=== PATIENT | male | born 1960 | race African-American/Black ===

== ENCOUNTER 2016-12-01 19:00 | Emergency (ER) | payer OTHER ==
[2016-12-01] MEDS ORDERED: IPRATROPIUM-ALBUTEROL 3 ML NEB INHALATION STA (19:48)
[2016-12-01] MEDS ORDERED: predniSONE 20 MG TAB PO STA (19:48)
[2016-12-01] MEDS ORDERED: ALBUTEROL NEBULIZED 2.5 MG/3 ML INHALATION STA (19:48)
[2016-12-01] MEDS ORDERED: LIDOCAINE VISCOUS 2% 15 ML CUP MUCOUS MEM ONE (19:49)
[2016-12-01 20:03] LABS: Basophils # (A) 0.2 k/uL (0-0.2); Basophils % (A) 1 %; CH 29.6; CHCM 32.7; Eosinophils # (A) 0.2 k/uL (0-0.7); Eosinophils % (A) 1 %; HCT 45.4 % (39.0-53.0); HDW 2.19; HGB 15.1 gm/dL (13.0-17.5); Luc # (Auto) 0.46; Luc % (Auto) 4; Lymphocytes # (A) 2.5 k/uL (1.0-4.8); Lymphocytes % (A) 21 %; MCH 30.1 pg (25.0-35.0); MCHC 33.2 g/dL (31.0-37.0); MCV 90.9 fL (80.0-100.0); Mean Platelet Volume 6.8; Monocytes # (A) 0.9 k/uL (0-1.0); Monocytes % (A) 8 %; Neutrophils % (A) 65 %; RDW 13.1 % (11.5-15.5); WBC 12.2 k/uL (3.8-10.6); WBC (Perox) 12.11
[2016-12-01 20:09] LABS: ALT 55 U/L (21-72); AST 54 U/L (17-59); Alkaline Phosphatase 85 U/L (38-126); Anion Gap 14 mmol/L; Blood Urea Nitrogen 8 mg/dL (9-20); Calcium 10.2 mg/dL (8.4-10.2); Carbon Dioxide 25 mmol/L (22-30); Chloride 103 mmol/L (98-107); Glucose 117 mg/dL (74-99); Non-African American GFR(MDRD) >60 (>60 ml/min/1.73 sqM); Potassium 3.7 mmol/L (3.5-5.1); Sodium 142 mmol/L (137-145); Total Bilirubin 0.6 mg/dL (0.2-1.3); Total Protein 8.1 g/dL (6.3-8.2)
[2016-12-01 20:14] LABS: Alcohol 104 mg/dL
[2016-12-01] MEDS ORDERED: RX INFO: IV CONTRAST WAS GIVEN 1 EACH MISC MISCELLANE PRN (21:45)
--- NOTE | 2016-12-01 21:59 | XR ---
EXAMINATION TYPE: XR chest 2V DATE OF EXAM: 12/01/2016 8:36 PM COMPARISON: 09/23/2015 INDICATION: Difficulty breathing, short of breath TECHNIQUE: Frontal and lateral views the chest are obtained FINDINGS: The heart size is normal. The pulmonary vasculature is normal. There is increased lung markings at the right posterior lung base. Correlate for right lower lobe pne umonia. IMPRESSION: 1. Clinical correlation recommended for right lower lobe pneumonia. Follow-up is recommended.
[2016-12-01] MEDS ORDERED: AZITHROMYCIN 500 MG TAB PO STA (22:10)
--- NOTE | 2016-12-01 22:30 | ED ---
SOB HPI - General Chief Complaint: Shortness of Breath Stated Complaint: BRITTNEY Time Seen by Provider: 12/01/16 19:19 Source: patient Mode of arrival: ambulatory Limitations: no limitations - History of Present Illness Initial Comments: Please see the scanned paper chart - Related Data Home Medications Medication Instructions Recorded Confirmed Albuterol Sulfate [Proventil Hfa] 2 puff INHALATION RT-QID PRN 12/01/16 12/01/16 Budesonide-Formot 160-4.5 Mcg 2 puff INHALATION RT-BID 12/01/16 12/01/16 [Symbicort 160-4.5 Mcg Inhaler] Ergocalciferol [Vitamin D2] 50,000 unit PO QMONTH 12/01/16 12/01/16 Fluticasone Nasal [place] [Flonase 2 spr EA NOSTRIL DAILY PRN 12/01/16 12/01/16 Nasal [place]] HYDROcodone/APAP 7.5-325MG [[place] 1 tab PO BID PRN 12/01/16 12/01/16 7.5] Hydrochlorothiazide [Hydrodiuril] 12.5 mg PO DAILY 12/01/16 12/01/16 Metoprolol Tartrate [Lopressor] 12.5 mg PO BID 12/01/16 12/01/16 Omeprazole [PriLOSEC] 20 mg PO BID 12/01/16 12/01/16 amLODIPine [Norvasc] 10 mg PO DAILY 12/01/16 12/01/16 Previous Rx's Medication Instructions Recorded Albuterol Inhaler [Ventolin Hfa 1 - 2 puff INHALATION Q6HR PRN #1 12/01/16 Inhaler] inhaler Azithromycin [Zithromax Z-pack] 250 mg PO DIRECTED #6 tab 12/01/16 predniSONE 60 mg PO DAILY #30 tab 12/01/16 Allergies Allergy/AdvReac Type Severity Reaction Status Date / Time No Known Allergies Allergy Verified 12/01/16 19:27 Review of Systems ROS Statement: Those systems with pertinent positive or pertinent negative responses have been documented in the HPI. ROS Other: All systems not noted in ROS Statement are negative. 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 History of Any Multi-Drug Resistant Organisms: None Reported Past Surgical History: Orthopedic Surgery Additional Past Surgical History / Comment(s): ORIF LT HIP Past Anesthesia/Blood Transfusion Reactions: No Reported Reaction Past Psychological History: No Psychological Hx Reported Smoking Status: Current every day smoker Past Alcohol Use History: Daily Past Drug Use History: None Reported - Past Family History Mother Family Medical History: Cancer General Exam Limitations: no limitations Course Vital Signs 12/01/16 12/01/16 12/01/16 19:14 20:13 20:21 Temperature 98.9 F Pulse Rate 109 H 102 H 102 H Respiratory 18 Rate Blood Pressure 116/90 O2 Sat by Pulse 93 L Oximetry 12/01/16 12/01/16 12/01/16 20:25 21:06 22:44 Temperature Pulse Rate 102 H 101 H 99 Respiratory 20 20 Rate Blood Pressure 156/88 161/101 O2 Sat by Pulse 96 94 L Oximetry 12/02/16 00:09 Temperature 98.1 F Pulse Rate 98 Respiratory 18 Rate Blood Pressure 153/99 O2 Sat by Pulse 92 L Oximetry Medical Decision Making - Lab Data Result diagrams: 12/01/16 19:30 12/01/16 19:30 Lab Results 12/01/16 12/01/16 12/01/16 Range/Units 19:30 19:30 19:30 WBC 12.2 H (3.8-10.6) k/uL RBC 5.00 (4.30-5.90) m/uL Hgb 15.1 (13.0-17.5) gm/dL Hct 45.4 (39.0-53.0) % MCV 90.9 (80.0-100.0) fL MCH 30.1 (25.0-35.0) pg MCHC 33.2 (31.0-37.0) g/dL RDW 13.1 (11.5-15.5) % Plt Count 349 (150-450) k/uL Neutrophils % 65 % Lymphocytes % 21 % Monocytes % 8 % Eosinophils % 1 % Basophils % 1 % Neutrophils # 8.0 H (1.3-7.7) k/uL Lymphocytes # 2.5 (1.0-4.8) k/uL Monocytes # 0.9 (0-1.0) k/uL Eosinophils # 0.2 (0-0.7) k/uL Basophils # 0.2 (0-0.2) k/uL D-Dimer 0.71 H (<0.60) mg/L FEU Sodium 142 (137-145) mmol/L Potassium 3.7 (3.5-5.1) mmol/L Chloride 103 (98-107) mmol/L Carbon Dioxide 25 (22-30) mmol/L Anion Gap 14 mmol/L BUN 8 L (9-20) mg/dL Creatinine 0.90 (0.66-1.25) mg/dL Est GFR (MDRD) Af Amer >60 (>60 ml/min/1.73 sqM) Est GFR (MDRD) Non-Af >60 (>60 ml/min/1.73 sqM) Glucose 117 H (74-99) mg/dL Calcium 10.2 (8.4-10.2) mg/dL Total Bilirubin 0.6 (0.2-1.3) mg/dL AST 54 (17-59) U/L ALT 55 (21-72) U/L Alkaline Phosphatase 85 (38-126) U/L Troponin I (0.000-0.034) ng/mL NT-Pro-B Natriuret Pep pg/mL Total Protein 8.1 (6.3-8.2) g/dL Albumin 4.3 (3.5-5.0) g/dL Serum Alcohol 104 mg/dL Group A Strep Rapid (Negative) 12/01/16 12/01/16 12/01/16 Range/Units 19:30 19:30 19:55 WBC (3.8-10.6) k/uL RBC (4.30-5.90) m/uL Hgb (13.0-17.5) gm/dL Hct (39.0-53.0) % MCV (80.0-100.0) fL MCH (25.0-35.0) pg MCHC (31.0-37.0) g/dL RDW (11.5-15.5) % Plt Count (150-450) k/uL Neutrophils % % Lymphocytes % % Monocytes % % Eosinophils % % Basophils % % Neutrophils # (1.3-7.7) k/uL Lymphocytes # (1.0-4.8) k/uL Monocytes # (0-1.0) k/uL Eosinophils # (0-0.7) k/uL Basophils # (0-0.2) k/uL D-Dimer (<0.60) mg/L FEU Sodium (137-145) mmol/L Potassium (3.5-5.1) mmol/L Chloride (98-107) mmol/L Carbon Dioxide (22-30) mmol/L Anion Gap mmol/L BUN (9-20) mg/dL Creatinine (0.66-1.25) mg/dL Est GFR (MDRD) Af Amer (>60 ml/min/1.73 sqM) Est GFR (MDRD) Non-Af (>60 ml/min/1.73 sqM) Glucose (74-99) mg/dL Calcium (8.4-10.2) mg/dL Total Bilirubin (0.2-1.3) mg/dL AST (17-59) U/L ALT (21-72) U/L Alkaline Phosphatase (38-126) U/L Troponin I <0.012 (0.000-0.034) ng/mL NT-Pro-B Natriuret Pep 35 pg/mL Total Protein (6.3-8.2) g/dL Albumin (3.5-5.0) g/dL Serum Alcohol mg/dL Group A Strep Rapid Negative (Negative) Disposition Clinical Impression: Pneumonia Disposition: HOME SELF-CARE Condition: Fair Instructions: Pneumonia (ED) Prescriptions: Albuterol Inhaler [Ventolin Hfa Inhaler] 1 - 2 puff INHALATION Q6HR PRN #1 inhaler PRN Reason: Wheezing Azithromycin [Zithromax Z-pack] 250 mg PO DIRECTED #6 tab predniSONE 60 mg PO DAILY #30 tab Referrals: None,Stated [Primary Care Provider] - 1-2 days Mary Grace Mckay MD [REFERRING] - 1-2 days
--- NOTE | 2016-12-01 23:25 | CT ---
EXAM: CT Angiography Chest With Intravenous Contrast. CLINICAL HISTORY: Reason: Pain TECHNIQUE: Axial computed tomographic angiography images of the chest with intravenous contrast using pulmonary embolism protocol. CTDI is 8.3 mGy and DLP is 1046 mGy-cm This CT exam was performed using one or more of the following dose reduction techniques: automated exposure control, adjustment of the mA and/or kV according to patient size, and/or use of iterative reconstruction technique. MIP reconstructed images were created and reviewed. COMPARISON: No relevant prior studies available. FINDINGS: Examination is limited due to bolus timing/suboptimal ulnar arterial opacification. No clear PE, though subsegmental and even subsegmental emboli could be missed. Dilation of the main pulmonary artery suggesting hypertension. No dissection or other acute aortic syndrome. Extensive reticulonodular pulmonary infiltrates, most pronounced in the right middle lobe suggesting atypical infection/bronchiolitis. Minimal apical emphysema. Mild mediastinal adenopathy. Largest pretracheal node measures 1.1 cm in short axis. This is likely postinflammatory given other findings. Hepatic steatosis. No acute fracture. IMPRESSION: Extensive bronchiolitis, most pronounced in the RML. No clear PE on limited exam. Dilated pulmonary artery suggesting hypertension.
[2016-12-02 00:10] VITALS: BP 153/99; PULSE 98; RESP 18; TEMP 98.1
== END 2016-12-02 00:10 | disposition home or self-care (01) ==
LOC: EC 19:00
DX: J18.9 Pneumonia, unspecified organism (principal); J44.9 Chronic obstructive pulmonary disease, unspecified; K21.9 Gastro-esophageal reflux disease without esophagitis; I10 Essential (primary) hypertension; F17.200 Nicotine dependence, unspecified, uncomplicated; Z79.51 Long term (current) use of inhaled steroids; Z79.899 Other long term (current) drug therapy
CPT/HCPCS: 36415; 94640 ×2; 93005; 85379; 83880; 80053; 84484; 85025; 80320; 87081; 87430; 71020; 71275; 99285; 96365; Q9967; J0696; J7512

== ENCOUNTER → 2017-02-06 | Outpatient (CLI) | payer OTHER ==
--- NOTE | 2017-02-07 07:49 | US ---
EXAMINATION TYPE: US venous doppler duplex LE LT DATE OF EXAM: 02/06/2017 12:54 PM COMPARISON: NONE CLINICAL HISTORY: M79.605 PAIN IN LT LEG,R25.5 LEG CRAMPING. SIDE PERFORMED: Left TECHNIQUE: The lower extremity deep venous system is examined utilizing real time linear array sonog christian with graded compression, doppler sonography and color-flow sonography. VESSELS IMAGED: External Iliac Vein (EIV) Common Femoral Vein Deep Femoral Vein Greater Saphenous Vein * Femoral Vein Popliteal Vein Small Saphenous Vein * Proximal Calf Veins (* superficial vessels) Left Leg: Negative for DVT IMPRESSION: Negative exam. No evidence of deep venous thrombosis in the left leg.
== END | disposition home or self-care (01) ==
LOC: RADUSWWP 12:12
PROVIDERS: ATTEND Family Medicine
DX: M79.605 Pain in left leg (principal); R25.2 Cramp and spasm

== ENCOUNTER 2017-06-26 13:45 | Emergency (ER) | payer OTHER ==
[2017-06-26 13:55] VITALS: BP 127/99; PULSE 103; RESP 20; TEMP 98.1
--- NOTE | 2017-06-26 14:13 | ED ---
General Adult HPI - General Chief complaint: Extremity Problem,Nontraumatic Stated complaint: neck/arm/shoulder tightness Time Seen by Provider: 06/26/17 13:56 Source: patient, RN notes reviewed Mode of arrival: ambulatory Limitations: no limitations - History of Present Illness Initial comments: 57-year-old male presents emergency Department with chief complaint of left shoulder neck pain. Patient states this started 5-6 days ago. He states he felt that he slept wrong. He did wake up with the pain. Patient denies any weakness of his upper extremities. He states he does have some discomfort in his left trapezius region. Patient currently takes [place] states that helping. He has not tried any other medications or topical applicants at this time. Patient states that he has not seen his primary care physician for this. Patient denies any paresthesias denies chest pain or shortness breath denies headache or dizziness. - Related Data Home Medications Medication Instructions Recorded Confirmed Albuterol Sulfate [Proventil Hfa] 2 puff INHALATION RT-QID PRN 12/01/16 12/01/16 Budesonide-Formot 160-4.5 Mcg 2 puff INHALATION RT-BID 12/01/16 12/01/16 [Symbicort 160-4.5 Mcg Inhaler] Ergocalciferol [Vitamin D2] 50,000 unit PO QMONTH 12/01/16 12/01/16 Fluticasone Nasal [place] [Flonase 2 spr EA NOSTRIL DAILY PRN 12/01/16 12/01/16 Nasal [place]] HYDROcodone/APAP 7.5-325MG [[place] 1 tab PO BID PRN 12/01/16 12/01/16 7.5] Hydrochlorothiazide [Hydrodiuril] 12.5 mg PO DAILY 12/01/16 12/01/16 Metoprolol Tartrate [Lopressor] 12.5 mg PO BID 12/01/16 12/01/16 Omeprazole [PriLOSEC] 20 mg PO BID 12/01/16 12/01/16 amLODIPine [Norvasc] 10 mg PO DAILY 12/01/16 12/01/16 Previous Rx's Medication Instructions Recorded Albuterol Inhaler [Ventolin Hfa 1 - 2 puff INHALATION Q6HR PRN #1 12/01/16 Inhaler] inhaler Azithromycin [Zithromax Z-pack] 250 mg PO DIRECTED #6 tab 12/01/16 predniSONE 60 mg PO DAILY #30 tab 12/01/16 Cyclobenzaprine [Flexeril] 10 mg PO TID PRN #15 tab 06/26/17 methylPREDNISolone [Medrol Dose 4 mg PO DIRECTED #1 pack 06/26/17 Pack] Allergies Allergy/AdvReac Type Severity Reaction Status Date / Time No Known Allergies Allergy Verified 06/26/17 13:55 Review of Systems ROS Statement: Those systems with pertinent positive or pertinent negative responses have been documented in the HPI. ROS Other: All systems not noted in ROS Statement are negative. 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 History of Any Multi-Drug Resistant Organisms: None Reported Past Surgical History: Orthopedic Surgery Additional Past Surgical History / Comment(s): ORIF LT HIP Past Anesthesia/Blood Transfusion Reactions: No Reported Reaction Past Psychological History: No Psychological Hx Reported Smoking Status: Current every day smoker Past Alcohol Use History: Occasional Past Drug Use History: None Reported - Past Family History Mother Family Medical History: Cancer General Exam Limitations: no limitations General appearance: alert, in no apparent distress Head exam: Present: atraumatic, normocephalic, normal inspection ENT exam: Present: normal exam, normal oropharynx, mucous membranes moist, TM's normal bilaterally Neck exam: Present: normal inspection, tenderness (Mild tenderness over left trapezius), full ROM. Absent: meningismus, lymphadenopathy Respiratory exam: Present: normal lung sounds bilaterally. Absent: respiratory distress, wheezes, rales, rhonchi, stridor Cardiovascular Exam: Present: regular rate, normal rhythm, normal heart sounds. Absent: systolic murmur, diastolic murmur, rubs, gallop, clicks Extremities exam: Present: other (Patient's full range of motion of bilateral upper extremities neurovascularly intact strength 5/5 equal bilaterally) Skin exam: Present: warm, dry, intact, normal color. Absent: rash Course Vital Signs 06/26/17 13:53 Temperature 98.1 F Pulse Rate 103 H Respiratory 20 Rate Blood Pressure 127/99 O2 Sat by Pulse 98 Oximetry Medical Decision Making - Medical Decision Making This a 57-year-old male presents emergency department for left trapezius left shoulder pain. Patient has some cervical radiculopathy pain. Patient currently takes [place] will be advised to continue this medication will be given steroids in Flexeril. Patient will follow-up with primary care physician pain management. Return parameters discussed. Disposition Clinical Impression: Cervical radiculopathy Disposition: HOME SELF-CARE Condition: Stable Instructions: Cervical Radiculopathy (ED) Additional Instructions: Please return to the Emergency Department if symptoms worsen or any other concerns. Prescriptions: Cyclobenzaprine [Flexeril] 10 mg PO TID PRN #15 tab PRN Reason: Muscle Spasm methylPREDNISolone [Medrol Dose Pack] 4 mg PO DIRECTED #1 pack Referrals: Lori Ugalde MD [Primary Care Provider] - 1-2 days Time of Disposition: 14:27
--- NOTE | 2017-06-26 14:35 | XR ---
EXAMINATION TYPE: XR cervical spine comp DATE OF EXAM: 06/26/2017 CLINICAL HISTORY: pain COMPARISON: March 2009 TECHNIQUE: Frontal, lateral, oblique, swimmers, and open mouth view of the cervical spine are obtaine d. FINDINGS: The cervical spine is visualized in its entirety from C1 thru the top of T1 level. It is s atisfactory in alignment without evidence of acute fracture or dislocation. The pre-vertebral soft t issue appears within normal limits. Moderate degenerative narrowing at C5-6 and C6-7 with ventral spo ndylosis. Chronic loss of height involving C6 unchanged. The C1-C2 articulation is unremarkable on th e open mouth view. The oblique images are within normal limits. IMPRESSION: No acute fracture or dislocation is seen in the cervical spine.ICD 10 NO FRACTURE, INITI AL EVALUATION
== END 2017-06-26 14:38 | disposition home or self-care (01) ==
LOC: EC 13:45
DX: M54.12 Radiculopathy, cervical region (principal); I10 Essential (primary) hypertension; K21.9 Gastro-esophageal reflux disease without esophagitis; J44.9 Chronic obstructive pulmonary disease, unspecified; F17.200 Nicotine dependence, unspecified, uncomplicated; Z79.51 Long term (current) use of inhaled steroids; Z79.899 Other long term (current) drug therapy; Z86.79 Personal history of other diseases of the circulatory system
CPT/HCPCS: 72050; 99283

== ENCOUNTER 2017-07-07 04:59 | Emergency (ER) | payer OTHER ==
[2017-07-07 05:05] VITALS: BP 145/86; PULSE 103; RESP 20; TEMP 96.9
[2017-07-07] MEDS ORDERED: KETOROLAC 60 MG/2 ML VIAL IM STA (05:21)
[2017-07-07] MEDS ORDERED: MORPHINE SULFATE 2 MG/ML SYRINGE IM STA (05:22)
--- NOTE | 2017-07-07 05:28 | ED ---
General Adult HPI - General Chief complaint: Back Pain/Injury Stated complaint: Neck Pain, Left Arm Pain Time Seen by Provider: 07/07/17 05:10 Source: patient, family, RN notes reviewed, old records reviewed Mode of arrival: ambulatory Limitations: no limitations - History of Present Illness Initial comments: Patient is a pleasant 57-year-old male presenting to the emergency Department with neck pain. Patient states discomfort does start in the back of the neck and does radiate down the left arm. Onset of symptoms was a few weeks ago. Patient questions if he had neck problems in the distant past. Patient states discomfort starts in the neck and radiates to the left arm. Patient states he has not been able to sleep well. Patient denies any weakness. No loss of sensation. No chest or back pain. No fevers. Patient was in the emergency department a week ago and did have x-rays done. - Related Data Home Medications Medication Instructions Recorded Confirmed Albuterol Sulfate [Proventil Hfa] 2 puff INHALATION RT-QID PRN 12/01/16 12/01/16 Budesonide-Formot 160-4.5 Mcg 2 puff INHALATION RT-BID 12/01/16 12/01/16 [Symbicort 160-4.5 Mcg Inhaler] Ergocalciferol [Vitamin D2] 50,000 unit PO QMONTH 12/01/16 12/01/16 Fluticasone Nasal [place] [Flonase 2 spr EA NOSTRIL DAILY PRN 12/01/16 12/01/16 Nasal [place]] HYDROcodone/APAP 7.5-325MG [[place] 1 tab PO BID PRN 12/01/16 12/01/16 7.5] Hydrochlorothiazide [Hydrodiuril] 12.5 mg PO DAILY 12/01/16 12/01/16 Metoprolol Tartrate [Lopressor] 12.5 mg PO BID 12/01/16 12/01/16 Omeprazole [PriLOSEC] 20 mg PO BID 12/01/16 12/01/16 amLODIPine [Norvasc] 10 mg PO DAILY 12/01/16 12/01/16 Previous Rx's Medication Instructions Recorded Albuterol Inhaler [Ventolin Hfa 1 - 2 puff INHALATION Q6HR PRN #1 12/01/16 Inhaler] inhaler Azithromycin [Zithromax Z-pack] 250 mg PO DIRECTED #6 tab 12/01/16 predniSONE 60 mg PO DAILY #30 tab 12/01/16 Cyclobenzaprine [Flexeril] 10 mg PO TID PRN #15 tab 06/26/17 methylPREDNISolone [Medrol Dose 4 mg PO DIRECTED #1 pack 06/26/17 Pack] Allergies Allergy/AdvReac Type Severity Reaction Status Date / Time No Known Allergies Allergy Verified 07/07/17 05:05 Review of Systems ROS Statement: Those systems with pertinent positive or pertinent negative responses have been documented in the HPI. ROS Other: All systems not noted in ROS Statement are negative. 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 History of Any Multi-Drug Resistant Organisms: None Reported Past Surgical History: Orthopedic Surgery Additional Past Surgical History / Comment(s): ORIF LT HIP Past Anesthesia/Blood Transfusion Reactions: No Reported Reaction Past Psychological History: No Psychological Hx Reported Smoking Status: Current every day smoker Past Alcohol Use History: Occasional Past Drug Use History: None Reported - Past Family History Mother Family Medical History: Cancer General Exam Limitations: no limitations General appearance: alert, in no apparent distress Head exam: Present: atraumatic, normocephalic Eye exam: Present: normal appearance, PERRL ENT exam: Present: normal oropharynx Neck exam: Present: normal inspection. Absent: tenderness Respiratory exam: Present: normal lung sounds bilaterally Cardiovascular Exam: Present: regular rate, normal rhythm Expanded Peripheral pulses: 2+: Radial (L) GI/Abdominal exam: Present: soft. Absent: tenderness Extremities exam: Present: normal inspection, other (Contraction bilateral small fingers). Absent: tenderness Back exam: Present: normal inspection Neurological exam: Present: alert. Absent: motor sensory deficit Psychiatric exam: Present: normal affect, normal mood Skin exam: Present: normal color Course Vital Signs 07/07/17 05:02 Temperature 96.9 F L Pulse Rate 103 H Respiratory 20 Rate Blood Pressure 145/86 O2 Sat by Pulse 95 Oximetry Disposition Clinical Impression: Cervical radiculopathy Disposition: HOME SELF-CARE Condition: Stable Instructions: Cervical Radiculopathy (ED) Additional Instructions: Please follow-up with primary care physician and orthopedics in the next day or 2 for recheck. Return for weakness, loss of sensation, fevers, worsening or changing symptoms or other concerns. If symptoms continue may need MRI. Referrals: Lori Ugalde MD [Primary Care Provider] - 1-2 days Don Curry DO [Doctor of Osteopathic Medicine] - 1-2 days Time of Disposition: 05:28
== END 2017-07-07 05:42 | disposition home or self-care (01) ==
LOC: EC 04:59
DX: M54.12 Radiculopathy, cervical region (principal); J44.9 Chronic obstructive pulmonary disease, unspecified; K21.9 Gastro-esophageal reflux disease without esophagitis; I10 Essential (primary) hypertension; F17.200 Nicotine dependence, unspecified, uncomplicated; Z79.51 Long term (current) use of inhaled steroids; Z79.899 Other long term (current) drug therapy
CPT/HCPCS: 99283; 96372 ×2; J1885; J2270

== ENCOUNTER 2017-08-07 18:29 | Emergency (ER) | payer OTHER ==
[2017-08-07] MEDS ORDERED: DIAZEPAM 5 MG/ML 2 ML INJ IVP STA (19:38)
[2017-08-07] MEDS ORDERED: SODIUM CHLORIDE 0.9% 500 ML IV ONE (19:38)
[2017-08-07] MEDS ORDERED: KETOROLAC 30 MG/ML 1 ML VIAL IVP STA (19:38)
--- NOTE | 2017-08-07 19:50 | ED ---
Headache HPI - General Chief Complaint: Headache Stated Complaint: HEADACHE, NECK PAIN, LEFT ARM PAIN Time Seen by Provider: 08/07/17 18:54 Mode of arrival: ambulatory Limitations: no limitations - History of Present Illness Initial Comments: 57-year-old male patient presents to the emergency department today with complaints of headache and left neck and arm pain. Patient had a slip and fall accident 2 weeks ago and did sustain some facial trauma and hit his head. He denied any loss of consciousness with the injury. He states that he did care and had CT scans that were negative. Patient states that he has been having headaches every day all day long. He states the pain is mostly in the back of his head. States that he is taken [id number] ibuprofen and acetaminophen without relief of symptoms. She is also having left-sided neck pain that radiates down his arm. He states the pain makes it difficult for him to sleep at night. He reports tingling to the entire left arm. He denies any increased pain with movement of the arm. He denies any nausea, vomiting, vision, weakness , or dizziness. He states he does have some blurred vision however he is not wearing his appropriate prescription of eyeglasses. Patient denies any recent rash, fever, chills, shortness breath, chest pain, abdominal pain, diarrhea, constipation, back pain, hematuria, dysuria, urinary urgency, urinary frequency , or any other complaints. - Related Data Home Medications Medication Instructions Recorded Confirmed Albuterol Sulfate [Proventil Hfa] 2 puff INHALATION RT-Q4H PRN 12/01/16 08/07/17 Baclofen [Lioresal] 20 mg PO BID 07/21/17 08/07/17 Acetaminophen Tab [Tylenol Tab] 500 mg PO Q6HR PRN 08/07/17 08/07/17 busPIRone HCL 10 mg PO BID 08/07/17 08/07/17 Previous Rx's Medication Instructions Recorded Cyclobenzaprine [Flexeril] 10 mg PO TID #15 tab 08/07/17 Hydrocodone/Acetaminophen [Crandall 1 tab PO Q6HR PRN #12 tab 08/07/17 5-325] predniSONE 50 mg PO DAILY #5 tablet 08/07/17 Allergies Allergy/AdvReac Type Severity Reaction Status Date / Time No Known Allergies Allergy Verified 08/07/17 19:13 Review of Systems ROS Statement: Those systems with pertinent positive or pertinent negative responses have been documented in the HPI. ROS Other: All systems not noted in ROS Statement are negative. 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 History of Any Multi-Drug Resistant Organisms: None Reported Past Surgical History: Orthopedic Surgery Additional Past Surgical History / Comment(s): ORIF LT HIP Past Anesthesia/Blood Transfusion Reactions: No Reported Reaction Past Psychological History: No Psychological Hx Reported Smoking Status: Current every day smoker Past Alcohol Use History: Occasional Past Drug Use History: None Reported - Past Family History Mother Family Medical History: Cancer General Exam Limitations: no limitations General appearance: alert, in no apparent distress, other (Physical well- developed, well-nourished adult male patient in no acute distress. Vital signs upon presentation are temperature 97.7F, pulse 101, respirations 22, blood pressure 149/103, pulse ox 94% on room air.) Head exam: Present: atraumatic, normocephalic, normal inspection Eye exam: Present: normal appearance, PERRL, EOMI. Absent: scleral icterus, conjunctival injection, nystagmus, periorbital swelling ENT exam: Present: normal exam, normal oropharynx, mucous membranes moist, TM's normal bilaterally Neck exam: Present: normal inspection, full ROM. Absent: tenderness, meningismus, lymphadenopathy Respiratory exam: Present: wheezes (Monday expiratory wheezing throughout posterior lung fowler). Absent: normal lung sounds bilaterally, respiratory distress, rales, rhonchi, stridor Cardiovascular Exam: Present: normal rhythm, tachycardia, normal heart sounds. Absent: systolic murmur, diastolic murmur, rubs, gallop, clicks GI/Abdominal exam: Present: soft, normal bowel sounds. Absent: distended, tenderness, guarding, rebound, rigid Extremities exam: Present: full ROM, normal capillary refill, other (Strength in the upper extremities is 5/5.). Absent: normal inspection (There is evidence of a soft tissue mass at the proximal aspect of the left upper arm. Area is nontender to palpation, patient reports it has been there for years.), tenderness, pedal edema, joint swelling, calf tenderness Back exam: Present: normal inspection. Absent: vertebral tenderness Neurological exam: Present: alert, oriented X3, CN II-XII intact Psychiatric exam: Present: normal affect, agitated Skin exam: Present: warm, dry, intact, normal color. Absent: rash Course Vital Signs 08/07/17 08/07/17 08/07/17 18:38 20:40 22:05 Temperature 97.7 F 98.0 F Pulse Rate 101 H 88 Respiratory 22 18 20 Rate Blood Pressure 149/103 151/105 O2 Sat by Pulse 94 L 99 Oximetry Medical Decision Making - Medical Decision Making 57-year-old male patient presented to the emergency department today with complaints of neck pain, left arm pain, and headaches. Patient reported that he did have a slip and fall accident approximately 2 weeks ago and has been having headaches since then. Examination did reveal some mild left-sided neck tenderness. Patient is neurologically intact. Strength in the upper extremities was normal. We did obtain a computed tomography scan of the brain which showed no acute intracranial abnormalities. We attempted computed tomography scan of the cervical spine however patient was too uncomfortable to lie still so C1 through C4 was visualized and showed no changes. Patient does have a history of chronic neck pain with cervical radiculopathy. It is felt that symptoms today are related to this. We will discharge him home and start him on a course of steroids, pain medications, and muscle relaxers. Patient also did have low oxygen saturation and coarse breath sounds here in the department. I did want to obtain a chest x-ray however patient refused and wanted to be discharged home. Patient is instructed to follow-up with orthopedics for further evaluation. He is instructed to return here immediately for any new, worsening, or concerning symptoms. He verbalizes understanding and agrees with this plan. - EKG Data EKG Comments: EKG obtained at 1846 shows normal sinus rhythm with a ventricular rate of 96, NH interval 154, QRS duration of 72, QT 334, QTC 421. No evidence of ST elevation or depression. - Radiology Data Radiology results: report reviewed, image reviewed CT of the brain and cervical spine are performed without contrast. There is mild cerebral cortical atrophy. There is no mass effect or midline shift. There is no sign of intracranial hemorrhage. The calvarium is intact. There is limited visualization of the lower cervical spine per the upper cervical spine is seen from the skull base to C4. Vertebra abnormal minute. Exam is limited by motion. Posterior elements are intact. The skull base is intact. Impression by Dr. Jones shows negative computed tomography scan of the brain. No change. Limited computed tomography scan of the cervical spine. No fracture seen. No adverse change compared to old exam. Disposition Clinical Impression: Post concussive syndrome, Cervical radiculopathy Disposition: HOME SELF-CARE Condition: Good Instructions: Cervical Radiculopathy (ED), Post Concussion Syndrome (ED) Additional Instructions: Take medications as directed. Follow-up with her primary care physician for recheck in 1-2 days. Follow-up with occupational health specialist as soon as possible. Return here immediately for any new, worsening, or concerning symptoms. Prescriptions: Cyclobenzaprine [Flexeril] 10 mg PO TID #15 tab Hydrocodone/Acetaminophen [Crandall 5-325] 1 tab PO Q6HR PRN #12 tab PRN Reason: Pain predniSONE 50 mg PO DAILY #5 tablet Referrals: None,Stated [Primary Care Provider] - 1-2 days Don Curry, [Doctor of Osteopathic Medicine] - 1-2 days Time of Disposition: 21:51
[2017-08-07] MEDS ORDERED: HYDROmorphone 1 MG/ML 1 ML SYRINGE IVP STA (21:12)
--- NOTE | 2017-08-07 21:29 | CT ---
EXAMINATION TYPE: CT brain ajine wo con DATE OF EXAM: 08/07/2017 COMPARISON: 07/21/2017 HISTORY: Fall 2 weeks ago. Left sided arm pain CT DLP: 1236 mGycm Automated exposure control for dose reduction was used. TECHNIQUE: CT scan of the head and cervical spine are performed without contrast. FINDINGS: There is mild cerebral cortical atrophy. There is no mass effect nor midline shift. There is no sign of intracranial hemorrhage. The calvarium is intact. There is limited visualization of the lower cervical spine. The upper cervical spine is seen from the skull base to C4. Vertebra have normal alignment. Exam is limited by motion. Posterior elements are intact. The skull base is intact. IMPRESSION: Negative CT scan of the brain. No change. Limited CT scan of the cervical spine. No fracture seen. No adverse change compared to old exam.
[2017-08-07 22:15] VITALS: BP 151/105; PULSE 88; RESP 20; TEMP 98
== END 2017-08-07 22:05 | disposition home or self-care (01) ==
LOC: EC 18:29
DX: F07.81 Postconcussional syndrome (principal); M54.12 Radiculopathy, cervical region; G44.309 Post-traumatic headache, unspecified, not intractable; G47.30 Sleep apnea, unspecified; Z99.89 Dependence on other enabling machines and devices; F17.200 Nicotine dependence, unspecified, uncomplicated; Z53.20 Procedure and treatment not carried out because of patient's decision for unspecified reasons; W01.10XA Fall on same level from slipping, tripping and stumbling with subsequent striking against unspecified object, initial encounter
CPT/HCPCS: 72125; 70450; 99284; 96374; 96375 ×2; 96361; J3360; J1885; J1170; 93005

== ENCOUNTER 2018-02-19 11:14 | Emergency (ER) | payer OTHER ==
[2018-02-19 12:19] LABS: Basophils # (A) 0.1 k/uL (0-0.2); Basophils % (A) 1 %; Eosinophils # (A) 0.4 k/uL (0-0.7); Eosinophils % (A) 6 %; HCT 51.8 % (39.0-53.0); HGB 16.7 gm/dL (13.0-17.5); Lymphocytes # (A) 2.1 k/uL (1.0-4.8); Lymphocytes % (A) 27 %; MCH 28.6 pg (25.0-35.0); MCHC 32.2 g/dL (31.0-37.0); MCV 88.9 fL (80.0-100.0); Mean Platelet Volume 6.8; Monocytes # (A) 0.7 k/uL (0-1.0); Monocytes % (A) 9 %; Neutrophils # (A) 4.1 k/uL (1.3-7.7); Neutrophils % (A) 53 %; Platelet Count 313 k/uL (150-450); RBC 5.82 m/uL (4.30-5.90); RDW 13.6 % (11.5-15.5); WBC 7.7 k/uL (3.8-10.6)
--- NOTE | 2018-02-19 12:19 | ED ---
General Adult HPI - General Chief complaint: Chest Pain Stated complaint: chest pain Time Seen by Provider: 02/19/18 11:29 Source: patient, RN notes reviewed, old records reviewed Mode of arrival: wheelchair Limitations: no limitations - History of Present Illness Initial comments: This is a 49-year-old male the ER for evaluation. Patient comes in for complaints of nothing. Patient has no complaints. He states he went to his normal doctor for recheck. Patient the ER for evaluation, patient basis for abnormal EKG patient states he has no complaints no chest pain or shortness of breath no diaphoresis. He doesn't occasionally getting chest pain. Patient states he is upset that is in the ER and now, he would not give the ER in the first place. He does have multiple risk factors for heart disease including high blood pressure cholesterol diabetes and a smoker - Related Data Home Medications Medication Instructions Recorded Confirmed Albuterol Sulfate [Proventil Hfa] 2 puff INHALATION RT-Q4H PRN 12/01/16 02/19/18 Beclomethasone Dipropionate [Qvar 1 puff INHALATION RT-BID 02/19/18 02/19/18 Redihaler] Cholecalciferol (Vitamin D3) 2,000 unit PO DAILY 02/19/18 02/19/18 [Vitamin D3] Hydrochlorothiazide 25 mg PO DAILY 02/19/18 02/19/18 Ibuprofen 800 mg PO TID PRN 02/19/18 02/19/18 Loratadine [Claritin] 10 mg PO DAILY 02/19/18 02/19/18 Omeprazole [PriLOSEC] 20 mg PO AC-BRKFST 02/19/18 02/19/18 amLODIPine [Norvasc] 10 mg PO DAILY 02/19/18 02/19/18 Allergies Allergy/AdvReac Type Severity Reaction Status Date / Time No Known Allergies Allergy Verified 02/19/18 12:06 Review of Systems ROS Statement: Those systems with pertinent positive or pertinent negative responses have been documented in the HPI. ROS Other: All systems not noted in ROS Statement are negative. 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 History of Any Multi-Drug Resistant Organisms: None Reported Past Surgical History: Orthopedic Surgery Additional Past Surgical History / Comment(s): ORIF LT HIP Past Anesthesia/Blood Transfusion Reactions: No Reported Reaction Past Psychological History: Anxiety Smoking Status: Current every day smoker Past Alcohol Use History: Occasional Past Drug Use History: None Reported - Past Family History Mother Family Medical History: Cancer General Exam Limitations: no limitations General appearance: alert, in no apparent distress Head exam: Present: atraumatic, normocephalic, normal inspection Eye exam: Present: normal appearance, PERRL, EOMI. Absent: scleral icterus, conjunctival injection, periorbital swelling ENT exam: Present: normal exam, mucous membranes moist Neck exam: Present: normal inspection. Absent: tenderness, meningismus, lymphadenopathy Respiratory exam: Present: normal lung sounds bilaterally. Absent: respiratory distress, wheezes, rales, rhonchi, stridor Cardiovascular Exam: Present: regular rate, normal rhythm, normal heart sounds. Absent: systolic murmur, diastolic murmur, rubs, gallop, clicks GI/Abdominal exam: Present: soft, normal bowel sounds. Absent: distended, tenderness, guarding, rebound, rigid Extremities exam: Present: normal inspection, full ROM, normal capillary refill. Absent: tenderness, pedal edema, joint swelling, calf tenderness Back exam: Present: normal inspection Neurological exam: Present: alert, oriented X3, CN II-XII intact Psychiatric exam: Present: normal affect, normal mood Skin exam: Present: warm, dry, intact, normal color. Absent: rash Course Vital Signs 02/19/18 02/19/18 11:25 12:17 Temperature 98.2 F Pulse Rate 90 86 Respiratory 18 18 Rate Blood Pressure 145/97 153/96 O2 Sat by Pulse 95 97 Oximetry - Reevaluation(s) Reevaluation #1: 02/19/18 13:33 Patient refuses to stay in the ER EKG Findings - EKG Comments: EKG Findings:: EKG shows sinus rhythm rate of 87, NC 164, QRS 76, QTc 435 Medical Decision Making - Medical Decision Making 57 male the ER for evaluation. Patient has positive EKG changes, which she no acute ST elevation on EKG here, troponin is negative, patient despite being told that he has risk factors for heart disease is refusing to stay in the ER - Lab Data Result diagrams: 02/19/18 12:05 02/19/18 12:05 Lab Results 02/19/18 02/19/18 02/19/18 Range/Units 12:05 12:05 12:05 WBC 7.7 (3.8-10.6) k/uL RBC 5.82 (4.30-5.90) m/uL Hgb 16.7 (13.0-17.5) gm/dL Hct 51.8 (39.0-53.0) % MCV 88.9 (80.0-100.0) fL MCH 28.6 (25.0-35.0) pg MCHC 32.2 (31.0-37.0) g/dL RDW 13.6 (11.5-15.5) % Plt Count 313 (150-450) k/uL Neutrophils % 53 % Lymphocytes % 27 % Monocytes % 9 % Eosinophils % 6 % Basophils % 1 % Neutrophils # 4.1 (1.3-7.7) k/uL Lymphocytes # 2.1 (1.0-4.8) k/uL Monocytes # 0.7 (0-1.0) k/uL Eosinophils # 0.4 (0-0.7) k/uL Basophils # 0.1 (0-0.2) k/uL PT (9.0-12.0) sec INR (<1.2) APTT (22.0-30.0) sec Sodium 138 (137-145) mmol/L Potassium 4.4 (3.5-5.1) mmol/L Chloride 103 (98-107) mmol/L Carbon Dioxide 25 (22-30) mmol/L Anion Gap 10 mmol/L BUN 15 (9-20) mg/dL Creatinine 0.90 (0.66-1.25) mg/dL Est GFR (CKD-EPI)AfAm >90 (>60 ml/min/1.73 sqM) Est GFR (CKD-EPI)NonAf >90 (>60 ml/min/1.73 sqM) Glucose 103 H (74-99) mg/dL Calcium 10.7 H (8.4-10.2) mg/dL Magnesium 1.9 (1.6-2.3) mg/dL Total Bilirubin 1.0 (0.2-1.3) mg/dL AST 50 (17-59) U/L ALT 49 (21-72) U/L Alkaline Phosphatase 69 (38-126) U/L Total Creatine Kinase 347 H (55-170) U/L CK-MB (CK-2) 1.3 (0.0-2.4) ng/mL CK-MB (CK-2) Rel Index 0.4 Troponin I <0.012 (0.000-0.034) ng/mL Total Protein 7.8 (6.3-8.2) g/dL Albumin 4.6 (3.5-5.0) g/dL Lipase 22 L (23-300) U/L 02/19/18 Range/Units 12:05 WBC (3.8-10.6) k/uL RBC (4.30-5.90) m/uL Hgb (13.0-17.5) gm/dL Hct (39.0-53.0) % MCV (80.0-100.0) fL MCH (25.0-35.0) pg MCHC (31.0-37.0) g/dL RDW (11.5-15.5) % Plt Count (150-450) k/uL Neutrophils % % Lymphocytes % % Monocytes % % Eosinophils % % Basophils % % Neutrophils # (1.3-7.7) k/uL Lymphocytes # (1.0-4.8) k/uL Monocytes # (0-1.0) k/uL Eosinophils # (0-0.7) k/uL Basophils # (0-0.2) k/uL PT 10.2 (9.0-12.0) sec INR 1.0 (<1.2) APTT 24.1 (22.0-30.0) sec Sodium (137-145) mmol/L Potassium (3.5-5.1) mmol/L Chloride (98-107) mmol/L Carbon Dioxide (22-30) mmol/L Anion Gap mmol/L BUN (9-20) mg/dL Creatinine (0.66-1.25) mg/dL Est GFR (CKD-EPI)AfAm (>60 ml/min/1.73 sqM) Est GFR (CKD-EPI)NonAf (>60 ml/min/1.73 sqM) Glucose (74-99) mg/dL Calcium (8.4-10.2) mg/dL Magnesium (1.6-2.3) mg/dL Total Bilirubin (0.2-1.3) mg/dL AST (17-59) U/L ALT (21-72) U/L Alkaline Phosphatase (38-126) U/L Total Creatine Kinase (55-170) U/L CK-MB (CK-2) (0.0-2.4) ng/mL CK-MB (CK-2) Rel Index Troponin I (0.000-0.034) ng/mL Total Protein (6.3-8.2) g/dL Albumin (3.5-5.0) g/dL Lipase (23-300) U/L - Radiology Data Radiology results: report reviewed (Chest x-rays negative), image reviewed Disposition Clinical Impression: Chest pain Disposition: Left Against Medical Advice Condition: Good Instructions: Chest Pain (ED) Is patient prescribed a controlled substance at d/c from ED?: No Referrals: Lori Ugalde MD [Primary Care Provider] - 1-2 days
[2018-02-19 12:31] LABS: ALT 49 U/L (21-72); AST 50 U/L (17-59); Albumin 4.6 g/dL (3.5-5.0); Alkaline Phosphatase 69 U/L (38-126); Anion Gap 10 mmol/L; Blood Urea Nitrogen 15 mg/dL (9-20); Calcium 10.7 mg/dL (8.4-10.2); Carbon Dioxide 25 mmol/L (22-30); Chloride 103 mmol/L (98-107); Glucose 103 mg/dL (74-99); Lipase 22 U/L (23-300); Magnesium 1.9 mg/dL (1.6-2.3); Potassium 4.4 mmol/L (3.5-5.1); Sodium 138 mmol/L (137-145); Total Protein 7.8 g/dL (6.3-8.2)
[2018-02-19 12:36] LABS: Partial Thromboplastin Time 24.1 sec (22.0-30.0); Prothrombin Time 10.2 sec (9.0-12.0)
[2018-02-19 12:41] LABS: Creatine Kinase 347 U/L (55-170)
[2018-02-19 12:54] LABS: Creatine Kinase MB 1.3 ng/mL (0.0-2.4); Troponin I <0.012 ng/mL (0.000-0.034)
--- NOTE | 2018-02-19 13:01 | XR ---
EXAMINATION TYPE: XR chest 2V DATE OF EXAM: 02/19/2018 COMPARISON: NONE HISTORY: Abnormal EKG and chest pain for 3 days with shortness of breath TECHNIQUE: Frontal and lateral views of the chest are obtained. FINDINGS: Linear left midlung platelike atelectasis is seen. Ulnar hyperinflation and biapical lucen cy suggests underlying COPD although this could relate to degree of inspiration and could be correlat ed with pulmonary function tests. There is no focal air space opacity, pleural effusion, or pneumotho rax seen. The cardiac silhouette size is within normal limits. The osseous structures are intact. IMPRESSION: Linear left midlung subsegmental atelectasis. Otherwise no acute pulmonary process.
[2018-02-19 14:04] VITALS: PULSE 81; RESP 16
[2018-02-19 14:05] VITALS: BP 151/80; TEMP 98.3
== END 2018-02-19 14:04 | disposition left against medical advice (07) ==
LOC: EC 11:14
DX: R07.9 Chest pain, unspecified (principal); R94.31 Abnormal electrocardiogram [ECG] [EKG]; J44.9 Chronic obstructive pulmonary disease, unspecified; K21.9 Gastro-esophageal reflux disease without esophagitis; E78.5 Hyperlipidemia, unspecified; I10 Essential (primary) hypertension; F17.200 Nicotine dependence, unspecified, uncomplicated; Z53.29 Procedure and treatment not carried out because of patient's decision for other reasons; Z79.51 Long term (current) use of inhaled steroids; Z79.899 Other long term (current) drug therapy
CPT/HCPCS: 36415; 71046; 80053; 82550; 82553; 83690; 83735; 84484; 85025; 85610; 85730; 93005; 99285

== ENCOUNTER 2018-06-18 15:15 | Emergency (ER) | payer OTHER ==
[2018-06-18 16:21] LABS: Basophils # (A) 0.1 k/uL (0-0.2); Basophils % (A) 1 %; Eosinophils # (A) 0.5 k/uL (0-0.7); Eosinophils % (A) 6 %; Lymphocytes # (A) 2.5 k/uL (1.0-4.8); Lymphocytes % (A) 33 %; MCH 29.6 pg (25.0-35.0); MCHC 32.5 g/dL (31.0-37.0); MCV 90.8 fL (80.0-100.0); Mean Platelet Volume 7.4; Monocytes # (A) 0.6 k/uL (0-1.0); Monocytes % (A) 8 %; Neutrophils # (A) 3.8 k/uL (1.3-7.7); Neutrophils % (A) 49 %; Platelet Count 332 k/uL (150-450); RDW 13.5 % (11.5-15.5); WBC 7.6 k/uL (3.8-10.6)
[2018-06-18 16:29] LABS: ALT 39 U/L (21-72); AST 44 U/L (17-59); Albumin 4.7 g/dL (3.5-5.0); Alkaline Phosphatase 63 U/L (38-126); Anion Gap 9 mmol/L; Blood Urea Nitrogen 14 mg/dL (9-20); Calcium 11.3 mg/dL (8.4-10.2); Carbon Dioxide 26 mmol/L (22-30); Chloride 105 mmol/L (98-107); Glucose 90 mg/dL (74-99); Partial Thromboplastin Time 25.5 sec (22.0-30.0); Prothrombin Time 10.2 sec (9.0-12.0); Sodium 140 mmol/L (137-145); Total Bilirubin 0.7 mg/dL (0.2-1.3); Total Protein 8.3 g/dL (6.3-8.2)
[2018-06-18 16:31] LABS: Creatine Kinase 349 U/L (55-170)
--- NOTE | 2018-06-18 16:33 | XR ---
EXAMINATION TYPE: XR chest 2V DATE OF EXAM: 06/18/2018 COMPARISON: 02/19/2018 INDICATION: Difficulty in breathing TECHNIQUE: Frontal and lateral views of the chest are obtained. FINDINGS: The heart size is normal. The pulmonary vasculature is normal. The lungs are clear. IMPRESSION: 1. No acute pulmonary process.
[2018-06-18 16:45] LABS: Creatine Kinase MB 2.7 ng/mL (0.0-2.4); Troponin I <0.012 ng/mL (0.000-0.034)
[2018-06-18] MEDS ORDERED: DEXAMETHASONE 4 MG TAB PO STA (17:08)
[2018-06-18] MEDS ORDERED: IPRATROPIUM-ALBUTEROL 3 ML NEB INHALATION STA ×2 (17:08→17:45)
[2018-06-18] MEDS ORDERED: AZITHROMYCIN 500 MG TAB PO STA (17:08)
--- NOTE | 2018-06-18 17:10 | ED ---
SOB HPI - General Chief Complaint: Shortness of Breath Stated Complaint: SOB Time Seen by Provider: 06/18/18 16:38 Source: patient, RN notes reviewed, old records reviewed Mode of arrival: ambulatory Limitations: no limitations - History of Present Illness Initial Comments: This is a 58-year-old male to the ER for evaluation of shortness of breath, patient shortness with cough and congestion with history of COPD as history of smoking. No fevers no chest pain no recent travel history or sick contacts. Patient states upon arrival to emergency room he does feel improved as far as his breathing goes with no significant intervention. MD Complaint: shortness of breath, cough -: days(s) (3) Radiation: other (No pain) Consistency: constant Improves With: bronchodilators Worsens With: exertion Known History Of: COPD Context: recent URI Associated Symptoms: denies other symptoms - Related Data Home Medications Medication Instructions Recorded Confirmed Albuterol Sulfate [Proventil Hfa] 2 puff INHALATION RT-Q4H PRN 12/01/16 02/19/18 Beclomethasone Dipropionate [Qvar 1 puff INHALATION RT-BID 02/19/18 02/19/18 Redihaler] Cholecalciferol (Vitamin D3) 2,000 unit PO DAILY 02/19/18 02/19/18 [Vitamin D3] Hydrochlorothiazide 25 mg PO DAILY 02/19/18 02/19/18 Ibuprofen 800 mg PO TID PRN 02/19/18 02/19/18 Loratadine [Claritin] 10 mg PO DAILY 02/19/18 02/19/18 Omeprazole [PriLOSEC] 20 mg PO AC-BRKFST 02/19/18 02/19/18 amLODIPine [Norvasc] 10 mg PO DAILY 02/19/18 02/19/18 Previous Rx's Medication Instructions Recorded Albuterol Nebulized [Ventolin 2.5 mg INHALATION Q4H PRN #25 nebu 06/18/18 Nebulized] Albuterol Sulfate [Proair Hfa] 1 - 2 puff INHALATION Q4H PRN #1 06/18/18 inhaler Azithromycin [Zithromax Z-pack] 0 mg PO DIRECTED #1 pack 06/18/18 predniSONE 50 mg PO DAILY #5 tab 06/18/18 Allergies Allergy/AdvReac Type Severity Reaction Status Date / Time No Known Allergies Allergy Verified 06/18/18 15:24 Review of Systems ROS Statement: Those systems with pertinent positive or pertinent negative responses have been documented in the HPI. ROS Other: All systems not noted in ROS Statement are negative. 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 History of Any Multi-Drug Resistant Organisms: None Reported Past Surgical History: Orthopedic Surgery Additional Past Surgical History / Comment(s): ORIF LT HIP Past Anesthesia/Blood Transfusion Reactions: No Reported Reaction Past Psychological History: Anxiety Smoking Status: Current every day smoker Past Alcohol Use History: Occasional Past Drug Use History: None Reported - Past Family History Mother Family Medical History: Cancer General Exam Limitations: no limitations General appearance: alert, in no apparent distress Head exam: Present: atraumatic, normocephalic, normal inspection Eye exam: Present: normal appearance, PERRL, EOMI. Absent: scleral icterus, conjunctival injection, periorbital swelling ENT exam: Present: normal exam, mucous membranes moist Neck exam: Present: normal inspection. Absent: tenderness, meningismus, lymphadenopathy Respiratory exam: Present: wheezes. Absent: respiratory distress, rales, rhonchi, stridor Cardiovascular Exam: Present: regular rate, normal rhythm, normal heart sounds. Absent: systolic murmur, diastolic murmur, rubs, gallop, clicks GI/Abdominal exam: Present: soft, normal bowel sounds. Absent: distended, tenderness, guarding, rebound, rigid Extremities exam: Present: normal inspection, full ROM, normal capillary refill. Absent: tenderness, pedal edema, joint swelling, calf tenderness Back exam: Present: normal inspection Neurological exam: Present: alert, oriented X3, CN II-XII intact Psychiatric exam: Present: normal affect, normal mood Skin exam: Present: warm, dry, intact, normal color. Absent: rash Course Vital Signs 06/18/18 06/18/18 06/18/18 15:23 17:47 18:06 Temperature 97.5 F L Pulse Rate 73 76 76 Respiratory 18 Rate Blood Pressure 141/85 O2 Sat by Pulse 94 L Oximetry 06/18/18 18:10 Temperature 97.2 F L Pulse Rate 76 Respiratory 20 Rate Blood Pressure 138/75 O2 Sat by Pulse 96 Oximetry - Reevaluation(s) Reevaluation #1: Medical record is reviewed Patient asking to be discharged home, given breathing treatment, no shortness of breath currently Medical Decision Making - Medical Decision Making 54 male the ER for evaluation shortness breath and COPD. Patient feeling much improved, to be discharged home. No significant fever x-rays negative - Lab Data Result diagrams: 06/18/18 15:57 06/18/18 15:57 Lab Results 06/18/18 06/18/18 06/18/18 Range/Units 15:57 15:57 15:57 WBC 7.6 (3.8-10.6) k/uL RBC 5.40 (4.30-5.90) m/uL Hgb 16.0 (13.0-17.5) gm/dL Hct 49.0 (39.0-53.0) % MCV 90.8 (80.0-100.0) fL MCH 29.6 (25.0-35.0) pg MCHC 32.5 (31.0-37.0) g/dL RDW 13.5 (11.5-15.5) % Plt Count 332 (150-450) k/uL Neutrophils % 49 % Lymphocytes % 33 % Monocytes % 8 % Eosinophils % 6 % Basophils % 1 % Neutrophils # 3.8 (1.3-7.7) k/uL Lymphocytes # 2.5 (1.0-4.8) k/uL Monocytes # 0.6 (0-1.0) k/uL Eosinophils # 0.5 (0-0.7) k/uL Basophils # 0.1 (0-0.2) k/uL PT (9.0-12.0) sec INR (<1.2) APTT (22.0-30.0) sec Sodium 140 (137-145) mmol/L Potassium 5.0 (3.5-5.1) mmol/L Chloride 105 (98-107) mmol/L Carbon Dioxide 26 (22-30) mmol/L Anion Gap 9 mmol/L BUN 14 (9-20) mg/dL Creatinine 1.04 (0.66-1.25) mg/dL Est GFR (CKD-EPI)AfAm >90 (>60 ml/min/1.73 sqM) Est GFR (CKD-EPI)NonAf 79 (>60 ml/min/1.73 sqM) Glucose 90 (74-99) mg/dL Calcium 11.3 H (8.4-10.2) mg/dL Total Bilirubin 0.7 (0.2-1.3) mg/dL AST 44 (17-59) U/L ALT 39 (21-72) U/L Alkaline Phosphatase 63 (38-126) U/L Total Creatine Kinase 349 H (55-170) U/L CK-MB (CK-2) 2.7 H (0.0-2.4) ng/mL CK-MB (CK-2) Rel Index 0.8 Troponin I <0.012 (0.000-0.034) ng/mL Total Protein 8.3 H (6.3-8.2) g/dL Albumin 4.7 (3.5-5.0) g/dL 06/18/18 Range/Units 15:57 WBC (3.8-10.6) k/uL RBC (4.30-5.90) m/uL Hgb (13.0-17.5) gm/dL Hct (39.0-53.0) % MCV (80.0-100.0) fL MCH (25.0-35.0) pg MCHC (31.0-37.0) g/dL RDW (11.5-15.5) % Plt Count (150-450) k/uL Neutrophils % % Lymphocytes % % Monocytes % % Eosinophils % % Basophils % % Neutrophils # (1.3-7.7) k/uL Lymphocytes # (1.0-4.8) k/uL Monocytes # (0-1.0) k/uL Eosinophils # (0-0.7) k/uL Basophils # (0-0.2) k/uL PT 10.2 (9.0-12.0) sec INR 1.0 (<1.2) APTT 25.5 (22.0-30.0) sec Sodium (137-145) mmol/L Potassium (3.5-5.1) mmol/L Chloride (98-107) mmol/L Carbon Dioxide (22-30) mmol/L Anion Gap mmol/L BUN (9-20) mg/dL Creatinine (0.66-1.25) mg/dL Est GFR (CKD-EPI)AfAm (>60 ml/min/1.73 sqM) Est GFR (CKD-EPI)NonAf (>60 ml/min/1.73 sqM) Glucose (74-99) mg/dL Calcium (8.4-10.2) mg/dL Total Bilirubin (0.2-1.3) mg/dL AST (17-59) U/L ALT (21-72) U/L Alkaline Phosphatase (38-126) U/L Total Creatine Kinase (55-170) U/L CK-MB (CK-2) (0.0-2.4) ng/mL CK-MB (CK-2) Rel Index Troponin I (0.000-0.034) ng/mL Total Protein (6.3-8.2) g/dL Albumin (3.5-5.0) g/dL - EKG Data -: EKG Interpreted by Me (EKG shows sinus rhythm rate of 72, IA 170, QRS 80, QTC 40 to) - Radiology Data Radiology results: report reviewed (Chest x-rays negative for acute disease), image reviewed Disposition Clinical Impression: Acute exacerbation of chronic obstructive airways disease Disposition: HOME SELF-CARE Condition: Good Instructions: Acute Bronchitis (ED), Chronic Bronchitis (ED) Prescriptions: Albuterol Nebulized [Ventolin Nebulized] 2.5 mg INHALATION Q4H PRN #25 nebu PRN Reason: Shortness Of Breath Albuterol Sulfate [Proair Hfa] 1 - 2 puff INHALATION Q4H PRN #1 inhaler PRN Reason: Shortness Of Breath Azithromycin [Zithromax Z-pack] 0 mg PO DIRECTED #1 pack predniSONE 50 mg PO DAILY #5 tab Is patient prescribed a controlled substance at d/c from ED?: No Referrals: Lori Ugalde MD [Primary Care Provider] - 1-2 days
[2018-06-18 17:51] VITALS: PULSE 76
[2018-06-18 18:14] VITALS: BP 138/75; RESP 20; TEMP 97.2
== END 2018-06-18 18:10 | disposition home or self-care (01) ==
LOC: EC 15:15
DX: J44.1 Chronic obstructive pulmonary disease with (acute) exacerbation (principal); I10 Essential (primary) hypertension; G47.33 Obstructive sleep apnea (adult) (pediatric); K21.9 Gastro-esophageal reflux disease without esophagitis; F17.200 Nicotine dependence, unspecified, uncomplicated; Z79.899 Other long term (current) drug therapy
CPT/HCPCS: 36415; 94640; 93005; 80053; 82550; 82553; 84484; 85025; 85610; 85730; 71046; 99285; J8540

== ENCOUNTER 2018-08-31 19:46 | Emergency (ER) | payer OTHER ==
[2018-08-31] MEDS ORDERED: IPRATROPIUM-ALBUTEROL 3 ML NEB INHALATION STA (20:38)
[2018-08-31] MEDS ORDERED: DEXAMETHASONE SOD PHOSPHATE 10 MG/ML 1 ML VIAL IV STA (20:38)
[2018-08-31] MEDS ORDERED: ALBUTEROL NEBULIZED 2.5 MG/3 ML INHALATION STA (20:38)
[2018-08-31] MEDS ORDERED: SODIUM CHLORIDE 0.9% 500 ML 500 ML IV ONE (20:38)
--- NOTE | 2018-08-31 20:42 | ED ---
General Adult HPI - General Source: patient, RN notes reviewed, old records reviewed Mode of arrival: ambulatory Limitations: no limitations <Rivera Cardenas - Last Filed: 08/31/18 20:39> <Ruben Mccauley - Last Filed: 08/31/18 22:19> - General Chief complaint: Shortness of Breath Stated complaint: BRITTNEY Time Seen by Provider: 08/31/18 19:55 - History of Present Illness Initial comments: 58-year-old male presents with cough and dyspnea. Patient's symptoms have progressed over the past one week. He reports subjective fever and chills. He has history of COPD and is currently smoking. He does report some anterior chest pain which is worse with cough. No radiating chest pain. Patient states he's had difficulty sleeping secondary to his dyspnea and cough. Denies lower extremity pain or swelling. Denies abdominal pain. Denies nausea or vomiting. (Rivera Cardenas) - Related Data Home Medications Medication Instructions Recorded Confirmed Albuterol Sulfate [Proventil Hfa] 2 puff INHALATION RT-Q4H PRN 12/01/16 08/31/18 Beclomethasone Dipropionate [Qvar 1 puff INHALATION RT-BID 02/19/18 08/31/18 Redihaler] Cholecalciferol (Vitamin D3) 2,000 unit PO DAILY 02/19/18 08/31/18 [Vitamin D3] Ibuprofen 800 mg PO TID PRN 02/19/18 08/31/18 Loratadine [Claritin] 10 mg PO DAILY 02/19/18 08/31/18 Omeprazole [PriLOSEC] 20 mg PO AC-BRKFST 02/19/18 08/31/18 amLODIPine [Norvasc] 10 mg PO DAILY 02/19/18 08/31/18 Baclofen [Lioresal] 20 mg PO BID 08/31/18 08/31/18 busPIRone HCL [Buspar] 30 mg PO BID 08/31/18 08/31/18 Previous Rx's Medication Instructions Recorded Albuterol Nebulized [Ventolin 2.5 mg INHALATION Q4H PRN #25 nebu 06/18/18 Nebulized] Albuterol Inhaler [Ventolin Hfa 1 - 2 puff INHALATION Q6HR PRN #1 01/25/19 Inhaler] inhaler predniSONE 60 mg PO DAILY #30 tab 08/31/18 Allergies Allergy/AdvReac Type Severity Reaction Status Date / Time No Known Allergies Allergy Verified 08/31/18 20:26 Review of Systems ROS Other: All systems not noted in ROS Statement are negative. <Rivera Cardenas - Last Filed: 08/31/18 20:39> ROS Other: All systems not noted in ROS Statement are negative. <Ruben Mccauley - Last Filed: 08/31/18 22:19> ROS Statement: Those systems with pertinent positive or pertinent negative responses have been documented in the HPI. 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 History of Any Multi-Drug Resistant Organisms: None Reported Past Surgical History: Orthopedic Surgery Additional Past Surgical History / Comment(s): ORIF LT HIP Past Anesthesia/Blood Transfusion Reactions: No Reported Reaction Past Psychological History: Anxiety Smoking Status: Current every day smoker Past Alcohol Use History: Occasional Past Drug Use History: None Reported - Past Family History Mother Family Medical History: Cancer <Rivera Cardenas - Last Filed: 08/31/18 20:39> General Exam Limitations: no limitations General appearance: alert, in no apparent distress Head exam: Present: atraumatic, normocephalic Eye exam: Present: normal appearance, PERRL ENT exam: Present: normal exam Neck exam: Present: normal inspection. Absent: tenderness, meningismus Respiratory exam: Present: wheezes, rhonchi, decreased breath sounds, prolonged expiratory. Absent: respiratory distress Cardiovascular Exam: Present: regular rate, normal rhythm GI/Abdominal exam: Present: soft. Absent: distended, tenderness Extremities exam: Present: normal inspection, normal capillary refill. Absent: pedal edema, calf tenderness Neurological exam: Present: alert, oriented X3 Psychiatric exam: Present: normal affect, normal mood Skin exam: Present: warm, dry, intact. Absent: cyanosis, diaphoretic <Rivera Cardenas - Last Filed: 08/31/18 20:39> Course <Rivera Cardenas - Last Filed: 08/31/18 20:39> <Ruben Mccauley - Last Filed: 08/31/18 22:19> Vital Signs 08/31/18 08/31/18 08/31/18 19:48 20:07 21:00 Temperature 97.9 F Pulse Rate 110 H 94 Respiratory 24 22 Rate Blood Pressure 103/59 O2 Sat by Pulse 97 Oximetry 08/31/18 21:19 Temperature Pulse Rate 90 Respiratory Rate Blood Pressure O2 Sat by Pulse Oximetry - Reevaluation(s) Reevaluation #1: 08/31/18 2100 Patient's care is signed out at shift change awaiting chest x-ray, laboratory studies, and reevaluation. (Rivera Cardenas) EKG Findings - EKG Comments: EKG Findings:: EKG: Normal sinus rhythm, rate of 98, NM interval 154, QRS duration 78, QTC 423, no ST segment elevation, no definitive signs of acute ischemia <Rivera Cardenas - Last Filed: 08/31/18 20:39> Medical Decision Making <Rivera Cardenas - Last Filed: 08/31/18 20:39> - Lab Data Result diagrams: 08/31/18 20:14 08/31/18 20:14 <Ruben Mccauley - Last Filed: 08/31/18 22:19> - Medical Decision Making I received this patient as sign out to reevaluate once his studies have been completed. I reviewed these with the patient. On reevaluation, patient states that he is feeling better and he like to go home. He states "get me out of here so I can eat something." Patient states his breathing feels better. (Ruben Mccauley) - Lab Data Lab Results 08/31/18 08/31/18 08/31/18 Range/Units 19:36 20:14 20:14 WBC 7.8 (3.8-10.6) k/uL RBC 5.06 (4.30-5.90) m/uL Hgb 14.5 (13.0-17.5) gm/dL Hct 45.9 (39.0-53.0) % MCV 90.7 (80.0-100.0) fL MCH 28.7 (25.0-35.0) pg MCHC 31.6 (31.0-37.0) g/dL RDW 13.1 (11.5-15.5) % Plt Count 313 (150-450) k/uL Neutrophils % 59 % Lymphocytes % 22 % Monocytes % 10 % Eosinophils % 4 % Basophils % 2 % Neutrophils # 4.6 (1.3-7.7) k/uL Lymphocytes # 1.7 (1.0-4.8) k/uL Monocytes # 0.8 (0-1.0) k/uL Eosinophils # 0.3 (0-0.7) k/uL Basophils # 0.1 (0-0.2) k/uL PT (9.0-12.0) sec INR (<1.2) APTT (22.0-30.0) sec Sodium (137-145) mmol/L Potassium (3.5-5.1) mmol/L Chloride (98-107) mmol/L Carbon Dioxide (22-30) mmol/L Anion Gap mmol/L BUN (9-20) mg/dL Creatinine (0.66-1.25) mg/dL Est GFR (CKD-EPI)AfAm (>60 ml/min/1.73 sqM) Est GFR (CKD-EPI)NonAf (>60 ml/min/1.73 sqM) Glucose (74-99) mg/dL Plasma Lactic Acid Alexandro (0.7-2.0) mmol/L Calcium (8.4-10.2) mg/dL Magnesium (1.6-2.3) mg/dL Total Bilirubin (0.2-1.3) mg/dL AST (17-59) U/L ALT (21-72) U/L Alkaline Phosphatase (38-126) U/L Total Creatine Kinase 308 H (55-170) U/L CK-MB (CK-2) 1.5 (0.0-2.4) ng/mL CK-MB (CK-2) Rel Index 0.5 Troponin I <0.012 (0.000-0.034) ng/mL NT-Pro-B Natriuret Pep pg/mL Total Protein (6.3-8.2) g/dL Albumin (3.5-5.0) g/dL Influenza Type A RNA Not Detected (Not Detectd) Influenza Type B (PCR) Not Detected (Not Detectd) 08/31/18 08/31/18 08/31/18 Range/Units 20:14 20:14 20:14 WBC (3.8-10.6) k/uL RBC (4.30-5.90) m/uL Hgb (13.0-17.5) gm/dL Hct (39.0-53.0) % MCV (80.0-100.0) fL MCH (25.0-35.0) pg MCHC (31.0-37.0) g/dL RDW (11.5-15.5) % Plt Count (150-450) k/uL Neutrophils % % Lymphocytes % % Monocytes % % Eosinophils % % Basophils % % Neutrophils # (1.3-7.7) k/uL Lymphocytes # (1.0-4.8) k/uL Monocytes # (0-1.0) k/uL Eosinophils # (0-0.7) k/uL Basophils # (0-0.2) k/uL PT 10.0 (9.0-12.0) sec INR 0.9 (<1.2) APTT 26.0 (22.0-30.0) sec Sodium 138 (137-145) mmol/L Potassium 4.2 (3.5-5.1) mmol/L Chloride 103 (98-107) mmol/L Carbon Dioxide 25 (22-30) mmol/L Anion Gap 10 mmol/L BUN 12 (9-20) mg/dL Creatinine 0.93 (0.66-1.25) mg/dL Est GFR (CKD-EPI)AfAm >90 (>60 ml/min/1.73 sqM) Est GFR (CKD-EPI)NonAf 90 (>60 ml/min/1.73 sqM) Glucose 94 (74-99) mg/dL Plasma Lactic Acid Alexandro (0.7-2.0) mmol/L Calcium 10.1 (8.4-10.2) mg/dL Magnesium 2.0 (1.6-2.3) mg/dL Total Bilirubin 0.6 (0.2-1.3) mg/dL AST 47 (17-59) U/L ALT 52 (21-72) U/L Alkaline Phosphatase 70 (38-126) U/L Total Creatine Kinase (55-170) U/L CK-MB (CK-2) (0.0-2.4) ng/mL CK-MB (CK-2) Rel Index Troponin I (0.000-0.034) ng/mL NT-Pro-B Natriuret Pep 25 pg/mL Total Protein 7.4 (6.3-8.2) g/dL Albumin 4.3 (3.5-5.0) g/dL Influenza Type A RNA (Not Detectd) Influenza Type B (PCR) (Not Detectd) 08/31/18 Range/Units 20:14 WBC (3.8-10.6) k/uL RBC (4.30-5.90) m/uL Hgb (13.0-17.5) gm/dL Hct (39.0-53.0) % MCV (80.0-100.0) fL MCH (25.0-35.0) pg MCHC (31.0-37.0) g/dL RDW (11.5-15.5) % Plt Count (150-450) k/uL Neutrophils % % Lymphocytes % % Monocytes % % Eosinophils % % Basophils % % Neutrophils # (1.3-7.7) k/uL Lymphocytes # (1.0-4.8) k/uL Monocytes # (0-1.0) k/uL Eosinophils # (0-0.7) k/uL Basophils # (0-0.2) k/uL PT (9.0-12.0) sec INR (<1.2) APTT (22.0-30.0) sec Sodium (137-145) mmol/L Potassium (3.5-5.1) mmol/L Chloride (98-107) mmol/L Carbon Dioxide (22-30) mmol/L Anion Gap mmol/L BUN (9-20) mg/dL Creatinine (0.66-1.25) mg/dL Est GFR (CKD-EPI)AfAm (>60 ml/min/1.73 sqM) Est GFR (CKD-EPI)NonAf (>60 ml/min/1.73 sqM) Glucose (74-99) mg/dL Plasma Lactic Acid Alexandro 1.5 (0.7-2.0) mmol/L Calcium (8.4-10.2) mg/dL Magnesium (1.6-2.3) mg/dL Total Bilirubin (0.2-1.3) mg/dL AST (17-59) U/L ALT (21-72) U/L Alkaline Phosphatase (38-126) U/L Total Creatine Kinase (55-170) U/L CK-MB (CK-2) (0.0-2.4) ng/mL CK-MB (CK-2) Rel Index Troponin I (0.000-0.034) ng/mL NT-Pro-B Natriuret Pep pg/mL Total Protein (6.3-8.2) g/dL Albumin (3.5-5.0) g/dL Influenza Type A RNA (Not Detectd) Influenza Type B (PCR) (Not Detectd) Disposition <Rivera Cardenas - Last Filed: 08/31/18 20:39> Is patient prescribed a controlled substance at d/c from ED?: No <Ruben Mccauley - Last Filed: 08/31/18 22:19> Clinical Impression: Acute exacerbation of chronic obstructive airways disease Disposition: HOME SELF-CARE Condition: Fair Instructions (If sedation given, give patient instructions): Chronic Bronchitis (ED) Additional Instructions: As discussed, follow with the field examiner to arrange a sleep study exam. Prescriptions: Albuterol Inhaler [Ventolin Hfa Inhaler] 1 - 2 puff INHALATION Q6HR PRN #1 inhaler PRN Reason: Wheezing predniSONE 60 mg PO DAILY #30 tab Referrals: None,Stated [Primary Care Provider] - 1-2 days Melquiades Mendez MD [STAFF PHYSICIAN] - 1-2 days
[2018-08-31 20:46] LABS: INR 0.9 (<1.2)
[2018-08-31 20:50] LABS: Basophils # (A) 0.1 k/uL (0-0.2); Basophils % (A) 2 %; Eosinophils # (A) 0.3 k/uL (0-0.7); Eosinophils % (A) 4 %; HCT 45.9 % (39.0-53.0); HGB 14.5 gm/dL (13.0-17.5); Lymphocytes # (A) 1.7 k/uL (1.0-4.8); Lymphocytes % (A) 22 %; MCH 28.7 pg (25.0-35.0); MCHC 31.6 g/dL (31.0-37.0); MCV 90.7 fL (80.0-100.0); Mean Platelet Volume 6.5; Monocytes # (A) 0.8 k/uL (0-1.0); Monocytes % (A) 10 %; Neutrophils # (A) 4.6 k/uL (1.3-7.7); Neutrophils % (A) 59 %; Platelet Count 313 k/uL (150-450); RBC 5.06 m/uL (4.30-5.90); RDW 13.1 % (11.5-15.5); WBC 7.8 k/uL (3.8-10.6)
[2018-08-31 20:53] LABS: Creatine Kinase 308 U/L (55-170)
[2018-08-31 20:57] LABS: ALT 52 U/L (21-72); AST 47 U/L (17-59); Albumin 4.3 g/dL (3.5-5.0); Alkaline Phosphatase 70 U/L (38-126); Anion Gap 10 mmol/L; Blood Urea Nitrogen 12 mg/dL (9-20); Calcium 10.1 mg/dL (8.4-10.2); Carbon Dioxide 25 mmol/L (22-30); Chloride 103 mmol/L (98-107); Glucose 94 mg/dL (74-99); Potassium 4.2 mmol/L (3.5-5.1); Sodium 138 mmol/L (137-145); Total Bilirubin 0.6 mg/dL (0.2-1.3); Total Protein 7.4 g/dL (6.3-8.2)
[2018-08-31 21:06] LABS: Creatine Kinase MB 1.5 ng/mL (0.0-2.4); Troponin I <0.012 ng/mL (0.000-0.034)
--- NOTE | 2018-08-31 21:17 | XR ---
EXAMINATION TYPE: XR chest 2V DATE OF EXAM: 08/31/2018 COMPARISON: 06/18/2018 HISTORY: Difficulty breathing TECHNIQUE: Frontal and lateral views of the chest are obtained. FINDINGS: There is no heart failure nor confluent pneumonic infiltrate. Costophrenic angles are jonny r. Heart size is normal. There are chest leads. IMPRESSION: No active cardiopulmonary disease. Normal heart. No change.
[2018-08-31 23:15] VITALS: BP 137/90; PULSE 87; RESP 21; TEMP 98.8
== END 2018-08-31 23:15 | disposition home or self-care (01) ==
LOC: EC 19:46
DX: J44.1 Chronic obstructive pulmonary disease with (acute) exacerbation (principal); K21.9 Gastro-esophageal reflux disease without esophagitis; I10 Essential (primary) hypertension; F41.9 Anxiety disorder, unspecified; F17.200 Nicotine dependence, unspecified, uncomplicated; G47.30 Sleep apnea, unspecified; Z99.89 Dependence on other enabling machines and devices; Z79.51 Long term (current) use of inhaled steroids; Z79.899 Other long term (current) drug therapy
CPT/HCPCS: 36415; 94640; 93005; 83880; 80053; 82550; 82553; 83605; 83735; 84484; 85025; 85610; 85730; 87040; 87502; 71046; 99285; 96374; J1100

== ENCOUNTER → 2018-11-16 | Outpatient (CLI) | payer OTHER ==
--- NOTE | 2018-11-16 11:51 | US ---
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 No pain. Patient states having a ML bul ge superior to umbilicus. EXAM MEASUREMENTS: Liver Length: 16.7 cm Gallbladder Wall: 0.2 cm CBD: 0.5 cm CHD: 0.6 cm Right Kidney: 11.2 x 5.6 x 6.0 cm Left Kidney: 10.9 x 5.1 x 6.1 cm Pancreas: Tail obscured by overlying bowel gas, appears echogenic in appearance. Liver: Heterogenous and echogenic. Appears coarse. No prominent focal masses or lesions visualized . Gallbladder: wnl Evidence for sonographic Tsang's sign: neg CBD: wnl CHD: wnl Spleen: Obscured by overlying bowel gas Right Kidney: wnl Left Kidney: wnl Upper IVC: wnl Abd Aorta: Portions obscured by overlying bowel gas Area of bulge scanned. Unable to determine presence of hernia. No prominent masses or lesions se en. The liver is heterogenous The intrahepatic portion of the IVC and proximal abdominal aorta are within normal limits. There is no evidence of cholelithiasis. Common bile duct is unremarkable. The visu alized portions of the pancreas are homogenous. The spleen is unremarkable. Kidneys are symmetric a nd free of hydronephrosis. No renal lesions are seen. IMPRESSION: 1. Fatty liver versus diffuse hepatocellular disease.
== END | disposition home or self-care (01) ==
LOC: RADUSWWP 10:06
PROVIDERS: ATTEND Family Medicine
DX: K42.9 Umbilical hernia without obstruction or gangrene (principal); M62.08 Separation of muscle (nontraumatic), other site
CPT/HCPCS: 76700

== ENCOUNTER 2018-12-23 10:24 | Emergency (ER) | payer OTHER ==
[2018-12-23 10:29] VITALS: BP 156/101; RESP 24; TEMP 98.4
[2018-12-23] MEDS ORDERED: IPRATROPIUM-ALBUTEROL 3 ML NEB INHALATION STA (10:48)
[2018-12-23] MEDS ORDERED: methylPREDNISolone SOD SUCCI 125 MG/2 ML VIAL IV STA (10:48)
[2018-12-23 11:20] LABS: Basophils # (A) 0.1 k/uL (0-0.2); Basophils % (A) 1 %; Eosinophils # (A) 0.5 k/uL (0-0.7); Eosinophils % (A) 3 %; HCT 45.7 % (39.0-53.0); HGB 14.7 gm/dL (13.0-17.5); Lymphocytes # (A) 2.4 k/uL (1.0-4.8); Lymphocytes % (A) 18 %; MCH 28.4 pg (25.0-35.0); MCV 88.7 fL (80.0-100.0); Mean Platelet Volume 7.3; Monocytes # (A) 1.1 k/uL (0-1.0); Monocytes % (A) 8 %; Neutrophils # (A) 9.3 k/uL (1.3-7.7); Neutrophils % (A) 68 %; Platelet Count 336 k/uL (150-450); RBC 5.16 m/uL (4.30-5.90); RDW 14.3 % (11.5-15.5); WBC 13.7 k/uL (3.8-10.6)
[2018-12-23 11:22] VITALS: PULSE 105
--- NOTE | 2018-12-23 11:25 | ED ---
SOB HPI - General Chief Complaint: Shortness of Breath Stated Complaint: SOB Time Seen by Provider: 12/23/18 10:44 Source: patient, RN notes reviewed Mode of arrival: ambulatory Limitations: no limitations - History of Present Illness Initial Comments: This is a 58-year-old male history of COPD who states he's been having shortness breath or past couple days cough with some yellow phlegm no overt fevers chills or sweats. No chest pain or palpitations. He states it feels like his usual lung issues. He has not gotten any relief his home medication. He denies any peripheral edema no other modifying factors at this time MD Complaint: shortness of breath - Related Data Home Medications Medication Instructions Recorded Confirmed Cholecalciferol (Vitamin D3) 2,000 unit PO DAILY 02/19/18 12/23/18 [Vitamin D3] Omeprazole [PriLOSEC] 20 mg PO AC-BRKFST 02/19/18 12/23/18 Acetaminophen Tab [Tylenol Tab] 500 mg PO Q6HR PRN 12/23/18 12/23/18 Albuterol Inhaler [Ventolin Hfa 1 - 2 puff INHALATION RT-Q6H PRN 12/23/18 12/23/18 Inhaler] Beclomethasone Dipropionate [Qvar 1 puff INHALATION RT-BID 12/23/18 12/23/18 40 mcg Redihaler] Cyanocobalamin (Vitamin B-12) 1,000 mcg PO DAILY 12/23/18 12/23/18 [Vitamin B-12] Docusate [Colace] 100 mg PO DAILY 12/23/18 12/23/18 Thiamine [Vitamin B-1] 50 mg PO DAILY 12/23/18 12/23/18 Previous Rx's Medication Instructions Recorded Amoxicillin/Potassium Clav 1 tab PO Q12HR #20 tab 12/23/18 [Augmentin 875-125 Tablet] Magnesium Oxide [Mag-Ox] 250 mg PO BID #14 tablet 12/23/18 predniSONE 20 mg PO BID #10 tab 12/23/18 Allergies Allergy/AdvReac Type Severity Reaction Status Date / Time No Known Allergies Allergy Verified 12/23/18 11:05 Review of Systems ROS Statement: Those systems with pertinent positive or pertinent negative responses have been documented in the HPI. ROS Other: All systems not noted in ROS Statement are negative. 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 History of Any Multi-Drug Resistant Organisms: None Reported Past Surgical History: Orthopedic Surgery Additional Past Surgical History / Comment(s): ORIF LT HIP Past Anesthesia/Blood Transfusion Reactions: No Reported Reaction Past Psychological History: Anxiety Smoking Status: Current every day smoker Past Alcohol Use History: Occasional Past Drug Use History: None Reported - Past Family History Mother Family Medical History: Cancer General Exam - General Exam Comments Initial Comments: This a well-developed well-nourished awake alert oriented times 3 male Limitations: no limitations General appearance: alert, anxious, in distress Head exam: Present: atraumatic, normocephalic, normal inspection Eye exam: Present: normal appearance, PERRL, EOMI. Absent: scleral icterus, conjunctival injection, periorbital swelling ENT exam: Present: normal exam, mucous membranes moist Neck exam: Present: normal inspection, full ROM, other (No stridor JVD or bruits). Absent: tenderness, meningismus, lymphadenopathy Respiratory exam: Present: wheezes, decreased breath sounds. Absent: respiratory distress, rales, rhonchi, stridor Cardiovascular Exam: Present: normal rhythm, tachycardia, normal heart sounds. Absent: systolic murmur, diastolic murmur, rubs, gallop, clicks GI/Abdominal exam: Present: soft, normal bowel sounds. Absent: distended, tenderness, guarding, rebound, rigid Extremities exam: Present: normal inspection, full ROM, normal capillary refill. Absent: tenderness, pedal edema, joint swelling, calf tenderness Back exam: Present: normal inspection Neurological exam: Present: alert, oriented X3, CN II-XII intact Psychiatric exam: Present: normal affect, normal mood Skin exam: Present: warm, dry, intact, normal color. Absent: rash Course Vital Signs 12/23/18 12/23/18 12/23/18 10:26 10:28 11:19 Temperature 98.4 F Pulse Rate 112 H 105 H Respiratory 24 24 Rate Blood Pressure 156/101 O2 Sat by Pulse 99 Oximetry 12/23/18 11:28 Temperature Pulse Rate 105 H Respiratory Rate Blood Pressure O2 Sat by Pulse Oximetry Medical Decision Making - Medical Decision Making Reevaluation patient reveals that he is got marked increase in his aeration he feels much better while at home. He does have magnesium level of the low end of normal placed on appropriate medication including his a short course of magnesium supplementation he is follow-up with his doctor return when necessary - Lab Data Result diagrams: 12/23/18 11:05 12/23/18 11:05 Lab Results 12/23/18 12/23/18 12/23/18 Range/Units 11:05 11:05 11:05 WBC 13.7 H (3.8-10.6) k/uL RBC 5.16 (4.30-5.90) m/uL Hgb 14.7 (13.0-17.5) gm/dL Hct 45.7 (39.0-53.0) % MCV 88.7 (80.0-100.0) fL MCH 28.4 (25.0-35.0) pg MCHC 32.0 (31.0-37.0) g/dL RDW 14.3 (11.5-15.5) % Plt Count 336 (150-450) k/uL Neutrophils % 68 % Lymphocytes % 18 % Monocytes % 8 % Eosinophils % 3 % Basophils % 1 % Neutrophils # 9.3 H (1.3-7.7) k/uL Lymphocytes # 2.4 (1.0-4.8) k/uL Monocytes # 1.1 H (0-1.0) k/uL Eosinophils # 0.5 (0-0.7) k/uL Basophils # 0.1 (0-0.2) k/uL PT (9.0-12.0) sec INR (<1.2) APTT (22.0-30.0) sec Sodium 136 L (137-145) mmol/L Potassium 4.3 (3.5-5.1) mmol/L Chloride 100 (98-107) mmol/L Carbon Dioxide 26 (22-30) mmol/L Anion Gap 10 mmol/L BUN 9 (9-20) mg/dL Creatinine 0.79 (0.66-1.25) mg/dL Est GFR (CKD-EPI)AfAm >90 (>60 ml/min/1.73 sqM) Est GFR (CKD-EPI)NonAf >90 (>60 ml/min/1.73 sqM) Glucose 102 H (74-99) mg/dL Calcium 10.3 H (8.4-10.2) mg/dL Magnesium 1.7 (1.6-2.3) mg/dL Total Bilirubin 1.2 (0.2-1.3) mg/dL AST 28 (17-59) U/L ALT 28 (21-72) U/L Alkaline Phosphatase 84 (38-126) U/L Creatine Kinase 387 H (55-170) U/L Troponin I (0.000-0.034) ng/mL NT-Pro-B Natriuret Pep 18 pg/mL Total Protein 7.6 (6.3-8.2) g/dL Albumin 4.5 (3.5-5.0) g/dL 12/23/18 12/23/18 Range/Units 11:05 11:05 WBC (3.8-10.6) k/uL RBC (4.30-5.90) m/uL Hgb (13.0-17.5) gm/dL Hct (39.0-53.0) % MCV (80.0-100.0) fL MCH (25.0-35.0) pg MCHC (31.0-37.0) g/dL RDW (11.5-15.5) % Plt Count (150-450) k/uL Neutrophils % % Lymphocytes % % Monocytes % % Eosinophils % % Basophils % % Neutrophils # (1.3-7.7) k/uL Lymphocytes # (1.0-4.8) k/uL Monocytes # (0-1.0) k/uL Eosinophils # (0-0.7) k/uL Basophils # (0-0.2) k/uL PT 9.9 (9.0-12.0) sec INR 0.9 (<1.2) APTT 26.4 (22.0-30.0) sec Sodium (137-145) mmol/L Potassium (3.5-5.1) mmol/L Chloride (98-107) mmol/L Carbon Dioxide (22-30) mmol/L Anion Gap mmol/L BUN (9-20) mg/dL Creatinine (0.66-1.25) mg/dL Est GFR (CKD-EPI)AfAm (>60 ml/min/1.73 sqM) Est GFR (CKD-EPI)NonAf (>60 ml/min/1.73 sqM) Glucose (74-99) mg/dL Calcium (8.4-10.2) mg/dL Magnesium (1.6-2.3) mg/dL Total Bilirubin (0.2-1.3) mg/dL AST (17-59) U/L ALT (21-72) U/L Alkaline Phosphatase (38-126) U/L Creatine Kinase (55-170) U/L Troponin I <0.012 (0.000-0.034) ng/mL NT-Pro-B Natriuret Pep pg/mL Total Protein (6.3-8.2) g/dL Albumin (3.5-5.0) g/dL - EKG Data -: EKG Interpreted by Me EKG shows normal: sinus rhythm (Sinus tachycardia rate of 179395 QRS duration 76 she says QTC 332/[address]-T wave changes) - Radiology Data Radiology results: report reviewed (I did review the imaging and reports no acute findings evidence of COPD), image reviewed Disposition Clinical Impression: Acute exacerbation of chronic obstructive airways disease, Bronchitis Disposition: HOME SELF-CARE Condition: Good Instructions (If sedation given, give patient instructions): Acute Bronchitis (ED), COPD (Chronic Obstructive Pulmonary Disease) (ED) Prescriptions: Amoxicillin/Potassium Clav [Augmentin 875-125 Tablet] 1 tab PO Q12HR #20 tab Magnesium Oxide [Mag-Ox] 250 mg PO BID #14 tablet predniSONE 20 mg PO BID #10 tab Is patient prescribed a controlled substance at d/c from ED?: No Referrals: Lori Ugalde MD [Primary Care Provider] - 1-2 days
[2018-12-23 11:30] LABS: INR 0.9 (<1.2); Partial Thromboplastin Time 26.4 sec (22.0-30.0); Prothrombin Time 9.9 sec (9.0-12.0)
[2018-12-23 11:31] LABS: ALT 28 U/L (21-72); AST 28 U/L (17-59); Albumin 4.5 g/dL (3.5-5.0); Alkaline Phosphatase 84 U/L (38-126); Anion Gap 10 mmol/L; Blood Urea Nitrogen 9 mg/dL (9-20); Calcium 10.3 mg/dL (8.4-10.2); Carbon Dioxide 26 mmol/L (22-30); Chloride 100 mmol/L (98-107); Creatine Kinase 387 U/L (55-170); Glucose 102 mg/dL (74-99); Magnesium 1.7 mg/dL (1.6-2.3); Potassium 4.3 mmol/L (3.5-5.1); Sodium 136 mmol/L (137-145); Total Bilirubin 1.2 mg/dL (0.2-1.3); Total Protein 7.6 g/dL (6.3-8.2)
[2018-12-23] MEDS ORDERED: cefTRIAXone IN SWFI 1,000 MG/10 ML SYRINGE IVP STA (11:47)
--- NOTE | 2018-12-23 11:49 | XR ---
EXAMINATION TYPE: XR chest 2V DATE OF EXAM: 12/23/2018 HISTORY: difficulty breathing. REFERENCE: Previous study dated 08/31/2018. FINDINGS: Lung volumes are prominent. The lungs are clear. Pleural space are clear. The heart is not enlarged. IMPRESSION: COPD.
== END 2018-12-23 12:37 | disposition home or self-care (01) ==
LOC: EC 10:24
DX: J44.1 Chronic obstructive pulmonary disease with (acute) exacerbation (principal); R00.0 Tachycardia, unspecified; K21.9 Gastro-esophageal reflux disease without esophagitis; G47.30 Sleep apnea, unspecified; F17.200 Nicotine dependence, unspecified, uncomplicated; Z79.51 Long term (current) use of inhaled steroids; Z79.899 Other long term (current) drug therapy; Z99.89 Dependence on other enabling machines and devices
CPT/HCPCS: 36415; 94640; 93005; 83880; 80053; 82550; 83735; 84484; 85025; 85610; 85730; 71046; 99285; 96374; 96375; J2930; J0696

== ENCOUNTER 2019-08-24 13:12 | Emergency (ER) | payer OTHER ==
[2019-08-24 13:21] VITALS: RESP 18
[2019-08-24] MEDS ORDERED: LIDOCAINE 1% INJ 10MG/ML (20 ML MDV) SQ ONE (13:26)
[2019-08-24] MEDS ORDERED: LIDOCAINE 1%-EPI 1:100,000 20 ML VIAL SQ STA (13:30)
[2019-08-24] MEDS ORDERED: KETOROLAC 30 MG/ML 1 ML VIAL IM STA (13:30)
--- NOTE | 2019-08-24 13:58 | ED ---
General Adult HPI - General Chief complaint: Skin/Abscess/Foreign Body Stated complaint: abscess on back Time Seen by Provider: 08/24/19 13:23 Source: patient Mode of arrival: ambulatory Limitations: no limitations - History of Present Illness Initial comments: Patient is 59-year-old male presenting to emergency Department with a chief complaint of an abscess. Patient states this started 3 days ago on his back and is gradually getting bigger. Patient reports the pain is also increasing severity. He does report some discharge earlier today after he got out of the shower but nothing right now. Patient denies any night sweats fevers or chills. Patient has no history of abscesses. She denies taking medications alleviate the symptoms. - Related Data Home Medications Medication Instructions Recorded Confirmed Cholecalciferol (Vitamin D3) 2,000 unit PO DAILY 02/19/18 12/23/18 [Vitamin D3] Omeprazole [PriLOSEC] 20 mg PO AC-BRKFST 02/19/18 12/23/18 Acetaminophen Tab [Tylenol Tab] 500 mg PO Q6HR PRN 12/23/18 12/23/18 Albuterol Inhaler [Ventolin Hfa 1 - 2 puff INHALATION RT-Q6H PRN 12/23/18 Inhaler] Beclomethasone Dipropionate [Qvar 1 puff INHALATION RT-BID 12/23/18 12/23/18 40 mcg Redihaler] Cyanocobalamin (Vitamin B-12) 1,000 mcg PO DAILY 12/23/18 12/23/18 [Vitamin B-12] Docusate [Colace] 100 mg PO DAILY 12/23/18 12/23/18 Thiamine [Vitamin B-1] 50 mg PO DAILY 12/23/18 12/23/18 Previous Rx's Medication Instructions Recorded Amoxicillin/Potassium Clav 1 tab PO Q12HR #20 tab 12/23/18 [Augmentin 875-125 Tablet] Magnesium Oxide [Mag-Ox] 250 mg PO BID #14 tablet 12/23/18 predniSONE 20 mg PO BID #10 tab 12/23/18 Sulfamethox-Tmp 800-160Mg [Bactrim 1 each PO Q12HR #20 tab 08/24/19 Ds] Allergies Allergy/AdvReac Type Severity Reaction Status Date / Time No Known Allergies Allergy Verified 08/24/19 13:17 Review of Systems ROS Statement: Those systems with pertinent positive or pertinent negative responses have been documented in the HPI. ROS Other: All systems not noted in ROS Statement are negative. 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 History of Any Multi-Drug Resistant Organisms: None Reported Past Surgical History: Orthopedic Surgery Additional Past Surgical History / Comment(s): ORIF LT HIP Past Anesthesia/Blood Transfusion Reactions: No Reported Reaction Past Psychological History: Anxiety Smoking Status: Current every day smoker Past Alcohol Use History: Occasional Past Drug Use History: None Reported - Past Family History Mother Family Medical History: Cancer General Exam Limitations: no limitations General appearance: alert, in no apparent distress Head exam: Present: atraumatic, normocephalic, normal inspection Eye exam: Present: normal appearance, PERRL, EOMI Pupils: Present: normal accommodation ENT exam: Present: normal exam, mucous membranes moist Neck exam: Present: normal inspection, full ROM Respiratory exam: Present: normal lung sounds bilaterally Cardiovascular Exam: Present: regular rate, normal rhythm Extremities exam: Present: normal inspection, full ROM Back exam: Present: full ROM, tenderness (Tenderness at the abscess site). Absent: normal inspection (4 cm diameter abscess in the right thoracic region. Not draining at this time but it is erythematous. Region of Fluctuance present.) Neurological exam: Present: alert, oriented X3 Psychiatric exam: Present: normal affect, normal mood Skin exam: Present: warm, dry, intact, normal color Course Vital Signs 08/24/19 08/24/19 13:17 14:50 Temperature 97.5 F L 98.0 F Pulse Rate 105 H 96 Respiratory 18 18 Rate Blood Pressure 121/98 O2 Sat by Pulse 95 98 Oximetry Procedures - Incision & Drainage Consent Obtained: verbal consent Indication: Skin abscess Site: back Size (cm): 4 Anesthetic Used: lidocaine 1%, with epi Amount (mLs): 5 I&D Cleaning Method: Iodine Sterile Field Used?: No Scalpel Used: #11 Needle Aspiration Performed?: No Irrigation Performed?: Yes I&D Drainage Obtained: Pus, Blood Culture Obtained?: Yes Complications: pain, bleeding Patient Tolerated Procedure: well, no complications Medical Decision Making - Medical Decision Making Patient is 59-year-old male presenting to emergency Department with chief complaint of an access. On exam patient does have a 4 cm abscess in diameter on his back. I was able to drain the abscess. Wound culture was obtained. Patient was given Toradol. Patient will be discharged with Tylenol 3 starter pack. Patient also be started on Bactrim for 10 days. Patient given wound care structures. Strict return parameters were thoroughly discussed the patient is under standing agreeable. Case discussed with physician. Disposition Clinical Impression: Skin abscess Disposition: HOME SELF-CARE Condition: Stable Instructions (If sedation given, give patient instructions): Abscess (ED) Additional Instructions: Change gauze daily. Take prescribed medication as directed. Follow-up with primary care. Position to emergency department is symptoms worsen. Prescriptions: Sulfamethox-Tmp 800-160Mg [Bactrim Ds] 1 each PO Q12HR #20 tab Is patient prescribed a controlled substance at d/c from ED?: No Referrals: Lori Ugalde MD [Primary Care Provider] - 1-2 days Time of Disposition: 14:39
[2019-08-24 14:53] VITALS: BP 121/98; PULSE 96; TEMP 98
== END 2019-08-24 14:53 | disposition home or self-care (01) ==
LOC: EC 13:12
DX: L02.212 Cutaneous abscess of back [any part, except buttock and flank] (principal); K21.9 Gastro-esophageal reflux disease without esophagitis; I10 Essential (primary) hypertension; G47.30 Sleep apnea, unspecified; F17.200 Nicotine dependence, unspecified, uncomplicated; Z79.899 Other long term (current) drug therapy; Z99.89 Dependence on other enabling machines and devices
CPT/HCPCS: 87070; 87205; 99283; 10060; 96372; J1885

== ENCOUNTER 2020-06-04 17:28 | Emergency (ER) | payer OTHER ==
[2020-06-04 17:53] VITALS: BP 127/88; PULSE 108; RESP 16; TEMP 99.1
[2020-06-04] MEDS ORDERED: LIDOCAINE 1% INJ 10MG/ML (20 ML MDV) SQ ONE (18:03)
[2020-06-04] MEDS ORDERED: ACET/COD 300 MG/30 MG STARTER PACK 6 TAB BTL PO STA (18:24)
--- NOTE | 2020-06-04 18:24 | ED ---
Skin/Abscess/FB HPI - General Chief complaint: Skin/Abscess/Foreign Body Stated complaint: spider bite Time Seen by Provider: 06/04/20 17:53 Source: patient, RN notes reviewed Mode of arrival: ambulatory Limitations: no limitations - History of Present Illness Initial comments: 60-year-old male presents emergency Department chief complaint of abscess to his left posterior thigh region. Patient states started last 48 hours increased pain he does have a history of this. Patient states is no drainage at this point no fevers or chills. Denies being diabetic - Related Data Home Medications Medication Instructions Recorded Confirmed Cholecalciferol (Vitamin D3) 2,000 unit PO DAILY 02/19/18 12/23/18 [Vitamin D3] Omeprazole [PriLOSEC] 20 mg PO AC-BRKFST 02/19/18 12/23/18 Acetaminophen Tab [Tylenol Tab] 500 mg PO Q6HR PRN 12/23/18 12/23/18 Albuterol Inhaler (Mhu) [Ventolin 1 - 2 puff INHALATION RT-Q6H PRN 12/23/18 12/23/18 Hfa Inhaler (Mhu)] Beclomethasone Dipropionate [Qvar 1 puff INHALATION RT-BID 12/23/18 12/23/18 40 mcg Redihaler] Cyanocobalamin (Vitamin B-12) 1,000 mcg PO DAILY 12/23/18 12/23/18 [Vitamin B-12] Docusate [Colace] 100 mg PO DAILY 12/23/18 12/23/18 Thiamine [Vitamin B-1] 50 mg PO DAILY 12/23/18 12/23/18 Previous Rx's Medication Instructions Recorded Amoxicillin/Potassium Clav 1 tab PO Q12HR #20 tab 12/23/18 [Augmentin 875-125 Tablet] Magnesium Oxide [Mag-Ox] 250 mg PO BID #14 tablet 12/23/18 predniSONE [Deltasone] 20 mg PO BID #10 tab 12/23/18 Sulfamethox-Tmp 800-160Mg [Bactrim 1 each PO Q12HR #20 tab 08/24/19 Ds] Cephalexin [Keflex] 500 mg PO Q6HR #40 cap 06/04/20 Sulfamethox-Tmp 800-160Mg [Bactrim 1 each PO Q12HR #20 tab 06/04/20 Ds] Allergies Allergy/AdvReac Type Severity Reaction Status Date / Time No Known Allergies Allergy Verified 06/04/20 17:53 Review of Systems ROS Statement: Those systems with pertinent positive or pertinent negative responses have been documented in the HPI. ROS Other: All systems not noted in ROS Statement are negative. 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 History of Any Multi-Drug Resistant Organisms: None Reported Past Surgical History: Orthopedic Surgery Additional Past Surgical History / Comment(s): ORIF LT HIP Past Anesthesia/Blood Transfusion Reactions: No Reported Reaction Past Psychological History: Anxiety Smoking Status: Current every day smoker Past Alcohol Use History: Occasional Past Drug Use History: None Reported - Past Family History Mother Family Medical History: Cancer General Exam Limitations: no limitations General appearance: alert, in no apparent distress Head exam: Present: atraumatic, normocephalic, normal inspection Respiratory exam: Present: normal lung sounds bilaterally. Absent: respiratory distress, wheezes, rales, rhonchi, stridor Cardiovascular Exam: Present: regular rate, normal rhythm, normal heart sounds. Absent: systolic murmur, diastolic murmur, rubs, gallop, clicks Extremities exam: Present: other (Right posterior thigh there is a 1 cm fluctuant abscess mild induration) Course Vital Signs 06/04/20 17:49 Temperature 99.1 F Pulse Rate 108 H Respiratory 16 Rate Blood Pressure 127/88 O2 Sat by Pulse 98 Oximetry Procedures - Incision & Drainage Consent Obtained: verbal consent, written consent Site: lower extremity (Right posterior thigh) Size (cm): 1 Anesthetic Used: lidocaine 1%, without epi I&D Cleaning Method: Alcohol Wipe Sterile Field Used?: No Scalpel Used: #11 I&D Drainage Obtained: Pus, Blood Culture Obtained?: Yes Patient Tolerated Procedure: well, no complications Medical Decision Making - Medical Decision Making 60-year-old male presented for abscesses was I&D. Patient was started on antibiotics and discharged with pain medication. Disposition Clinical Impression: Abscess of right thigh Disposition: HOME SELF-CARE Condition: Stable Instructions (If sedation given, give patient instructions): Abscess Incision and Drainage (ED), Abscess (ED) Additional Instructions: Please return to the Emergency Department if symptoms worsen or any other concerns. Prescriptions: Sulfamethox-Tmp 800-160Mg [Bactrim Ds] 1 each PO Q12HR #20 tab Cephalexin [Keflex] 500 mg PO Q6HR #40 cap Is patient prescribed a controlled substance at d/c from ED?: No Referrals: Lori Ugalde MD [Primary Care Provider] - 1-2 days Time of Disposition: 18:23
== END 2020-06-04 18:30 | disposition home or self-care (01) ==
LOC: EC 17:28
DX: L02.415 Cutaneous abscess of right lower limb (principal); F41.9 Anxiety disorder, unspecified; J44.9 Chronic obstructive pulmonary disease, unspecified; K21.9 Gastro-esophageal reflux disease without esophagitis; E78.5 Hyperlipidemia, unspecified; I10 Essential (primary) hypertension; G47.33 Obstructive sleep apnea (adult) (pediatric); F17.200 Nicotine dependence, unspecified, uncomplicated; Z99.89 Dependence on other enabling machines and devices; Z79.52 Long term (current) use of systemic steroids; Z79.899 Other long term (current) drug therapy
CPT/HCPCS: 87070; 87205; 99283; 10060; J2001

== ENCOUNTER 2021-01-28 16:22 | Emergency (ER) | payer OTHER ==
[2021-01-28] MEDS ORDERED: SODIUM CHLORIDE 0.9% 1,000 ML IV STA (18:01)
[2021-01-28] MEDS ORDERED: methylPREDNISolone SOD SUCCI 125 MG/2 ML VIAL IV STA (18:01)
[2021-01-28] MEDS ORDERED: LEVOFLOXACIN 750MG-D5W PMX 750 MG in DEXTROSE/WATER 1 150ML.BAG IVPB STA (18:01)
[2021-01-28 18:37] LABS: Basophils # (A) 0.2 k/uL (0-0.2); Basophils % (A) 2 %; Eosinophils # (A) 0.6 k/uL (0-0.7); Eosinophils % (A) 5 %; HGB 15.7 gm/dL (13.0-17.5); Lymphocytes # (A) 1.6 k/uL (1.0-4.8); Lymphocytes % (A) 12 %; MCH 29.1 pg (25.0-35.0); MCHC 33.4 g/dL (31.0-37.0); MCV 87.4 fL (80.0-100.0); Mean Platelet Volume 6.9; Monocytes # (A) 1.1 k/uL (0-1.0); Monocytes % (A) 8 %; Neutrophils # (A) 9.1 k/uL (1.3-7.7); Neutrophils % (A) 71 %; Platelet Count 407 k/uL (150-450); RBC 5.38 m/uL (4.30-5.90); RDW 13.1 % (11.5-15.5); WBC 12.7 k/uL (3.8-10.6)
[2021-01-28 18:46] LABS: ALT 25 U/L (4-49); AST 33 U/L (17-59); African American GFR (CKD) >90 (>60 ml/min/1.73 sqM); Albumin 4.4 g/dL (3.5-5.0); Alkaline Phosphatase 80 U/L (38-126); Anion Gap 9 mmol/L; Blood Urea Nitrogen 11 mg/dL (9-20); Calcium 10.8 mg/dL (8.4-10.2); Carbon Dioxide 30 mmol/L (22-30); Chloride 99 mmol/L (98-107); Glucose 72 mg/dL (74-99); Non-African American GFR(CKD) >90 (>60 ml/min/1.73 sqM); Potassium 4.1 mmol/L (3.5-5.1); Sodium 138 mmol/L (137-145); Total Bilirubin 0.4 mg/dL (0.2-1.3); Total Protein 7.6 g/dL (6.3-8.2)
[2021-01-28 18:55] LABS: Partial Thromboplastin Time 25.5 sec (22.0-30.0); Prothrombin Time 10.7 sec (9.0-12.0)
--- NOTE | 2021-01-28 19:11 | XR ---
EXAMINATION: XR chest 2V DATE AND TIME: 01/28/2021 6:42 PM CLINICAL INDICATION: difficulty breathing TECHNIQUE: Departmental protocol COMPARISON: 12/23/2018 FINDINGS: Lungs: The lungs demonstrate multifocal ill-defined bilateral added opacities, particularly prominent in the right mid and lower lung zones laterally, with radiographic appearance suggesting the possibi lity of atypical pneumonia. Asymmetric pulmonary edema seems much less likely but remains in the radi ographic differential diagnosis. Pleural spaces: Mild blunting of the right costophrenic sulcus consistent with minimal right pleural effusion. Left pleural spaces negative. Mediastinal/hilar: The cardiac silhouette is not enlarged. The remainder of the mediastinal silhouett e is unremarkable. Other: The skeletal structures and soft tissues are negative for acute findings. IMPRESSION: Radiographic pattern can correlate with a clinical diagnosis of atypical pneumonia, as discussed.
--- NOTE | 2021-01-28 19:50 | ED ---
SOB HPI - General Chief Complaint: Shortness of Breath Stated Complaint: BRITTNEY, COPD Time Seen by Provider: 01/28/21 17:53 Source: patient Mode of arrival: wheelchair Limitations: no limitations - History of Present Illness Initial Comments: This 60-year-old male presents with a complaint of shortness of breath. He states that he has this chronically and for years and has COPD. It is been worse over the last 2 weeks. He does complain of a cough with clear, yellow, green, and grayish-type production. He denies any actual known fever. He takes albuterol breathing treatments at home as well as inhalers. He denies any actual chest pain. There is no leg pain or swelling. He states that he knows that he needs antibiotics. He does not want any more albuterol. He relates that he has a bad tooth and it cut his tongue on the right side and the a lbuterol seems to make that worse. He does take albuterol usually 2-3 times per day at home. He has not been on any antibiotics recently. He denies any other complaints or modifying factors. The patient has received his 2 Covid Shots previously. - Related Data Home Medications Medication Instructions Recorded Confirmed Cholecalciferol (Vitamin D3) 2,000 unit PO DAILY 02/19/18 01/28/21 [Vitamin D3] Omeprazole [PriLOSEC] 20 mg PO DAILY 02/19/18 01/28/21 Cyanocobalamin (Vitamin B-12) 2,000 mcg PO DAILY 12/23/18 01/28/21 [Vitamin B-12] Albuterol Inhaler [Ventolin Hfa 2 puff INHALATION RT-QID PRN 01/28/21 01/28/21 Inhaler] Albuterol Nebulized [Ventolin 2.5 mg INHALATION RT-TID PRN 01/28/21 01/28/21 Nebulized] Aspirin EC [Ecotrin Low Dose] 81 mg PO DAILY 01/28/21 01/28/21 Atorvastatin Calcium [Lipitor] 40 mg PO HS 01/28/21 01/28/21 Fluticasone Nasal [place] [Flonase 2 spr EA NOSTRIL DAILY PRN 01/28/21 01/28/21 Nasal [place]] Fluticasone Propionate [Flovent 1 puff INHALATION RT-BID 01/28/21 01/28/21 Hfa 110 mcg] HYDROcodone/APAP 7.5-325MG [[place] 1 tab PO BID PRN 01/28/21 01/28/21 7.5-325] Ibuprofen [Motrin] 800 mg PO Q8H PRN 01/28/21 01/28/21 Loratadine 10 mg PO DAILY 01/28/21 01/28/21 Sildenafil Citrate [Viagra] 100 mg PO DAILY PRN 01/28/21 01/28/21 amLODIPine [Norvasc] 10 mg PO DAILY 01/28/21 01/28/21 busPIRone HCL [Buspar] 30 mg PO BID PRN 01/28/21 01/28/21 glipiZIDE [Glucotrol] 5 mg PO DAILY 01/28/21 01/28/21 metFORMIN HCL [Glucophage] 500 mg PO DAILY 01/28/21 01/28/21 Previous Rx's Medication Instructions Recorded Ipratropium-Albuterol Nebulize 3 ml INHALATION Q4H #2 box 01/28/21 [Duoneb 0.5 mg-3 mg/3 ml Soln] Levofloxacin [Levaquin] 750 mg PO DAILY 7 Days #7 tab 01/28/21 predniSONE [Deltasone] 20 mg PO BID #14 tab 01/28/21 Allergies Allergy/AdvReac Type Severity Reaction Status Date / Time No Known Allergies Allergy Verified 01/28/21 19:13 Review of Systems ROS Statement: Those systems with pertinent positive or pertinent negative responses have been documented in the HPI. ROS Other: All systems not noted in ROS Statement are negative. 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 VITAL SIGNS: Heart rate, blood pressure, respiratory rate reviewed as recorded in nurse's notes. EYES: Pupils are round and reactive. Extraocular movements are intact. No conjunctival / lid redness or swelling. ENT: No external evidence of injury, swelling, or ecchymosis. Airway is patent. Throat is clear. There is mild irritation along the lateral aspect of the right mid tongue. There are multiple dental caries throughout the mouth. NECK: Nontender. No swelling or evidence of injury. No subcutaneous emphysema. Trachea is midline. No thyroid mass. HEART: Regular rate and rhythm. Good peripheral pulses. LUNGS/CHEST: Wheezing noted bilaterally. No ecchymosis, subcutaneous emphysema, or tenderness. ABDOMEN: Abdomen soft without tenderness. No palpable masses or organomegaly. No peritoneal signs. No abdominal wall swelling or ecchymosis. EXTREMITIES: No extremity tenderness. Normal muscle tone and function. No thoracolumbar tenderness. NEUROLOGIC: Sensation is grossly intact. Cranial nerve exam reveals face is symmetrical, tongue is midline, speech is clear. SKIN: No abrasions or ecchymosis is noted. No induration or masses noted. PSYCHIATRIC: Alert and oriented. Appropriate behavior and judgment. Limitations: no limitations Course Vital Signs 01/28/21 01/28/21 01/28/21 16:45 19:26 19:50 Temperature 97.7 F 98.7 F Pulse Rate 96 102 H Respiratory 24 18 24 Rate Blood Pressure 142/85 145/99 O2 Sat by Pulse 95 93 L Oximetry Medical Decision Making - Medical Decision Making The patient was seen and examined. All diagnostics were reviewed. The EKG shows a normal sinus rhythm at a rate of 97. There is no acute ST-T wave changes identified. The SC intervals 160, QRS duration is 80, and the QTC intervals 426. The blood sugar was at the low end of normal of 72. The white blood cell count is minimally elevated. The chest x-ray does show bilateral pneumonia potentially consistent with atypical pneumonia. An IV is established and he receives Solu-Medrol intravenously as well as Levaquin intravenously. No breathing treatments were given as the patient refuses these. The chest x-ray does show evidence of bilateral pneumonia. The radiologist classifies this as atypical in nature. Therefore, a coma test is ordered. Due to his bilateral pneumonia and COPD and current symptomatology. It was recommended that he be admitted to the hospital but he adamantly refuses. Risks and benefits are discussed. He states that he only lives a couple blocks away from the hospital and will return if he worsens. He is instructed to increase the frequency of his breathing treatments to every 4 hours and will be prescribed DuoNeb instead of albuterol. It is also felt as though he benefit from continued antibiotic treatment and will be prescribed Levaquin as well as steroids and will be prescribed prednisone. He understands and agrees with this plan and leaves in no distress. Return parameters are discussed. Close follow-up recommended. - Lab Data Result diagrams: 01/28/21 18:01 01/28/21 18:01 Lab Results 01/28/21 01/28/21 01/28/21 Range/Units 18:01 18:01 18:01 WBC 12.7 H (3.8-10.6) k/uL RBC 5.38 (4.30-5.90) m/uL Hgb 15.7 (13.0-17.5) gm/dL Hct 47.0 (39.0-53.0) % MCV 87.4 (80.0-100.0) fL MCH 29.1 (25.0-35.0) pg MCHC 33.4 (31.0-37.0) g/dL RDW 13.1 (11.5-15.5) % Plt Count 407 (150-450) k/uL MPV 6.9 Neutrophils % 71 % Lymphocytes % 12 % Monocytes % 8 % Eosinophils % 5 % Basophils % 2 % Neutrophils # 9.1 H (1.3-7.7) k/uL Lymphocytes # 1.6 (1.0-4.8) k/uL Monocytes # 1.1 H (0-1.0) k/uL Eosinophils # 0.6 (0-0.7) k/uL Basophils # 0.2 (0-0.2) k/uL PT 10.7 (9.0-12.0) sec INR 1.0 (<1.2) APTT 25.5 (22.0-30.0) sec Sodium 138 (137-145) mmol/L Potassium 4.1 (3.5-5.1) mmol/L Chloride 99 (98-107) mmol/L Carbon Dioxide 30 (22-30) mmol/L Anion Gap 9 mmol/L BUN 11 (9-20) mg/dL Creatinine 0.74 (0.66-1.25) mg/dL Est GFR (CKD-EPI)AfAm >90 (>60 ml/min/1.73 sqM) Est GFR (CKD-EPI)NonAf >90 (>60 ml/min/1.73 sqM) Glucose 72 L (74-99) mg/dL Calcium 10.8 H (8.4-10.2) mg/dL Total Bilirubin 0.4 (0.2-1.3) mg/dL AST 33 (17-59) U/L ALT 25 (4-49) U/L Alkaline Phosphatase 80 (38-126) U/L Troponin I (0.000-0.034) ng/mL NT-Pro-B Natriuret Pep pg/mL Total Protein 7.6 (6.3-8.2) g/dL Albumin 4.4 (3.5-5.0) g/dL 01/28/21 01/28/21 Range/Units 18:01 18:02 WBC (3.8-10.6) k/uL RBC (4.30-5.90) m/uL Hgb (13.0-17.5) gm/dL Hct (39.0-53.0) % MCV (80.0-100.0) fL MCH (25.0-35.0) pg MCHC (31.0-37.0) g/dL RDW (11.5-15.5) % Plt Count (150-450) k/uL MPV Neutrophils % % Lymphocytes % % Monocytes % % Eosinophils % % Basophils % % Neutrophils # (1.3-7.7) k/uL Lymphocytes # (1.0-4.8) k/uL Monocytes # (0-1.0) k/uL Eosinophils # (0-0.7) k/uL Basophils # (0-0.2) k/uL PT (9.0-12.0) sec INR (<1.2) APTT (22.0-30.0) sec Sodium (137-145) mmol/L Potassium (3.5-5.1) mmol/L Chloride (98-107) mmol/L Carbon Dioxide (22-30) mmol/L Anion Gap mmol/L BUN (9-20) mg/dL Creatinine (0.66-1.25) mg/dL Est GFR (CKD-EPI)AfAm (>60 ml/min/1.73 sqM) Est GFR (CKD-EPI)NonAf (>60 ml/min/1.73 sqM) Glucose (74-99) mg/dL Calcium (8.4-10.2) mg/dL Total Bilirubin (0.2-1.3) mg/dL AST (17-59) U/L ALT (4-49) U/L Alkaline Phosphatase (38-126) U/L Troponin I <0.012 (0.000-0.034) ng/mL NT-Pro-B Natriuret Pep 47 pg/mL Total Protein (6.3-8.2) g/dL Albumin (3.5-5.0) g/dL Disposition Clinical Impression: Pneumonia, COPD exacerbation, Leukocytosis Disposition: HOME SELF-CARE Condition: Fair Prescriptions: predniSONE [Deltasone] 20 mg PO BID #14 tab Ipratropium-Albuterol Nebulize [Duoneb 0.5 mg-3 mg/3 ml Soln] 3 ml INHALATION Q4H #2 box Levofloxacin [Levaquin] 750 mg PO DAILY 7 Days #7 tab Is patient prescribed a controlled substance at d/c from ED?: No Referrals: Lori Ugalde MD [Primary Care Provider] - 1-2 days Time of Disposition: 20:59
[2021-01-28 20:07] VITALS: TEMP 98.7
--- NOTE | 2021-01-28 21:08 | ED ---
Medical Decision Making - Lab Data Result diagrams: 01/28/21 18:01 01/28/21 18:01 Lab Results 01/28/21 01/28/21 01/28/21 Range/Units 18:01 18:01 18:01 WBC 12.7 H (3.8-10.6) k/uL RBC 5.38 (4.30-5.90) m/uL Hgb 15.7 (13.0-17.5) gm/dL Hct 47.0 (39.0-53.0) % MCV 87.4 (80.0-100.0) fL MCH 29.1 (25.0-35.0) pg MCHC 33.4 (31.0-37.0) g/dL RDW 13.1 (11.5-15.5) % Plt Count 407 (150-450) k/uL MPV 6.9 Neutrophils % 71 % Lymphocytes % 12 % Monocytes % 8 % Eosinophils % 5 % Basophils % 2 % Neutrophils # 9.1 H (1.3-7.7) k/uL Lymphocytes # 1.6 (1.0-4.8) k/uL Monocytes # 1.1 H (0-1.0) k/uL Eosinophils # 0.6 (0-0.7) k/uL Basophils # 0.2 (0-0.2) k/uL PT 10.7 (9.0-12.0) sec INR 1.0 (<1.2) APTT 25.5 (22.0-30.0) sec Sodium 138 (137-145) mmol/L Potassium 4.1 (3.5-5.1) mmol/L Chloride 99 (98-107) mmol/L Carbon Dioxide 30 (22-30) mmol/L Anion Gap 9 mmol/L BUN 11 (9-20) mg/dL Creatinine 0.74 (0.66-1.25) mg/dL Est GFR (CKD-EPI)AfAm >90 (>60 ml/min/1.73 sqM) Est GFR (CKD-EPI)NonAf >90 (>60 ml/min/1.73 sqM) Glucose 72 L (74-99) mg/dL Calcium 10.8 H (8.4-10.2) mg/dL Total Bilirubin 0.4 (0.2-1.3) mg/dL AST 33 (17-59) U/L ALT 25 (4-49) U/L Alkaline Phosphatase 80 (38-126) U/L Troponin I (0.000-0.034) ng/mL NT-Pro-B Natriuret Pep pg/mL Total Protein 7.6 (6.3-8.2) g/dL Albumin 4.4 (3.5-5.0) g/dL Coronavirus (PCR) (Not Detectd) 01/28/21 01/28/21 01/28/21 Range/Units 18:01 18:02 20:10 WBC (3.8-10.6) k/uL RBC (4.30-5.90) m/uL Hgb (13.0-17.5) gm/dL Hct (39.0-53.0) % MCV (80.0-100.0) fL MCH (25.0-35.0) pg MCHC (31.0-37.0) g/dL RDW (11.5-15.5) % Plt Count (150-450) k/uL MPV Neutrophils % % Lymphocytes % % Monocytes % % Eosinophils % % Basophils % % Neutrophils # (1.3-7.7) k/uL Lymphocytes # (1.0-4.8) k/uL Monocytes # (0-1.0) k/uL Eosinophils # (0-0.7) k/uL Basophils # (0-0.2) k/uL PT (9.0-12.0) sec INR (<1.2) APTT (22.0-30.0) sec Sodium (137-145) mmol/L Potassium (3.5-5.1) mmol/L Chloride (98-107) mmol/L Carbon Dioxide (22-30) mmol/L Anion Gap mmol/L BUN (9-20) mg/dL Creatinine (0.66-1.25) mg/dL Est GFR (CKD-EPI)AfAm (>60 ml/min/1.73 sqM) Est GFR (CKD-EPI)NonAf (>60 ml/min/1.73 sqM) Glucose (74-99) mg/dL Calcium (8.4-10.2) mg/dL Total Bilirubin (0.2-1.3) mg/dL AST (17-59) U/L ALT (4-49) U/L Alkaline Phosphatase (38-126) U/L Troponin I <0.012 (0.000-0.034) ng/mL NT-Pro-B Natriuret Pep 47 pg/mL Total Protein (6.3-8.2) g/dL Albumin (3.5-5.0) g/dL Coronavirus (PCR) Not Detected (Not Detectd) Disposition Clinical Impression: Pneumonia, COPD exacerbation, Leukocytosis Disposition: HOME SELF-CARE Condition: Fair Instructions (If sedation given, give patient instructions): Pneumonia (ED), COPD (Chronic Obstructive Pulmonary Disease) (ED) Prescriptions: predniSONE [Deltasone] 20 mg PO BID #14 tab Ipratropium-Albuterol Nebulize [Duoneb 0.5 mg-3 mg/3 ml Soln] 3 ml INHALATION Q4H #2 box Levofloxacin [Levaquin] 750 mg PO DAILY 7 Days #7 tab Is patient prescribed a controlled substance at d/c from ED?: No Referrals: Lori Ugalde MD [Primary Care Provider] - 1-2 days
[2021-01-28 21:20] VITALS: BP 143/95; PULSE 108; RESP 20
== END 2021-01-28 21:27 | disposition home or self-care (01) ==
LOC: EC 16:22
DX: J18.9 Pneumonia, unspecified organism (principal); J44.1 Chronic obstructive pulmonary disease with (acute) exacerbation; D72.829 Elevated white blood cell count, unspecified; I10 Essential (primary) hypertension; E78.5 Hyperlipidemia, unspecified; K21.9 Gastro-esophageal reflux disease without esophagitis; G47.30 Sleep apnea, unspecified; F41.9 Anxiety disorder, unspecified; Z20.822 Contact with and (suspected) exposure to COVID-19; F17.200 Nicotine dependence, unspecified, uncomplicated; Z79.1 Long term (current) use of non-steroidal anti-inflammatories (NSAID); Z79.51 Long term (current) use of inhaled steroids; Z79.52 Long term (current) use of systemic steroids; Z79.82 Long term (current) use of aspirin; Z79.84 Long term (current) use of oral hypoglycemic drugs; Z79.899 Other long term (current) drug therapy
CPT/HCPCS: 36415; 93005; 83880; 80053; 84484; 85025; 85610; 85730; 87040; 87635; 71046; 99285; 96365; 96366 ×2; 96375; J2930; J1956

== ENCOUNTER 2021-06-30 02:29 | Emergency (ER) | payer OTHER ==
[2021-06-30 02:38] VITALS: BP 164/87; PULSE 96; RESP 18; TEMP 98.9
[2021-06-30] MEDS ORDERED: MORPHINE SULFATE 4 MG/ML SYRINGE IM STA (03:11)
[2021-06-30] MEDS ORDERED: ORPHENADRINE 30 MG/ML 2 ML VIAL IM STA (03:11)
[2021-06-30] MEDS ORDERED: ACET/COD 300 MG/30 MG STARTER PACK 6 TAB BTL PO STA (03:12)
--- NOTE | 2021-06-30 03:44 | ED ---
General Adult HPI - General Chief complaint: Back Pain/Injury Stated complaint: Back pain Time Seen by Provider: 06/30/21 02:49 Source: patient Mode of arrival: wheelchair Limitations: no limitations - History of Present Illness Initial comments: Jerry is a 61-year-old male with a history of chronic back pain who presents the ER today for treatment of chronic back pain. Patient reports that he has known herniated disks in his back he has pain that radiates down the left leg. He has been persistent for about 3 weeks. He was seen at an outside hospital 3 weeks ago he had x-rays are no acute findings he scheduled to follow-up with a specialist in July. Currently only takes ibuprofen at home. He's been using a wheelchair due to the pain in his leg but he doesn't have any weakness. No bowel or bladder incontinence or retention. - Related Data Home Medications Medication Instructions Recorded Confirmed Cholecalciferol (Vitamin D3) 2,000 unit PO DAILY 02/19/18 01/28/21 [Vitamin D3] Omeprazole [PriLOSEC] 20 mg PO DAILY 02/19/18 01/28/21 Cyanocobalamin (Vitamin B-12) 2,000 mcg PO DAILY 12/23/18 01/28/21 [Vitamin B-12] Albuterol Inhaler [Ventolin Hfa 2 puff INHALATION RT-QID PRN 01/28/21 01/28/21 Inhaler] Albuterol Nebulized [Ventolin 2.5 mg INHALATION RT-TID PRN 01/28/21 01/28/21 Nebulized] Aspirin EC [Ecotrin Low Dose] 81 mg PO DAILY 01/28/21 01/28/21 Atorvastatin Calcium [Lipitor] 40 mg PO HS 01/28/21 01/28/21 Fluticasone Nasal [place] [Flonase 2 spr EA NOSTRIL DAILY PRN 01/28/21 01/28/21 Nasal [place]] Fluticasone Propionate [Flovent 1 puff INHALATION RT-BID 01/28/21 01/28/21 Hfa 110 mcg] HYDROcodone/APAP 7.5-325MG [[place] 1 tab PO BID PRN 01/28/21 01/28/21 7.5-325] Ibuprofen [Motrin] 800 mg PO Q8H PRN 01/28/21 01/28/21 Loratadine 10 mg PO DAILY 01/28/21 01/28/21 Sildenafil Citrate [Viagra] 100 mg PO DAILY PRN 01/28/21 01/28/21 amLODIPine [Norvasc] 10 mg PO DAILY 01/28/21 01/28/21 busPIRone HCL [Buspar] 30 mg PO BID PRN 01/28/21 01/28/21 glipiZIDE [Glucotrol] 5 mg PO DAILY 01/28/21 01/28/21 metFORMIN HCL [Glucophage] 500 mg PO DAILY 01/28/21 01/28/21 Previous Rx's Medication Instructions Recorded Ipratropium-Albuterol Nebulize 3 ml INHALATION Q4H #2 box 01/28/21 [Duoneb 0.5 mg-3 mg/3 ml Soln] Levofloxacin [Levaquin] 750 mg PO DAILY 7 Days #7 tab 01/28/21 predniSONE [Deltasone] 20 mg PO BID #14 tab 01/28/21 Allergies Allergy/AdvReac Type Severity Reaction Status Date / Time No Known Allergies Allergy Verified 06/30/21 02:38 Review of Systems ROS Statement: Those systems with pertinent positive or pertinent negative responses have been documented in the HPI. ROS Other: All systems not noted in ROS Statement are negative. 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 History of Any Multi-Drug Resistant Organisms: None Reported Past Surgical History: Orthopedic Surgery Additional Past Surgical History / Comment(s): ORIF LT HIP Past Anesthesia/Blood Transfusion Reactions: No Reported Reaction Past Psychological History: Anxiety Smoking Status: Current every day smoker Past Alcohol Use History: Occasional Past Drug Use History: None Reported - Past Family History Mother Family Medical History: Cancer General Exam Limitations: no limitations Course Vital Signs 06/30/21 02:36 Temperature 98.9 F Pulse Rate 96 Respiratory 18 Rate Blood Pressure 164/87 O2 Sat by Pulse 96 Oximetry Medical Decision Making - Medical Decision Making The patient was seen and evaluated, history was obtained from the patient and at bedside. Patient with chronic back pain currently only has ibuprofen at home. Pain is been worsening for 3 weeks. Patient denies any trauma. Patient does report that the patient has had 2 falls using a walker over the past 2 weeks but patient states his back pain hasn't changed because of those falls he had x-rays 3 weeks ago does not want have any x-rays today. Patient states he's here for pain management. Patient was treated with pain medications and muscle relaxers will be discharged home with a starter pack for Tylenol 3 and advised to follow up outpatient. Disposition Clinical Impression: Chronic back pain Disposition: HOME SELF-CARE Condition: Stable Instructions (If sedation given, give patient instructions): Chronic Back Pain (DC) Is patient prescribed a controlled substance at d/c from ED?: No Referrals: Lori Ugalde MD [Primary Care Provider] - 1-2 days
== END 2021-06-30 03:57 | disposition home or self-care (01) ==
LOC: EC 02:29
DX: M54.9 Dorsalgia, unspecified (principal); G89.29 Other chronic pain; J44.9 Chronic obstructive pulmonary disease, unspecified; K21.9 Gastro-esophageal reflux disease without esophagitis; E78.5 Hyperlipidemia, unspecified; I10 Essential (primary) hypertension; F41.9 Anxiety disorder, unspecified; F17.200 Nicotine dependence, unspecified, uncomplicated; Z79.82 Long term (current) use of aspirin; Z79.84 Long term (current) use of oral hypoglycemic drugs
CPT/HCPCS: 99283; 96372 ×2; J2270; J2360

== ENCOUNTER 2021-10-09 16:17 | Emergency (ER) | payer OTHER ==
[2021-10-09 16:36] VITALS: BP 144/94; PULSE 94; RESP 24; TEMP 98
[2021-10-09] MEDS ORDERED: HYDROmorphone 1 MG/ML 1 ML SYRINGE IVP STA (16:53)
[2021-10-09] MEDS ORDERED: ONDANSETRON 4 MG/2 ML VIAL IVP STA (16:53)
--- NOTE | 2021-10-09 17:00 | ED ---
General Adult HPI - General Chief complaint: Back Pain/Injury Stated complaint: Back Pain Time Seen by Provider: 10/09/21 16:37 Source: patient, RN notes reviewed Mode of arrival: wheelchair Limitations: no limitations - History of Present Illness Initial comments: 61-year-old male presents to the emergency department for evaluation of low back pain. Patient states he was seen by Dr. Saez on Monday for this pain and is scheduled for surgery next week. States he might have cancer in his spine. Patient states the neurosurgeon offered to admit him to the hospital on Monday but he declined because he had stuffed to take care of at home. Reports taking hydrocodone prior to arrival with minimal improvement in pain. States pain does radiate down both legs and wraps around to his thighs. Denies loss of bowel or bladder control, saddle anesthesia, or foot drop. No new injury or trauma. - Related Data Home Medications Medication Instructions Recorded Confirmed Cholecalciferol (Vitamin D3) 2,000 unit PO DAILY 02/19/18 01/28/21 [Vitamin D3] Omeprazole [PriLOSEC] 20 mg PO DAILY 02/19/18 01/28/21 Cyanocobalamin (Vitamin B-12) 2,000 mcg PO DAILY 12/23/18 01/28/21 [Vitamin B-12] Albuterol Inhaler [Ventolin Hfa 2 puff INHALATION RT-QID PRN 01/28/21 01/28/21 Inhaler] Albuterol Nebulized [Ventolin 2.5 mg INHALATION RT-TID PRN 01/28/21 01/28/21 Nebulized] Aspirin EC [Ecotrin Low Dose] 81 mg PO DAILY 01/28/21 01/28/21 Atorvastatin Calcium [Lipitor] 40 mg PO HS 01/28/21 01/28/21 Fluticasone Nasal [place] [Flonase 2 spr EA NOSTRIL DAILY PRN 01/28/21 01/28/21 Nasal [place]] Fluticasone Propionate [Flovent 1 puff INHALATION RT-BID 01/28/21 01/28/21 Hfa 110 mcg] HYDROcodone/APAP 7.5-325MG [[place] 1 tab PO BID PRN 01/28/21 01/28/21 7.5-325] Ibuprofen [Motrin] 800 mg PO Q8H PRN 01/28/21 01/28/21 Loratadine 10 mg PO DAILY 01/28/21 01/28/21 Sildenafil Citrate [Viagra] 100 mg PO DAILY PRN 01/28/21 01/28/21 amLODIPine [Norvasc] 10 mg PO DAILY 01/28/21 01/28/21 busPIRone HCL [Buspar] 30 mg PO BID PRN 01/28/21 01/28/21 glipiZIDE [Glucotrol] 5 mg PO DAILY 01/28/21 01/28/21 metFORMIN HCL [Glucophage] 500 mg PO DAILY 01/28/21 01/28/21 Previous Rx's Medication Instructions Recorded Ipratropium-Albuterol Nebulize 3 ml INHALATION Q4H #2 box 01/28/21 [Duoneb 0.5 mg-3 mg/3 ml Soln] Levofloxacin [Levaquin] 750 mg PO DAILY 7 Days #7 tab 01/28/21 predniSONE [Deltasone] 20 mg PO BID #14 tab 01/28/21 Allergies Allergy/AdvReac Type Severity Reaction Status Date / Time No Known Allergies Allergy Verified 10/09/21 16:36 Review of Systems ROS Statement: Those systems with pertinent positive or pertinent negative responses have been documented in the HPI. ROS Other: All systems not noted in ROS Statement are negative. 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 Initial temperature 98.0, pulse 94, respirations 24, blood pressure 144/94, pulse ox 99% on room air.) ENT exam: Present: normal oropharynx Neck exam: Present: normal inspection, full ROM. Absent: tenderness, meningismus, lymphadenopathy Respiratory exam: Present: normal lung sounds bilaterally, other (Patient is m ildly tachypneic, but denies feeling short of breath or having difficulty breathing.). Absent: respiratory distress, wheezes, rales, rhonchi, stridor, chest wall tenderness Cardiovascular Exam: Present: regular rate, normal rhythm, normal heart sounds. Absent: systolic murmur, diastolic murmur, rubs, gallop, clicks GI/Abdominal exam: Present: soft, normal bowel sounds. Absent: distended, tenderness, guarding, rebound, rigid Back exam: Present: vertebral tenderness (lumbar vertebral tenderness upon palpation), other (arrives wears lumbar support brace) Expanded Back exam: Present: other (patient unable/unwilling to allow assessment via straight leg raise. Wearing a lumbar back support device.). Absent: saddle anesthesia Neurological exam: Present: alert, oriented X3, CN II-XII intact Psychiatric exam: Present: agitated Skin exam: Present: warm, dry, intact, normal color Course Vital Signs 10/09/21 16:32 Temperature 98.0 F Pulse Rate 94 Respiratory 24 Rate Blood Pressure 144/94 O2 Sat by Pulse 99 Oximetry - Reevaluation(s) Reevaluation #1: 10/09/21 18:20 Upon reevaluation, patient appears more comfortable but continues to rate his pain an 8 out of 10. Complains of worsening discomfort on the left side which he describes as a pinching sensation 10/09/21 18:50 Spoke with Earl regarding possible admission. He will speak to his attending and call back. 10/09/21 19:41 Patient is requesting to be discharged home despite an initial request for hospital admission. States he will keep his follow-up appointment on Monday at 11:30. Return parameters were discussed in detail. Patient verbalizes understanding. Updated Earl with patient's new plan of care. Medical Decision Making - Medical Decision Making This is a 61-year-old male with history of chronic low back pain, hypertension, COPD, and nicotine dependence who presents to the emergency department for evaluation of low back pain. Upon arrival, patient is irritable and aggravated due to his ongoing back pain. States he knows he was to be admitted to the hospital earlier in the week because of this pain but declined to do so at that time. Patient was given pain medication with minimal improvement. Repeat doses were not helpful. I did speak with orthopedics PAEarl, regarding physical exam findings and patient's desire to be admitted to the hospital. After speaki cha with his attending, it was decided that patient would be admitted to Dr. Saez with additional orders placed for imaging and blood work. Laboratory studies were reviewed. CRP and ESR are mildly elevated. The patient, however, decided to leave prior to admission due to irritability and perceived lack of effort to improve his situation. He is scheduled to see Dr. Saez on Monday. Encouraged to keep this appointment. Instructed to return to the emergency department with any new, worsening, or concerning symptoms. Patient verbalizes understanding. Attending: Dr. Cardenas. - Lab Data Result diagrams: 10/09/21 18:45 10/09/21 18:44 Lab Results 10/09/21 10/09/21 10/09/21 Range/Units 18:44 18:45 18:45 WBC 8.5 (3.8-10.6) k/uL RBC 5.07 (4.30-5.90) m/uL Hgb 14.7 (13.0-17.5) gm/dL Hct 46.2 (39.0-53.0) % MCV 91.1 (80.0-100.0) fL MCH 29.0 (25.0-35.0) pg MCHC 31.8 (31.0-37.0) g/dL RDW 14.2 (11.5-15.5) % Plt Count 468 H (150-450) k/uL MPV 7.3 Neutrophils % 48 % Lymphocytes % 37 % Monocytes % 7 % Eosinophils % 4 % Basophils % 2 % Neutrophils # 4.1 (1.3-7.7) k/uL Lymphocytes # 3.1 (1.0-4.8) k/uL Monocytes # 0.6 (0-1.0) k/uL Eosinophils # 0.3 (0-0.7) k/uL Basophils # 0.2 (0-0.2) k/uL ESR 23 H (0-15) mm/hr Sodium 136 L (137-145) mmol/L Potassium 4.1 (3.5-5.1) mmol/L Chloride 102 (98-107) mmol/L Carbon Dioxide 25 (22-30) mmol/L Anion Gap 9 mmol/L BUN 7 L (9-20) mg/dL Creatinine 0.77 (0.66-1.25) mg/dL Est GFR (CKD-EPI)AfAm >90 (>60 ml/min/1.73 sqM) Est GFR (CKD-EPI)NonAf >90 (>60 ml/min/1.73 sqM) Glucose 86 (74-99) mg/dL Calcium 10.5 H (8.4-10.2) mg/dL C-Reactive Protein (<1.0) mg/dL 10/09/21 Range/Units 18:45 WBC (3.8-10.6) k/uL RBC (4.30-5.90) m/uL Hgb (13.0-17.5) gm/dL Hct (39.0-53.0) % MCV (80.0-100.0) fL MCH (25.0-35.0) pg MCHC (31.0-37.0) g/dL RDW (11.5-15.5) % Plt Count (150-450) k/uL MPV Neutrophils % % Lymphocytes % % Monocytes % % Eosinophils % % Basophils % % Neutrophils # (1.3-7.7) k/uL Lymphocytes # (1.0-4.8) k/uL Monocytes # (0-1.0) k/uL Eosinophils # (0-0.7) k/uL Basophils # (0-0.2) k/uL ESR (0-15) mm/hr Sodium (137-145) mmol/L Potassium (3.5-5.1) mmol/L Chloride (98-107) mmol/L Carbon Dioxide (22-30) mmol/L Anion Gap mmol/L BUN (9-20) mg/dL Creatinine (0.66-1.25) mg/dL Est GFR (CKD-EPI)AfAm (>60 ml/min/1.73 sqM) Est GFR (CKD-EPI)NonAf (>60 ml/min/1.73 sqM) Glucose (74-99) mg/dL Calcium (8.4-10.2) mg/dL C-Reactive Protein 2.7 H (<1.0) mg/dL Disposition Clinical Impression: Chronic back pain Disposition: HOME SELF-CARE Condition: Stable Instructions (If sedation given, give patient instructions): Chronic Back Pain (DC) Additional Instructions: Please keep follow-up appointment with Dr. Saez scheduled for Monday. Continue taking your home medication regimen as prescribed. Return to the emergency department with any new, worsening, or concerning symptoms. Is patient prescribed a controlled substance at d/c from ED?: No Referrals: Lori Ugalde MD [Primary Care Provider] - 1-2 days
[2021-10-09] MEDS ORDERED: MORPHINE SULFATE 2 MG/ML SYRINGE IVP STA (18:26)
[2021-10-09 18:50] LABS: HGB 14.7 gm/dL (13.0-17.5); RBC 5.07 m/uL (4.30-5.90); WBC 8.5 k/uL (3.8-10.6)
[2021-10-09 18:51] LABS: Basophils # (A) 0.2 k/uL (0-0.2); Basophils % (A) 2 %; Eosinophils # (A) 0.3 k/uL (0-0.7); Eosinophils % (A) 4 %; HCT 46.2 % (39.0-53.0); Lymphocytes # (A) 3.1 k/uL (1.0-4.8); Lymphocytes % (A) 37 %; MCHC 31.8 g/dL (31.0-37.0); MCV 91.1 fL (80.0-100.0); Mean Platelet Volume 7.3; Monocytes # (A) 0.6 k/uL (0-1.0); Monocytes % (A) 7 %; Neutrophils # (A) 4.1 k/uL (1.3-7.7); Neutrophils % (A) 48 %; Platelet Count 468 k/uL (150-450); RDW 14.2 % (11.5-15.5)
[2021-10-09] MEDS ORDERED: ONDANSETRON 4 MG/2 ML VIAL IVP PRN (18:57)
[2021-10-09] MEDS ORDERED: NALOXONE 0.4 MG/ML 1 ML VIAL IV PRN (18:57)
[2021-10-09] MEDS ORDERED: HYDROmorphone 1 MG/ML 1 ML SYRINGE IVP PRN (18:57)
[2021-10-09] MEDS ORDERED: KETOROLAC 30 MG/ML 1 ML VIAL IVP PRN (18:57)
[2021-10-09 18:59] LABS: African American GFR (CKD) >90 (>60 ml/min/1.73 sqM); Anion Gap 9 mmol/L; Blood Urea Nitrogen 7 mg/dL (9-20); Calcium 10.5 mg/dL (8.4-10.2); Carbon Dioxide 25 mmol/L (22-30); Chloride 102 mmol/L (98-107); Glucose 86 mg/dL (74-99); Non-African American GFR(CKD) >90 (>60 ml/min/1.73 sqM); Potassium 4.1 mmol/L (3.5-5.1); Sodium 136 mmol/L (137-145)
[2021-10-09] MEDS ORDERED: ACET/COD 300 MG/30 MG STARTER PACK 6 TAB BTL PO STA (19:45)
[2021-10-09] MEDS ORDERED: FAMOTIDINE 20 MG TAB PO SCH (21:00)
== END 2021-10-09 20:06 | disposition home or self-care (01) ==
LOC: EC 16:17
DX: M54.59 Other low back pain (principal); G89.29 Other chronic pain; J44.9 Chronic obstructive pulmonary disease, unspecified; K21.9 Gastro-esophageal reflux disease without esophagitis; E78.5 Hyperlipidemia, unspecified; I10 Essential (primary) hypertension; F41.9 Anxiety disorder, unspecified; F17.200 Nicotine dependence, unspecified, uncomplicated; Z79.82 Long term (current) use of aspirin; Z79.84 Long term (current) use of oral hypoglycemic drugs
CPT/HCPCS: 99283; 96374; 96375 ×2; 96376; 80048; 85652; 85025; 86140; J2405; J2270; J1170; 36415

== ENCOUNTER 2021-10-11 12:08 | Inpatient (IN) | payer OTHER ==
[2021-10-11] MEDS ORDERED: HYDROcodone/APAP 10-325MG 1 EACH TAB PO PRN (13:05)
[2021-10-11] MEDS ORDERED: CYCLOBENZAPRINE 10 MG TAB PO PRN (13:05)
[2021-10-11] MEDS ORDERED: HYDROmorphone 1 MG/ML 1 ML SYRINGE IVP PRN ×3 (13:05→14:25)
[2021-10-11] MEDS ORDERED: HYDROcodone/APAP 5-325MG 1 EACH TAB PO PRN (13:05)
[2021-10-11] MEDS ORDERED: SENNOSIDES-DOCUSATE SODIUM 1 EACH TAB PO PRN (13:05)
[2021-10-11] MEDS ORDERED: ONDANSETRON 4 MG/2 ML VIAL IVP PRN (13:05)
--- NOTE | 2021-10-11 13:31 | P.HPOR ---
History of Present Illness H&P Date: 10/11/21 Chief Complaint: Low back pain, LE weakness Date of :[birth year] Age: 61 year Height: 6' Weight: 220 lbs BMI: 29.84 kg/m2 Occupation: Retired VAS: 10 CHIEF COMPLAINT: Lumbar pain HISTORY: Xrays New xrays taken in office Trauma or injury No Work-Related No Pain description sharp. Location diffuse Activity Modification yes , unable to stand or ambulate for extended periods of time. Hand Dominance right DOI: Chronic, but onset was 05/2021 DOS: None TREATMENTS COMPLETED: 6 weeks of PT completed? Yes Did it help? No, could not complete round of PT as it exacerbated his symptoms. Physician directed home exercise completed? yes , trialed but could not complete as it exacerbates his symptoms. Medications yes List: [place] with mild/temporary relief. Gabapentin, and Mobic without relief. Alternative interventions Chiropractic: No Massage therapy: No Brace: Yes Did it help? No Injections No RFA: No SUBJECTIVE: Today Mr. Rivera presents to the office for an evaluation of his lumbar spine. He reports pain ongoing since 05/2021 with no known injury or trauma. Since the onset he reports that his symptoms have progressively worsened to the point where he cannot complete most of his daily functions due to pain. regarding his symptoms, the patient reports acute, sharp posterior lumbar pain radiating into the bilateral hips and anterior portion of the thighs into the knees. He denies any numbness or tingling at this time and his primary concern is the sharp pain. Patient does report a significant loss in ROM about the lumbar spine as well as the hips which is restricting his significantly. Due to the severity of his pain the patient does report sandy he has fallen 4 times over the last couple weeks, denying any acute injury, trauma, or overt injury from these. But due to these falls he does report that he has had an increase in lumbar pain. As for treatments, the patient reports that he did attempt to do a round of PT but could not make it through the first visit as it severely exacerbated his symptoms. This is also true of the physician recommended HEP he had previously received. Regarding medications the patient has previously trialed Gabapentin, Mobic, and [place] with which he did not find significant relief. he reports that he is not currently taking any medications as he "dropped them in a bucket of water". Aside from medications, HEP, and PT he denies trialing any other modalities previously. Patient denies any bladder or bowel retention/incontinence, no perineal numbness/tingling, and ambulates independently. The patients' past social, medical, family, surgical history, as well as review of systems, have been reviewed. Please refer to the Neurosurgery History and Physical form that has been scanned in to our electronic medical record system. 14 points review of systems completed and as stated in HPI, all other systems reviewed are negative. Review of Systems 14 points review of systems completed and as stated in HPI, all other systems reviewed are negative. 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 History of Any Multi-Drug Resistant Organisms: None Reported Past Surgical History: Orthopedic Surgery Additional Past Surgical History / Comment(s): ORIF LT HIP Past Anesthesia/Blood Transfusion Reactions: No Reported Reaction Smoking Status: Current every day smoker - Past Family History Mother Family Medical History: Cancer Medications and Allergies Home Medications Medication Instructions Recorded Confirmed Type Cholecalciferol (Vitamin D3) 2,000 unit PO DAILY 02/19/18 01/28/21 History [Vitamin D3] Omeprazole [PriLOSEC] 20 mg PO DAILY 02/19/18 01/28/21 History Cyanocobalamin (Vitamin B-12) 2,000 mcg PO DAILY 12/23/18 01/28/21 History [Vitamin B-12] Albuterol Inhaler [Ventolin Hfa 2 puff INHALATION RT-QID PRN 01/28/21 01/28/21 History Inhaler] Albuterol Nebulized [Ventolin 2.5 mg INHALATION RT-TID PRN 01/28/21 01/28/21 History Nebulized] Aspirin EC [Ecotrin Low Dose] 81 mg PO DAILY 01/28/21 01/28/21 History Atorvastatin Calcium [Lipitor] 40 mg PO HS 01/28/21 01/28/21 History Fluticasone Nasal [place] [Flonase 2 spr EA NOSTRIL DAILY PRN 01/28/21 01/28/21 History Nasal [place]] Fluticasone Propionate [Flovent 1 puff INHALATION RT-BID 01/28/21 01/28/21 History Hfa 110 mcg] HYDROcodone/APAP 7.5-325MG [[place] 1 tab PO BID PRN 01/28/21 01/28/21 History 7.5-325] Ibuprofen [Motrin] 800 mg PO Q8H PRN 01/28/21 01/28/21 History Ipratropium-Albuterol Nebulize 3 ml INHALATION Q4H #2 box 01/28/21 Rx [Duoneb 0.5 mg-3 mg/3 ml Soln] Levofloxacin [Levaquin] 750 mg PO DAILY 7 Days #7 tab 01/28/21 Rx Loratadine 10 mg PO DAILY 01/28/21 01/28/21 History Sildenafil Citrate [Viagra] 100 mg PO DAILY PRN 01/28/21 01/28/21 History amLODIPine [Norvasc] 10 mg PO DAILY 01/28/21 01/28/21 History busPIRone HCL [Buspar] 30 mg PO BID PRN 01/28/21 01/28/21 History glipiZIDE [Glucotrol] 5 mg PO DAILY 01/28/21 01/28/21 History metFORMIN HCL [Glucophage] 500 mg PO DAILY 01/28/21 01/28/21 History predniSONE [Deltasone] 20 mg PO BID #14 tab 01/28/21 Rx Allergies Allergy/AdvReac Type Severity Reaction Status Date / Time No Known Allergies Allergy Verified 10/09/21 16:36 Physical Examination Osteopathic Statement: *. No significant issues noted on an osteopathic structural exam other than those noted in the History and Physical/Consult. PHYSICAL EXAMINATION: General: Awake, alert, appropriate for age, in no acute distress. HEENT: No unusual neck masses around region of lateral neck triangle, thyroid, supraclavicular groove Heart: Regular rate and rhythm, normal S1, S2 and no murmur/gallop. Lungs: Clear to auscultation bilaterally with no use of accessory muscles. Extremities: Skin warm and dry without acute lesions, coloration, temperature, skin intact, no tenderness or erythema Integument: Hairy patches: Absent Dorsal skin dimples: Absent Cafe au lait spots: Absent Surgical incisions: No Palpation: Please see Pain drawing on Intake sheet for further detail. Midline spinal tenderness: Yes E6 Paralumbar tenderness: Yes E6 Parathoracic tenderness: No E6 Buttocks tenderness: No E6 Special findings: yes Diffuse lumbar pain into the bilateral SI and buttocks POSTURAL and MUSCULO-SKELETAL EVALUATION: Coronal Balance: NEUTRAL Recumbent testing: Patient is able to lay flat on back Sagittal Balance: NEUTRAL Shoulder Profile: LEVEL Pelvic Girdle: LEVEL Neck ROM: UNRESTRICTED Lumbar ROM: RESTRICTED WITH PAIN Shoulder ROM: Symmetrical Hip ROM: Restricted with pain Knee ROM: Symmetrical Hands: Normal appearance, symmetrical Feet: Normal appearance, Symmetrical VASCULAR STATUS : LEFT RIGHT Wrist Pulses INTACT INTACT Pedal Pulses (Dors. pedis & post.tibialis) INTACT INTACT Color NORMAL NORMAL Edema Absent Absent NEUROLOGIC EXAMINATION: Mental Status:Awake and alert, fully oriented, with normal attention, concentration and memory, and fluent, appropriate speech. Cranial Nerves: I: Olfactory not tested. II: Visual acuity normal, no visual field deficit noted with confrontation. III,IV: Normal pupillary reflexes & intact extraocular movements without nystagmus. V,: Intact symmetrical facial sensation. VII: Intact symmetrical facial motor movement VIII: Hearing intact. IX,X: Intact gag, swallow, & normal voice. XI: Sternocleidomastoid, trapezius function intact. XII: Tongue midline with normal movements. L'hermitte's Sign: Negative / absent [place]ling'Sign: Absent bilaterally. Cubital percussion test: Absent bilaterally. Odonnell-Tinel sign - Carpal region: Absent bilaterally. Straight Leg Raising: Absent bilaterally. Crossed straight leg raise: negative O8 MOTOR EXAM (0-5/5, N/T) STRENGTH RIGHT LEFT Shoulder Abd (not part of the BUTCH score) 5 5 Elbow Flexors 5 5 Elbow Extensor 5 5 Wrist Dorsiflexors 5 5 Finger Abductor 5 5 Lead Warehouse Associate 5 5 Hip Flexor (Not part of BUTCH Motor score) 5 5 Knee Flexor 4 5 Knee Extensor 4 5 Ankle dorsiflexor 4 4 Ankle plantarflexion 4 4 Extensor hallucis 4 4 Major restrictions due to pain today. Pt barely able to stand at bedside. LSO brace in place which helps him REFLEXES(0-4/2, NT) RIGHT LEFT Upper Extremities 3 2 Lower Extremities 2 2 Pathological Reflexes RIGHT LEFT Odonnell's Present Absent Clonus Absent Absent Babinski Absent Absent # Indicates mechanical impairment Muscle appearance: Symmetrical, without signs of atrophy or dystrophy. Sensory system (0-4, N/T) Test type RU CRUZITO RL LL Joint-Position 2 2 2 2 Vibration 2 2 2 2 Pain & LT sense 2 2 2 2 Dermatomal Deficit: None None L4-5 L4-S1 Gait and Functional Evaluation: Ambulatory aids: Independent Romberg's test: Intact bilaterally Toe heel walk / heel-toe walk intact while maintaining satisfactory balance? No Squatting/straightening w/o assistance to a min of 60 degree knee flexion? No Single leg stance: not intact bilaterally Trendelenburg sign negative bilaterally Hand and finger dexterity intact bilaterally? yes Disdiadochokinesis examination negative bilaterally? yes Results RADIOGRAPHIC STUDIES: XRay taken on 10/06/21 of Lumbar, Pelvis Spine: These are reviewed in the office with The patient today and demonstrate severe spondylotic changes between L3 and L4 L4-L5 and L5-S1. L4 5 and L5-S1 shows severe degenerative changes as well as likely foraminal stenosis no instability noted no fractures or dislocations otherwise noted no lesion. AP pelvis demonstrates congruent level pelvis no fracture MRI scan from of Lumbar Spine: This is reviewed in the office with the patientthis demonstrates a L4-L5 severe disc collapse with T1 hypointense vertebral body signals T2 hyperintense cystic lesions within the vertebral bodies of L4 and L5 as well as hyperintense stir imaging of L4 and L5 which demonstrates high intensity signal within the com plete vertebral body. There is complete disc collapse at L4-L5 as well as L5-S1 there are Modic changes noted at L5-S1 as well there is retrolisthesis of L5 on S1 there is moderate to severe stenosis L4 5 and L5-S1 secondary to these changes. There is no acute fracture or dislocation noted. The differential for these changes is infection versus malignancy. Patient needs CT as well as MRI of the remainder of his neural axis on an urgent basis MRI of the neuralaxis as well as CT lumbar spine pending Assessment and Plan Assessment: It was my pleasure to have seen and examined Juan. I reviewed the patient's clinical syndrome, physical findings, and imaging studies during the appointment today. It is my impression that the patient has a diagnosis of. 1. L4-L5, L5-S1 possible osteomyelitis versus malignancy 2. bilateral lower extremity weakness 3. severe low back pain I outlined the natural course history without intervention and various interventional options. Plan: Based on my findings I suggest the following course of action: -MRI CTL spine w/wo contrast for complete neuraxis imaging -CT L spine for surgical planning -Pain control -Medicine consult for management and clearance for surgical intervention -CBC, CMP, SED, CRP -GI ppx -Mechanical DVT ppx -We will plan for OR on Mon10/13/21 for decompression, stabilization and biopsy of L4-S1. In our visit today Mr. Rivera and I have had a chance to go over my understanding of the patient's current condition, the natural course history without intervention and various interventional options. Questions were invited and answered, and the patient wishes to proceed as outlined above. I will be sure to keep you updated afterMr. Rivera returns here for further follow-up. Thank you again for your referral. Please do not hesitate to contact me if you have any further questions.
[2021-10-11] MEDS ORDERED: NALOXONE 0.4 MG/ML 1 ML VIAL IV PRN (14:22)
[2021-10-11] MEDS ORDERED: HYDROmorphone 1 MG/ML 1 ML SYRINGE IVP STA (14:24)
[2021-10-11] MEDS: 0.9% NACL WITH KCL 20 MEQ/L 1,000 ML IV SCH (14:38)
[2021-10-11 14:41] LABS: HCT 51.1 % (39.0-53.0); HGB 16.1 gm/dL (13.0-17.5); Hypochromasia Slight; MCH 29.3 pg (25.0-35.0); MCHC 31.6 g/dL (31.0-37.0); MCV 92.7 fL (80.0-100.0); Mean Platelet Volume 7.2; Platelet Count 468 k/uL (150-450); RDW 14.5 % (11.5-15.5); WBC 8.5 k/uL (3.8-10.6)
[2021-10-11] MEDS: LORazepam 2 MG/ML INJ IV PRN (14:47)
[2021-10-11] MEDS: HYDROmorphone PCA 10 MG/50 ML BAG IV PRN (14:51)
[2021-10-11 15:01] LABS: ALT 39 U/L (4-49); AST 40 U/L (17-59); African American GFR (CKD) >90 (>60 ml/min/1.73 sqM); Albumin 4.8 g/dL (3.5-5.0); Albumin/Globulin Ratio 1.1; Alkaline Phosphatase 95 U/L (38-126); Anion Gap 15 mmol/L; Blood Urea Nitrogen 12 mg/dL (9-20); C Reactive Protein 3.1 mg/dL (<1.0); Calcium 11.3 mg/dL (8.4-10.2); Carbon Dioxide 22 mmol/L (22-30); Chloride 99 mmol/L (98-107); Globulin 4.4 g/dL; Glucose 114 mg/dL (74-99); Non-African American GFR(CKD) >90 (>60 ml/min/1.73 sqM); Potassium 4.5 mmol/L (3.5-5.1); Sodium 136 mmol/L (137-145); Total Bilirubin 0.8 mg/dL (0.2-1.3); Total Protein 9.2 g/dL (6.3-8.2)
[2021-10-11 15:39] LABS: Erythrocyte Sedimentation Rate 20 mm/hr (0-15)
[2021-10-11] MEDS: GABAPENTIN 300 MG CAP PO SCH ×2 (16:06→20:45)
--- NOTE | 2021-10-11 16:12 | P.CONS ---
History of Present Illness - Reason for Consult Consult date: 10/11/21 - Chief Complaint Back pain, medical management - History of Present Illness 61-year-old man with medical history of diabetes, hypertension, COPD, hyperlipidemia presented for back pain. This was consulted by orthopedic surgery service for medical management. Patient is known to Dr. Saez in clinic, where he was getting a workup for his acute back pain for 5 months duration. Sharp in nature. His workup consisted of x-rays, MRI which demonstrated L4 to 5 severe disc collapse with T1 hypodense vertebral body signals T2 hyperintense cystic lesions within the vertebral bodies of L4 and L5 as well as hyperintense STIR imaging of L4 and L5. The differential for this includes osteomyelitis versus malignancy. Patient was admitted to the hospital under the orthopedic surgery team to ultimately obtain biopsy sampling to determine etiology of this lesion. Patient himself is a poor historian because he is in significant amounts of pain, not comfortable at this time. Therefore, review of systems could not be completed. Patient is afebrile, 152/107, heart rate 96, 98% on room air. CBC is markable. Chemistries are remarkable for hypercalcemia to 11.3. LFTs are remarkable for p araproteinemia with a total protein of 9.2. Coags are negative. ESR is elevated at 20. Gen: awake, alert, agitated HEENT: normocephalic, atraumatic, good hearing acuity, moist mucous membranes Resp: good air exchange, breathing comfortably with no accessory muscle use CVS: good distal perfusion x 4, GI: soft, NTTP, ND : no SPT, no CVAT, hirsch catheter not present MSK: no pitting edema, no clubbing Neuro: non-focal, moving all extremities Psych: Minimally cooperative, agitated mood Labs and imaging reviewed as above Assessment/plan: Intractable back pain L4/L5 lytic lesions -Pain control: NUTRITIONISTS pump, IV Dilaudid when necessary, Ativan when necessary -Tylenol around the clock -Flexeril when necessary -Stool softener -Pending biopsy -Free light chains, SPEP, pending -Blood cultures pending Hypertension Hyperlipidemia COPD without exacerbation Diabetes Type 2 -Home medications reviewed and reconciled Patient is a full code DVT prophylaxis per surgery 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 History of Any Multi-Drug Resistant Organisms: None Reported Past Surgical History: Orthopedic Surgery Additional Past Surgical History / Comment(s): ORIF LT HIP Past Anesthesia/Blood Transfusion Reactions: No Reported Reaction Smoking Status: Current every day smoker - Past Family History Mother Family Medical History: Cancer Medications and Allergies Home Medications Medication Instructions Recorded Confirmed Type Cholecalciferol (Vitamin D3) 2,000 unit PO DAILY 02/19/18 01/28/21 History [Vitamin D3] Omeprazole [PriLOSEC] 20 mg PO DAILY 02/19/18 01/28/21 History Cyanocobalamin (Vitamin B-12) 2,000 mcg PO DAILY 12/23/18 01/28/21 History [Vitamin B-12] Albuterol Inhaler [Ventolin Hfa 2 puff INHALATION RT-QID PRN 01/28/21 01/28/21 History Inhaler] Albuterol Nebulized [Ventolin 2.5 mg INHALATION RT-TID PRN 01/28/21 01/28/21 History Nebulized] Aspirin EC [Ecotrin Low Dose] 81 mg PO DAILY 01/28/21 01/28/21 History Atorvastatin Calcium [Lipitor] 40 mg PO HS 01/28/21 01/28/21 History Fluticasone Nasal [place] [Flonase 2 spr EA NOSTRIL DAILY PRN 01/28/21 01/28/21 History Nasal Velpen] Fluticasone Propionate [Flovent 1 puff INHALATION RT-BID 01/28/21 01/28/21 History Hfa 110 mcg] HYDROcodone/APAP 7.5-325MG [Hallam 1 tab PO BID PRN 01/28/21 01/28/21 History 7.5-325] Ibuprofen [Motrin] 800 mg PO Q8H PRN 01/28/21 01/28/21 History Ipratropium-Albuterol Nebulize 3 ml INHALATION Q4H #2 box 01/28/21 Rx [Duoneb 0.5 mg-3 mg/3 ml Soln] Levofloxacin [Levaquin] 750 mg PO DAILY 7 Days #7 tab 01/28/21 Rx RX: Loratadine 10 mg PO DAILY 01/28/21 01/28/21 History RX: predniSONE [Deltasone] 20 mg PO BID #14 tab 01/28/21 Rx Sildenafil Citrate [Viagra] 100 mg PO DAILY PRN 01/28/21 01/28/21 History amLODIPine [Norvasc] 10 mg PO DAILY 01/28/21 01/28/21 History busPIRone HCL [Buspar] 30 mg PO BID PRN 01/28/21 01/28/21 History glipiZIDE [Glucotrol] 5 mg PO DAILY 01/28/21 01/28/21 History metFORMIN HCL [Glucophage] 500 mg PO DAILY 01/28/21 01/28/21 History Allergies Allergy/AdvReac Type Severity Reaction Status Date / Time No Known Allergies Allergy Verified 10/11/21 14:03 Physical Exam Osteopathic Statement: *. No significant issues noted on an osteopathic structural exam other than those noted in the History and Physical/Consult. Vitals: Vital Signs Temp Pulse Resp BP Pulse Ox 10/11/21 12:49 97.6 F 96 18 152/107 98 Intake and Output 10/10/21 10/11/21 10/11/21 22:59 06:59 14:59 Intake Total 240 Balance 240 Intake: Oral 240 Other: Weight 99.79 kg Results CBC & Chem 7: 10/11/21 14:13 Labs: Abnormal Lab Results - Last 24 Hours (Table) 10/11/21 Range/Units 14:13 Plt Count 468 H (150-450) k/uL
[2021-10-11] MEDS: ACETAMINOPHEN TAB 325 MG TAB PO SCH ×2 (17:07→23:46)
--- NOTE | 2021-10-11 17:52 | CT ---
EXAMINATION TYPE: CT lumbar spine wo con DATE OF EXAM: 10/11/2021 3:56 PM COMPARISON: MRI dated 08/25/2021 HISTORY: Osteomyelitis. CT DLP: 1108.6 mGycm Automated exposure control for dose reduction was used. TECHNIQUE: Unenhanced CT of the lumbar spine was performed. Bone and soft tissue window settings are submitted as well as coronal and sagittal reconstructions. FINDINGS: Motion artifacts. Mild retrolisthesis of L5 over S1. Large lucencies are seen at the posterior aspect of L4-5 opposing endplates with severe degenerative changes at L4-5 level demonstrating opposing end plate osteophytosis, irregularity, subchondral cyst formation, sclerotic changes and markedly degener ated disc. Milder degenerative changes are seen at L5-S1 level. Paraspinal soft tissue thickening is also seen at L4-5 level. At L1-2 level: Small left focal foraminal disc protrusion, causing no significant central spinal felicia l stenosis or neuroforaminal stenosis. At L2-3 level: Mild diffuse posterior disc bulge slightly more inclined to the left side with slightl y prominent posterior epidural fat, causing mild central spinal canal stenosis without significant ne uroforaminal stenosis. At L3-4 level: Diffuse posterior disc bulge associated with prominent posterior epidural fat, causing moderate central spinal canal stenosis without significant neuroforaminal stenosis. At L4-5 level: The above-described degenerative changes with possible associated bone destruction/spo ndylodiscitis and markedly degenerated disc with suspected posterior disc bulge/soft tissue, causing moderate central spinal canal stenosis and suspected severe bilateral neuroforaminal stenosis ai sing the corresponding L4 nerve root, suboptimally assessed by this CT scan. At L5-S1 level: Degenerated disc with posterior disc osteophyte complex, causing no significant centr al spinal canal stenosis and severe bilateral neuroforaminal stenosis compressing the corresponding L 5 nerve root more on the left side. Scattered arterial atherosclerotic calcifications. Suspected hepatic steatosis. IMPRESSION: Suboptimal CT scan with artifactual images as described above. 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 Recommend further enhanced MRI assessment.
[2021-10-11 19:16] LABS: Protein, Total 8.8 g/dL (6.2-8.2)
[2021-10-11] MEDS: SENNOSIDES-DOCUSATE SODIUM 1 EACH TAB PO SCH (20:45)
[2021-10-11] MEDS: NICOTINE 14MG/24HR PATCH TRANSDERM SCH (21:06)
[2021-10-12] MEDS: ACETAMINOPHEN TAB 325 MG TAB PO SCH ×4 (06:18→23:29)
[2021-10-12] MEDS: HYDROmorphone PCA 10 MG/50 ML BAG IV PRN ×2 (07:21→16:50)
[2021-10-12] MEDS: SENNOSIDES-DOCUSATE SODIUM 1 EACH TAB PO SCH ×2 (09:23→20:25)
[2021-10-12] MEDS: NICOTINE 14MG/24HR PATCH TRANSDERM SCH (09:24)
[2021-10-12] MEDS: GABAPENTIN 300 MG CAP PO SCH ×3 (09:24→21:17)
[2021-10-12] MEDS: 0.9% NACL WITH KCL 20 MEQ/L 1,000 ML IV SCH (10:07)
[2021-10-12 10:40] LABS: Basophils # (A) 0.08 X 10*3/uL (0.00-0.10); Basophils % (A) 1.1 %; Eosinophils # (A) 0.19 X 10*3/uL (0.04-0.35); Eosinophils % (A) 2.5 %; HCT 41.7 % (39.6-50.0); HGB 12.8 g/dL (13.0-17.0); Immature Grans, Automated 0.3 %; Lymphocytes # (A) 2.03 X 10*3/uL (0.90-5.00); MCH 27.4 pg (27.0-32.0); MCHC 30.7 g/dL (32.0-37.0); MCV 89.1 fL (80.0-97.0); Mean Platelet Volume 9.7 fL (9.5-12.2); Monocytes # (A) 1.08 X 10*3/uL (0.20-1.00); Monocytes % (A) 14.4 %; NRBC Per 100 WBC 0 /100 WBCS (0.0-0.0); Neutrophils # (A) 4.11 X 10*3/uL (1.80-7.70); Neutrophils % (A) 54.7 %; Platelet Count 461 X 10*3/uL (140-440); RBC 4.68 X 10*6/uL (4.40-5.60); RDW 15.2 % (11.5-14.5); WBC 7.51 X 10*3/uL (4.50-10.00)
[2021-10-12 10:56] LABS: African American GFR (CKD) 118.5 (60.0-200.0); Anion Gap 12.3 mmol/L (10.00-18.00); BUN/Creat Ratio 14.24 Ratio (12.00-20.00); Blood Urea Nitrogen 9.7 mg/dL (9.0-27.0); Calcium 10.5 mg/dL (8.7-10.3); Carbon Dioxide 24.5 mmol/L (20.0-27.5); Magnesium 1.5 mg/dL (1.5-2.4); Non-African American GFR(CKD) 102.2 (60.0-200.0); Potassium 4.5 mmol/L (3.5-5.5)
[2021-10-12 13:29] LABS: Albumin 4.24 g/dL (3.80-4.90); Gamma Globulin 1.61 g/dL (0.70-1.50)
--- NOTE | 2021-10-12 15:00 | P.PN ---
Subjective Progress Note Date: 10/12/21 History of Present Illness 61-year-old man with medical history of diabetes, hypertension, COPD, hyperlipidemia presented for back pain. This was consulted by orthopedic surgery service for medical management. Patient is known to Dr. Saez in clinic, where he was getting a workup for his acute back pain for 5 months duration. Sharp in nature. His workup consisted of x-rays, MRI which demonstrated L4 to 5 severe disc collapse with T1 hypodense vertebral body signals T2 hyperintense cystic lesions within the vertebral bodies of L4 and L5 as well as hyperintense STIR imaging of L4 and L5. The differential for this includes osteomyelitis versus malignancy. Patient was admitted to the hospital under the orthopedic surgery team to ultimately obtain biopsy sampling to determine etiology of this lesion. Patient himself is a poor historian because he is in significant amounts of pain, not comfortable at this time. Therefore, review of systems could not be completed Interval history: Patient was examined at the bedside. He denies any chest pain or shortness of breath. Still complaining of significant lower back pain 9 out of 10. Ot herwise no acute changes reported overnight Objective - Vital Signs Vital signs: Vital Signs Temp 98.0 F 10/12/21 08:00 Pulse 85 10/12/21 08:00 Resp 16 10/12/21 08:00 BP 137/89 10/12/21 08:00 Pulse Ox 90 L 10/12/21 08:00 Intake & Output 10/11/21 10/12/21 10/12/21 18:59 06:59 18:59 Intake Total 240 Balance 240 Weight 99.79 kg Intake: Oral 240 Other: Voiding Method Urinal - Exam General: non toxic, no distress, appears at stated age Derm: warm, dry Head: atraumatic, normocephalic, symmetric Eyes: EOMI, no lid lag, anicteric sclera Mouth: no lip lesion, mucus membranes moist Cardiovascular: S1S2 reg, no murmur, positive posterior tibial pulse bilateral, Lungs: CTA bilateral, no rhonchi, no rales , no accessory muscle use Abdominal: soft, nontender to palpation, no guarding, no appreciable organomegaly Ext: no gross muscle atrophy, no edema, no contractures Neuro: CN II-XI grossly intact, no focal neuro deficits Psych: Alert, oriented, appropriate affect - Labs CBC & Chem 7: 10/12/21 06:32 10/12/21 06:32 Labs: Abnormal Lab Results - Last 24 Hours (Table) 10/11/21 10/11/21 10/11/21 Range/Units 14:13 14:13 14:13 Hgb (13.0-17.0) g/dL MCHC (32.0-37.0) g/dL RDW (11.5-14.5) % Plt Count (140-440) X 10*3/uL Monocytes # (0.20-1.00) X 10*3/uL ESR 20 H (0-15) mm/hr Sodium 136 L (137-145) mmol/L Glucose 114 H (74-99) mg/dL Calcium 11.3 H (8.4-10.2) mg/dL C-Reactive Protein 3.1 H (<1.0) mg/dL Total Protein 9.2 H (6.3-8.2) g/dL Total Protein (PEP) 8.8 H (6.2-8.2) g/dL Cgaud-8-Eoffpnref 0.48 H (0.10-0.40) g/dL Ppdbw-2-Kuvvscdcc 1.16 H (0.60-1.00) g/dL Beta Globulins 1.31 H (0.60-1.30) g/dL Gamma Globulins 1.61 H (0.70-1.50) g/dL 10/12/21 10/12/21 Range/Units 06:32 06:32 Hgb 12.8 L (13.0-17.0) g/dL MCHC 30.7 L (32.0-37.0) g/dL RDW 15.2 H (11.5-14.5) % Plt Count 461 H (140-440) X 10*3/uL Monocytes # 1.08 H (0.20-1.00) X 10*3/uL ESR (0-15) mm/hr Sodium (137-145) mmol/L Glucose (74-99) mg/dL Calcium 10.5 H (8.4-10.2) mg/dL C-Reactive Protein (<1.0) mg/dL Total Protein (6.3-8.2) g/dL Total Protein (PEP) (6.2-8.2) g/dL Zmimr-5-Asudmfkhq (0.10-0.40) g/dL Brqhu-8-Astkeezzj (0.60-1.00) g/dL Beta Globulins (0.60-1.30) g/dL Gamma Globulins (0.70-1.50) g/dL Assessment and Plan Assessment: Assessment and plan: Intractable back pain L4/L5 lytic lesions -Pain control: OPERATIONS SCHEDULER pump, IV Dilaudid when necessary, Ativan when necessary -Tylenol around the clock -Flexeril when necessary -Stool softener -Pending biopsy -Free light chains, SPEP, pending -Consult hematology oncology -Blood cultures pending Hypertension -Decrease Norvasc to 5 mg daily Hyperlipidemia -Resume Lipitor COPD without exacerbation -Resume inhaled steroid -Resume Singulair -As needed DuoNeb Diabetes Type 2 -We'll hold oral hypoglycemics -Sliding scale insulin with NovoLog -Check A1c Ongoing tobacco abuse -Patient was counseled regarding smoking cessation -Nicotine patch Patient is a full code DVT prophylaxis per surgery
--- NOTE | 2021-10-12 16:13 | P.PN ---
Subjective Progress Note Date: 10/12/21 patient seen and examined he is in the room with his . States that they try to do MRI today views into much pain. He is currently on a [employer] but this is not helping him. He denies any fevers or chills denies any perineal numbness or tingling. States she is independent carpal pain and can even get up. He denies any bowel or bladder issues denies any perineal numbness or tingling at this time. Objective - Vital Signs Vital signs: Vital Signs Temp 98.4 F 10/12/21 14:00 Pulse 74 10/12/21 14:00 Resp 17 10/12/21 14:00 BP 130/91 10/12/21 14:00 Pulse Ox 95 10/12/21 14:00 Intake & Output 10/11/21 10/12/21 10/12/21 18:59 06:59 18:59 Intake Total 240 Balance 240 Weight 99.79 kg Intake: Oral 240 Other: Voiding Method Urinal - Exam Patient is alert and oriented 3 appears well-nourished well-hydrated is in no acute distress. They do not appear septic. On exam the patient has Severe tenderness to palpation in the lumbar spine. There is no edema or ballottement sign. Lower extremities with [4+]/5 strength in all major muscle groups Upper extremities show [5]/5 strength in all major muscle groups. Pain with all testing in any motion of the low back is unable to ambulate secondary to pain. [2]/4DTR all UE and LE b/l Patient shows a negative Homans, Odonnell's, negative Babinski's negative clonus bilaterally. negative straight leg raise bilaterally. No tensioning signs. Cranial nerves II through XII are grossly intact. There is FROM that is painless of the b/l UE and LE in all major joints [w/o pain]. They are intact to light touch sensation in L2 to S1 nerve distribution. Patient has palpable dorsalis pedis was posterior tibial pulses. Compartments are soft and compressible. - Labs CBC & Chem 7: 10/12/21 06:32 10/12/21 06:32 Labs: Abnormal Lab Results - Last 24 Hours (Table) 10/11/21 10/12/21 10/12/21 Range/Units 14:13 06:32 06:32 Hgb 12.8 L (13.0-17.0) g/dL MCHC 30.7 L (32.0-37.0) g/dL RDW 15.2 H (11.5-14.5) % Plt Count 461 H (140-440) X 10*3/uL Monocytes # 1.08 H (0.20-1.00) X 10*3/uL Calcium 10.5 H (8.7-10.3) mg/dL Total Protein (PEP) 8.8 H (6.2-8.2) g/dL Okzun-8-Tadjksfau 0.48 H (0.10-0.40) g/dL Pwure-1-Pipmybqrb 1.16 H (0.60-1.00) g/dL Beta Globulins 1.31 H (0.60-1.30) g/dL Gamma Globulins 1.61 H (0.70-1.50) g/dL Assessment and Plan Assessment: It was my pleasure to have seen and examined Juan. I reviewed the patient's clinical syndrome, physical findings, and imaging studies during the appointment today. It is my impression that the patient has a diagnosis of. 1. L4-L5, L5-S1 possible osteomyelitis versus malignancy 2. bilateral lower extremity weakness 3. severe low back pain I outlined the natural course history without intervention and various interventional options. Plan: - Await MRI CTL spine w/wo contrast for complete neuraxis imaging. May need sedation for this. -CT L spine for surgical planning -Pain control -Medicine consult for management and clearance for surgical intervention -CBC, CMP, SED, CRP -GI ppx -Mechanical DVT ppx -We will plan for OR on Mon10/13/21 for decompression, stabilization and biopsy of L4-S1.
--- NOTE | 2021-10-12 18:16 | P.CONS ---
History of Present Illness - Reason for Consult Consult date: 10/12/21 vertebral lytic lesions Requesting physician: Concetta Rodriguez - Chief Complaint intractable back pain - History of Present Illness Mr. Rivera is a pleasant 61-year-old man who is experiencing severe back pain. He has been seen by Orthopedics with plans for surgical intervention. Patient had x-rays 10/06/21 of the lumbar spine. Reported spondylitic changes in the l umbar spine as well as S1, degenerative changes, possibly foraminal stenosis, no fractures, dislocations or lesions. MRI showed hypointense signal in T1, L4 and L5. CT of the lumbar spine without contrast 10/11/21 reads L4-L5 degenerative changes, possible associated bone destruction, markedly degenerated disc. Patient is admitted for decompression, stabilization and biopsy. Patient denies a personal history of cancer or blood problems. He is in a lot of pain and not really interested in sharing his medical history with me. 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 History of Any Multi-Drug Resistant Organisms: None Reported Past Surgical History: Orthopedic Surgery Additional Past Surgical History / Comment(s): ORIF LT HIP Past Anesthesia/Blood Transfusion Reactions: No Reported Reaction Past Psychological History: Unable to Obtain Smoking Status: Current every day smoker Past Alcohol Use History: Unable to Obtain Past Drug Use History: Unable to Obtain - Past Family History Mother Family Medical History: Cancer Medications and Allergies Home Medications Medication Instructions Recorded Confirmed Type Omeprazole [PriLOSEC] 20 mg PO DAILY 02/19/18 10/11/21 History Albuterol Inhaler [Ventolin Hfa 2 puff INHALATION RT-QID PRN 01/28/21 10/11/21 History Inhaler] Albuterol Nebulized [Ventolin 2.5 mg INHALATION RT-TID PRN 01/28/21 10/11/21 History Nebulized] Atorvastatin Calcium [Lipitor] 40 mg PO HS 01/28/21 10/11/21 History Fluticasone Nasal [place] [Flonase 1 spr EA NOSTRIL DAILY PRN 01/28/21 10/11/21 History Nasal [place]] Fluticasone Propionate [Flovent 1 puff INHALATION RT-BID 01/28/21 10/11/21 History Hfa 110 mcg] Ibuprofen [Motrin] 800 mg PO Q8H PRN 01/28/21 10/11/21 History Loratadine 10 mg PO DAILY 01/28/21 10/11/21 History amLODIPine [Norvasc] 10 mg PO DAILY 01/28/21 10/11/21 History busPIRone HCL [Buspar] 30 mg PO BID PRN 01/28/21 10/11/21 History glipiZIDE [Glucotrol] 5 mg PO DAILY 01/28/21 10/11/21 History metFORMIN HCL [Glucophage] 500 mg PO DAILY 01/28/21 10/11/21 History Cyclobenzaprine [Flexeril] 10 mg PO TID PRN 10/11/21 10/11/21 History Gabapentin [Neurontin] 100 mg PO TID PRN 10/11/21 10/11/21 History HYDROcodone/APAP 5-325MG [Sadler 1 tab PO Q6H PRN 10/11/21 10/11/21 History 5-325] Meloxicam 15 mg PO DAILY 10/11/21 10/11/21 History Montelukast Sodium [Singulair] 10 mg PO DAILY 10/11/21 10/11/21 History Orphenadrine [Norflex] 100 mg PO BID 10/11/21 10/11/21 History Prazosin [Minipress] 1 mg PO HS 10/11/21 10/11/21 History polyethylene glycoL 3350 [Miralax] 17 gm PO DAILY 10/11/21 10/11/21 History Allergies Allergy/AdvReac Type Severity Reaction Status Date / Time No Known Allergies Allergy Verified 10/11/21 15:26 Physical Exam Vitals: Vital Signs Temp Pulse Resp BP Pulse Ox 10/12/21 14:00 98.4 F 74 17 130/91 95 10/12/21 08:00 98.0 F 85 16 137/89 90 L 10/12/21 02:00 97.9 F 88 19 118/76 100 10/11/21 20:44 97.9 F 88 153/92 96 Intake and Output 10/12/21 10/12/21 10/12/21 06:59 14:59 22:59 Other: Voiding Method Urinal - Constitutional General appearance: average body habitus, severe distress - EENT Eyes: anicteric sclerae, EOMI ENT: hearing grossly normal - Respiratory Respiratory: bilateral: CTA (anterior) - Cardiovascular Rhythm: regular Heart sounds: normal: S1, S2 Abnormal Heart Sounds: no systolic murmur, no diastolic murmur, no rub, no S3 Gallop, no S4 Gallop, no click, no other - Gastrointestinal General gastrointestinal: distended, normal bowel sounds, soft - Neurologic Neurologic: CNII-XII intact - Psychiatric Psychiatric: A&O x's 3 Results CBC & Chem 7: 10/12/21 06:32 10/12/21 06:32 Labs: Abnormal Lab Results - Last 24 Hours (Table) 10/11/21 10/12/21 10/12/21 Range/Units 14:13 06:32 06:32 Hgb 12.8 L (13.0-17.0) g/dL MCHC 30.7 L (32.0-37.0) g/dL RDW 15.2 H (11.5-14.5) % Plt Count 461 H (140-440) X 10*3/uL Monocytes # 1.08 H (0.20-1.00) X 10*3/uL Calcium 10.5 H (8.7-10.3) mg/dL Total Protein (PEP) 8.8 H (6.2-8.2) g/dL Ggcve-4-Hkjxhplwg 0.48 H (0.10-0.40) g/dL Ibpzz-4-Zpsigemgn 1.16 H (0.60-1.00) g/dL Beta Globulins 1.31 H (0.60-1.30) g/dL Gamma Globulins 1.61 H (0.70-1.50) g/dL Comments: CT reports reviewed. Orthopedic reports reviewed Assessment and Plan Plan: 1) suspicious lesions in the L spine. Multiple myeloma workup has been ordered. PSA WNL. Plan for Orthopedic intervention for severe pain. hey will obtain biopsies at that time, pending results. 2) hypercalcemia-patient's calcium level near normal since admission and hydration. Recheck in a.m. Will follow up patient with any new information/results
[2021-10-12] MEDS: INSULIN ASPART (NovoLOG) 100 UNIT/ML VIAL SQ SCH ×2 (18:25→20:49)
[2021-10-12] MEDS: IPRATROPIUM-ALBUTEROL 3 ML NEB INHALATION PRN (19:59)
[2021-10-12] MEDS: diazePAM 5 MG TAB PO SCH (20:25)
[2021-10-12 20:35] LABS: Glucose,Whole Blood 106 mg/dL (75-99)
[2021-10-12] MEDS: CYCLOBENZAPRINE 10 MG TAB PO SCH (21:17)
[2021-10-12] MEDS ORDERED: diphenhydrAMINE 50 MG/ML 1 ML VIAL IVP PRN (23:30)
[2021-10-12] MEDS ORDERED: diphenhydrAMINE 25 MG CAP PO PRN (23:32)
[2021-10-13] MEDS: 0.9% NACL WITH KCL 20 MEQ/L 1,000 ML IV SCH (05:31)
[2021-10-13] MEDS: ACETAMINOPHEN TAB 325 MG TAB PO SCH ×4 (05:31→21:36)
[2021-10-13] MEDS ORDERED: busPIRone HCl 10 MG TAB PO PRN (06:55)
[2021-10-13] MEDS ORDERED: LIDOCAINE 1% (10MG/ML) FOR IV START INTRADERMA PRN (06:55)
[2021-10-13] MEDS ORDERED: DEXAMETHASONE SOD PHOSPHATE 4 MG/ML 1 ML VIAL IV ONE (06:55)
[2021-10-13] MEDS ORDERED: ALBUTEROL NEBULIZED 2.5 MG/3 ML INHALATION PRN (06:55)
[2021-10-13] MEDS ORDERED: MIDAZOLAM 2 MG/2 ML VIAL IV PRN (06:55)
[2021-10-13] MEDS ORDERED: ONDANSETRON 4 MG/2 ML VIAL IVP ONE (06:55)
[2021-10-13] MEDS ORDERED: FLUTICASONE 50MCG/SPRAY NASAL 16GM EA NOSTRIL PRN (06:55)
[2021-10-13] MEDS ORDERED: ALBUTEROL HFA INHALER INHALATION PRN (06:55)
[2021-10-13] MEDS ORDERED: HYDROmorphone 0.5 MG/0.5 ML SYRINGE IVP PRN (07:00)
[2021-10-13] MEDS: FLUTICASONE 110 MCG INHALER INHALATION SCH ×2 (07:56→21:18)
[2021-10-13] MEDS: IPRATROPIUM-ALBUTEROL 3 ML NEB INHALATION PRN (07:58)
[2021-10-13 08:20] LABS: Glucose,Whole Blood 101 mg/dL (75-99)
[2021-10-13] MEDS: PRAZOSIN 1 MG CAP PO SCH ×3 (08:24→21:38)
[2021-10-13] MEDS: INSULIN ASPART (NovoLOG) 100 UNIT/ML VIAL SQ SCH ×4 (08:24→21:38)
[2021-10-13] MEDS: ATORVASTATIN 40 MG TAB PO SCH ×2 (08:24→21:36)
[2021-10-13] MEDS: amLODIPine 5 MG TAB PO SCH (08:24)
[2021-10-13] MEDS: PANTOPRAZOLE 40 MG TABLET PO SCH (08:24)
[2021-10-13] MEDS: LORATADINE 10 MG TAB PO SCH (08:25)
[2021-10-13] MEDS: CYCLOBENZAPRINE 10 MG TAB PO SCH ×3 (08:25→21:37)
[2021-10-13] MEDS: MONTELUKAST 10 MG TAB PO SCH (08:25)
[2021-10-13] MEDS: diazePAM 5 MG TAB PO SCH ×3 (08:26→21:36)
[2021-10-13] MEDS: SENNOSIDES-DOCUSATE SODIUM 1 EACH TAB PO SCH ×2 (08:26→21:36)
[2021-10-13] MEDS: GABAPENTIN 300 MG CAP PO SCH ×3 (08:26→21:36)
[2021-10-13] MEDS: NICOTINE 14MG/24HR PATCH TRANSDERM SCH (08:30)
[2021-10-13] MEDS: HYDROmorphone PCA 10 MG/50 ML BAG IV PRN (08:39)
--- NOTE | 2021-10-13 08:40 | P.PN ---
Subjective Progress Note Date: 10/13/21 Patient seen and examined today as well as at bedside. The patient continues to complain of pain. He has refused MRIs previously we will attempt to get another MRI of the cervical thoracic spine today to complete neuraxial imaging due to the potential for malignancy or infection. The patient's in the room states that he has been up and walking in the room. She states that he is in pain however. He denies any bowel or bladder issues denies any perineal numbness or tingling at this time. He states that he is not getting the MRI unless he is completely knocked out however we do not have the facilities for this here. I discussed with him at length the necessity of this MRI due to the potential for infection or malignancy in his back. His understands I am unsure if the patient grasps the gravity of this nature. We discussed at length the different nonsurgical and surgical options. He continues to want to go ahead with surgery however in order for the state place we need the MRIs. We will attempt today to get the MRI Objective - Vital Signs Vital signs: Vital Signs Temp 97.8 F 10/13/21 02:00 Pulse 88 10/13/21 08:04 Resp 18 10/13/21 08:04 BP 115/69 10/13/21 02:00 Pulse Ox 92 L 10/13/21 02:00 Intake & Output 10/12/21 10/13/21 10/13/21 18:59 06:59 18:59 Output Total 700 2100 Balance -700 -2100 Output: Urine 700 2100 Other: Voiding Method Urinal Urinal # Voids 4 - Exam Exam was repeated changes noted below no significant changes from yesterday patient is lying comfortably in bed but somewhat uncooperative and belligerent. Him and his were having arguments as well. Patient is alert and oriented 3 appears well-nourished well-hydrated is in no acute distress. They do not appear septic. On exam the patient has Severe tenderness to palpation in the lumbar spine. There is no edema or ballottement sign. Lower extremities with [4+]/5 strength in all major muscle groups Upper extremities show [5]/5 strength in all major muscle groups. Pain with all testing in any motion of the low back is unable to ambulate secondary to pain. [2]/4DTR all UE and LE b/l Patient shows a negative Homans, Odonnell's, negative Babinski's negative clonus bilaterally. negative straight leg raise bilaterally. No tensioning signs. Cranial nerves II through XII are grossly intact. There is FROM that is painless of the b/l UE and LE in all major joints [w/o pain]. They are intact to light touch sensation in L2 to S1 nerve distribution. Patient has palpable dorsalis pedis was posterior tibial pulses. Compartments are soft and compressible. - Labs CBC & Chem 7: 10/12/21 06:32 10/12/21 06:32 Labs: Abnormal Lab Results - Last 24 Hours (Table) 10/11/21 10/12/21 10/12/21 Range/Units 14:13 06:32 06:32 Hgb 12.8 L (13.0-17.0) g/dL MCHC 30.7 L (32.0-37.0) g/dL RDW 15.2 H (11.5-14.5) % Plt Count 461 H (140-440) X 10*3/uL Monocytes # 1.08 H (0.20-1.00) X 10*3/uL POC Glucose (mg/dL) (75-99) mg/dL Calcium 10.5 H (8.7-10.3) mg/dL Hhdte-9-Znblubetp 0.48 H (0.10-0.40) g/dL Sbtdn-1-Yxvtbcqdv 1.16 H (0.60-1.00) g/dL Beta Globulins 1.31 H (0.60-1.30) g/dL Gamma Globulins 1.61 H (0.70-1.50) g/dL 10/12/21 10/13/21 Range/Units 20:34 08:19 Hgb (13.0-17.0) g/dL MCHC (32.0-37.0) g/dL RDW (11.5-14.5) % Plt Count (140-440) X 10*3/uL Monocytes # (0.20-1.00) X 10*3/uL POC Glucose (mg/dL) 106 H 101 H (75-99) mg/dL Calcium (8.7-10.3) mg/dL Lgjco-1-Yzgumsrda (0.10-0.40) g/dL Rlywl-7-Pujuivbni (0.60-1.00) g/dL Beta Globulins (0.60-1.30) g/dL Gamma Globulins (0.70-1.50) g/dL Microbiology - Last 24 Hours (Table) 10/11/21 14:13 Blood Culture - Preliminary Blood No Growth after 24 hours Assessment and Plan Assessment: 1. L4-L5, L5-S1 possible osteomyelitis versus malignancy 2. bilateral lower extremity weakness 3. severe low back pain I outlined the natural course history without intervention and various interventional options. Plan: - Attempted MRI of cervical thoracic spine today at least with and without contrast before any surgical considerations. -CT of the lumbar spine is reviewed this demonstrates lytic changes within the L4 and L5 vertebral body which appear more degenerative in nature however is difficult to ascertain. There are no large tumorous masses noted there are no other lytic lesions or fractures noted there is severe spondylitic and arthritic changes of the L4 through S1 region. -Pain control -Medicine consult for management and clearance for surgical intervention -Trend labs -GI ppx -Mechanical DVT ppx -We still plan for OR on Mon10/13/21 for decompression, stabilization and biopsy of L4-S1 however this is pending the MRI has been completed today. I discussed at length with the patient that we need these MRIs to make sure that there is no other issues with the remainder of his spine and that we are not dealing with some sort of malignancy potential. This would change our course of action. 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 I discussed with him that we cannot take away all of his pain we can attempt to make him comfortable however if we affect his breathing or depress his central nervous system too much with these medications he may not continue to breathe and still have pain and so while we understand that he is in pain we again reiterated we cannot take away all of his pain. I discussed with him that surgery is going to be more painful to begin with anyways and that may be this might not be the best course of action for him if we cannot get his pain under control right now however part of the reason for surgery is his pain and I do feel reasonably that surgery will help him given his condition however we need to cooperation with comes to the MRIs and testing in order to be safe for surgical intervention. We counseled him on this along with his . His is very reasonable as attempting to help us communicate with him. We will continue to attempt MRI today and if this is able to be completed move forward with surgery if it is not we may have to change our surgical date.
[2021-10-13 08:48] LABS: Basophils # (A) 0.09 X 10*3/uL (0.00-0.10); Basophils % (A) 1.2 %; Eosinophils # (A) 0.19 X 10*3/uL (0.04-0.35); Eosinophils % (A) 2.5 %; HCT 43.7 % (39.6-50.0); HGB 13.4 g/dL (13.0-17.0); Immature Grans, Automated 0.5 %; Lymphocytes # (A) 2.36 X 10*3/uL (0.90-5.00); Lymphocytes % (A) 31.1 %; MCH 27.6 pg (27.0-32.0); MCHC 30.7 g/dL (32.0-37.0); MCV 90.1 fL (80.0-97.0); Mean Platelet Volume 9.6 fL (9.5-12.2); Monocytes # (A) 0.97 X 10*3/uL (0.20-1.00); Monocytes % (A) 12.8 %; NRBC Per 100 WBC 0 /100 WBCS (0.0-0.0); Neutrophils # (A) 3.94 X 10*3/uL (1.80-7.70); Neutrophils % (A) 51.9 %; Platelet Count 458 X 10*3/uL (140-440); RBC 4.85 X 10*6/uL (4.40-5.60); RDW 15.1 % (11.5-14.5); WBC 7.59 X 10*3/uL (4.50-10.00)
[2021-10-13] MEDS: LACTATED RINGERS 1,000 ML IV SCH (09:08)
[2021-10-13 09:51] LABS: Anion Gap 10.1 mmol/L (10.00-18.00); BUN/Creat Ratio 7.38 Ratio (12.00-20.00); Blood Urea Nitrogen 5.9 mg/dL (9.0-27.0); Carbon Dioxide 24.9 mmol/L (20.0-27.5); Non-African American GFR(CKD) 95.7 (60.0-200.0); Potassium 5.2 mmol/L (3.5-5.5)
[2021-10-13 11:13] LABS: Glucose,Whole Blood 87 mg/dL (75-99)
[2021-10-13] MEDS: LORazepam 2 MG/ML INJ IV PRN (11:21)
[2021-10-13] MEDS ORDERED: LORazepam 2 MG/ML INJ IV STA (12:04)
[2021-10-13 12:21] LABS: Free Kappa Lt Chain Qnt, Serum 4.23 mg/dL (0.33-1.94); Free Lambda Lt Chain Qnt, Seru 3.6 mg/dL (0.57-2.63)
[2021-10-13] MEDS ORDERED: LACTATED RINGERS 1,000 ML IV ONE ×4 (13:36→18:03)
--- NOTE | 2021-10-13 13:43 | P.PN ---
Subjective Progress Note Date: 10/13/21 History of Present Illness 61-year-old man with medical history of diabetes, hypertension, COPD, hyperlipidemia presented for back pain. This was consulted by orthopedic surgery service for medical management. Patient is known to Dr. Saez in clinic, where he was getting a workup for his acute back pain for 5 months duration. Sharp in nature. His workup consisted of x-rays, MRI which demonstrated L4 to 5 severe disc collapse with T1 hypodense vertebral body signals T2 hyperintense cystic lesions within the vertebral bodies of L4 and L5 as well as hyperintense STIR imaging of L4 and L5. The differential for this includes osteomyelitis versus malignancy. Patient was admitted to the hospital under the orthopedic surgery team to ultimately obtain biopsy sampling to determine etiology of this lesion. Patient himself is a poor historian because he is in significant amounts of pain, not comfortable at this time. Therefore, review of systems could not be completed Interval history: Patient was examined at the bedside. He denies any chest pain or shortness of breath. Still complaining of significant lower back pain 9 out of 10. Ot herwise no acute changes reported overnight Objective - Vital Signs Vital signs: Vital Signs Temp 98.3 F 10/13/21 08:00 Pulse 78 10/13/21 13:15 Resp 12 10/13/21 13:15 BP 144/99 10/13/21 13:15 Pulse Ox 88 L 10/13/21 13:15 Intake & Output 10/12/21 10/13/21 10/13/21 18:59 06:59 18:59 Intake Total 300 Output Total 700 2100 Balance -700 -2100 300 Intake: IV 300 0.9% NaCl with KCl 20 Meq 300 /l 1,000 ml @ 50 mls/hr IV .Q20H [facility] Rx#: [id number] Output: Urine 700 2100 Other: Voiding Method Urinal Urinal Urinal # Voids 4 - Exam General: non toxic, no distress, appears at stated age Derm: warm, dry Head: atraumatic, normocephalic, symmetric Eyes: EOMI, no lid lag, anicteric sclera Mouth: no lip lesion, mucus membranes moist Cardiovascular: S1S2 reg, no murmur, positive posterior tibial pulse bilateral, Lungs: CTA bilateral, no rhonchi, no rales , no accessory muscle use Abdominal: soft, nontender to palpation, no guarding, no appreciable organomegaly Ext: no gross muscle atrophy, no edema, no contractures Neuro: CN II-XI grossly intact, no focal neuro deficits Psych: Alert, oriented, appropriate affect - Labs CBC & Chem 7: 10/13/21 05:14 10/13/21 05:14 Labs: Abnormal Lab Results - Last 24 Hours (Table) 10/11/21 10/12/21 10/13/21 Range/Units 14:13 20:34 05:14 MCHC 30.7 L (32.0-37.0) g/dL RDW 15.1 H (11.5-14.5) % Plt Count 458 H (140-440) X 10*3/uL BUN (9.0-27.0) mg/dL BUN/Creatinine Ratio (12.00-20.00) Ratio POC Glucose (mg/dL) 106 H (75-99) mg/dL Calcium (8.7-10.3) mg/dL Free [place] LC, Quant 4.23 H (0.33-1.94) mg/dL Free Lambda LC, Quant 3.60 H (0.57-2.63) mg/dL 10/13/21 10/13/21 Range/Units 05:14 08:19 MCHC (32.0-37.0) g/dL RDW (11.5-14.5) % Plt Count (140-440) X 10*3/uL BUN 5.9 L (9.0-27.0) mg/dL BUN/Creatinine Ratio 7.38 L (12.00-20.00) Ratio POC Glucose (mg/dL) 101 H (75-99) mg/dL Calcium 11.0 H (8.7-10.3) mg/dL Free [place] LC, Quant (0.33-1.94) mg/dL Free Lambda LC, Quant (0.57-2.63) mg/dL Microbiology - Last 24 Hours (Table) 10/11/21 14:13 Blood Culture - Preliminary Blood No Growth after 24 hours Assessment and Plan Assessment: Assessment and plan: Intractable back pain L4/L5 lytic lesions -Pain control: SUBSTATION OPERATOR CONVERSION pump, IV Dilaudid when necessary, Ativan when necessary -Tylenol around the clock -Flexeril when necessary -Stool softener -Pending biopsy -Multiple myeloma workup ordered -Consult hematology oncology -Blood cultures pending Hypertension -Decrease Norvasc to 5 mg daily Hyperlipidemia -Resume Lipitor COPD without exacerbation -Resume inhaled steroid -Resume Singulair -As needed DuoNeb Diabetes Type 2 -We'll hold oral hypoglycemics -Sliding scale insulin with NovoLog -Check A1c Ongoing tobacco abuse -Patient was counseled regarding smoking cessation -Nicotine patch Patient is a full code DVT prophylaxis per surgery
[2021-10-13] MEDS ORDERED: PROPOFOL 10 MG/ML 20 ML VIAL IV ONE (13:58)
[2021-10-13] MEDS ORDERED: ROCURONIUM 10 MG/ML (5 ML VIAL) IV ONE (13:58)
[2021-10-13] MEDS ORDERED: GLYCOPYRROLATE 0.2 MG/ML 2 ML VIAL ONE (13:58)
[2021-10-13] MEDS ORDERED: LABETALOL 5 MG/ML VIAL MDV ONE (13:58)
[2021-10-13] MEDS ORDERED: ONDANSETRON 4 MG/2 ML VIAL ONE (13:58)
[2021-10-13] MEDS ORDERED: NEOSTIGMINE 1 MG/ML 10 ML VIAL ONE (13:58)
[2021-10-13] MEDS ORDERED: LIDOCAINE 1% INJ 10MG/ML (20 ML MDV) ONE (13:58)
[2021-10-13] MEDS ORDERED: DEXAMETHASONE SOD PHOSPHATE 10 MG/ML 1 ML VIAL ONE (13:58)
[2021-10-13] MEDS ORDERED: HYDROmorphone (PF) 1 MG/ML ONE (13:58)
[2021-10-13] MEDS ORDERED: hydrALAZINE HCL 20 MG/ML 1 ML VIAL ONE (13:58)
[2021-10-13] MEDS ORDERED: ESMOLOL 100 MG/10 ML VIAL ONE (13:58)
[2021-10-13] MEDS ORDERED: SUCCINYLCHOLINE CHLORIDE 100 MG/5 ML SYR IV ONE (13:58)
[2021-10-13] MEDS ORDERED: KETAMINE 10 MG/ML 20 ML VIAL ONE (13:58)
[2021-10-13] MEDS ORDERED: ceFAZolin 1,000 MG VIAL ONE (13:58)
[2021-10-13] MEDS ORDERED: KETOROLAC 15 MG/ML 1 ML VIAL ONE (13:58)
[2021-10-13] MEDS ORDERED: fentaNYL (PF) 50 MCG/ML 2 ML AMP ONE (13:58)
[2021-10-13] MEDS ORDERED: TRANEXAMIC ACID IN NACL,ISO-OS 1,000 MG/100 ML BAG ONE (13:58)
[2021-10-13] MEDS ORDERED: SODIUM CHLORIDE 0.9% 100 ML BAG ONE (13:58)
--- NOTE | 2021-10-13 14:01 | P.PN ---
Subjective Progress Note Date: 10/13/21 Principal diagnosis: lytic bone lesions, hypercalcemia In f/u today pt does have better pain control, he is going to surgery in a few hours, family at bedside. Objective - Vital Signs Vital signs: Vital Signs Temp 98.3 F 10/13/21 08:00 Pulse 88 10/13/21 08:04 Resp 18 10/13/21 08:04 BP 142/91 10/13/21 08:00 Pulse Ox 93 L 10/13/21 08:00 Intake & Output 10/12/21 10/13/21 10/13/21 18:59 06:59 18:59 Output Total 700 2100 Balance -700 -2100 Output: Urine 700 2100 Other: Voiding Method Urinal Urinal Urinal # Voids 4 - Constitutional General appearance: Present: average body habitus, cooperative, no acute distress - EENT Eyes: Present: anicteric sclerae, EOMI ENT: Present: hearing grossly normal - Respiratory Details: resp even and unlabored - Cardiovascular Heart sounds: normal: S1, S2 - Peripheral edema leg Peripheral Edema: bilateral: None - Gastrointestinal General gastrointestinal: Present: normal bowel sounds, soft - Neurologic Neurologic: Present: CNII-XII intact - Musculoskeletal Musculoskeletal: Present: generalized weakness - Psychiatric Psychiatric: Present: A&O x's 3, appropriate affect, intact judgment & insight - Labs CBC & Chem 7: 10/13/21 05:14 10/13/21 05:14 Labs: Abnormal Lab Results - Last 24 Hours (Table) 10/11/21 10/12/21 10/13/21 Range/Units 14:13 20:34 05:14 MCHC 30.7 L (32.0-37.0) g/dL RDW 15.1 H (11.5-14.5) % Plt Count 458 H (140-440) X 10*3/uL BUN (9.0-27.0) mg/dL BUN/Creatinine Ratio (12.00-20.00) Ratio POC Glucose (mg/dL) 106 H (75-99) mg/dL Calcium (8.7-10.3) mg/dL Omnwp-6-Wzjwktjxf 0.48 H (0.10-0.40) g/dL Bgorr-9-Lfmkcnanm 1.16 H (0.60-1.00) g/dL Beta Globulins 1.31 H (0.60-1.30) g/dL Gamma Globulins 1.61 H (0.70-1.50) g/dL 10/13/21 10/13/21 Range/Units 05:14 08:19 MCHC (32.0-37.0) g/dL RDW (11.5-14.5) % Plt Count (140-440) X 10*3/uL BUN 5.9 L (9.0-27.0) mg/dL BUN/Creatinine Ratio 7.38 L (12.00-20.00) Ratio POC Glucose (mg/dL) 101 H (75-99) mg/dL Calcium 11.0 H (8.7-10.3) mg/dL Gdupu-4-Vcytnarlc (0.10-0.40) g/dL Mvovj-6-Imagswezu (0.60-1.00) g/dL Beta Globulins (0.60-1.30) g/dL Gamma Globulins (0.70-1.50) g/dL Microbiology - Last 24 Hours (Table) 10/11/21 14:13 Blood Culture - Preliminary Blood No Growth after 24 hours Assessment and Plan Plan: 1) Suspicious lesions in the L spine. Multiple myeloma workup has been ordered. PSA was done and is WNL. Plan for Orthopedic intervention for severe pain, biopsies to be obtained, pending results. 2) Hypercalcemia-calcium level up today. Concern for underlying malignancy. Cont hydration. Ca++ in AM. Doctor attests: I performed a history and physical examination of this patient, developed impression and plan of care, discussed with dictator. I agree with dictators note, documented as a scribe.
[2021-10-13] MEDS ORDERED: ceFAZolin 3,000 MG in SODIUM CHLORIDE 0.9% IRRIGATIO 3,000 ML IRRIGATION ONE (14:03)
[2021-10-13] MEDS ORDERED: THROMBIN (RECOMBINANT) 5,000 UNIT VIAL TOPICAL ONE (14:03)
[2021-10-13] MEDS ORDERED: GELATIN SPONGE,ABSORB (LARGE) 1 EACH SPONGE TOPICAL ONE (14:03)
[2021-10-13] MEDS ORDERED: LIDOCAINE 0.5%-EPI 1:200,000 50 ML VIAL SQ ONE (14:03)
--- NOTE | 2021-10-13 14:39 | MR ---
EXAMINATION TYPE: MR cspine/tspine wo/w con DATE OF EXAM: 10/13/2021 1:14 PM COMPARISON: NONE HISTORY: osteomyelitis CONTRAST: The patient was injected with 10 mL intravenous Gadavist gadolinium contrast. Multiplanar MultiSpin echo imaging of the cervical spine was performed. Examination is limited given patient motion throughout the course of the study. C2-C3: No evidence for degenerative disc disease. No disc bulge/herniation or protrusion. No Canal stenosis. Foramina are patent bilaterally. C3-C4: Moderate decreased signal ossified compatible degenerative disc disease. Posterior disc bulge with mild effacement of the ventral thecal sac. No evidence for disc herniation. No central stenosis. Degenerative change of the cervical, apophyseal joints resulting in bilateral neural foraminal encro achment. Early compressive myelopathy difficult to exclude. C4-C5: Moderate disc desiccation. Right paracentral disc herniation with ventral cord contact. Mild c entral stenosis. Right greater than left foraminal encroachment. C5-C6: Mild decreased signal ossified with posterior disc bulging. No evidence of herniation or centr al stenosis. No evidence for foraminal encroachment at this time. C6-C7:Mild decreased signal ossified with posterior disc bulging. No evidence of herniation or centra l stenosis. No evidence for foraminal encroachment at this time. Degenerative endplate marrow change. C7-T1: No evidence for degenerative disc disease. No disc bulge/herniation or protrusion. No Canal stenosis. Foramina are patent bilaterally. No cervical spine fracture. No pathologic enhancement identified to suggest osteomyelitis.. There is normal alignment. Craniovertebral junction relationships are within normal limits. IMPRESSION: 1. Minimal degenerative disc disease. 2. Right paracentral disc herniation at C4-5 with ventral cord contact and early compressive myelopat hy difficult to exclude. Mild central stenosis. See above. EXAMINATION TYPE: MR cspine/tspine wo/w con DATE OF EXAM: 10/13/2021 1:14 PM COMPARISON: NONE HISTORY: osteomyelitis Multiplanar MultiSpin echo imaging of the thoracic spine was performed. Pre and post gadolinium enha nced images are submitted. Disc spaces: No evidence for herniation protrusion. There is mild multilevel decreased signal and los s of height compatible degenerative disc disease. Spinal canal: No evidence for canal stenosis. No intrinsic or extrinsic lesion. Thoracic spinal cord: Thoracic spinal cord is of normal caliber and signal. Paraspinal soft tissues: No evidence for paraspinal mass. No destructive lesions seen. Vertebral segments: No evidence for fracture or bony lesion. Scattered degenerative endplate marrow change. Ventral spondylosis. No evidence of pathologic enhancement to suggest osteomyelitis or discitis within the thoracic spine. IMPRESSION: 1.No evidence of pathologic enhancement to suggest osteomyelitis or discitis within the thoracic spin e.
[2021-10-13] MEDS ORDERED: VANCOMYCIN 1,000 MG VIAL MISCELLANE ONE (18:27)
--- NOTE | 2021-10-13 19:18 | P.PN ---
Progress Note - Text Progress Note Date: 10/13/21 Patient seen and examined in the postoperative care unit he is still fairly sedated however his vital signs are stable and is not currently following commands. Drain has minimal output dressings are clean and dry. Nursing at bedside. He will be transferred to the floor once he is awake and stable per the anesthesia staff and nursing.
[2021-10-13 20:34] LABS: Glucose,Whole Blood 128 mg/dL (75-99)
--- NOTE | 2021-10-13 22:49 | XR ---
EXAMINATION TYPE: XR lumbar spine 2 or 3V, FL guidance operating room DATE OF EXAM: 10/13/2021 CLINICAL HISTORY: Lumbar fusion TECHNIQUE: Fluoroscopic guided procedure COMPARISON: CT dated 10/11/2021 FINDINGS: Fluoroscopic guidance was provided during the procedure. A total of 2 minutes and 6 second s of fluoroscopic time was utilized during the procedure and no spot images were acquired. IMPRESSION: As Above.
[2021-10-14] MEDS: 0.9% NACL WITH KCL 20 MEQ/L 1,000 ML IV SCH ×2 (03:01→04:32)
[2021-10-14] MEDS: ACETAMINOPHEN TAB 325 MG TAB PO SCH ×4 (06:10→23:05)
[2021-10-14] MEDS: LACTATED RINGERS 1,000 ML IV SCH (07:30)
[2021-10-14] MEDS: INSULIN ASPART (NovoLOG) 100 UNIT/ML VIAL SQ SCH ×4 (07:30→20:54)
[2021-10-14 07:31] LABS: Glucose,Whole Blood 114 mg/dL (75-99)
[2021-10-14] MEDS: PANTOPRAZOLE 40 MG TABLET PO SCH (07:37)
[2021-10-14] MEDS: diazePAM 5 MG TAB PO SCH ×2 (07:37→20:03)
[2021-10-14] MEDS: CYCLOBENZAPRINE 10 MG TAB PO SCH (07:37)
[2021-10-14] MEDS: oxyCODONE-APAP 10-325MG 1 EACH TAB PO PRN ×2 (07:37→20:03)
[2021-10-14] MEDS: NICOTINE 14MG/24HR PATCH TRANSDERM SCH (07:37)
[2021-10-14] MEDS: MONTELUKAST 10 MG TAB PO SCH (07:37)
[2021-10-14] MEDS: amLODIPine 5 MG TAB PO SCH (07:37)
[2021-10-14] MEDS: GABAPENTIN 300 MG CAP PO SCH ×3 (07:37→20:04)
[2021-10-14] MEDS: SENNOSIDES-DOCUSATE SODIUM 1 EACH TAB PO SCH ×2 (07:37→20:04)
[2021-10-14] MEDS: LORATADINE 10 MG TAB PO SCH (07:37)
[2021-10-14] MEDS ORDERED: HYDROmorphone 1 MG/ML 1 ML SYRINGE IM PRN (07:45)
[2021-10-14 08:39] LABS: Basophils # (A) 0.02 X 10*3/uL (0.00-0.10); Basophils % (A) 0.2 %; Eosinophils # (A) 0 X 10*3/uL (0.04-0.35); Eosinophils % (A) 0 %; HCT 41.6 % (39.6-50.0); HGB 13.1 g/dL (13.0-17.0); Immature Grans, Automated 0.5 %; Lymphocytes # (A) 0.53 X 10*3/uL (0.90-5.00); Lymphocytes % (A) 4.6 %; MCH 27.8 pg (27.0-32.0); MCHC 31.5 g/dL (32.0-37.0); MCV 88.1 fL (80.0-97.0); Mean Platelet Volume 9.9 fL (9.5-12.2); Monocytes # (A) 0.51 X 10*3/uL (0.20-1.00); Monocytes % (A) 4.4 %; NRBC Per 100 WBC 0 /100 WBCS (0.0-0.0); Neutrophils # (A) 10.44 X 10*3/uL (1.80-7.70); Neutrophils % (A) 90.3 %; Platelet Count 436 X 10*3/uL (140-440); RBC 4.72 X 10*6/uL (4.40-5.60); RDW 14.9 % (11.5-14.5); WBC 11.56 X 10*3/uL (4.50-10.00)
[2021-10-14] MEDS: FLUTICASONE 110 MCG INHALER INHALATION SCH ×2 (09:27→20:09)
[2021-10-14 09:52] LABS: African American GFR (CKD) 125.1 (60.0-200.0); Anion Gap 13.9 mmol/L (10.00-18.00); BUN/Creat Ratio 10.74 Ratio (12.00-20.00); Blood Urea Nitrogen 6.4 mg/dL (9.0-27.0); Calcium 10.4 mg/dL (8.7-10.3); Carbon Dioxide 20.8 mmol/L (20.0-27.5); Non-African American GFR(CKD) 107.9 (60.0-200.0); Potassium 4.7 mmol/L (3.5-5.5)
--- NOTE | 2021-10-14 11:01 | P.PN ---
Subjective Progress Note Date: 10/14/21 Principal diagnosis: L4-S1 possible osteo Patient seen and examined this morning is fairly sedated due to recent medication administration he does follow commands however complains of no pain currently and denies any fevers or chills. Nursing is at bedside states that he has been fairly comfortable most of the night. They deny any overnight issues. Drain is in place with good output dressing is clean and dry. Objective - Vital Signs Vital signs: Vital Signs Temp 97.7 F 10/14/21 07:26 Pulse 111 H 10/14/21 07:26 Resp 18 10/14/21 08:00 BP 126/78 10/14/21 07:26 Pulse Ox 90 L 10/14/21 07:26 Intake & Output 10/13/21 10/14/21 10/14/21 18:59 06:59 18:59 Intake Total 2801 200 Output Total 1150 1660 Balance 1651 -1460 Intake: IV 2801 200 0.9% NaCl with KCl 20 Meq 300 /l 1,000 ml @ 50 mls/hr IV .Q20H [facility] Rx#: [id number] Output: Drainage 160 Back 160 Urine 750 1500 Estimated Blood Loss 400 Other: Voiding Method Urinal Indwelling Catheter Indwelling Catheter - Exam Patient fairly sedated this morning however exam is stable. He is able to follow commands he is neurovascularly intact distally no pathologic reflexes drain is in place with good output dressing is clean and dry no hematoma. Patient is alert and oriented 3 appears well-nourished well-hydrated is in no acute distress. They do not appear septic. On exam the patient has Severe tenderness to palpation in the lumbar spine. There is no edema or ballottement sign. Lower extremities with [4+]/5 strength in all major muscle groups Upper extremities show [5]/5 strength in all major muscle groups. Pain with all testing in any motion of the low back is unable to ambulate secondary to pain. [2]/4DTR all UE and LE b/l Patient shows a negative Homans, Odonnell's, negative Babinski's negative clonus bilaterally. negative straight leg raise bilaterally. No tensioning signs. Cranial nerves II through XII are grossly intact. There is FROM that is painless of the b/l UE and LE in all major joints [w/o pain]. They are intact to light touch sensation in L2 to S1 nerve distribution. Patient has palpable dorsalis pedis was posterior tibial pulses. Compartments are soft and compressible. - Labs CBC & Chem 7: 10/14/21 05:04 10/14/21 05:04 Labs: Abnormal Lab Results - Last 24 Hours (Table) 10/11/21 10/13/21 10/14/21 Range/Units 14:13 20:33 05:04 WBC 11.56 H (4.50-10.00) X 10*3/uL MCHC 31.5 L (32.0-37.0) g/dL RDW 14.9 H (11.5-14.5) % Immature Gran # 0.06 H (0.00-0.04) X 10*3/uL Neutrophils # 10.44 H (1.80-7.70) X 10*3/uL Lymphocytes # 0.53 L (0.90-5.00) X 10*3/uL Eosinophils # 0 L (0.04-0.35) X 10*3/uL Sodium (135-145) mmol/L BUN (9.0-27.0) mg/dL BUN/Creatinine Ratio (12.00-20.00) Ratio Glucose (70-110) mg/dL POC Glucose (mg/dL) 128 H (75-99) mg/dL Calcium (8.7-10.3) mg/dL Free [place] LC, Quant 4.23 H (0.33-1.94) mg/dL Free [place] LC, Quant 3.60 H (0.57-2.63) mg/dL 10/14/21 10/14/21 Range/Units 05:04 07:29 WBC (4.50-10.00) X 10*3/uL MCHC (32.0-37.0) g/dL RDW (11.5-14.5) % Immature Gran # (0.00-0.04) X 10*3/uL Neutrophils # (1.80-7.70) X 10*3/uL Lymphocytes # (0.90-5.00) X 10*3/uL Eosinophils # (0.04-0.35) X 10*3/uL Sodium 134 L (135-145) mmol/L BUN 6.4 L (9.0-27.0) mg/dL BUN/Creatinine Ratio 10.74 L (12.00-20.00) Ratio Glucose 127 H (70-110) mg/dL POC Glucose (mg/dL) 114 H (75-99) mg/dL Calcium 10.4 H (8.7-10.3) mg/dL Free [place] LC, Quant (0.33-1.94) mg/dL Free [place] LC, Quant (0.57-2.63) mg/dL Microbiology - Last 24 Hours (Table) 10/13/21 18:26 Gram Stain - Preliminary Back Tissue Culture - Preliminary 10/13/21 18:26 Anaerobic Culture - Preliminary Back 10/11/21 14:13 Blood Culture - Preliminary Blood No Growth after 48 hours Assessment and Plan Assessment: 61-year-old male postoperative day 1 L4 S1 stabilization with biopsy and i nterbody arthrodesis. 1. L4-L5, L5-S1 possible osteomyelitis versus a rheumatologic changes, doubt malignancy 2. bilateral lower extremity weakness 3. severe low back pain . Plan: -Appreciate renewable energy consultant and team management. -Activity: Ambulate QID, OOB all meals, up and about, limit lifting bending twisting to less than 5 lbs. Use walker or cane if needed for stability. -Daily PT/OT, increase ambulation strength and balance. -[Brace when up and about, not needed in bed or chair] -Pain control: [Adequate at this time] -Meds: [reviewed] -GI ppx: senna, Miralax -DC hirsch when up and about, bedside commode if needed -DVT PPX: [OK to restart Heparin tonight] -Hygiene: Shower today. Maintain dressing clean and dry. Meticulous cleaning after BMs away from incision site -Drains: [Maintain for now. Record output] -Encourage IS 10x/hr -Await pathology and lab results -Dispo: [Pending]
[2021-10-14 11:34] LABS: Glucose,Whole Blood 100 mg/dL (75-99)
[2021-10-14] MEDS: HYDROmorphone 1 MG/ML 1 ML SYRINGE IVP PRN ×4 (11:52→23:05)
--- NOTE | 2021-10-14 14:40 | P.PN ---
Subjective Progress Note Date: 10/14/21 History of Present Illness 61-year-old man with medical history of diabetes, hypertension, COPD, hyperlipidemia presented for back pain. This was consulted by orthopedic surgery service for medical management. Patient is known to Dr. Saez in clinic, where he was getting a workup for his acute back pain for 5 months duration. Sharp in nature. His workup consisted of x-rays, MRI which demonstrated L4 to 5 severe disc collapse with T1 hypodense vertebral body signals T2 hyperintense cystic lesions within the vertebral bodies of L4 and L5 as well as hyperintense STIR imaging of L4 and L5. The differential for this includes osteomyelitis versus malignancy. Patient was admitted to the hospital under the orthopedic surgery team to ultimately obtain biopsy sampling to determine etiology of this lesion. Patient himself is a poor historian because he is in significant amounts of pain, not comfortable at this time. Therefore, review of systems could not be completed Interval history: Patient was examined at the bedside. He is sleepy from pain medication. Discussed with RN. Dilaudid BACK HAND pump has been discontinued. Postoperative day# 1 L4 S1 stabilization with biopsy and interbody arthrodesis. Objective - Vital Signs Vital signs: Vital Signs Temp 97.7 F 10/14/21 07:26 Pulse 111 H 10/14/21 07:26 Resp 18 10/14/21 08:00 BP 126/78 10/14/21 07:26 Pulse Ox 90 L 10/14/21 07:26 Intake & Output 10/13/21 10/14/21 10/14/21 18:59 06:59 18:59 Intake Total 2801 200 590 Output Total 1150 1660 Balance 1651 -1460 590 Intake: IV 2801 200 300 0.9% NaCl with KCl 20 Meq 300 300 /l 1,000 ml @ 50 mls/hr IV .Q20H [facility] Rx#: [id number] Intake, IV Titration 50 Amount ceFAZolin 2 gm In Sodium 50 Chloride 0.9% 50 ml @ 100 mls/hr IVPB Q8H [facility] Rx#: [id number] Oral 240 Output: Drainage 160 Back 160 Urine 750 1500 Estimated Blood Loss 400 Other: Voiding Method Urinal Indwelling Catheter Indwelling Catheter - Exam General: non toxic, no distress, appears at stated age Derm: warm, dry Head: atraumatic, normocephalic, symmetric Eyes: EOMI, no lid lag, anicteric sclera Mouth: no lip lesion, mucus membranes moist Cardiovascular: S1S2 reg, no murmur, positive posterior tibial pulse bilateral, Lungs: CTA bilateral, no rhonchi, no rales , no accessory muscle use Abdominal: soft, nontender to palpation, no guarding, no appreciable organomegaly Ext: no gross muscle atrophy, no edema, no contractures Neuro: CN II-XI grossly intact, no focal neuro deficits Psych: Alert, oriented, appropriate affect - Labs CBC & Chem 7: 10/14/21 05:04 10/14/21 05:04 Labs: Abnormal Lab Results - Last 24 Hours (Table) 10/13/21 10/14/21 10/14/21 Range/Units 20:33 05:04 05:04 WBC 11.56 H (4.50-10.00) X 10*3/uL MCHC 31.5 L (32.0-37.0) g/dL RDW 14.9 H (11.5-14.5) % Immature Gran # 0.06 H (0.00-0.04) X 10*3/uL Neutrophils # 10.44 H (1.80-7.70) X 10*3/uL Lymphocytes # 0.53 L (0.90-5.00) X 10*3/uL Eosinophils # 0 L (0.04-0.35) X 10*3/uL Sodium 134 L (135-145) mmol/L BUN 6.4 L (9.0-27.0) mg/dL BUN/Creatinine Ratio 10.74 L (12.00-20.00) Ratio Glucose 127 H (70-110) mg/dL POC Glucose (mg/dL) 128 H (75-99) mg/dL Calcium 10.4 H (8.7-10.3) mg/dL 10/14/21 10/14/21 Range/Units 07:29 11:27 WBC (4.50-10.00) X 10*3/uL MCHC (32.0-37.0) g/dL RDW (11.5-14.5) % Immature Gran # (0.00-0.04) X 10*3/uL Neutrophils # (1.80-7.70) X 10*3/uL Lymphocytes # (0.90-5.00) X 10*3/uL Eosinophils # (0.04-0.35) X 10*3/uL Sodium (135-145) mmol/L BUN (9.0-27.0) mg/dL BUN/Creatinine Ratio (12.00-20.00) Ratio Glucose (70-110) mg/dL POC Glucose (mg/dL) 114 H 100 H (75-99) mg/dL Calcium (8.7-10.3) mg/dL Microbiology - Last 24 Hours (Table) 10/13/21 18:26 Gram Stain - Preliminary Back Tissue Culture - Preliminary 10/13/21 18:26 Anaerobic Culture - Preliminary Back 10/11/21 14:13 Blood Culture - Preliminary Blood No Growth after 48 hours Assessment and Plan Assessment: Assessment and plan: #Intractable back pain with bilateral lower extremity weakness #status post 1 L4 S1 stabilization with biopsy and interbody arthrodesis October 13. #Questionable L4/L5 lytic lesions -Per orthospine L4-L5, L5-S1 possible osteomyelitis versus a rheumatologic changes, doubt malignancy -Pain control IV Dilaudid when necessary, Ativan when necessary. Dilaudid BACK HAND discontinued October 14 -Tylenol around the clock -Flexeril when necessary -Stool softener -Pending biopsy result -Multiple myeloma workup ordered -Check sed rate and consult infectious disease for possible osteomyelitis -Consult hematology oncology -Blood cultures pending Hypertension -Decrease Norvasc to 5 mg daily Hyperlipidemia -Resume Lipitor COPD without exacerbation -Resume inhaled steroid -Resume Singulair -As needed DuoNeb Diabetes Type 2 -We'll hold oral hypoglycemics -Sliding scale insulin with NovoLog -Check A1c Ongoing tobacco abuse -Patient was counseled regarding smoking cessation -Nicotine patch Patient is a full code DVT prophylaxis per surgery
[2021-10-14 16:17] LABS: Glucose,Whole Blood 123 mg/dL (75-99)
[2021-10-14] MEDS: ATORVASTATIN 40 MG TAB PO SCH (20:04)
[2021-10-14 20:20] LABS: Glucose,Whole Blood 100 mg/dL (75-99)
[2021-10-15] MEDS: HYDROmorphone 1 MG/ML 1 ML SYRINGE IVP PRN ×4 (02:12→17:37)
[2021-10-15] MEDS: oxyCODONE-APAP 10-325MG 1 EACH TAB PO PRN ×4 (04:15→20:44)
[2021-10-15] MEDS: ACETAMINOPHEN TAB 325 MG TAB PO SCH ×4 (05:45→20:45)
[2021-10-15 07:11] LABS: Glucose,Whole Blood 129 mg/dL (75-99)
[2021-10-15] MEDS: LACTATED RINGERS 1,000 ML IV SCH (07:56)
[2021-10-15] MEDS: INSULIN ASPART (NovoLOG) 100 UNIT/ML VIAL SQ SCH ×4 (07:56→22:54)
--- NOTE | 2021-10-15 08:13 | P.CONS ---
History of Present Illness - Reason for Consult Consult date: 10/14/21 Possible lumbar osteomyelitis Requesting physician: Concetta Rodriguez - Chief Complaint Back pain x weeks - History of Present Illness Patient is a 61-year-old -[place] male with a past medical history sniffing for diabetes mellitus hypertension COPD hyperlipidemia patient did have a history of chronic back pain of 5 months duration patient did have work-up as an outpatient setting with evidence of L4-5 severe disc collapse and abnormality suspicious for malignancy versus osteomyelitis patient has been electively admitted to hospital 3 days ago this patient who is status post L4 S1 stabilization with biopsy and interbody arthrodesis procedure was completed on 10/13/2021, patient has been afebrile for the last 3 days the patient has been in the hospital patient did have a normal white count patient did have a sed rate of 20 on admission and a CRP of 3.1, overall culture has been obtained yesterday which are currently pending blood culture on admission has been negative so far, patient has been empirically treated with cefazolin 2 g every 8 hour infectious disease was consulted today for further management of antibiotic therapy, patient evaluation is slightly lethargic though arousable has been complaining of back pain almost 10 out of 10 patient denies having any chest pain or shortness of breath or cough no nausea no vomiting and no diarrhea Review of Systems Positive point has been mentioned in the HPI rest of the systems are negative 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 History of Any Multi-Drug Resistant Organisms: None Reported Past Surgical History: Orthopedic Surgery Additional Past Surgical History / Comment(s): ORIF LT HIP Past Anesthesia/Blood Transfusion Reactions: No Reported Reaction Past Psychological History: Unable to Obtain Smoking Status: Current every day smoker Past Alcohol Use History: Unable to Obtain Past Drug Use History: Unable to Obtain - Past Family History Mother Family Medical History: Cancer Medications and Allergies Home Medications Medication Instructions Recorded Confirmed Type Omeprazole [PriLOSEC] 20 mg PO DAILY 02/19/18 10/11/21 History Albuterol Inhaler [Ventolin Hfa 2 puff INHALATION RT-QID PRN 01/28/21 10/11/21 History Inhaler] Albuterol Nebulized [Ventolin 2.5 mg INHALATION RT-TID PRN 01/28/21 10/11/21 History Nebulized] Atorvastatin Calcium [Lipitor] 40 mg PO HS 01/28/21 10/11/21 History Fluticasone Nasal Rozet [Flonase 1 spr EA NOSTRIL DAILY PRN 01/28/21 10/11/21 History Nasal Rozet] Fluticasone Propionate [Flovent 1 puff INHALATION RT-BID 01/28/21 10/11/21 History Hfa 110 mcg] Ibuprofen [Motrin] 800 mg PO Q8H PRN 01/28/21 10/11/21 History Loratadine 10 mg PO DAILY 01/28/21 10/11/21 History amLODIPine [Norvasc] 10 mg PO DAILY 01/28/21 10/11/21 History busPIRone HCL [Buspar] 30 mg PO BID PRN 01/28/21 10/11/21 History glipiZIDE [Glucotrol] 5 mg PO DAILY 01/28/21 10/11/21 History metFORMIN HCL [Glucophage] 500 mg PO DAILY 01/28/21 10/11/21 History Cyclobenzaprine [Flexeril] 10 mg PO TID PRN 10/11/21 10/11/21 History Gabapentin [Neurontin] 100 mg PO TID PRN 10/11/21 10/11/21 History HYDROcodone/APAP 5-325MG [[place] 1 tab PO Q6H PRN 10/11/21 10/11/21 History 5-325] Meloxicam 15 mg PO DAILY 10/11/21 10/11/21 History Montelukast Sodium [Singulair] 10 mg PO DAILY 10/11/21 10/11/21 History Orphenadrine [Norflex] 100 mg PO BID 10/11/21 10/11/21 History Prazosin [Minipress] 1 mg PO HS 10/11/21 10/11/21 History polyethylene glycoL 3350 [Miralax] 17 gm PO DAILY 10/11/21 10/11/21 History Allergies Allergy/AdvReac Type Severity Reaction Status Date / Time No Known Allergies Allergy Verified 10/11/21 15:26 Physical Exam Vitals: Vital Signs Temp Pulse Resp BP Pulse Ox 10/14/21 14:30 97.7 F 110 H 19 144/85 94 L 10/14/21 08:00 18 10/14/21 07:26 97.7 F 111 H 18 126/78 90 L 10/14/21 02:00 98.0 F 122 H 18 122/69 97 10/13/21 21:57 104 H 137/82 94 L 10/13/21 21:42 102 H 136/81 95 10/13/21 21:27 101 H 145/85 94 L 10/13/21 21:12 122 H 136/82 96 10/13/21 20:57 102 H 132/85 97 10/13/21 20:42 107 H 144/96 95 10/13/21 20:27 103 H 138/100 96 10/13/21 20:12 103 H 143/96 97 10/13/21 19:58 97.9 F 105 H 141/86 92 L 10/13/21 19:45 89 20 149/89 100 10/13/21 19:30 82 20 148/86 100 10/13/21 19:15 88 20 155/99 100 10/13/21 18:56 97.8 F 85 20 153/65 100 Intake and Output 10/14/21 10/14/21 10/14/21 06:59 14:59 22:59 Intake Total 590 Output Total 1360 Balance -1360 590 Intake: IV 300 0.9% NaCl with KCl 20 Meq 300 /l 1,000 ml @ 50 mls/hr IV .Q20H [facility] Rx#: [id number] Intake, IV Titration 50 Amount ceFAZolin 2 gm In Sodium 50 Chloride 0.9% 50 ml @ 100 mls/hr IVPB Q8H [facility] Rx#: [id number] Oral 240 Output: Drainage 160 Back 160 Urine 1200 Other: Voiding Method Indwelling Catheter GENERAL DESCRIPTION: Middle-aged male lying in bed, no distress. No tachypnea or accessory muscle of respiration use. HEENT: Shows Pallor , no scleral icterus. Oral mucous membrane is dry. No pharyngeal erythema or thrush NECK: Trachea central, no thyromegaly. LUNGS: Unlabored breathing. Clear to auscultation anteriorly. No wheeze or crackle. HEART: S1, S2, regular rate and rhythm. No loud murmur ABDOMEN: Soft, no tenderness , guarding or rigidity, no organomegaly EXTREMITIES: No edema of feet. SKIN: No rash, no masses palpable. NEUROLOGICAL: The patient is awake, alert, oriented x3, mood and affect normal. Results CBC & Chem 7: 10/14/21 05:04 10/14/21 05:04 Labs: Abnormal Lab Results - Last 24 Hours (Table) 10/13/21 10/14/21 10/14/21 Range/Units 20:33 05:04 05:04 WBC 11.56 H (4.50-10.00) X 10*3/uL MCHC 31.5 L (32.0-37.0) g/dL RDW 14.9 H (11.5-14.5) % Immature Gran # 0.06 H (0.00-0.04) X 10*3/uL Neutrophils # 10.44 H (1.80-7.70) X 10*3/uL Lymphocytes # 0.53 L (0.90-5.00) X 10*3/uL Eosinophils # 0 L (0.04-0.35) X 10*3/uL Sodium 134 L (135-145) mmol/L BUN 6.4 L (9.0-27.0) mg/dL BUN/Creatinine Ratio 10.74 L (12.00-20.00) Ratio Glucose 127 H (70-110) mg/dL POC Glucose (mg/dL) 128 H (75-99) mg/dL Calcium 10.4 H (8.7-10.3) mg/dL 10/14/21 10/14/21 Range/Units 07:29 11:27 WBC (4.50-10.00) X 10*3/uL MCHC (32.0-37.0) g/dL RDW (11.5-14.5) % Immature Gran # (0.00-0.04) X 10*3/uL Neutrophils # (1.80-7.70) X 10*3/uL Lymphocytes # (0.90-5.00) X 10*3/uL Eosinophils # (0.04-0.35) X 10*3/uL Sodium (135-145) mmol/L BUN (9.0-27.0) mg/dL BUN/Creatinine Ratio (12.00-20.00) Ratio Glucose (70-110) mg/dL POC Glucose (mg/dL) 114 H 100 H (75-99) mg/dL Calcium (8.7-10.3) mg/dL Microbiology - Last 24 Hours (Table) 10/13/21 18:26 Gram Stain - Preliminary Back Tissue Culture - Preliminary 10/13/21 18:26 Anaerobic Culture - Preliminary Back 10/11/21 14:13 Blood Culture - Preliminary Blood No Growth after 48 hours Assessment and Plan (1) Osteomyelitis Current Visit: Yes Status: Acute Code(s): M86.9 - OSTEOMYELITIS, UNSPECIFIED SNOMED Code(s): 62392424 Plan: 1patient presented to hospital with chronic back pain of 5 months duration with abnormal MRI in the outpatient setting in this patient who is status post L4 S1 stabilization with biopsy and interbody arthrodesis and concern for possible osteomyelitis in this patient with no fever during this admission he did have a normal white count patient did have normal sed rate and CRP is mildly elevated on these factors who would go against osteomyelitis but not entirely excluded. 2we will wait for the OR cultures to be finalized. 3continue with empiric cefazolin We will follow on clinical condition and cultures to further adjust medication if needed Thank you for this consultation will follow this patient along with you Time with Patient: Greater than 30
[2021-10-15] MEDS: amLODIPine 5 MG TAB PO SCH (08:44)
[2021-10-15] MEDS: MONTELUKAST 10 MG TAB PO SCH (08:44)
[2021-10-15] MEDS: diazePAM 5 MG TAB PO SCH ×2 (08:44→20:44)
[2021-10-15] MEDS: PANTOPRAZOLE 40 MG TABLET PO SCH (08:45)
[2021-10-15] MEDS: SENNOSIDES-DOCUSATE SODIUM 1 EACH TAB PO SCH ×2 (08:45→20:44)
[2021-10-15] MEDS: NICOTINE 14MG/24HR PATCH TRANSDERM SCH (08:45)
[2021-10-15] MEDS: GABAPENTIN 300 MG CAP PO SCH ×3 (08:45→20:44)
[2021-10-15] MEDS: LORATADINE 10 MG TAB PO SCH (08:45)
[2021-10-15] MEDS: FLUTICASONE 110 MCG INHALER INHALATION SCH ×2 (09:19→20:30)
[2021-10-15 09:30] LABS: HCT 41.3 % (39.6-50.0); HGB 12.8 g/dL (13.0-17.0); MCH 27.5 pg (27.0-32.0); MCV 88.8 fL (80.0-97.0); Mean Platelet Volume 9.9 fL (9.5-12.2); NRBC Per 100 WBC 0 /100 WBCS (0.0-0.0); Platelet Count 480 X 10*3/uL (140-440); RBC 4.65 X 10*6/uL (4.40-5.60); RDW 14.9 % (11.5-14.5); WBC 12.63 X 10*3/uL (4.50-10.00)
[2021-10-15 10:08] LABS: African American GFR (CKD) 115.5 (60.0-200.0); Anion Gap 12.3 mmol/L (10.00-18.00); BUN/Creat Ratio 10.26 Ratio (12.00-20.00); Blood Urea Nitrogen 7.5 mg/dL (9.0-27.0); Calcium 10.4 mg/dL (8.7-10.3); Carbon Dioxide 24.6 mmol/L (20.0-27.5); Non-African American GFR(CKD) 99.6 (60.0-200.0); Potassium 4.6 mmol/L (3.5-5.5)
[2021-10-15 10:16] LABS: Basophils # (A) 0.06 X 10*3/uL (0.00-0.10); Basophils % (A) 0.5 %; Eosinophils # (A) 0.02 X 10*3/uL (0.04-0.35); Eosinophils % (A) 0.2 %; Immature Grans, Automated 1.7 %; Lymphocytes # (A) 1.55 X 10*3/uL (0.90-5.00); Lymphocytes % (A) 12.3 %; Monocytes # (A) 1.79 X 10*3/uL (0.20-1.00); Monocytes % (A) 14.2 %; Neutrophils % (A) 71.1 %
[2021-10-15 11:27] LABS: Glucose,Whole Blood 101 mg/dL (75-99)
--- NOTE | 2021-10-15 15:02 | P.PN ---
Subjective Progress Note Date: 10/15/21 History of Present Illness 61-year-old man with medical history of diabetes, hypertension, COPD, hyperlipidemia presented for back pain. This was consulted by orthopedic surgery service for medical management. Patient is known to Dr. Saez in clinic, where he was getting a workup for his acute back pain for 5 months duration. Sharp in nature. His workup consisted of x-rays, MRI which demonstrated L4 to 5 severe disc collapse with T1 hypodense vertebral body signals T2 hyperintense cystic lesions within the vertebral bodies of L4 and L5 as well as hyperintense STIR imaging of L4 and L5. The differential for this includes osteomyelitis versus malignancy. Patient was admitted to the hospital under the orthopedic surgery team to ultimately obtain biopsy sampling to determine etiology of this lesion. Patient himself is a poor historian because he is in significant amounts of pain, not comfortable at this time. Therefore, review of systems could not be completed Interval history: Patient was examined at the bedside. Still complaining of back pain. Asking for IV Dilaudid. Objective - Vital Signs Vital signs: Vital Signs Temp 98.2 F 10/15/21 14:00 Pulse 61 10/15/21 14:00 Resp 18 10/15/21 14:00 BP 148/82 10/15/21 14:00 Pulse Ox 91 L 10/15/21 14:00 Intake & Output 10/14/21 10/15/21 10/15/21 18:59 06:59 18:59 Intake Total 590 50 Output Total 1300 1620 975 Balance -710 -2367 -918 Intake: IV 300 0.9% NaCl with KCl 20 Meq 300 /l 1,000 ml @ 50 mls/hr IV .Q20H [facility] Rx#: [id number] Intake, IV Titration 50 50 Amount ceFAZolin 2 gm In Sodium 50 50 Chloride 0.9% 50 ml @ 100 mls/hr IVPB Q8H [facility] Rx#: [id number] Oral 240 Output: Drainage 120 Back 120 Urine 1300 1500 975 Other: Voiding Method Indwelling Catheter Indwelling Catheter Indwelling Catheter # Voids 4 - Exam General: non toxic, no distress, appears at stated age Derm: warm, dry Head: atraumatic, normocephalic, symmetric Eyes: EOMI, no lid lag, anicteric sclera Mouth: no lip lesion, mucus membranes moist Cardiovascular: S1S2 reg, no murmur, positive posterior tibial pulse bilateral, Lungs: CTA bilateral, no rhonchi, no rales , no accessory muscle use Abdominal: soft, nontender to palpation, no guarding, no appreciable organomegaly Ext: no gross muscle atrophy, no edema, no contractures Neuro: CN II-XI grossly intact, no focal neuro deficits Psych: Alert, oriented, appropriate affect - Labs CBC & Chem 7: 10/15/21 04:51 10/15/21 04:51 Labs: Abnormal Lab Results - Last 24 Hours (Table) 10/14/21 10/14/21 10/14/21 Range/Units 05:04 16:16 20:19 WBC (4.50-10.00) X 10*3/uL Hgb (13.0-17.0) g/dL MCHC (32.0-37.0) g/dL RDW (11.5-14.5) % Plt Count (140-440) X 10*3/uL Plt Count Comment Immature Gran # (0.00-0.04) X 10*3/uL Neutrophils # (1.80-7.70) X 10*3/uL Monocytes # (0.20-1.00) X 10*3/uL Eosinophils # (0.04-0.35) X 10*3/uL ESR 71 H (0-20) mm/Hr BUN (9.0-27.0) mg/dL BUN/Creatinine Ratio (12.00-20.00) Ratio POC Glucose (mg/dL) 123 H 100 H (75-99) mg/dL Calcium (8.7-10.3) mg/dL 10/15/21 10/15/21 10/15/21 Range/Units 04:51 04:51 07:09 WBC 12.63 H (4.50-10.00) X 10*3/uL Hgb 12.8 L (13.0-17.0) g/dL MCHC 31.0 L (32.0-37.0) g/dL RDW 14.9 H (11.5-14.5) % Plt Count 480 H (140-440) X 10*3/uL Plt Count Comment INCREASED A Immature Gran # 0.21 H (0.00-0.04) X 10*3/uL Neutrophils # 9.00 H (1.80-7.70) X 10*3/uL Monocytes # 1.79 H (0.20-1.00) X 10*3/uL Eosinophils # 0.02 L (0.04-0.35) X 10*3/uL ESR (0-20) mm/Hr BUN 7.5 L (9.0-27.0) mg/dL BUN/Creatinine Ratio 10.26 L (12.00-20.00) Ratio POC Glucose (mg/dL) 129 H (75-99) mg/dL Calcium 10.4 H (8.7-10.3) mg/dL 10/15/21 Range/Units 11:25 WBC (4.50-10.00) X 10*3/uL Hgb (13.0-17.0) g/dL MCHC (32.0-37.0) g/dL RDW (11.5-14.5) % Plt Count (140-440) X 10*3/uL Plt Count Comment Immature Gran # (0.00-0.04) X 10*3/uL Neutrophils # (1.80-7.70) X 10*3/uL Monocytes # (0.20-1.00) X 10*3/uL Eosinophils # (0.04-0.35) X 10*3/uL ESR (0-20) mm/Hr BUN (9.0-27.0) mg/dL BUN/Creatinine Ratio (12.00-20.00) Ratio POC Glucose (mg/dL) 101 H (75-99) mg/dL Calcium (8.7-10.3) mg/dL Microbiology - Last 24 Hours (Table) 10/13/21 18:26 Gram Stain - Preliminary Back Tissue Culture - Preliminary 10/11/21 14:13 Blood Culture - Preliminary Blood No Growth after 72 hours Assessment and Plan Assessment: Assessment and plan: #Intractable back pain with bilateral lower extremity weakness #status post 1 L4 S1 stabilization with biopsy and interbody arthrodesis October 13. #Questionable L4/L5 lytic lesions -Per orthospine L4-L5, L5-S1 possible osteomyelitis versus a rheumatologic changes, doubt malignancy -Pain control IV Dilaudid when necessary, Ativan when necessary. Dilaudid [employer] discontinued October 14 -Tylenol around the clock -Flexeril when necessary -Stool softener -Pending biopsy result -Multiple myeloma workup ordered - infectious disease for possible osteomyelitis -Hematology oncology following -Blood cultures negative to date Hypertension -Decrease Norvasc to 5 mg daily Hyperlipidemia -Resume Lipitor COPD without exacerbation -Resume inhaled steroid -Resume Singulair -As needed DuoNeb Diabetes Type 2 -Holding oral hypoglycemics -Sliding scale insulin with NovoLog -A1c 5.5 Ongoing tobacco abuse -Patient was counseled regarding smoking cessation -Nicotine patch Patient is a full code DVT prophylaxis per surgery
--- NOTE | 2021-10-15 15:30 | P.PN ---
Subjective Progress Note Date: 10/15/21 Principal diagnosis: L4 to S1 possible osteo Pt seen and examined. Postop day 2. Patient is currently resting in bed. Patient complains of lower back pain, encouraged use of pain medication and to increase activity and to sit up in chair. Patient denies any fevers or chills. Drain is in place with good output dressing is clean and dry. Patient denies any perineal numbness or tingling. Denies any loss of bowel or bladder. Patient voiding without difficulty. Objective - Vital Signs Vital signs: Vital Signs Temp 98.2 F 10/15/21 14:00 Pulse 61 10/15/21 14:00 Resp 18 10/15/21 14:00 BP 148/82 10/15/21 14:00 Pulse Ox 91 L 10/15/21 14:00 Intake & Output 10/14/21 10/15/21 10/15/21 18:59 06:59 18:59 Intake Total 590 50 Output Total 1300 1620 975 Balance -710 -0429 -921 Intake: IV 300 0.9% NaCl with KCl 20 Meq 300 /l 1,000 ml @ 50 mls/hr IV .Q20H [facility] Rx#: [id number] Intake, IV Titration 50 50 Amount ceFAZolin 2 gm In Sodium 50 50 Chloride 0.9% 50 ml @ 100 mls/hr IVPB Q8H [facility] Rx#: [id number] Oral 240 Output: Drainage 120 Back 120 Urine 1300 1500 975 Other: Voiding Method Indwelling Catheter Indwelling Catheter Indwelling Catheter # Voids 4 - Exam Physical Examination General: The patient is awake and alert, in no acute distress Skin: Skin is warm and dry with no obvious rashes or lesions. Hairy patches absent, no dorsal skin dimples, no cafe au lait spots, Surgical Incision in the lumbar region. Eye: Pupils are equal, round and reactive to light, extra-ocular movements are intact; there is normal conjunctiva bilaterally. Neck: The neck is supple, there is no tenderness and ROM intact. Cardiovascular: There is a regular rate and rhythm. No murmur, rub or gallop is appreciated. Respiratory: Lungs are clear to auscultation, respirations are non-labored, breath sounds are equal. Gastrointestinal: Soft, non-distended, non-tender abdomen. Back: There is slight tenderness to palpation in the midline, paralumbar region due to surgical procedure. There is no obvious deformity. Musculoskeletal: ROM limited secondary to pain and stiffness from surgical procedure. Shoulder abduction 5/5, elbow flexors 5/5, wrist dorsiflexors 5/5. finger abductor 5/5, rn teacher 5/5, hip flexor 4/5, knee flexor 4/5, ankle dorsiflexor 4/5, ankle plantarflexion 4/5 and extensor hallucis 4/5. Neurological: CN 2-12 intact. There are no obvious motor or sensory deficits. Movement and coordination equal and intact. Sensory exam to light touch intact C5-T1 and intact from L2-S1. Reflexes 2/4 in bilateral upper and lower extremities. Negative Hoffmans, babinski, and clonus signs. Psychiatric: Cooperative, appropriate mood & affect, normal judgment. - Labs CBC & Chem 7: 10/15/21 04:51 10/15/21 04:51 Labs: Abnormal Lab Results - Last 24 Hours (Table) 10/14/21 10/14/21 10/14/21 Range/Units 05:04 16:16 20:19 WBC (4.50-10.00) X 10*3/uL Hgb (13.0-17.0) g/dL MCHC (32.0-37.0) g/dL RDW (11.5-14.5) % Plt Count (140-440) X 10*3/uL Plt Count Comment Immature Gran # (0.00-0.04) X 10*3/uL Neutrophils # (1.80-7.70) X 10*3/uL Monocytes # (0.20-1.00) X 10*3/uL Eosinophils # (0.04-0.35) X 10*3/uL ESR 71 H (0-20) mm/Hr BUN (9.0-27.0) mg/dL BUN/Creatinine Ratio (12.00-20.00) Ratio POC Glucose (mg/dL) 123 H 100 H (75-99) mg/dL Calcium (8.7-10.3) mg/dL 10/15/21 10/15/21 10/15/21 Range/Units 04:51 04:51 07:09 WBC 12.63 H (4.50-10.00) X 10*3/uL Hgb 12.8 L (13.0-17.0) g/dL MCHC 31.0 L (32.0-37.0) g/dL RDW 14.9 H (11.5-14.5) % Plt Count 480 H (140-440) X 10*3/uL Plt Count Comment INCREASED A Immature Gran # 0.21 H (0.00-0.04) X 10*3/uL Neutrophils # 9.00 H (1.80-7.70) X 10*3/uL Monocytes # 1.79 H (0.20-1.00) X 10*3/uL Eosinophils # 0.02 L (0.04-0.35) X 10*3/uL ESR (0-20) mm/Hr BUN 7.5 L (9.0-27.0) mg/dL BUN/Creatinine Ratio 10.26 L (12.00-20.00) Ratio POC Glucose (mg/dL) 129 H (75-99) mg/dL Calcium 10.4 H (8.7-10.3) mg/dL 10/15/21 Range/Units 11:25 WBC (4.50-10.00) X 10*3/uL Hgb (13.0-17.0) g/dL MCHC (32.0-37.0) g/dL RDW (11.5-14.5) % Plt Count (140-440) X 10*3/uL Plt Count Comment Immature Gran # (0.00-0.04) X 10*3/uL Neutrophils # (1.80-7.70) X 10*3/uL Monocytes # (0.20-1.00) X 10*3/uL Eosinophils # (0.04-0.35) X 10*3/uL ESR (0-20) mm/Hr BUN (9.0-27.0) mg/dL BUN/Creatinine Ratio (12.00-20.00) Ratio POC Glucose (mg/dL) 101 H (75-99) mg/dL Calcium (8.7-10.3) mg/dL Microbiology - Last 24 Hours (Table) 10/13/21 18:26 Gram Stain - Preliminary Back Tissue Culture - Preliminary 10/11/21 14:13 Blood Culture - Preliminary Blood No Growth after 72 hours Assessment and Plan Assessment: s/p L4-S1 decompression and fusion Plan: I reviewed and discussed the case with my attending Dr. Saez, he has had a chance to review the chart and films and we have decided to proceed as outlined below. Plan: -Appreciate group segment consultant and team management. -Activity: Ambulate QID, OOB all meals, up and about, limit lifting bending twisting to less than 5 lbs. Use walker or cane if needed for stability. -Daily PT/OT, increase ambulation strength and balance. -Brace when up and about, not needed in bed or chair -Pain control: Adequate at this time -Meds: reviewed -GI ppx: senna, Miralax -DC hirsch when up and about, bedside commode if needed -DVT PPX: OK to restart Heparin tonight -Hygiene: Shower today. Maintain dressing clean and dry. Meticulous cleaning after BMs away from incision site -Drains: Maintain for now. DC tomorrow pending out put and PT -Encourage IS 10x/hr -Dispo: Home with homecare anticipate Monday10/18/20. I have personally seen and examined the patient, performed the documentation and the assessment and plan as written. Number of minutes spent on the visit: [ 20].
[2021-10-15 16:36] LABS: Glucose,Whole Blood 130 mg/dL (75-99)
[2021-10-15] MEDS: 0.9% NACL WITH KCL 20 MEQ/L 1,000 ML IV SCH (17:36)
[2021-10-15] MEDS: PRAZOSIN 1 MG CAP PO SCH (20:44)
[2021-10-15] MEDS: ATORVASTATIN 40 MG TAB PO SCH (20:44)
--- NOTE | 2021-10-15 21:15 | P.PN ---
Subjective Progress Note Date: 10/15/21 Principal diagnosis: hypercalcemia Initial work-up for monoclonal gammopathy negative, he is still recovering after procedure and in pain. Objective - Vital Signs Vital signs: Vital Signs Temp 98.2 F 10/15/21 14:00 Pulse 61 10/15/21 14:00 Resp 18 10/15/21 14:00 BP 148/82 10/15/21 14:00 Pulse Ox 91 L 10/15/21 14:00 Intake & Output 10/15/21 10/15/21 10/16/21 06:59 18:59 06:59 Intake Total 50 Output Total 1620 975 Balance -9990 925 Intake: Intake, IV Titration 50 Amount ceFAZolin 2 gm In Sodium 50 Chloride 0.9% 50 ml @ 100 mls/hr IVPB Q8H [facility] Rx#: [id number] Output: Drainage 120 Back 120 Urine 1500 975 Other: Voiding Method Indwelling Catheter Indwelling Catheter # Voids 4 - Constitutional General appearance: Present: cooperative, morbidly obese - EENT Eyes: Present: PERRLA ENT: Present: NA/AT - Neck Neck: Present: normal ROM - Respiratory Respiratory: bilateral: diminished - Cardiovascular Rhythm: regular - Gastrointestinal General gastrointestinal: Present: distended - Integumentary Integumentary: Present: pale - Neurologic Neurologic: Present: CNII-XII intact - Musculoskeletal Musculoskeletal: Present: generalized weakness - Psychiatric Psychiatric: Present: A&O x's 3, appropriate affect, intact judgment & insight - Labs CBC & Chem 7: 10/15/21 04:51 10/15/21 04:51 Labs: Abnormal Lab Results - Last 24 Hours (Table) 10/15/21 10/15/21 10/15/21 Range/Units 04:51 04:51 07:09 WBC 12.63 H (4.50-10.00) X 10*3/uL Hgb 12.8 L (13.0-17.0) g/dL MCHC 31.0 L (32.0-37.0) g/dL RDW 14.9 H (11.5-14.5) % Plt Count 480 H (140-440) X 10*3/uL Plt Count Comment INCREASED A Immature Gran # 0.21 H (0.00-0.04) X 10*3/uL Neutrophils # 9.00 H (1.80-7.70) X 10*3/uL Monocytes # 1.79 H (0.20-1.00) X 10*3/uL Eosinophils # 0.02 L (0.04-0.35) X 10*3/uL BUN 7.5 L (9.0-27.0) mg/dL BUN/Creatinine Ratio 10.26 L (12.00-20.00) Ratio POC Glucose (mg/dL) 129 H (75-99) mg/dL Calcium 10.4 H (8.7-10.3) mg/dL 10/15/21 10/15/21 Range/Units 11:25 16:35 WBC (4.50-10.00) X 10*3/uL Hgb (13.0-17.0) g/dL MCHC (32.0-37.0) g/dL RDW (11.5-14.5) % Plt Count (140-440) X 10*3/uL Plt Count Comment Immature Gran # (0.00-0.04) X 10*3/uL Neutrophils # (1.80-7.70) X 10*3/uL Monocytes # (0.20-1.00) X 10*3/uL Eosinophils # (0.04-0.35) X 10*3/uL BUN (9.0-27.0) mg/dL BUN/Creatinine Ratio (12.00-20.00) Ratio POC Glucose (mg/dL) 101 H 130 H (75-99) mg/dL Calcium (8.7-10.3) mg/dL Microbiology - Last 24 Hours (Table) 10/11/21 14:13 Blood Culture - Preliminary Blood No Growth after 96 hours 10/13/21 18:26 Gram Stain - Preliminary Back Tissue Culture - Preliminary Assessment and Plan Plan: Assessment and Plan Plan: 1) Suspicious lesions in the L spine. Multiple myeloma workup has resulted and negative. - PSA was done and is WNL. - Status Posr Orthopedic intervention for severe pain, biopsies to be obtained, pending results. 2) Hypercalcemia-mtcpcic13.4, continue hydration. Discussed with patient and today Collect Urine Protein Electrophoresis Doctor attests: I performed a history and physical examination of this patient, developed impression and plan of care, discussed with dictator. I agree with dictators note, documented as a scribe.
[2021-10-15 21:22] LABS: Glucose,Whole Blood 98 mg/dL (75-99)
--- NOTE | 2021-10-15 22:55 | P.PN ---
Subjective Progress Note Date: 10/15/21 Principal diagnosis: Possible osteomyelitis lumbar spine Patient is a 61-year-old -English male with a past medical history significant for chronic back pain did have abnormal MRI of the back this patient who is status post L4 S1 biopsy and interbody arthrodesis procedure completed on 10/13/2021 , ID was consulted with concern for possible osteomyelitis. On today's evaluation that is 10/15/2021, the patient denies having any fever or chills, the history of abdominal pain to the lower back area some relief of the pain medication. Denies having any chest pain shortness of breath or cough no nausea no vomiting and no diarrhea Objective - Vital Signs Vital signs: Vital Signs Temp 98.1 F 10/15/21 08:00 Pulse 54 L 10/15/21 08:56 Resp 18 10/15/21 08:56 BP 128/80 10/15/21 08:00 Pulse Ox 98 10/15/21 08:00 Intake & Output 10/14/21 10/15/21 10/15/21 18:59 06:59 18:59 Intake Total 590 50 Output Total 1300 1620 975 Balance -710 -0913 -92 Intake: IV 300 0.9% NaCl with KCl 20 Meq 300 /l 1,000 ml @ 50 mls/hr IV .Q20H [facility] Rx#: [id number] Intake, IV Titration 50 50 Amount ceFAZolin 2 gm In Sodium 50 50 Chloride 0.9% 50 ml @ 100 mls/hr IVPB Q8H [facility] Rx#: [id number] Oral 240 Output: Drainage 120 Back 120 Urine 1300 1500 975 Other: Voiding Method Indwelling Catheter Indwelling Catheter Indwelling Catheter # Voids 4 - Exam GENERAL DESCRIPTION: Middle-aged male lying in bed in no distress RESPIRATORY SYSTEM: Unlabored breathing , decreased breath sounds at bases HEART: S1 S2 regular rate and rhythm , ABDOMEN: Soft , no tenderness EXTREMITIES: No edema feet - Labs CBC & Chem 7: 10/15/21 04:51 10/15/21 04:51 Labs: Abnormal Lab Results - Last 24 Hours (Table) 10/14/21 10/14/21 10/14/21 Range/Units 05:04 16:16 20:19 WBC (4.50-10.00) X 10*3/uL Hgb (13.0-17.0) g/dL MCHC (32.0-37.0) g/dL RDW (11.5-14.5) % Plt Count (140-440) X 10*3/uL Plt Count Comment Immature Gran # (0.00-0.04) X 10*3/uL Neutrophils # (1.80-7.70) X 10*3/uL Monocytes # (0.20-1.00) X 10*3/uL Eosinophils # (0.04-0.35) X 10*3/uL ESR 71 H (0-20) mm/Hr BUN (9.0-27.0) mg/dL BUN/Creatinine Ratio (12.00-20.00) Ratio POC Glucose (mg/dL) 123 H 100 H (75-99) mg/dL Calcium (8.7-10.3) mg/dL 10/15/21 10/15/21 10/15/21 Range/Units 04:51 04:51 07:09 WBC 12.63 H (4.50-10.00) X 10*3/uL Hgb 12.8 L (13.0-17.0) g/dL MCHC 31.0 L (32.0-37.0) g/dL RDW 14.9 H (11.5-14.5) % Plt Count 480 H (140-440) X 10*3/uL Plt Count Comment INCREASED A Immature Gran # 0.21 H (0.00-0.04) X 10*3/uL Neutrophils # 9.00 H (1.80-7.70) X 10*3/uL Monocytes # 1.79 H (0.20-1.00) X 10*3/uL Eosinophils # 0.02 L (0.04-0.35) X 10*3/uL ESR (0-20) mm/Hr BUN 7.5 L (9.0-27.0) mg/dL BUN/Creatinine Ratio 10.26 L (12.00-20.00) Ratio POC Glucose (mg/dL) 129 H (75-99) mg/dL Calcium 10.4 H (8.7-10.3) mg/dL 10/15/21 Range/Units 11:25 WBC (4.50-10.00) X 10*3/uL Hgb (13.0-17.0) g/dL MCHC (32.0-37.0) g/dL RDW (11.5-14.5) % Plt Count (140-440) X 10*3/uL Plt Count Comment Immature Gran # (0.00-0.04) X 10*3/uL Neutrophils # (1.80-7.70) X 10*3/uL Monocytes # (0.20-1.00) X 10*3/uL Eosinophils # (0.04-0.35) X 10*3/uL ESR (0-20) mm/Hr BUN (9.0-27.0) mg/dL BUN/Creatinine Ratio (12.00-20.00) Ratio POC Glucose (mg/dL) 101 H (75-99) mg/dL Calcium (8.7-10.3) mg/dL Microbiology - Last 24 Hours (Table) 10/13/21 18:26 Gram Stain - Preliminary Back Tissue Culture - Preliminary 10/11/21 14:13 Blood Culture - Preliminary Blood No Growth after 72 hours Assessment and Plan (1) Osteomyelitis Current Visit: Yes Status: Acute Code(s): M86.9 - OSTEOMYELITIS, UNSPECIFIED SNOMED Code(s): 13453235 Plan: 1patient presented to hospital with chronic back pain of 5 months duration with abnormal MRI in the outpatient setting in this patient who is status post L4 S1 stabilization with biopsy and interbody arthrodesis and concern for possible osteomyelitis in this patient with no fever during this admission he did have a normal white count patient did have normal sed rate and CRP is mildly elevated on these factors who would go against osteomyelitis but not entirely excluded. 2 OR cultures are still pending 3 patient to continue with cefazolin 2 g every 8 hours Time with Patient: Less than 30
[2021-10-16] MEDS: HYDROmorphone 1 MG/ML 1 ML SYRINGE IVP PRN ×6 (01:30→20:43)
[2021-10-16] MEDS: oxyCODONE-APAP 10-325MG 1 EACH TAB PO PRN ×4 (03:42→17:44)
[2021-10-16] MEDS: ACETAMINOPHEN TAB 325 MG TAB PO SCH ×3 (05:53→17:41)
[2021-10-16 07:22] LABS: Glucose,Whole Blood 107 mg/dL (75-99)
[2021-10-16] MEDS: FLUTICASONE 110 MCG INHALER INHALATION SCH ×2 (07:40→20:31)
[2021-10-16] MEDS: INSULIN ASPART (NovoLOG) 100 UNIT/ML VIAL SQ SCH ×4 (07:58→21:44)
[2021-10-16] MEDS: LACTATED RINGERS 1,000 ML IV SCH (08:33)
[2021-10-16] MEDS: MONTELUKAST 10 MG TAB PO SCH (08:52)
[2021-10-16] MEDS: amLODIPine 5 MG TAB PO SCH (08:52)
[2021-10-16] MEDS: SENNOSIDES-DOCUSATE SODIUM 1 EACH TAB PO SCH ×2 (08:52→20:35)
[2021-10-16] MEDS: PANTOPRAZOLE 40 MG TABLET PO SCH (08:52)
[2021-10-16] MEDS: GABAPENTIN 300 MG CAP PO SCH ×3 (08:53→22:19)
[2021-10-16] MEDS: diazePAM 5 MG TAB PO SCH ×2 (08:53→20:35)
[2021-10-16] MEDS: LORATADINE 10 MG TAB PO SCH (08:53)
[2021-10-16] MEDS: NICOTINE 14MG/24HR PATCH TRANSDERM SCH (08:53)
[2021-10-16 11:47] LABS: Glucose,Whole Blood 174 mg/dL (75-99)
--- NOTE | 2021-10-16 12:23 | P.PN ---
Subjective Progress Note Date: 10/16/21 Principal diagnosis: Low back pain, bilateral lower extremity weakness Patient evaluated at bedside today, he is resting in his hospital bed. He admits to generalized discomfort in his low back and lower extremities, and has not worsened since surgery. He does admit some improvement. Currently patient denies any headaches, lightheadedness, chest pain or shortness of breath. Objective - Vital Signs Vital signs: Vital Signs Temp 98.4 F 10/16/21 07:55 Pulse 62 10/16/21 08:00 Resp 17 10/16/21 08:00 BP 122/81 10/16/21 07:55 Pulse Ox 97 10/16/21 07:55 Intake & Output 10/15/21 10/16/21 10/16/21 18:59 06:59 18:59 Intake Total 50 150 Output Total 975 Balance -925 150 Intake: Intake, IV Titration 50 Amount ceFAZolin 2 gm In Sodium 50 Chloride 0.9% 50 ml @ 100 mls/hr IVPB Q8H [facility] Rx#: [id number] Oral 150 Output: Urine 975 Other: Voiding Method Indwelling Catheter Urinal Urinal # Voids 4 2 - Exam Gen: AOx3, NAD VSS stable at this time Integument: Postoperative bandages changed today, drain was also removed. Stitches are all in good position and condition. 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 appreciated in the bilateral lower extremities with plantar flexion, dorsiflexion, EHL, FHL 4/5 strength appreciated to bilateral lower extremities with hip flexion, knee extension, knee flexion Reflexes: 2/4 in all UE and LE Negative Usha's, Babinski, clonus bilateral lower extremities - Labs CBC & Chem 7: 10/15/21 04:51 10/15/21 04:51 Labs: Abnormal Lab Results - Last 24 Hours (Table) 10/15/21 10/16/21 10/16/21 Range/Units 16:35 07:20 11:45 POC Glucose (mg/dL) 130 H 107 H 174 H (75-99) mg/dL Microbiology - Last 24 Hours (Table) 10/11/21 14:13 Blood Culture - Preliminary Blood No Growth after 96 hours 10/13/21 18:26 Gram Stain - Preliminary Back Tissue Culture - Preliminary Assessment and Plan Assessment: Postoperative day #3 status post L4-S1 decompression and fusion Plan: Pain control, continue with current medications. Try to limit IV narcotics GI and DVT prophylaxis, heparin 5000 units q 12 hours Wound care, new dressing was placed today. We'll change dressing prior to dis charge PT/OT, continue weight-bear as tolerated with walker. Utilize LSO brace when ambulating Other medical specialty recommendations We'll continue to follow during inpatient stay, anticipated discharge home on 10/18/2021 Time with Patient: Less than 30
[2021-10-16] MEDS: 0.9% NACL WITH KCL 20 MEQ/L 1,000 ML IV SCH (13:31)
--- NOTE | 2021-10-16 16:13 | P.PN ---
Subjective Progress Note Date: 10/16/21 History of Present Illness 61-year-old man with medical history of diabetes, hypertension, COPD, hyperlipidemia presented for back pain. This was consulted by orthopedic surgery service for medical management. Patient is known to Dr. Saez in clinic, where he was getting a workup for his acute back pain for 5 months duration. Sharp in nature. His workup consisted of x-rays, MRI which demonstrated L4 to 5 severe disc collapse with T1 hypodense vertebral body signals T2 hyperintense cystic lesions within the vertebral bodies of L4 and L5 as well as hyperintense STIR imaging of L4 and L5. The differential for this includes osteomyelitis versus malignancy. Patient was admitted to the hospital under the orthopedic surgery team to ultimately obtain biopsy sampling to determine etiology of this lesion. Patient himself is a poor historian because he is in significant amounts of pain, not comfortable at this time. Therefore, review of systems could not be completed Interval history: Patient was examined at the bedside. Still complaining of back pain. Asking for IV Dilaudid. Objective - Vital Signs Vital signs: Vital Signs Temp 98.4 F 10/16/21 07:55 Pulse 62 10/16/21 08:00 Resp 17 10/16/21 08:00 BP 122/81 10/16/21 07:55 Pulse Ox 97 10/16/21 07:55 Intake & Output 10/15/21 10/16/21 10/16/21 18:59 06:59 18:59 Intake Total 50 1200 Output Total 975 Balance -925 1200 Intake: IV 400 0.9% NaCl with KCl 20 Meq 400 /l 1,000 ml @ 50 mls/hr IV .Q20H [facility] Rx#: [id number] Intake, IV Titration 50 50 Amount ceFAZolin 2 gm In Sodium 50 50 Chloride 0.9% 50 ml @ 100 mls/hr IVPB Q8H [facility] Rx#: [id number] Oral 750 Output: Urine 975 Other: Voiding Method Indwelling Catheter Urinal Urinal # Voids 4 3 - Exam General: non toxic, no distress, appears at stated age Derm: warm, dry Head: atraumatic, normocephalic, symmetric Eyes: EOMI, no lid lag, anicteric sclera Mouth: no lip lesion, mucus membranes moist Cardiovascular: S1S2 reg, no murmur, positive posterior tibial pulse bilateral, Lungs: CTA bilateral, no rhonchi, no rales , no accessory muscle use Abdominal: soft, nontender to palpation, no guarding, no appreciable organomegaly Ext: no gross muscle atrophy, no edema, no contractures Neuro: CN II-XI grossly intact, no focal neuro deficits Psych: Alert, oriented, appropriate affect - Labs CBC & Chem 7: 10/15/21 04:51 10/15/21 04:51 Labs: Abnormal Lab Results - Last 24 Hours (Table) 10/15/21 10/16/21 10/16/21 Range/Units 16:35 07:20 11:45 POC Glucose (mg/dL) 130 H 107 H 174 H (75-99) mg/dL Microbiology - Last 24 Hours (Table) 10/13/21 18:26 Anaerobic Culture - Preliminary Back 10/13/21 18:26 Gram Stain - Preliminary Back Tissue Culture - Preliminary 10/11/21 14:13 Blood Culture - Preliminary Blood No Growth after 96 hours Assessment and Plan Assessment: Assessment and plan: #Intractable back pain with bilateral lower extremity weakness #status post 1 L4 S1 stabilization with biopsy and interbody arthrodesis October 13. #Questionable L4/L5 lytic lesions -Per orthospine L4-L5, L5-S1 possible osteomyelitis versus a rheumatologic changes, doubt malignancy -Pain control IV Dilaudid when necessary, Ativan when necessary. Dilaudid BOWL SANDER discontinued October 14 -Tylenol around the clock -Flexeril when necessary -Stool softener -Pending biopsy result -Multiple myeloma workup ordered - infectious disease for possible osteomyelitis -Hematology oncology following -Blood cultures negative to date Hypertension -Decrease Norvasc to 5 mg daily Hyperlipidemia -Resume Lipitor COPD without exacerbation -Resume inhaled steroid -Resume Singulair -As needed DuoNeb Diabetes Type 2 -Holding oral hypoglycemics -Sliding scale insulin with NovoLog -A1c 5.5 Ongoing tobacco abuse -Patient was counseled regarding smoking cessation -Nicotine patch Patient is a full code DVT prophylaxis per surgery
[2021-10-16 16:35] LABS: Glucose,Whole Blood 102 mg/dL (75-99)
--- NOTE | 2021-10-16 20:20 | PN ---
PROGRESS NOTE DATE OF SERVICE: October 16, 2021. CHIEF COMPLAINT: Back pain. Juan seen today in followup. He is recovering from recent back surgery. Continues to have back pain. CURRENT MEDICATION: Reviewed in the electronic medical record. EXAMINATION: He alert, oriented x3, and he appears to be in pain. His vital signs: Temperature 98.4, afebrile, pulse is 68, respirations 17, blood pressure 122/81, pulse ox 97 percent on room air. HEENT: Normocephalic, atraumatic. Neck: Supple. Chest equal expansion bilaterally. Lungs: Clear. Heart is regular. Abdomen: Soft, nontender. Extremities revealed no edema. LABORATORY DATA: Serum protein electrophoresis did not reveal any obvious monoclonal protein. His PSA was 0.28. His last calcium level from yesterday was 10.4 and WBC of 12.6, hemoglobin 12.8, platelets are 480. IMPRESSION: 1. Recent back surgery due to back pain and there was questionable suspicious lesion L4 spine. He underwent back surgery. Biopsy of L4 vertebral body was not diagnostic, and biopsy of L4-L5 interspace revealed fragment of bone and fibrocartilage with fibrosis and dystrophic calcification acutely inflamed granulation tissue. It was negative for neoplasm. 2. Thrombocytosis and leukocytosis, likely reactive in nature two recent back surgery. RECOMMENDATION: 1. Continue postop management and pain management. 2. I discussed the recent biopsy results with the patient today. 3. His recent laboratory workup did not indicate any evidence of multiple myeloma. There is no monoclonal protein and both serum free light chain kappa and lambda are elevated, that is more consistent with normal ratio. This is more consistent with inflammatory process. 4. His hypercalcemia has improved and could be related to immobilization. At this point in time, there is no evidence to suggest malignancy. However, based on recent bone biopsy, however, if this remains a concern and has recurrent hypercalcemia, then other solid tumor like in particular lung cancer should be investigated by obtaining a CT scan of the chest. He is currently being evaluated by Infectious Disease for possible osteomyelitis of his back. MMODL / IJN: [id number] /
[2021-10-16] MEDS: ATORVASTATIN 40 MG TAB PO SCH (20:34)
[2021-10-16] MEDS: PRAZOSIN 1 MG CAP PO SCH (20:35)
[2021-10-16] MEDS: HEPARIN SODIUM,PORCINE/PF 5,000 UNIT/0.5 ML SYRINGE SQ SCH (20:36)
[2021-10-16 21:17] LABS: Glucose,Whole Blood 138 mg/dL (75-99)
--- NOTE | 2021-10-16 22:39 | P.PN ---
Subjective Progress Note Date: 10/16/21 Principal diagnosis: Possible osteomyelitis lumbar spine Patient is a 61-year-old -English male with a past medical history significant for chronic back pain did have abnormal MRI of the back this patient who is status post L4 S1 biopsy and interbody arthrodesis procedure completed on 10/13/2021 , ID was consulted with concern for possible osteomyelitis. On today's evaluation that is 10/16/2021, the patient remains to be afebrile, the patient pain to the lower back area is currently controlled with pain medication. The patient denies having any chest pain shortness of breath or cough no nausea no vomiting and no diarrhea Objective - Vital Signs Vital signs: Vital Signs Temp 98.4 F 10/16/21 07:55 Pulse 62 10/16/21 08:00 Resp 17 10/16/21 08:00 BP 122/81 10/16/21 07:55 Pulse Ox 97 10/16/21 07:55 Intake & Output 10/15/21 10/16/21 10/16/21 18:59 06:59 18:59 Intake Total 50 150 Output Total 975 Balance -925 150 Intake: Intake, IV Titration 50 Amount ceFAZolin 2 gm In Sodium 50 Chloride 0.9% 50 ml @ 100 mls/hr IVPB Q8H [facility] Rx#: [id number] Oral 150 Output: Urine 975 Other: Voiding Method Indwelling Catheter Urinal Urinal # Voids 4 2 - Exam GENERAL DESCRIPTION: Middle-aged male lying in bed in no distress RESPIRATORY SYSTEM: Unlabored breathing , decreased breath sounds at bases HEART: S1 S2 regular rate and rhythm , ABDOMEN: Soft , no tenderness EXTREMITIES: No edema feet - Labs CBC & Chem 7: 10/15/21 04:51 10/15/21 04:51 Labs: Abnormal Lab Results - Last 24 Hours (Table) 10/15/21 10/16/21 10/16/21 Range/Units 16:35 07:20 11:45 POC Glucose (mg/dL) 130 H 107 H 174 H (75-99) mg/dL Microbiology - Last 24 Hours (Table) 10/13/21 18:26 Gram Stain - Preliminary Back Tissue Culture - Preliminary 10/11/21 14:13 Blood Culture - Preliminary Blood No Growth after 96 hours Assessment and Plan (1) Osteomyelitis Current Visit: Yes Status: Acute Code(s): M86.9 - OSTEOMYELITIS, UNSPECIFIED SNOMED Code(s): 46145326 Plan: 1patient presented to hospital with chronic back pain of 5 months duration with abnormal MRI in the outpatient setting in this patient who is status post L4 S1 stabilization with biopsy and interbody arthrodesis and concern for possible osteomyelitis in this patient with no fever during this admission he did have a normal white count patient did have normal sed rate and CRP is mildly elevated on these factors who would go against osteomyelitis but not entirely excluded but less likely. 2 OR cultures are negative so far 3 patient to continue with cefazolin 2 g every 8 hours, however if cultures remains to be negative, will recommend to discontinue antibiotics Time with Patient: Less than 30
[2021-10-17] MEDS: ACETAMINOPHEN TAB 325 MG TAB PO SCH ×4 (01:30→17:46)
[2021-10-17] MEDS: HYDROmorphone 1 MG/ML 1 ML SYRINGE IVP PRN ×7 (01:30→21:01)
[2021-10-17] MEDS: oxyCODONE-APAP 10-325MG 1 EACH TAB PO PRN ×3 (06:17→18:27)
[2021-10-17 06:58] LABS: Glucose,Whole Blood 104 mg/dL (75-99)
[2021-10-17] MEDS: INSULIN ASPART (NovoLOG) 100 UNIT/ML VIAL SQ SCH ×4 (07:04→21:50)
[2021-10-17] MEDS: LACTATED RINGERS 1,000 ML IV SCH (07:04)
[2021-10-17] MEDS: FLUTICASONE 110 MCG INHALER INHALATION SCH ×2 (07:52→21:38)
[2021-10-17] MEDS: amLODIPine 5 MG TAB PO SCH (09:26)
[2021-10-17] MEDS: MONTELUKAST 10 MG TAB PO SCH (09:26)
[2021-10-17] MEDS: GABAPENTIN 300 MG CAP PO SCH ×3 (09:26→21:03)
[2021-10-17] MEDS: LORATADINE 10 MG TAB PO SCH (09:26)
[2021-10-17] MEDS: PANTOPRAZOLE 40 MG TABLET PO SCH (09:26)
[2021-10-17] MEDS: SENNOSIDES-DOCUSATE SODIUM 1 EACH TAB PO SCH ×2 (09:26→21:03)
[2021-10-17] MEDS: polyethylene glycoL 3350 17 GM POWD.PACK PO SCH (09:27)
[2021-10-17] MEDS: diazePAM 5 MG TAB PO SCH ×2 (09:27→21:03)
[2021-10-17] MEDS: 0.9% NACL WITH KCL 20 MEQ/L 1,000 ML IV SCH (09:27)
[2021-10-17] MEDS: NICOTINE 14MG/24HR PATCH TRANSDERM SCH (09:27)
[2021-10-17] MEDS: HEPARIN SODIUM,PORCINE/PF 5,000 UNIT/0.5 ML SYRINGE SQ SCH ×2 (09:27→21:03)
[2021-10-17 12:13] LABS: Glucose,Whole Blood 91 mg/dL (75-99)
--- NOTE | 2021-10-17 12:33 | P.PN ---
Subjective Progress Note Date: 10/17/21 Principal diagnosis: Low back pain, bilateral lower extremity weakness Patient evaluated at bedside today, he is resting in his hospital bed. He admits to generalized discomfort in his low back and lower extremities, and has not worsened since surgery. Currently patient denies any headaches, lightheadedness, chest pain or shortness of breath. Objective - Vital Signs Vital signs: Vital Signs Temp 97.9 F 10/17/21 08:04 Pulse 94 10/17/21 08:04 Resp 17 10/17/21 08:04 BP 106/69 10/17/21 08:04 Pulse Ox 97 10/17/21 08:04 Intake & Output 10/16/21 10/17/21 10/17/21 17:59 06:59 18:59 Intake Total Output Total Balance Intake: IV 0.9% NaCl with KCl 20 Meq /l 1,000 ml @ 50 mls/hr IV .Q20H [facility] Rx#: [id number] Intake, IV Titration Amount ceFAZolin 2 gm In Sodium Chloride 0.9% 50 ml @ 100 mls/hr IVPB Q8H [facility] Rx#: [id number] Oral Output: Urine Other: Voiding Method Urinal # Voids - Exam Gen: AOx3, NAD VSS stable at this time Integument: Bandages remain intact, no drainage noted Palpation: Mild tenderness to both the midline and paraspinal region in the lower lumbar spine ROM: Full range of motion in all major muscle groups of the bilateral upper and lower extremities Sensory Exam: Senory exam to light touch is intact C5-T1 Senosry exam to light touch is intact L2-S1 Motor: 5/5 strength patient in the bilateral upper extremities with shoulder abduction, forward elevation, elbow extension, elbow flexion, wrist extension, wrist flexion, 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 5/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 appreciated in the bilateral lower extremities with plantar flexion, dorsiflexion, EHL, FHL 4/5 strength appreciated to bilateral lower extremities with hip flexion, knee extension, knee flexion Reflexes: 2/4 in all UE and LE Negative Usha's, Babinski, clonus bilateral lower extremities - Labs CBC & Chem 7: 10/15/21 04:51 10/15/21 04:51 Labs: Abnormal Lab Results - Last 24 Hours (Table) 10/16/21 10/16/21 10/16/21 Range/Units 11:45 16:34 21:15 POC Glucose (mg/dL) 174 H 102 H 138 H (75-99) mg/dL 10/17/21 Range/Units 06:57 POC Glucose (mg/dL) 104 H (75-99) mg/dL Microbiology - Last 24 Hours (Table) 10/13/21 18:26 Gram Stain - Preliminary Back Tissue Culture - Preliminary 10/11/21 14:13 Blood Culture - Preliminary Blood No Growth after 120 hours 10/13/21 18:26 Anaerobic Culture - Preliminary Back Assessment and Plan Assessment: Postoperative day #4 status post L4-S1 decompression and fusion Plan: Pain control, continue with current medications. Try to limit IV narcotics GI and DVT prophylaxis, heparin 5000 units q 12 hours Wound care, dressing change tomorrow prior to discharge PT/OT, continue weight-bear as tolerated with walker. Utilize LSO brace when ambulating Other medical specialty recommendations We'll continue to follow during inpatient stay, anticipated discharge home on 10/18/2021 Time with Patient: Less than 30
--- NOTE | 2021-10-17 15:39 | P.PN ---
Subjective Progress Note Date: 10/17/21 History of Present Illness 61-year-old man with medical history of diabetes, hypertension, COPD, hyperlipidemia presented for back pain. This was consulted by orthopedic surgery service for medical management. Patient is known to Dr. Saez in clinic, where he was getting a workup for his acute back pain for 5 months duration. Sharp in nature. His workup consisted of x-rays, MRI which demonstrated L4 to 5 severe disc collapse with T1 hypodense vertebral body signals T2 hyperintense cystic lesions within the vertebral bodies of L4 and L5 as well as hyperintense STIR imaging of L4 and L5. The differential for this includes osteomyelitis versus malignancy. Patient was admitted to the hospital under the orthopedic surgery team to ultimately obtain biopsy sampling to determine etiology of this lesion. Patient himself is a poor historian because he is in significant amounts of pain, not comfortable at this time. Therefore, review of systems could not be completed Interval history: Patient was examined at the bedside. Still complaining of back pain. Asking for IV Dilaudid. Objective - Vital Signs Vital signs: Vital Signs Temp 98.5 F 10/17/21 15:25 Pulse 92 10/17/21 15:25 Resp 16 10/17/21 15:25 BP 106/70 10/17/21 15:25 Pulse Ox 94 L 10/17/21 15:25 Intake & Output 10/16/21 10/17/21 10/17/21 17:59 06:59 18:59 Intake Total 650 Output Total Balance 650 Intake: IV 350 0.9% NaCl with KCl 20 Meq 350 /l 1,000 ml @ 50 mls/hr IV .Q20H [facility] Rx#: [id number] Intake, IV Titration 50 Amount ceFAZolin 2 gm In Sodium 50 Chloride 0.9% 50 ml @ 100 mls/hr IVPB Q8H [facility] Rx#: [id number] Oral 250 Output: Urine Other: Voiding Method Urinal # Voids 3 - Exam General: non toxic, no distress, appears at stated age Derm: warm, dry Head: atraumatic, normocephalic, symmetric Eyes: EOMI, no lid lag, anicteric sclera Mouth: no lip lesion, mucus membranes moist Cardiovascular: S1S2 reg, no murmur, positive posterior tibial pulse bilateral, Lungs: CTA bilateral, no rhonchi, no rales , no accessory muscle use Abdominal: soft, nontender to palpation, no guarding, no appreciable orga nomegaly Ext: no gross muscle atrophy, no edema, no contractures Neuro: CN II-XI grossly intact, no focal neuro deficits Psych: Alert, oriented, appropriate affect - Labs CBC & Chem 7: 10/15/21 04:51 10/15/21 04:51 Labs: Abnormal Lab Results - Last 24 Hours (Table) 10/16/21 10/16/21 10/17/21 Range/Units 16:34 21:15 06:57 POC Glucose (mg/dL) 102 H 138 H 104 H (75-99) mg/dL Microbiology - Last 24 Hours (Table) 10/13/21 18:26 Gram Stain - Preliminary Back Tissue Culture - Preliminary 10/11/21 14:13 Blood Culture - Preliminary Blood No Growth after 120 hours 10/13/21 18:26 Anaerobic Culture - Preliminary Back Assessment and Plan Assessment: Assessment and plan: #Intractable back pain with bilateral lower extremity weakness #status post 1 L4 S1 stabilization with biopsy and interbody arthrodesis October 13. #Questionable L4/L5 lytic lesions -Per orthospine L4-L5, L5-S1 possible osteomyelitis versus a rheumatologic changes, doubt malignancy -Pain control IV Dilaudid when necessary, Ativan when necessary. Dilaudid FILLING MIXER discontinued October 14 -Tylenol around the clock -Flexeril when necessary -Stool softener -Pending biopsy result -Multiple myeloma workup ordered -OR cultures are negative so far -patient to continue with cefazolin 2 g every 8 hours, however if cultures remains to be negative, will recommend to discontinue antibiotics -Hematology oncology following -Blood cultures negative to date Hypertension -Decrease Norvasc to 5 mg daily Hyperlipidemia -Resume Lipitor COPD without exacerbation -Resume inhaled steroid -Resume Singulair -As needed DuoNeb Diabetes Type 2 -Holding oral hypoglycemics -Sliding scale insulin with NovoLog -A1c 5.5 Ongoing tobacco abuse -Patient was counseled regarding smoking cessation -Nicotine patch Patient is a full code DVT prophylaxis per surgery
[2021-10-17 16:49] LABS: Glucose,Whole Blood 95 mg/dL (75-99)
[2021-10-17 20:54] LABS: Glucose,Whole Blood 122 mg/dL (75-99)
[2021-10-17] MEDS: PRAZOSIN 1 MG CAP PO SCH (21:03)
[2021-10-17] MEDS: ATORVASTATIN 40 MG TAB PO SCH (21:03)
[2021-10-17] MEDS: HYDROmorphone 0.5 MG/0.5 ML SYRINGE IVP PRN (22:13)
[2021-10-18] MEDS: oxyCODONE-APAP 10-325MG 1 EACH TAB PO PRN ×3 (00:43→15:44)
[2021-10-18] MEDS: ACETAMINOPHEN TAB 325 MG TAB PO SCH ×3 (01:22→17:30)
[2021-10-18] MEDS: HYDROmorphone 0.5 MG/0.5 ML SYRINGE IVP PRN ×3 (03:10→17:11)
[2021-10-18 06:55] LABS: Glucose,Whole Blood 101 mg/dL (75-99)
[2021-10-18] MEDS: INSULIN ASPART (NovoLOG) 100 UNIT/ML VIAL SQ SCH ×4 (07:18→21:10)
[2021-10-18] MEDS: MONTELUKAST 10 MG TAB PO SCH (07:36)
[2021-10-18] MEDS: PANTOPRAZOLE 40 MG TABLET PO SCH (07:36)
[2021-10-18] MEDS: amLODIPine 5 MG TAB PO SCH (07:36)
[2021-10-18] MEDS: GABAPENTIN 300 MG CAP PO SCH ×3 (07:36→21:06)
[2021-10-18] MEDS: SENNOSIDES-DOCUSATE SODIUM 1 EACH TAB PO SCH ×2 (07:37→21:06)
[2021-10-18] MEDS: polyethylene glycoL 3350 17 GM POWD.PACK PO SCH (07:37)
[2021-10-18] MEDS: LORATADINE 10 MG TAB PO SCH (07:37)
[2021-10-18] MEDS: diazePAM 5 MG TAB PO SCH ×2 (07:37→21:05)
[2021-10-18] MEDS: HEPARIN SODIUM,PORCINE/PF 5,000 UNIT/0.5 ML SYRINGE SQ SCH ×2 (07:41→21:06)
[2021-10-18] MEDS: NICOTINE 14MG/24HR PATCH TRANSDERM SCH (07:41)
[2021-10-18] MEDS: FLUTICASONE 110 MCG INHALER INHALATION SCH ×2 (08:13→21:14)
--- NOTE | 2021-10-18 08:42 | P.PN ---
Subjective Progress Note Date: 10/18/21 Principal diagnosis: s/p L4-S1 decompression and fusion Pt is resting in bed. Fiance is at bedside. Pt has continued to c/o pain to lower back due to surgical procedure. States the pain has improved in his back from the surgery. Pt reports only getting up twice through the weekend r/t to pain. Continues to refuse to wear brace when ambulating. Dressing to lower back has rolled up, removed and will be replaced with a Optifoam dressing. Patient is demanding to go home today. Instructed patient on the need to be able to do stairs and be able to perform ADLs in order to go home. Educated patient that [facility] might be a possibility. Fiance at bedside states she will not be able to care for him at home the way he is at this time. Objective - Vital Signs Vital signs: Vital Signs Temp 97.9 F 10/18/21 08:00 Pulse 92 10/18/21 08:00 Resp 19 10/18/21 08:00 BP 120/80 10/18/21 08:00 Pulse Ox 99 10/18/21 08:00 Intake & Output 10/17/21 10/18/21 10/18/21 18:59 06:59 18:59 Intake Total 650 Balance 650 Intake: IV 350 0.9% NaCl with KCl 20 Meq 350 /l 1,000 ml @ 50 mls/hr IV .Q20H [facility] Rx#: [id number] Intake, IV Titration 50 Amount ceFAZolin 2 gm In Sodium 50 Chloride 0.9% 50 ml @ 100 mls/hr IVPB Q8H [facility] Rx#: [id number] Oral 250 Other: Voiding Method Urinal Urinal # Voids 3 - Exam Physical Examination Pt exam performed any changes have been noted below. General: The patient is awake and alert, in no acute distress Skin: Skin is warm and dry with no obvious rashes or lesions. Hairy patches absent, no dorsal skin dimples, no cafe au lait spots, Surgical Incision present in the lumbar region. Eye: Pupils are equal, round and reactive to light, extra-ocular movements are intact; there is normal conjunctiva bilaterally. Neck: The neck is supple, there is no tenderness and ROM intact. Cardiovascular: There is a regular rate and rhythm. No murmur, rub or gallop is appreciated. Respiratory: Lungs are clear to auscultation, respirations are non-labored, breath sounds are equal. Gastrointestinal: Soft, non-distended, non-tender abdomen. Back: There is slight tenderness to palpation in the midline, paralumbar region due to surgical procedure. There is no obvious deformity. Musculoskeletal: ROM limited secondary to pain and stiffness from surgical procedure. Shoulder abduction 5/5, elbow flexors 5/5, wrist dorsiflexors 5/5. finger abductor 5/5, rate clerk passenger 5/5, hip flexor 4/5, knee flexor 4/5, ankle dorsiflexor 4/5, ankle plantarflexion 4/5 and extensor hallucis 4/5. Neurological: CN 2-12 intact. There are no obvious motor or sensory deficits. Movement and coordination equal and intact. Sensory exam to light touch intact C5-T1 and intact from L2-S1. Reflexes 2/4 in bilateral upper and lower extremities. Negative Hoffmans, babinski, and clonus signs. Psychiatric: Cooperative, appropriate mood & affect, normal judgment. - Labs CBC & Chem 7: 10/15/21 04:51 10/15/21 04:51 Labs: Abnormal Lab Results - Last 24 Hours (Table) 10/17/21 10/18/21 Range/Units 20:53 06:54 POC Glucose (mg/dL) 122 H 101 H (75-99) mg/dL Microbiology - Last 24 Hours (Table) 10/11/21 14:13 Blood Culture - Final Blood No Growth after 144 hours 10/13/21 18:26 Gram Stain - Preliminary Back Tissue Culture - Preliminary Assessment and Plan Assessment: s/p L4-S1 decompression and fusion Plan: I reviewed and discussed the case with my attending Dr. Saez, he has had a chance to review the chart and films and we have decided to proceed as outlined below. Plan: -Appreciate clothing consultant and team management. -Activity: Ambulate QID, OOB all meals, up and about, limit lifting bending twisting to less than 5 lbs. Use walker or cane if needed for stability. -Daily PT/OT, increase ambulation strength and balance. -Brace when up and about, not needed in bed or chair -Pain control: Adequate at this time -Meds: reviewed -GI ppx: senna, Miralax -Hygiene: Shower today. Maintain dressing clean and dry. Meticulous cleaning after BMs away from incision site -Encourage IS 10x/hr -Dispo: Home with homecare pending recommedation PT/OT today 10/18/20. I have personally seen and examined the patient, performed the documentation and the assessment and plan as written. Number of minutes spent on the visit: [ 20].
[2021-10-18 11:57] LABS: Glucose,Whole Blood 109 mg/dL (75-99)
--- NOTE | 2021-10-18 12:34 | P.PN ---
Subjective Progress Note Date: 10/17/21 Principal diagnosis: Possible osteomyelitis lumbar spine Patient is a 61-year-old -Citizen Of [place] male with a past medical history significant for chronic back pain did have abnormal MRI of the back this patient who is status post L4 S1 biopsy and interbody arthrodesis procedure completed on 10/13/2021 , ID was consulted with concern for possible osteomyelitis. On today's evaluation that is 10/17/2021, the patient continues to be afebrile, the patient pain to the lower back area is controlled with pain medication. The patient denies having any chest pain shortness of breath or cough no nausea no vomiting and no diarrhea with antibiotic therapy Objective - Vital Signs Vital signs: Vital Signs Temp 97.9 F 10/17/21 08:04 Pulse 94 10/17/21 08:04 Resp 17 10/17/21 08:04 BP 106/69 10/17/21 08:04 Pulse Ox 97 10/17/21 08:04 Intake & Output 10/16/21 10/17/21 10/17/21 17:59 06:59 18:59 Intake Total Output Total Balance Intake: IV 0.9% NaCl with KCl 20 Meq /l 1,000 ml @ 50 mls/hr IV .Q20H [facility] Rx#: [id number] Intake, IV Titration Amount ceFAZolin 2 gm In Sodium Chloride 0.9% 50 ml @ 100 mls/hr IVPB Q8H [facility] Rx#: [id number] Oral Output: Urine Other: Voiding Method Urinal # Voids - Exam GENERAL DESCRIPTION: Middle-aged male lying in bed in no distress RESPIRATORY SYSTEM: Unlabored breathing , decreased breath sounds at bases HEART: S1 S2 regular rate and rhythm , ABDOMEN: Soft , no tenderness EXTREMITIES: No edema feet - Labs CBC & Chem 7: 10/15/21 04:51 10/15/21 04:51 Labs: Abnormal Lab Results - Last 24 Hours (Table) 10/16/21 10/16/21 10/17/21 Range/Units 16:34 21:15 06:57 POC Glucose (mg/dL) 102 H 138 H 104 H (75-99) mg/dL Microbiology - Last 24 Hours (Table) 10/13/21 18:26 Gram Stain - Preliminary Back Tissue Culture - Preliminary 10/11/21 14:13 Blood Culture - Preliminary Blood No Growth after 120 hours 10/13/21 18:26 Anaerobic Culture - Preliminary Back Assessment and Plan (1) Osteomyelitis Current Visit: Yes Status: Acute Code(s): M86.9 - OSTEOMYELITIS, UNSPECIFIED SNOMED Code(s): 22148381 Plan: 1patient presented to hospital with chronic back pain of 5 months duration with abnormal MRI in the outpatient setting in this patient who is status post L4 S1 stabilization with biopsy and interbody arthrodesis and concern for possible osteomyelitis in this patient with no fever during this admission he did have a normal white count patient did have normal sed rate and CRP is mildly elevated on these factors who would go against osteomyelitis but not entirely excluded but less likely. 2 OR aerobic cultures are negative so far, anaerobic cultures are pending 3 patient to continue with cefazolin 2 g every 8 hours, while waiting for the cultures to finalize Time with Patient: Less than 30
--- NOTE | 2021-10-18 12:37 | P.PN ---
Subjective Progress Note Date: 10/18/21 Principal diagnosis: Possible osteomyelitis lumbar spine Patient is a 61-year-old -[place] male with a past medical history significant for chronic back pain did have abnormal MRI of the back this patient who is status post L4 S1 biopsy and interbody arthrodesis procedure completed on 10/13/2021 , ID was consulted with concern for possible osteomyelitis. On today's evaluation that is 10/18/2021, the patient denies any fever or any chills, the patient denies any worsening pain to the lower back area , The patient denies having any chest pain shortness of breath or cough no nausea no vomiting and no diarrhea with antibiotic therapy, patient says he wants to get out of here Objective - Vital Signs Vital signs: Vital Signs Temp 97.9 F 10/18/21 08:00 Pulse 92 10/18/21 08:00 Resp 19 10/18/21 08:00 BP 120/80 10/18/21 08:00 Pulse Ox 99 10/18/21 08:00 Intake & Output 10/17/21 10/18/21 10/18/21 18:59 06:59 18:59 Intake Total 650 Output Total 700 Balance 650 -700 Intake: IV 350 0.9% NaCl with KCl 20 Meq 350 /l 1,000 ml @ 50 mls/hr IV .Q20H [facility] Rx#: [id number] Intake, IV Titration 50 Amount ceFAZolin 2 gm In Sodium 50 Chloride 0.9% 50 ml @ 100 mls/hr IVPB Q8H [facility] Rx#: [id number] Oral 250 Output: Urine 700 Other: Voiding Method Urinal Urinal # Voids 3 - Exam GENERAL DESCRIPTION: Middle-aged male lying in bed in no distress RESPIRATORY SYSTEM: Unlabored breathing , decreased breath sounds at bases HEART: S1 S2 regular rate and rhythm , ABDOMEN: Soft , no tenderness EXTREMITIES: No edema feet - Labs CBC & Chem 7: 10/15/21 04:51 10/15/21 04:51 Labs: Abnormal Lab Results - Last 24 Hours (Table) 10/17/21 10/18/21 10/18/21 Range/Units 20:53 06:54 11:56 POC Glucose (mg/dL) 122 H 101 H 109 H (75-99) mg/dL Microbiology - Last 24 Hours (Table) 10/13/21 18:26 Gram Stain - Final Back Tissue Culture - Final 10/13/21 18:26 Anaerobic Culture - Final Back Anaerobic Gram Positive Cocci 10/11/21 14:13 Blood Culture - Final Blood No Growth after 144 hours Assessment and Plan (1) Osteomyelitis Current Visit: Yes Status: Acute Code(s): M86.9 - OSTEOMYELITIS, UNSPECIFIED SNOMED Code(s): 28188595 Plan: 1patient presented to hospital with chronic back pain of 5 months duration with abnormal MRI in the outpatient setting in this patient who is status post L4 S1 stabilization with biopsy and interbody arthrodesis and concern for possible osteomyelitis in this patient with no fever during this admission he did have a normal white count patient did have normal sed rate and CRP is mildly elevated on these factors who would go against osteomyelitis but not entirely excluded but less likely. 2 OR aerobic cultures are negative however anaerobic cultures are growing anaerobic gram-positive cocci with the ID sensitivities pending 3 patient antibiotics adjusted to Rocephin 2 g daily and oral Flagyl, we will wait for the ID of this pathogen to determine his discharge antibiotics, discussed with the patient RN as well as the hospitalist Time with Patient: Less than 30
--- NOTE | 2021-10-18 12:42 | P.PN ---
Subjective Progress Note Date: 10/18/21 History of Present Illness 61-year-old man with medical history of diabetes, hypertension, COPD, hyperlipidemia presented for back pain. This was consulted by orthopedic surgery service for medical management. Patient is known to Dr. Saez in clinic, where he was getting a workup for his acute back pain for 5 months duration. Sharp in nature. His workup consisted of x-rays, MRI which demonstrated L4 to 5 severe disc collapse with T1 hypodense vertebral body signals T2 hyperintense cystic lesions within the vertebral bodies of L4 and L5 as well as hyperintense STIR imaging of L4 and L5. The differential for this includes osteomyelitis versus malignancy. Patient was admitted to the hospital under the orthopedic surgery team to ultimately obtain biopsy sampling to determine etiology of this lesion. Patient himself is a poor historian because he is in significant amounts of pain, not comfortable at this time. Therefore, review of systems could not be completed Interval history: Patient was examined at the bedside. He denies any chest pain or shortness of breath. Still complaining of back pain. Culture results from surgery grown anaerobic gram-positive cocci. I held the discharge order and notified infectious disease. Objective - Vital Signs Vital signs: Vital Signs Temp 97.9 F 10/18/21 08:00 Pulse 92 10/18/21 08:00 Resp 19 10/18/21 08:00 BP 120/80 10/18/21 08:00 Pulse Ox 99 10/18/21 08:00 Intake & Output 10/17/21 10/18/21 10/18/21 18:59 06:59 18:59 Intake Total 650 Output Total 700 Balance 650 -700 Intake: IV 350 0.9% NaCl with KCl 20 Meq 350 /l 1,000 ml @ 50 mls/hr IV .Q20H [facility] Rx#: [id number] Intake, IV Titration 50 Amount ceFAZolin 2 gm In Sodium 50 Chloride 0.9% 50 ml @ 100 mls/hr IVPB Q8H [facility] Rx#: [id number] Oral 250 Output: Urine 700 Other: Voiding Method Urinal Urinal # Voids 3 - Exam General: non toxic, no distress, appears at stated age Derm: warm, dry Head: atraumatic, normocephalic, symmetric Eyes: EOMI, no lid lag, anicteric sclera Mouth: no lip lesion, mucus membranes moist Cardiovascular: S1S2 reg, no murmur, positive posterior tibial pulse bilateral, Lungs: CTA bilateral, no rhonchi, no rales , no accessory muscle use Abdominal: soft, nontender to palpation, no guarding, no appreciable organomegaly Ext: no gross muscle atrophy, no edema, no contractures Neuro: CN II-XI grossly intact, no focal neuro deficits Psych: Alert, oriented, appropriate affect - Labs CBC & Chem 7: 10/15/21 04:51 10/15/21 04:51 Labs: Abnormal Lab Results - Last 24 Hours (Table) 10/17/21 10/18/21 10/18/21 Range/Units 20:53 06:54 11:56 POC Glucose (mg/dL) 122 H 101 H 109 H (75-99) mg/dL Microbiology - Last 24 Hours (Table) 10/13/21 18:26 Gram Stain - Final Back Tissue Culture - Final 10/13/21 18:26 Anaerobic Culture - Final Back Anaerobic Gram Positive Cocci 10/11/21 14:13 Blood Culture - Final Blood No Growth after 144 hours Assessment and Plan Assessment: Assessment and plan: #Intractable back pain with bilateral lower extremity weakness #status post 1 L4 S1 stabilization with biopsy and interbody arthrodesis October 13. #Questionable L4/L5 lytic lesions -Per orthospine L4-L5, L5-S1 possible osteomyelitis versus a rheumatologic changes, doubt malignancy -Pain control IV Dilaudid when necessary, Ativan when necessary. Dilaudid WIRELESS FIELD TECHNICIAN discontinued October 14 -Tylenol around the clock -Flexeril when necessary -Stool softener -Tissue biopsy was negative for malignancy but showed evidence of acute inflammation per. But surgical culture is growing anaerobic gram-positive cocci. -Multiple myeloma workup ordered -OR cultures are negative so far -Patient currently on IV cefazolin every 8 hours ID notified today about the new result. Resume antibiotic per infectious disease -Hematology oncology following -Blood cultures negative to date Hypercalcemia -Normal PTH -Check ionized calcium -Hematology oncology following Hypertension -Decrease Norvasc to 5 mg daily Hyperlipidemia -Resume Lipitor COPD without exacerbation -Resume inhaled steroid -Resume Singulair -As needed DuoNeb Diabetes Type 2 -Holding oral hypoglycemics -Sliding scale insulin with NovoLog -A1c 5.5 Ongoing tobacco abuse -Patient was counseled regarding smoking cessation -Nicotine patch Patient is a full code DVT prophylaxis per surgery
[2021-10-18] MEDS: HYDROmorphone 1 MG/ML 1 ML SYRINGE IVP PRN ×2 (13:21→21:09)
[2021-10-18 14:56] VITALS: BMI 29.8
[2021-10-18] MEDS: metroNIDAZOLE 500 MG TAB PO SCH ×3 (17:29→21:05)
[2021-10-18] MEDS: LACTATED RINGERS 1,000 ML IV SCH (17:31)
[2021-10-18 17:35] LABS: Glucose,Whole Blood 132 mg/dL (75-99)
[2021-10-18 20:28] LABS: Glucose,Whole Blood 97 mg/dL (75-99)
[2021-10-18] MEDS: ATORVASTATIN 40 MG TAB PO SCH (21:06)
[2021-10-18] MEDS: PRAZOSIN 1 MG CAP PO SCH (21:07)
[2021-10-19] MEDS: 0.9% NACL WITH KCL 20 MEQ/L 1,000 ML IV SCH ×3 (00:40→23:48)
[2021-10-19] MEDS: oxyCODONE-APAP 10-325MG 1 EACH TAB PO PRN (00:53)
[2021-10-19] MEDS: HYDROmorphone 1 MG/ML 1 ML SYRINGE IVP PRN ×4 (00:53→21:05)
[2021-10-19] MEDS: ACETAMINOPHEN TAB 325 MG TAB PO SCH ×5 (02:07→23:44)
[2021-10-19 07:10] LABS: Glucose,Whole Blood 108 mg/dL (75-99)
[2021-10-19] MEDS: INSULIN ASPART (NovoLOG) 100 UNIT/ML VIAL SQ SCH ×4 (07:18→21:20)
[2021-10-19] MEDS: HEPARIN SODIUM,PORCINE/PF 5,000 UNIT/0.5 ML SYRINGE SQ SCH ×2 (08:06→21:04)
[2021-10-19] MEDS: NICOTINE 14MG/24HR PATCH TRANSDERM SCH (08:06)
[2021-10-19] MEDS: amLODIPine 5 MG TAB PO SCH (08:07)
[2021-10-19] MEDS: diazePAM 5 MG TAB PO SCH ×2 (08:07→21:06)
[2021-10-19] MEDS: GABAPENTIN 300 MG CAP PO SCH ×3 (08:07→21:06)
[2021-10-19] MEDS: LACTATED RINGERS 1,000 ML IV SCH (08:07)
[2021-10-19] MEDS: metroNIDAZOLE 500 MG TAB PO SCH ×3 (08:07→21:06)
[2021-10-19] MEDS: PANTOPRAZOLE 40 MG TABLET PO SCH (08:07)
[2021-10-19] MEDS: polyethylene glycoL 3350 17 GM POWD.PACK PO SCH (08:07)
[2021-10-19] MEDS: MONTELUKAST 10 MG TAB PO SCH (08:07)
[2021-10-19] MEDS: SENNOSIDES-DOCUSATE SODIUM 1 EACH TAB PO SCH ×2 (08:07→21:05)
[2021-10-19] MEDS: LORATADINE 10 MG TAB PO SCH (08:07)
[2021-10-19] MEDS: FLUTICASONE 110 MCG INHALER INHALATION SCH ×2 (08:46→19:55)
[2021-10-19 11:07] LABS: Glucose,Whole Blood 110 mg/dL (75-99)
[2021-10-19 11:36] LABS: African American GFR (CKD) 117.2 (60.0-200.0); Anion Gap 12.4 mmol/L (10.00-18.00); C Reactive Protein 10.3 mg/dL (0.00-0.80); Carbon Dioxide 24.6 mmol/L (20.0-27.5); Non-African American GFR(CKD) 101.1 (60.0-200.0); Potassium 4.4 mmol/L (3.5-5.5)
[2021-10-19 11:42] LABS: Basophils # (A) 0.09 X 10*3/uL (0.00-0.10); Basophils % (A) 0.8 %; Eosinophils # (A) 0.37 X 10*3/uL (0.04-0.35); Eosinophils % (A) 3.4 %; HCT 38.7 % (39.6-50.0); HGB 11.9 g/dL (13.0-17.0); Immature Grans, Automated 0.9 %; Lymphocytes # (A) 2.66 X 10*3/uL (0.90-5.00); Lymphocytes % (A) 24.3 %; MCH 27.9 pg (27.0-32.0); MCHC 30.7 g/dL (32.0-37.0); MCV 90.8 fL (80.0-97.0); Mean Platelet Volume 9.5 fL (9.5-12.2); Monocytes # (A) 1.58 X 10*3/uL (0.20-1.00); Monocytes % (A) 14.4 %; NRBC Per 100 WBC 0 /100 WBCS (0.0-0.0); Neutrophils # (A) 6.14 X 10*3/uL (1.80-7.70); Neutrophils % (A) 56.2 %; Platelet Count 637 X 10*3/uL (140-440); RBC 4.26 X 10*6/uL (4.40-5.60); RDW 14.5 % (11.5-14.5); WBC 10.94 X 10*3/uL (4.50-10.00)
[2021-10-19] MEDS: HYDROmorphone 0.5 MG/0.5 ML SYRINGE IVP PRN (11:43)
[2021-10-19 13:48] LABS: Erythrocyte Sedimentation Rate 113 mm/Hr (0-20)
[2021-10-19] MEDS ORDERED: LIDOCAINE 1% INJ 10MG/ML (20 ML MDV) SQ ONE (14:18)
[2021-10-19 16:35] LABS: Glucose,Whole Blood 99 mg/dL (75-99)
--- NOTE | 2021-10-19 16:47 | P.PN ---
Subjective Progress Note Date: 10/19/21 Principal diagnosis: Back pain 61-year-old man with medical history of diabetes, hypertension, COPD, hyperlipidemia presented for back pain. This was consulted by orthopedic surg lj service for medical management. Patient is known to Dr. Saez in clinic, where he was getting a workup for his acute back pain for 5 months duration. Sharp in nature. His workup consisted of x-rays, MRI which demonstrated L4 to 5 severe disc collapse with T1 hypodense vertebral body sign als T2 hyperintense cystic lesions within the vertebral bodies of L4 and L5 as well as hyperintense STIR imaging of L4 and L5. The differential for this includes osteomyelitis versus malignancy. Patient was admitted to the hospital under the orthopedic surgery team to ultimately obtain biopsy sampling to determine etiology of this lesion. Patient himself is a poor historian because he is in significant amounts of pain, not comfortable at this time. Therefore, review of systems could not be completed 10/19 Patient insisting to leave home today. He was told that he was weak and will likely fall at home. He states that the back pain is better. He was requiring 1 person assist to ambulate according to his nurse. No fevers or chills. Objective - Vital Signs Vital signs: Vital Signs Temp 97.8 F 10/19/21 14:00 Pulse 90 10/19/21 14:00 Resp 17 10/19/21 14:00 BP 129/88 10/19/21 14:00 Pulse Ox 100 10/19/21 14:00 Intake & Output 10/18/21 10/19/21 10/19/21 18:59 06:59 18:59 Output Total 1700 2 Balance -1700 -2 Weight 99.79 kg Output: Urine 1700 2 Other: Voiding Method Urinal Urinal # Voids 2 # Bowel Movements 1 - Exam Constitutional: No acute distress, conversant, pleasant Eyes:Anicteric sclerae, moist conjunctiva, no lid-lag, PERRLA, ENMT: Oropharynx clear, no erythema, exudates Neck: Supple, FROM, no masses, or JVD, No carotid bruits, No thyromegaly Lungs: Clear to auscultation, Clear to percussion, Normal respiratory effort, no accessory muscle use Cardiovascular: Heart regular in rate and rhythm, No murmurs, gallops, or rubs, No peripheral edema Abdominal: Soft, Nontender, no guarding, rebound or rigidity, Normoactive bowel sounds, No hepatomegaly, No splenomegaly, No palpable mass Skin: Normal temperature, tone, texture, turgor, no induration, No subcutaneous nodules, No rash, lesions, No ulcers Extremities: No digital cyanosis, No clubbing, Pedal pulses intact and symmetrical, Radial pulses intact and symmetrical, No calf tenderness Psychiatric: Alert and oriented to person, place and time, appropriate affect, intact judgement Neuro: Muscles Strength 5/5 in all 4 extremities, Sensation to light touch grossly present throughout, Cranial nerves II-XII grossly intact, no focal senso ry deficits - Labs CBC & Chem 7: 10/19/21 08:13 10/19/21 08:13 Labs: Abnormal Lab Results - Last 24 Hours (Table) 10/18/21 10/18/21 10/19/21 Range/Units 17:34 18:34 07:08 WBC (4.50-10.00) X 10*3/uL RBC (4.40-5.60) X 10*6/uL Hgb (13.0-17.0) g/dL Hct (39.6-50.0) % MCHC (32.0-37.0) g/dL Plt Count (140-440) X 10*3/uL Immature Gran # (0.00-0.04) X 10*3/uL Monocytes # (0.20-1.00) X 10*3/uL Eosinophils # (0.04-0.35) X 10*3/uL ESR (0-20) mm/Hr BUN (9.0-27.0) mg/dL BUN/Creatinine Ratio (12.00-20.00) Ratio POC Glucose (mg/dL) 132 H 108 H (75-99) mg/dL Calcium (8.7-10.3) mg/dL Ionized Calcium Henrik 6.2 H* (4.5-5.3) mg/dL C-Reactive Protein (0.00-0.80) mg/dL 10/19/21 10/19/21 10/19/21 Range/Units 08:13 08:13 11:06 WBC 10.94 H (4.50-10.00) X 10*3/uL RBC 4.26 L (4.40-5.60) X 10*6/uL Hgb 11.9 L (13.0-17.0) g/dL Hct 38.7 L (39.6-50.0) % MCHC 30.7 L (32.0-37.0) g/dL Plt Count 637 H (140-440) X 10*3/uL Immature Gran # 0.10 H (0.00-0.04) X 10*3/uL Monocytes # 1.58 H (0.20-1.00) X 10*3/uL Eosinophils # 0.37 H (0.04-0.35) X 10*3/uL ESR 113 H (0-20) mm/Hr BUN 7.0 L (9.0-27.0) mg/dL BUN/Creatinine Ratio 10.00 L (12.00-20.00) Ratio POC Glucose (mg/dL) 110 H (75-99) mg/dL Calcium 11.0 H (8.7-10.3) mg/dL Ionized Calcium Henrik (4.5-5.3) mg/dL C-Reactive Protein 10.30 H (0.00-0.80) mg/dL Assessment and Plan Plan: #Intractable back pain with bilateral lower extremity weakness #status post 1 L4 S1 stabilization with biopsy and interbody arthrodesis October 13. #Questionable L4/L5 lytic lesions -Per orthospine L4-L5, L5-S1 possible osteomyelitis versus a rheumatologic changes, doubt malignancy -Pain control IV Dilaudid when necessary, Ativan when necessary. Dilaudid CONSTRUCTION ASSISTANT discontinued October 14 -Tylenol around the clock -Flexeril when necessary -Stool softener -Tissue biopsy was negative for malignancy but showed evidence of acute inflammation per. But surgical culture is growing anaerobic gram-positive cocci. -Multiple myeloma workup ordered -OR cultures are negative so far -Patient currently on IV cefazolin every 8 hours ID notified today about the new result. Resume antibiotic per infectious disease. We'll get a picc line placed. -Hematology oncology following -Blood cultures negative to date Hypercalcemia -Normal PTH -Oncology following -Continue secondary to immobilization according to oncology. Hypertension -Decrease Norvasc to 5 mg daily Hyperlipidemia -Resume Lipitor COPD without exacerbation -Resume inhaled steroid -Resume Singulair -As needed DuoNeb Diabetes Type 2 -Holding oral hypoglycemics -Sliding scale insulin with NovoLog -A1c 5.5 Ongoing tobacco abuse -Patient was counseled regarding smoking cessation -Nicotine patch Patient is a full code DVT prophylaxis per surgery
--- NOTE | 2021-10-19 19:06 | P.PN ---
Subjective Progress Note Date: 10/19/21 Principal diagnosis: L4-S1 possible osteo Patient seen and examined is doing fairly well is sitting up in his chair he wants to go home. He just get a PICC line placed. We are still awaiting sensitivities for antibiotic placement and antibiotic coordination. Patient denies fevers or chills states his back is doing much better states his legs feel good. Denies any fevers chills shortness breath or chest pain at this time. Objective - Vital Signs Vital signs: Vital Signs Temp 97.8 F 10/19/21 14:00 Pulse 90 10/19/21 14:00 Resp 17 10/19/21 14:00 BP 129/88 10/19/21 14:00 Pulse Ox 100 10/19/21 14:00 Intake & Output 10/19/21 10/19/21 10/20/21 06:59 18:59 06:59 Output Total 2 Balance -2 Output: Urine 2 Other: Voiding Method Urinal Urinal # Voids 2 # Bowel Movements 1 - Exam Exam repeated today changes noted below. Patient appears much better than previously. Patient is alert and oriented 3 appears well-nourished well-hydrated is in no acute distress. They do not appear septic. On exam the patient has Severe tenderness to palpation in the lumbar spine. There is no edema or ballottement sign. Lower extremities with [4+]/5 strength in all major muscle groups Upper extremities show [5]/5 strength in all major muscle groups. Pain with all testing in any motion of the low back is unable to ambulate secondary to pain. [2]/4DTR all UE and LE b/l Patient shows a negative Homans, Odonnell's, negative Babinski's negative clonus bilaterally. negative straight leg raise bilaterally. No tensioning signs. Cranial nerves II through XII are grossly intact. There is FROM that is painless of the b/l UE and LE in all major joints [w/o pain]. They are intact to light touch sensation in L2 to S1 nerve distribution. Patient has palpable dorsalis pedis was posterior tibial pulses. Compartments are soft and compressible. Dressings are clean and dry - Labs CBC & Chem 7: 10/19/21 08:13 10/19/21 08:13 Labs: Abnormal Lab Results - Last 24 Hours (Table) 10/18/21 10/19/2110/19/22 Range/Units 18:34 07:08 08:13 WBC 10.94 H (4.50-10.00) X 10*3/uL RBC 4.26 L (4.40-5.60) X 10*6/uL Hgb 11.9 L (13.0-17.0) g/dL Hct 38.7 L (39.6-50.0) % MCHC 30.7 L (32.0-37.0) g/dL Plt Count 637 H (140-440) X 10*3/uL Immature Gran # 0.10 H (0.00-0.04) X 10*3/uL Monocytes # 1.58 H (0.20-1.00) X 10*3/uL Eosinophils # 0.37 H (0.04-0.35) X 10*3/uL ESR 113 H (0-20) mm/Hr BUN (9.0-27.0) mg/dL BUN/Creatinine Ratio (12.00-20.00) Ratio POC Glucose (mg/dL) 108 H (75-99) mg/dL Calcium (8.7-10.3) mg/dL Ionized Calcium Henrik 6.2 H* (4.5-5.3) mg/dL C-Reactive Protein (0.00-0.80) mg/dL 10/19/21 10/19/21 Range/Units 08:13 11:06 WBC (4.50-10.00) X 10*3/uL RBC (4.40-5.60) X 10*6/uL Hgb (13.0-17.0) g/dL Hct (39.6-50.0) % MCHC (32.0-37.0) g/dL Plt Count (140-440) X 10*3/uL Immature Gran # (0.00-0.04) X 10*3/uL Monocytes # (0.20-1.00) X 10*3/uL Eosinophils # (0.04-0.35) X 10*3/uL ESR (0-20) mm/Hr BUN 7.0 L (9.0-27.0) mg/dL BUN/Creatinine Ratio 10.00 L (12.00-20.00) Ratio POC Glucose (mg/dL) 110 H (75-99) mg/dL Calcium 11.0 H (8.7-10.3) mg/dL Ionized Calcium Henrik (4.5-5.3) mg/dL C-Reactive Protein 10.30 H (0.00-0.80) mg/dL Assessment and Plan Assessment: 61-year-old male postoperative day 6 L4 S1 stabilization with biopsy and i nterbody arthrodesis. 1. L4-L5, L5-S1 possible osteomyelitis versus a rheumatologic changes, doubt malignancy 2. bilateral lower extremity weakness 3. severe low back pain . Plan: -Appreciate clinical application consultant and team management. -Activity: Ambulate QID, OOB all meals, up and about, limit lifting bending twisting to less than 5 lbs. Use walker or cane if needed for stability. -Daily PT/OT, increase ambulation strength and balance. -[Brace when up and about, not needed in bed or chair] -Pain control: [Adequate at this time] -Meds: [reviewed] -GI ppx: senna, Miralax -DVT PPX: Continue mechanical and chemo prophylaxis -Hygiene: Shower today. Maintain dressing clean and dry. Meticulous cleaning after BMs away from incision site -Encourage IS 10x/hr -Await sensitivities to anaerobic strep species -Dispo: Home versus [facility] tomorrow 10/20/2021
[2021-10-19 20:38] LABS: Glucose,Whole Blood 134 mg/dL (75-99)
[2021-10-19] MEDS: ATORVASTATIN 40 MG TAB PO SCH (21:05)
[2021-10-19] MEDS: PRAZOSIN 1 MG CAP PO SCH (21:06)
[2021-10-20] MEDS: HYDROmorphone 1 MG/ML 1 ML SYRINGE IVP PRN (04:29)
[2021-10-20] MEDS: oxyCODONE-APAP 5-325MG 1 EACH TAB PO PRN ×2 (04:41→08:59)
[2021-10-20 04:50] VITALS: RESP 17
[2021-10-20] MEDS: ACETAMINOPHEN TAB 325 MG TAB PO SCH ×2 (06:21→12:04)
[2021-10-20 07:14] LABS: Glucose,Whole Blood 143 mg/dL (75-99)
[2021-10-20 07:54] VITALS: BP 120/73; PULSE 94; TEMP 97.4
[2021-10-20] MEDS: LACTATED RINGERS 1,000 ML IV SCH (08:26)
--- NOTE | 2021-10-20 08:28 | P.PN ---
Subjective Progress Note Date: 10/20/21 Principal diagnosis: s/p L4-S1 decompression and fusion Patient seen and examined today. Patient is currently resting in bed and requesting to go home today. Informed patient that we're waiting on sensitivities of his cultures to determine what antibiotic he needs at discharge . Patient did receive his PICC line yesterday 10/19/21 for home antibiotics. Patient states he is feeling well, denies fever or chills or chest pain. Objective - Vital Signs Vital signs: Vital Signs Temp 97.4 F L 10/20/21 07:53 Pulse 94 10/20/21 07:53 Resp 17 10/20/21 07:53 BP 120/73 10/20/21 07:53 Pulse Ox 95 10/20/21 07:53 Intake & Output 10/19/21 10/20/21 10/20/21 18:59 06:59 18:59 Output Total 2 Balance -2 Output: Urine 2 Other: Voiding Method Urinal Urinal # Voids 2 # Bowel Movements 1 - Exam Physical Examination Pt exam performed any changes have been noted below. General: The patient is awake and alert, in no acute distress Skin: Skin is warm and dry with no obvious rashes or lesions. Hairy patches absent, no dorsal skin dimples, no cafe au lait spots, Surgical Incision present in the lumbar region. Eye: Pupils are equal, round and reactive to light, extra-ocular movements are intact; there is normal conjunctiva bilaterally. Neck: The neck is supple, there is no tenderness and ROM intact. Cardiovascular: There is a regular rate and rhythm. No murmur, rub or gallop is appreciated. Respiratory: Lungs are clear to auscultation, respirations are non-labored, breath sounds are equal. Gastrointestinal: Soft, non-distended, non-tender abdomen. Back: There is slight tenderness to palpation in the midline, paralumbar region due to surgical procedure. There is no obvious deformity. Musculoskeletal: ROM limited secondary to pain and stiffness from surgical procedure. Shoulder abduction 5/5, elbow flexors 5/5, wrist dorsiflexors 5/5. finger abductor 5/5, automotive tire tester 5/5, hip flexor 5/5, knee flexor 4/5, ankle dorsiflexor 4/5, ankle plantarflexion 4/5 and extensor hallucis 4/5. Neurological: CN 2-12 intact. There are no obvious motor or sensory deficits. Movement and coordination equal and intact. Sensory exam to light touch intact C5-T1 and intact from L2-S1. Reflexes 2/4 in bilateral upper and lower extremities. Negative Hoffmans, babinski, and clonus signs. Psychiatric: Cooperative, appropriate mood & affect, normal judgment. - Labs CBC & Chem 7: 10/19/21 08:13 10/19/21 08:13 Labs: Abnormal Lab Results - Last 24 Hours (Table) 10/19/21 10/19/21 10/19/21 Range/Units 08:13 08:13 11:06 WBC 10.94 H (4.50-10.00) X 10*3/uL RBC 4.26 L (4.40-5.60) X 10*6/uL Hgb 11.9 L (13.0-17.0) g/dL Hct 38.7 L (39.6-50.0) % MCHC 30.7 L (32.0-37.0) g/dL Plt Count 637 H (140-440) X 10*3/uL Immature Gran # 0.10 H (0.00-0.04) X 10*3/uL Monocytes # 1.58 H (0.20-1.00) X 10*3/uL Eosinophils # 0.37 H (0.04-0.35) X 10*3/uL ESR 113 H (0-20) mm/Hr BUN 7.0 L (9.0-27.0) mg/dL BUN/Creatinine Ratio 10.00 L (12.00-20.00) Ratio POC Glucose (mg/dL) 110 H (75-99) mg/dL Calcium 11.0 H (8.7-10.3) mg/dL C-Reactive Protein 10.30 H (0.00-0.80) mg/dL 10/19/21 10/20/21 Range/Units 20:36 07:12 WBC (4.50-10.00) X 10*3/uL RBC (4.40-5.60) X 10*6/uL Hgb (13.0-17.0) g/dL Hct (39.6-50.0) % MCHC (32.0-37.0) g/dL Plt Count (140-440) X 10*3/uL Immature Gran # (0.00-0.04) X 10*3/uL Monocytes # (0.20-1.00) X 10*3/uL Eosinophils # (0.04-0.35) X 10*3/uL ESR (0-20) mm/Hr BUN (9.0-27.0) mg/dL BUN/Creatinine Ratio (12.00-20.00) Ratio POC Glucose (mg/dL) 134 H 143 H (75-99) mg/dL Calcium (8.7-10.3) mg/dL C-Reactive Protein (0.00-0.80) mg/dL Assessment and Plan Assessment: s/p L4-S1 decompression and fusion Positive wound cultures from Spine Plan: I reviewed and discussed the case with my attending Dr. Saez, he has had a chance to review the chart and films and we have decided to proceed as outlined below. Plan: -Appreciate lean consultant and team management. -Activity: Ambulate QID, OOB all meals, up and about, limit lifting bending twisting to less than 5 lbs. Use walker or cane if needed for stability. -Daily PT/OT, increase ambulation strength and balance. -Brace when up and about, not needed in bed or chair -Pain control: Adequate at this time -Meds: reviewed -GI ppx: senna, Miralax -Hygiene: Shower today. Maintain dressing clean and dry. Meticulous cleaning after BMs away from incision site -Encourage IS 10x/hr -Dispo: Home with homecare today 10/20/21 pending IV antibiotic order from Dr. Chavis. I have personally seen and examined the patient, performed the documentation and the assessment and plan as written. Number of minutes spent on the visit: [ 20]. Time with Patient: Less than 30
--- NOTE | 2021-10-20 08:29 | IR ---
PICC LINE PLACEMENT: HISTORY: Infection requiring long-term antibiotic therapy PROCEDURE: Ultrasound and fluoroscopic guidance of PICC line placement. COMPLICATIONS: None ANESTHESIA: 1. 1% Lidocaine locally. FINDINGS/TECHNIQUE: The procedure was explained to the patient. The risks, complications, benefits and alternatives were discussed and any questions were answered. Informed consent was obtained. The patient was placed supine on the fluoroscopic table and prepped and draped in the usual sterile fash ion. Utilizing a 21 gauge needle and sonographic and fluoroscopic guidance, access in the left basi lic vein was achieved and there is placement of a 0.018 guidewire. The vein is patent. A 4-F sheath was placed over the guidewire. The guidewire and dilator were removed and a 4-F. PICC line was plac ed through the sheath with the tip at the level of the SVC. The sheath was removed, the catheter was flushed and sutured into position. The patient was stable throughout the procedure and remained sta ble upon discharge from the Department of Radiology. The vein puncture was patent under ultrasound. A ayala scale image was obtained to document patency of the vein punctured. All elements of the maximal barrier technique were utilized. FLUOROSCOPY TIME: 0.1 minutes and one images submitted IMPRESSION: Successful PICC line placement under ultrasound and fluoroscopic guidance.
[2021-10-20] MEDS: INSULIN ASPART (NovoLOG) 100 UNIT/ML VIAL SQ SCH ×2 (08:40→12:23)
[2021-10-20] MEDS: NICOTINE 14MG/24HR PATCH TRANSDERM SCH (08:41)
[2021-10-20] MEDS: HEPARIN SODIUM,PORCINE/PF 5,000 UNIT/0.5 ML SYRINGE SQ SCH (08:42)
[2021-10-20] MEDS: SENNOSIDES-DOCUSATE SODIUM 1 EACH TAB PO SCH (08:42)
[2021-10-20] MEDS: metroNIDAZOLE 500 MG TAB PO SCH (08:42)
[2021-10-20] MEDS: LORATADINE 10 MG TAB PO SCH (08:42)
[2021-10-20] MEDS: PANTOPRAZOLE 40 MG TABLET PO SCH (08:42)
[2021-10-20] MEDS: diazePAM 5 MG TAB PO SCH (08:42)
[2021-10-20] MEDS: GABAPENTIN 300 MG CAP PO SCH (08:42)
[2021-10-20] MEDS: amLODIPine 5 MG TAB PO SCH (08:42)
[2021-10-20] MEDS: MONTELUKAST 10 MG TAB PO SCH (08:42)
[2021-10-20] MEDS: polyethylene glycoL 3350 17 GM POWD.PACK PO SCH (08:43)
[2021-10-20] MEDS: FLUTICASONE 110 MCG INHALER INHALATION SCH (09:45)
[2021-10-20 10:43] LABS: Glucose,Whole Blood 106 mg/dL (75-99)
--- NOTE | 2021-10-20 11:31 | P.DS ---
<Melanie Archer - Last Filed: 10/20/21 11:24> Providers Expected date of discharge: 10/20/21 Hospital Course: Hospital Course: The patient was evaluated preoperatively and found to have the diagnosis of [L4 to L5 and L5 to S1 possible osteomyelitis versus malignancy, bilateral lower extremity weakness and severe low back pain. They underwent appropriate preoperative care and were willing to undergo the intended procedure. They underwent a successful L4 to S1 decompression and fusion, were recovered appropriately and sent to the floor. While on the floor they worked with physical therapy, occupational therapy and nursing to enhance their recovery experience. Their pain was well controlled through their stay and they were started on appropriate medications, DVT ppx modalities, activity and dietary needs. Daily labs were monitored closely, and transfusions were only used when necessary. Medicine as well as other consulting services have made their input and have helped with our team approach and multidisciplinary care. PT milestones have been met and passed and they have made the recommendation of home with home care for this patient and treating providers agree with this care path. The patient will be discharged home with appropriate medications, instructions and follow-up information and in stable condition. Assessment: Physical Examination General: The patient is awake and alert, in no acute distress Skin: Skin is warm and dry with no obvious rashes or lesions. Hairy patches absent, no dorsal skin dimples, and no cafe au lait spots. There is a midline incision to the lumbar region. Eye: Pupils are equal, round and reactive to light, extra-ocular movements are intact; there is normal conjunctiva bilaterally. Neck: The neck is supple, there is no tenderness and ROM intact. Cardiovascular: There is a regular rate and rhythm. No murmur, rub or gallop is appreciated. Respiratory: Lungs are clear to auscultation, respirations are non-labored, breath sounds are equal. Gastrointestinal: Soft, non-distended, non-tender abdomen. Back: There is mild tenderness to palpation in the midline, paralumbar region. There is no obvious deformity. Musculoskeletal: ROM limited secondary to pain and stiffness from surgical pr ocedure. Shoulder abduction 5/5, elbow flexors 5/5, wrist dorsiflexors 5/5. finger abductor 5/5, local sales manager 5/5, hip flexor 4/5, knee flexor 4/5, ankle dorsiflexor 4/5, ankle plantarflexion 4/5 and extensor hallucis 4/5. Neurological: CN 2-12 intact. There are no obvious motor or sensory deficits. Movement and coordination equal and intact. Sensory exam to light touch intact C5-T1 and intact from L2-S1. Reflexes 2/4 in bilateral upper and lower extremities. Negative Hoffmans, babinski, and clonus signs. Psychiatric: Cooperative, appropriate mood & affect, normal judgment. Patient Condition at Discharge: Good Plan - Discharge Summary Discharge Rx Participant: Yes New Discharge Prescriptions: New Cyclobenzaprine [Flexeril] 10 mg PO HS PRN #40 tab PRN Reason: Spasms Gabapentin 300 mg PO TID #90 cap HYDROcodone/APAP 7.5-325MG [[place] 7.5-325] 1 tab PO Q4H PRN #56 tab PRN Reason: Pain Sennosides/Docusate Sodium [Senna Plus 8.6-50 mg Softgel] 1 each PO DAILY PRN #20 capsule PRN Reason: Constipation metroNIDAZOLE [Flagyl] 500 mg PO TID #100 tab cefTRIAXone [Rocephin] 2 gm IV Q24H 42 Days #42 each Continue Omeprazole [PriLOSEC] 20 mg PO DAILY Loratadine 10 mg PO DAILY Fluticasone Nasal [place] [Flonase Nasal [place]] 1 spr EA NOSTRIL DAILY PRN PRN Reason: Allergy Symptoms Atorvastatin Calcium [Lipitor] 40 mg PO HS Albuterol Inhaler [Ventolin Hfa Inhaler] 2 puff INHALATION RT-QID PRN PRN Reason: Shortness Of Breath Prazosin [Minipress] 1 mg PO HS Montelukast Sodium [Singulair] 10 mg PO DAILY Meloxicam 15 mg PO DAILY metFORMIN HCL [Glucophage] 500 mg PO DAILY glipiZIDE [Glucotrol] 5 mg PO DAILY Ibuprofen [Motrin] 800 mg PO Q8H PRN PRN Reason: Pain Fluticasone Propionate [Flovent Hfa 110 mcg] 1 puff INHALATION RT-BID busPIRone HCL [Buspar] 30 mg PO BID PRN PRN Reason: Anxiety amLODIPine [Norvasc] 10 mg PO DAILY Albuterol Nebulized [Ventolin Nebulized] 2.5 mg INHALATION RT-TID PRN PRN Reason: Shortness Of Breath polyethylene glycoL 3350 [Miralax] 17 gm PO DAILY Orphenadrine [Norflex] 100 mg PO BID HYDROcodone/APAP 5-325MG [[place] 5-325] 1 tab PO Q6H PRN PRN Reason: Pain Gabapentin [Neurontin] 100 mg PO TID PRN PRN Reason: nerve pain Discontinued Cyclobenzaprine [Flexeril] 10 mg PO TID PRN PRN Reason: Muscle Pain Discharge Medication List Omeprazole [PriLOSEC] 20 mg PO DAILY 02/19/18 [History] Albuterol Inhaler [Ventolin Hfa Inhaler] 2 puff INHALATION RT-QID PRN 01/28/21 [History] Albuterol Nebulized [Ventolin Nebulized] 2.5 mg INHALATION RT-TID PRN 01/28/21 [History] Atorvastatin Calcium [Lipitor] 40 mg PO HS 01/28/21 [History] Fluticasone Nasal [place] [Flonase Nasal [place]] 1 spr EA NOSTRIL DAILY PRN 01/28/21 [History] Fluticasone Propionate [Flovent Hfa 110 mcg] 1 puff INHALATION RT-BID 01/28/21 [History] Ibuprofen [Motrin] 800 mg PO Q8H PRN 01/28/21 [History] Loratadine 10 mg PO DAILY 01/28/21 [History] amLODIPine [Norvasc] 10 mg PO DAILY 01/28/21 [History] busPIRone HCL [Buspar] 30 mg PO BID PRN 01/28/21 [History] glipiZIDE [Glucotrol] 5 mg PO DAILY 01/28/21 [History] metFORMIN HCL [Glucophage] 500 mg PO DAILY 01/28/21 [History] Gabapentin [Neurontin] 100 mg PO TID PRN 10/11/21 [History] HYDROcodone/APAP 5-325MG [[place] 5-325] 1 tab PO Q6H PRN 10/11/21 [History] Meloxicam 15 mg PO DAILY 10/11/21 [History] Montelukast Sodium [Singulair] 10 mg PO DAILY 10/11/21 [History] Orphenadrine [Norflex] 100 mg PO BID 10/11/21 [History] Prazosin [Minipress] 1 mg PO HS 10/11/21 [History] polyethylene glycoL 3350 [Miralax] 17 gm PO DAILY 10/11/21 [History] Cyclobenzaprine [Flexeril] 10 mg PO HS PRN #40 tab 10/18/21 [Rx] Gabapentin 300 mg PO TID #90 cap 10/18/21 [Rx] HYDROcodone/APAP 7.5-325MG [[place] 7.5-325] 1 tab PO Q4H PRN #56 tab 10/18/21 [Rx] Sennosides/Docusate Sodium [Senna Plus 8.6-50 mg Softgel] 1 each PO DAILY PRN #20 capsule 10/18/21 [Rx] cefTRIAXone [Rocephin] 2 gm IV Q24H 42 Days #42 each 10/20/21 [Rx] metroNIDAZOLE [Flagyl] 500 mg PO TID #100 tab 10/20/21 [Rx] Follow up Appointment(s)/Referral(s): [facility], [NON-STAFF] - As Needed ([facility] will contact you to make an appointment) [facility]Infusion [NON-STAFF] - ([facility] will call [facility] with an appoint time for your iv abx whcih are scheduled to begin there tomorrow. If you do not hear from them by 4pm, call the office. Number listed. ) Joe Saez DO [Doctor of Osteopathic Medicine] - 10/25/21 3:30 pm Vito Chavis MD [STAFF PHYSICIAN] - 1 Week Ambulatory/Diagnostic Orders: Basic Metabolic Panel [LAB.AMB] Location: None Selected C Reactive Protein [LAB.AMB] Location: None Selected Complete Blood Count w/diff [LAB.AMB] Location: None Selected Erythrocyte Sedimentation Rate [LAB.AMB] Location: None Selected Patient Instructions/Handouts: Lumbar Spinal Fusion (DC), PICC (Peripherally Inserted Central Catheter) (DC) Activity/Diet/Wound Care/Special Instructions: Spine discharge instructions: Spine Discharge and Recovery Instructions Date of Surgery: [10/13/2021] Diagnosis: [L4 to S1 possible osteomyelitis, spinal stenosis] Procedure: [L4 to S1 decompression with fusion] Medications: [] All medication refills should be obtained through your primary care doctor or your clinic spine surgeon. Please discuss prescription refills at your follow up appointment. Do not call the hospital for medication refills. Dressing: Leave your dressing in place for a total of 3 days post operatively. Then you may remove your dressing and leave open to air. Keep the area clean and if not able to keep area clean, then cover with sterile gauze and tape. Showering: You may shower 3 days after your procedure allowing soap and water to run over incision. Do not scrub. Do not soak. Blot dry. Follow up: Please confirm a follow up appointment with your surgeon 2 weeks post operatively. Please make an appointment to follow up with your PCP in 1-2 weeks after surgery for evaluation 3 phase, 3-week plan POST OP WEEKS 1-3 1. Lifting/carrying/pushing/pulling limited to less than 5 pounds. 2. Do not sit for longer than 15 minutes at one time. Get up and walk around. Prolonged sitting is NOT advised. If you lay down, see if you can tolerate laying down on you front (belly side) 3. Walk for periods of 15 minutes = 1 mile but no longer; do it multiple times times each day. 4.Ice your low back after activity. POST OP WEEKS 3-6 1. Lifting limited to less than 20 pounds. 2. Do not sit for longer than 30 minutes at a time. Frequently change positions. Use a sit-to stand workstation or take frequent breaks from sitting if you have returned to work. 3. Walk for 30 minutes each day. If possible, do these three or more times a day POST OP WEEKS 6+ At your 6-week appointment we will give you a physical therapy referral to focus on a core stabilization and strengthening program. You should also work on leg & buttock strengthening, hamstring & quadriceps stretching, and continue a low impact aerobic activity program such as swimming, walking, or riding a stationary bicycle. During the initial 6 weeks after your surgery, you are at the highest risk of re-injuring your spine. You should generally avoid BLTs (bending, lifting and twisting combination motions) and follow the above guidelines to reduce the chance of reinjury. You can anticipate post op appointments in our office at approximately 3 weeks and 6 weeks after your surgery. INCISION CARE: If your incision is not draining you do NOT need to cover it with a dressing. Keep your incision clean, dry and intact. In most cases, we apply skin glue, loraine or sutures to the incision at the time of surgery. This will be like a crust or have the appearance of a scab and will fall off in time on its own. The stitches or loraine need to be removed at 3 weeks post op appointment. You may begin to shower 3 days after surgery (this allows the glue to palac[place] well). However, please avoid scrubbing the incision site or peeling off any of the skin glue. This will ensure optimal healing of your incision. Also, during this time avoid soaking the incision area in water - this includes swimming pools, hot tubs or baths. No ointments, lotions or oils on the incision until your surgeon allows. Leave loraine, sutures or glue in place. Neurological dysfunction that comes on suddenly can also be a sign of a stroke. Below some common symptoms of a stroke are listed: B - balance difficulty such as sudden onset walking or leaning to one side - NEW E - eye problem such as sudden double vision or trouble seeing on one side - NEW F - Facial weakness or numbness on one side - NEW A - Arm or leg weakness or numbness on one side - NEW S - Slurred speech or difficulty with word finding - NEW T - Time is BRAIN! Call 911 as soon as you recognize these symptoms Diet: Consume a regular diet rich in vegetables and lean protein such as chicken or fish. You should consume in a ratio of approximately 20% fats|40% carbohydrates|40%protein. Vegetables, sweet potatoes, brown rice or quinoa are examples of good carbohydrates. Chips, white bread, cookies and sweets/sugar are examples of bad carbohydrates. Limit your bad carbs, go wild with good carbs. "Life's Simple 7" Guidelines as per [place] [employer] These will help you reclaim your life after surgery and stained glass glazier helper in your recovery, keeping in mind your restrictions. (1) Get Active. Physical activity can help people lose weight, control high blood pressure and cholesterol, feel emotionally better, and sleep better. (2) Control Cholesterol. Avoid a diet high in saturated fat, trans fat, & cholesterol. Limit whole milk & cream, ice cream, butter, egg yolks, processed meats (like sausage and hot dogs), and fatty meats. Choose healthy foods that are low in saturated fat, trans fat and cholesterol which include: Fruits and vegetables, fiber rich grain products (like whole grain pasta and brown rice), lean meat such as chicken, fish, nuts, seeds, and legumes. (3) Eat Better. Eat small portions. Shop at the grocery with a list and do not stray from it. Tips for a healthy diet include: Limit sodium intake to less than 1500mg daily, avoid prepackaged, processed, and fast foods, choose a diet rich in fruits, vegetables, and whole grain, high fiber foods, and limit saturated & cholesterol in your diet. (4) Manage Blood Pressure. If you have high blood pressure, you should have a cuff at home so that you can check your blood pressure regularly. Be sure you have a good cuff. An arm one is generally better than a wrist one. Bring the cuff to a doctor's appointment to validate that the measurements that your cuff are taking are accurate. Take your blood pressure twice daily when you are si tting down and relaxing. Record the numbers in a log and bring this log with you to your doctors' appointments. (5) Lose Weight if your BMI is above 25. A healthy BMI is between 19-25. To calculate Your BMI, you may use a Standard BMI Calculator on the NIH BMI website: <www.nhlbi.nih.gov/guidelines/obesity/BMI/bmicalc.htm>. Weigh oneself daily. If you are overweight, set a goal to lose weight. A pound a week loss if needed is a good target. (6) Reduce Blood Sugar. Limit foods and liquids with "added sugars." (Added sugars include sucrose, fructose, glucose, maltose, dextrose, high fructose corn syrup, corn syrup, concentrated fruit juice and honey). (7) Stop Smoking. If you smoke, quitting smoking is one of the best things that you can do for your health. Smoking increases your risk of heart attack, stroke, and peripheral vascular disease, which is a build-up of plaque in your arteries. Please discard all the cigarettes and lighters in your house. Have a plan for what you will do when you have the urge to smoke. Direct and second- hand smoke shortens your life as well as the lives of your family, friends and others around you. For your health and the health of those around you, please consider quitting! Proper Bending Body Mechanics: Maintain a wide stance with one foot slightly in front of the other. Keep your back straight. Bend utilizing the strength in your hips and knees. Do not bend at the waist. Maintain the lifted object at your waist-level close to your body. Avoid lifting weight that causes immediately pain or pain anywhere in the body afterwards. Smoking/Nicotine If there was ever one thing that you could do to increase your overall health, decrease your risk of cardiovascular problems by about 39% the second you make the choice, it is to STOP SMOKING. Your body's most instant gratification is the second you stop smoking. We have all heard the studies, read the articles but it is true, smoking is extremely bad for your overall health, and moreover it is detrimental to your bone health. Nicotine, IN ANY FORM, kills bone cells, prevents your body from healing fractures, and significantly prolongs healing after surgery. In spine surgery specifically, it increases your risk of not healing your bones to create a fusion and increases your risk of having a revision surgery due to this up to 60%. I know it is hard. I know it feels impossible. But there are ways. Take control of your life. We are here to help you through it. And when you are ready, ask us and we can direct you to help if you desire. Use the START Plan to Quit Smoking (please visit the Helpguide.org website listed below for more information): S = Set a quit date. Choose a date within the next 2 weeks, so you have enough time to prepare without losing your motivation to quit. If you mainly smoke at work, quit on the weekend, so you have a few days to adjust to the change. T = Tell family, friends, and co-workers that you plan to quit. Let your friends and family in on your plan to quit smoking and tell them you need their support and encouragement to stop. Look for a quit maria g who wants to stop smoking as well. You can help each other get through the rough times. A = Anticipate and plan for the challenges you'll face while quitting. Most people who begin smoking again do so within the first 3 months. You can help yourself make it through by preparing ahead for common challenges, such as nicotine withdrawal and cigarette cravings. R = Remove cigarettes and other tobacco products from your home, car, and work. Throw away all your cigarettes (no emergency pack!), lighters, ashtrays, and matches. Wash your clothes and freshen up anything that smells like smoke. Shampoo your car, clean your drapes and carpet, and steam your furniture. T = Talk to your doctor about getting help to quit. Your doctor can prescribe medication to help with withdrawal and suggest other alternatives. If you can't see a doctor, you can get many products over the counter at your local pharmacy or grocery store, including the nicotine patch, nicotine lozenges, and nicotine gum. Resources for Quitting Smoking: <https://www.[place].gov/documents/[facility]/Quit_T obacco_Resources_for_patients_313480_7.pdf> Supplementation: Take recommended dosages of Vitamin D and Calcium to help fortify your bones and help them to heal. See your health maintenance packet for dosages and recommended levels. DVT/VTE prophylaxis: You will be given compression stockings from the hospital. Wear these daily for the first two weeks after surgery. You may take them off at night. You may be prescribed a medication to help thin your blood. Take this as directed. If you are not prescribed this medication, early and frequent ambulation has been shown to be the best prophylaxis to deep vein thrombosis and sequelae related to this event. Discharge Disposition: HOME WITH HOME HEALTH SERVICES <Joe Saez - Last Filed: 10/20/21 14:32> Providers Date of admission: 10/11/21 12:19 Attending physician: Joe Saez DO Consults: 10/11/21 13:09 Consult Physician Routine Consulting Provider: Rosalina Fleming Consult Reason/Comments: medical clearance and management Do you want consulting provider notified?: Yes 10/14/21 14:28 Consult Physician Routine Consulting Provider: Vito Chavis Consult Reason/Comments: possible L4 AND L5 osteomylitis Do you want consulting provider notified?: Yes Primary care physician: Lori Ugalde
--- NOTE | 2021-10-20 11:49 | P.PN ---
Subjective Progress Note Date: 10/20/21 Principal diagnosis: Back pain Patient is insisting on going home and not to rehab despite understanding the risks of falling due to profound weakness. He understands that he could have internal bleeding and bone fractures. His back pain is currently under control. Objective - Vital Signs Vital signs: Vital Signs Temp 97.4 F L 10/20/21 07:53 Pulse 94 10/20/21 07:53 Resp 17 10/20/21 07:53 BP 120/73 10/20/21 07:53 Pulse Ox 95 10/20/21 07:53 Intake & Output 10/19/21 10/20/21 10/20/21 18:59 06:59 18:59 Output Total 2 Balance -2 Output: Urine 2 Other: Voiding Method Urinal Urinal Urinal # Voids 2 2 # Bowel Movements 1 - Exam Constitutional: No acute distress, conversant, pleasant Eyes:Anicteric sclerae, moist conjunctiva, no lid-lag, PERRLA, ENMT: Oropharynx clear, no erythema, exudates Neck: Supple, FROM, no masses, or JVD, No carotid bruits, No thyromegaly Lungs: Clear to auscultation, Clear to percussion, Normal respiratory effort, no accessory muscle use Cardiovascular: Heart regular in rate and rhythm, No murmurs, gallops, or rubs, No peripheral edema Abdominal: Soft, Nontender, no guarding, rebound or rigidity, Normoactive bowel sounds, No hepatomegaly, No splenomegaly, No palpable mass Skin: Normal temperature, tone, texture, turgor, no induration, No subcutaneous nodules, No rash, lesions, No ulcers Extremities: No digital cyanosis, No clubbing, Pedal pulses intact and symmetri thea, Radial pulses intact and symmetrical, No calf tenderness Psychiatric: Alert and oriented to person, place and time, appropriate affect, intact judgement Neuro: Muscles Strength 5/5 in all 4 extremities, Sensation to light touch grossly present throughout, Cranial nerves II-XII grossly intact, no focal sensory deficits - Labs CBC & Chem 7: 10/19/21 08:13 10/19/21 08:13 Labs: Abnormal Lab Results - Last 24 Hours (Table) 10/19/21 10/19/21 10/20/21 Range/Units 08:13 20:36 07:12 ESR 113 H (0-20) mm/Hr POC Glucose (mg/dL) 134 H 143 H (75-99) mg/dL 10/20/21 Range/Units 10:42 ESR (0-20) mm/Hr POC Glucose (mg/dL) 106 H (75-99) mg/dL Microbiology - Last 24 Hours (Table) 10/19/21 08:13 Blood Culture - Preliminary Blood No Growth after 24 hours Assessment and Plan Plan: #Intractable back pain with bilateral lower extremity weakness #status post 1 L4 S1 stabilization with biopsy and interbody arthrodesis October 13. #Questionable L4/L5 lytic lesions -Per orthospine L4-L5, L5-S1 possible osteomyelitis versus a rheumatologic changes, doubt malignancy -Pain control IV Dilaudid when necessary, Ativan when necessary. 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 But surgical culture is growing anaerobic gram-positive cocci. -Multiple myeloma workup ordered -OR cultures are negative so far -Patient currently on IV cefazolin every 8 hours ID notified today about the new result. Resume antibiotic per infectious disease. picc line placed. -Hematology oncology following -Blood cultures negative to date Hypercalcemia -Normal PTH -Oncology following -Continue secondary to immobilization according to oncology. Hypertension -Decrease Norvasc to 5 mg daily Hyperlipidemia -Resume Lipitor COPD without exacerbation -Resume inhaled steroid -Resume Singulair -As needed DuoNeb Diabetes Type 2 -Holding oral hypoglycemics -Sliding scale insulin with NovoLog -A1c 5.5 Ongoing tobacco abuse -Patient was counseled regarding smoking cessation -Nicotine patch Patient is a full code DVT prophylaxis per surgery Case was discussed with infectious disease service, patient will be discharged on IV ceftriaxone 2 g daily in addition to by mouth Flagyl for 6 weeks. He will need to follow up with the infectious disease clinic in one week. Patient is aware.
--- NOTE | 2021-10-20 12:53 | P.PN ---
Subjective Progress Note Date: 10/19/21 Principal diagnosis: Possible osteomyelitis lumbar spine Patient is a 61-year-old -Turkish male with a past medical history significant for chronic back pain did have abnormal MRI of the back this patient who is status post L4 S1 biopsy and interbody arthrodesis procedure completed on 10/13/2021 , ID was consulted with concern for possible osteomyelitis. On today's evaluation that is 10/19/2021, the patient remains to be afebrile, the patient has pain to the lower back it is currently controlled , The patient denies having any chest pain shortness of breath or cough no nausea no vomiting and no diarrhea with antibiotic therapy, Objective - Vital Signs Vital signs: Vital Signs Temp 97.9 F 10/19/21 07:50 Pulse 89 10/19/21 07:50 Resp 17 10/19/21 07:50 BP 126/80 10/19/21 07:50 Pulse Ox 97 10/19/21 07:50 Intake & Output 10/18/21 10/19/21 10/19/21 18:59 06:59 18:59 Output Total 1700 2 Balance -1700 -2 Weight 99.79 kg Output: Urine 1700 2 Other: Voiding Method Urinal Urinal # Voids 2 # Bowel Movements 1 - Exam GENERAL DESCRIPTION: Middle-aged male lying in bed in no distress RESPIRATORY SYSTEM: Unlabored breathing , decreased breath sounds at bases HEART: S1 S2 regular rate and rhythm , ABDOMEN: Soft , no tenderness EXTREMITIES: No edema feet - Labs CBC & Chem 7: 10/19/21 08:13 10/19/21 08:13 Labs: Abnormal Lab Results - Last 24 Hours (Table) 10/18/21 10/18/21 10/19/21 Range/Units 17:34 18:34 07:08 WBC (4.50-10.00) X 10*3/uL RBC (4.40-5.60) X 10*6/uL Hgb (13.0-17.0) g/dL Hct (39.6-50.0) % MCHC (32.0-37.0) g/dL Plt Count (140-440) X 10*3/uL Immature Gran # (0.00-0.04) X 10*3/uL Monocytes # (0.20-1.00) X 10*3/uL Eosinophils # (0.04-0.35) X 10*3/uL BUN (9.0-27.0) mg/dL BUN/Creatinine Ratio (12.00-20.00) Ratio POC Glucose (mg/dL) 132 H 108 H (75-99) mg/dL Calcium (8.7-10.3) mg/dL Ionized Calcium Henrik 6.2 H* (4.5-5.3) mg/dL C-Reactive Protein (0.00-0.80) mg/dL 10/19/21 10/19/21 10/19/21 Range/Units 08:13 08:13 11:06 WBC 10.94 H (4.50-10.00) X 10*3/uL RBC 4.26 L (4.40-5.60) X 10*6/uL Hgb 11.9 L (13.0-17.0) g/dL Hct 38.7 L (39.6-50.0) % MCHC 30.7 L (32.0-37.0) g/dL Plt Count 637 H (140-440) X 10*3/uL Immature Gran # 0.10 H (0.00-0.04) X 10*3/uL Monocytes # 1.58 H (0.20-1.00) X 10*3/uL Eosinophils # 0.37 H (0.04-0.35) X 10*3/uL BUN 7.0 L (9.0-27.0) mg/dL BUN/Creatinine Ratio 10.00 L (12.00-20.00) Ratio POC Glucose (mg/dL) 110 H (75-99) mg/dL Calcium 11.0 H (8.7-10.3) mg/dL Ionized Calcium Henrik (4.5-5.3) mg/dL C-Reactive Protein 10.30 H (0.00-0.80) mg/dL Microbiology - Last 24 Hours (Table) 10/13/21 18:26 Gram Stain - Final Back Tissue Culture - Final 10/13/21 18:26 Anaerobic Culture - Final Back Anaerobic Gram Positive Cocci Assessment and Plan (1) Osteomyelitis Status: Acute Code(s): M86.9 - OSTEOMYELITIS, UNSPECIFIED SNOMED Code(s): 66416422 Plan: 1patient presented to hospital with chronic back pain of 5 months duration with abnormal MRI in the outpatient setting in this patient who is status post L4 S1 stabilization with biopsy and interbody arthrodesis and concern for possible osteomyelitis in this patient with no fever during this admission he did have a normal white count patient did have normal sed rate and CRP is mildly elevated on these factors who would go against osteomyelitis but not entirely excluded but less likely. 2 OR aerobic cultures are negative however anaerobic cultures are growing anaerobic gram-positive cocci with the ID sensitivities pending 3 patient To continue with Rocephin 2 g daily and oral Flagyl, Patient to get a PICC line for outpatient IV antibiotics Time with Patient: Less than 30
--- NOTE | 2021-10-20 12:55 | P.PN ---
Subjective Progress Note Date: 10/20/21 Principal diagnosis: Possible osteomyelitis lumbar spine Patient is a 61-year-old -Citizen Of [place] male with a past medical history significant for chronic back pain did have abnormal MRI of the back this patient who is status post L4 S1 biopsy and interbody arthrodesis procedure completed on 10/13/2021 , ID was consulted with concern for possible osteomyelitis. On today's evaluation that is 10/20/2021, The patient denies having any fever or any chills, patient denies any worsening pain to the lower back , The patient denies having any chest pain shortness of breath or cough no nausea no vomiting and no diarrhea with antibiotic therapy, Patient did get a PICC line and is cu rrently waiting for outpatient IV antibiotic arrangement Objective - Vital Signs Vital signs: Vital Signs Temp 97.4 F L 10/20/21 07:53 Pulse 94 10/20/21 07:53 Resp 17 10/20/21 07:53 BP 120/73 10/20/21 07:53 Pulse Ox 95 10/20/21 07:53 Intake & Output 10/19/21 10/20/21 10/20/21 18:59 06:59 18:59 Output Total 2 Balance -2 Output: Urine 2 Other: Voiding Method Urinal Urinal Urinal # Voids 2 2 # Bowel Movements 1 - Exam GENERAL DESCRIPTION: Middle-aged male lying in bed in no distress RESPIRATORY SYSTEM: Unlabored breathing , decreased breath sounds at bases HEART: S1 S2 regular rate and rhythm , ABDOMEN: Soft , no tenderness EXTREMITIES: No edema feet - Labs CBC & Chem 7: 10/19/21 08:13 10/19/21 08:13 Labs: Abnormal Lab Results - Last 24 Hours (Table) 10/19/21 10/19/21 10/20/21 Range/Units 08:13 20:36 07:12 ESR 113 H (0-20) mm/Hr POC Glucose (mg/dL) 134 H 143 H (75-99) mg/dL 10/20/21 Range/Units 10:42 ESR (0-20) mm/Hr POC Glucose (mg/dL) 106 H (75-99) mg/dL Microbiology - Last 24 Hours (Table) 10/19/21 08:13 Blood Culture - Preliminary Blood No Growth after 24 hours Assessment and Plan (1) Osteomyelitis Status: Acute Code(s): M86.9 - OSTEOMYELITIS, UNSPECIFIED SNOMED Code(s): 25152766 Plan: 1patient presented to hospital with chronic back pain of 5 months duration with abnormal MRI in the outpatient setting in this patient who is status post L4 S1 stabilization with biopsy and interbody arthrodesis and concern for possible osteomyelitis in this patient with no fever during this admission he did have a normal white count patient did have normal sed rate and CRP is mildly elevated on these factors who would go against osteomyelitis but not entirely excluded but less likely. 2 OR aerobic cultures are negative however anaerobic cultures are growing anaerobic gram-positive cocci with the ID sensitivities pending, Micro lab at [facility] mention it would take more than 2 weeks to do the results 3 patient To continue with Rocephin 2 g daily and oral Flagyl X6 weeks with weekly monitoring of CBC BMP and sed rate and a close outpatient follow-up Time with Patient: Less than 30
--- NOTE | 2021-10-22 09:18 | CDI ---
Documentation Clarification Form Date: 10/22/21 From: Andreea Anderson Admit Date: 10/11/2021 12:19:00 PM Patient Name: Juan Rivera Visit Number: [id number] Discharge Date: 10/20/2021 12:20:00 PM ATTENTION: The Clinical Documentation Specialists (CDI) and [facility] Coding Staff appreciate your assistance in clarifying documentation. Please respond to the clarification below the line at the bottom and electronically sign. The CDI & [facility] Coding staff will review the response and follow-up if needed. Please note: Queries are made part of the Legal Health Record. If you have any questions, please contact the author of this message via ITS. Dr. Vito Chavis, Lumbar osteomyelitis is documented in your 10/14 consult. Additional clarification regarding the acuity of the osteomyelitis is requested. History/Risk Factor: Patient presented to hospital with chronic back pain of 5 months duration with abnormal MRI. Labs: normal sed rate and CRP mildly elevated, 3/ X-Ray Results: Severe spondylotic changes between L3 and L4 L4-L5 and L5-S1. L4 5 and L5-S1 shows severe degenerative changes as well as likely foraminal stenosis no instability noted no fractures or dislocations otherwise noted no lesion. 3/2 MRI Results: L4-L5 severe disc collapse with T1 hypointense vertebral body signals T2 hyperintense cystic lesions within the vertebral bodies of L4 and L5 as well as hyperintense stir imaging of L4 and L5 which demonstrates high intensity signal within the complete vertebral body. There is complete disc collapse at L4-L5 as well as L5-S1 there are Modic changes noted at L5-S1 as well there is retrolisthesis of L5 on S1 there is moderate to severe stenosis L4 5 and L5-S1 secondary to these changes. There is no acute fracture or dislocation noted. The differential for these changes is infection versus malignancy. Patient needs CT as well as MRI of the remainder of his neural axis on an urgent basis. Treatment: Lumbar 4-5 decompression and fusion, IV antibiotics Please clarify the acuity of the lumbar osteomyelitis, if known: Acuity: [ x ] Acute osteomyelitis [ ] Chronic osteomyelitis [ ] Subacute osteomyelitis [ ] Unable to Determine MTDD
--- NOTE | 2021-10-26 08:33 | P.OP ---
Date of Procedure: 10/13/21 Preoperative Diagnosis: 1. L4-S1 collapse with possible osteomyelitis vs malignancy vs severe spondylosis 2. Lytic lesions L4-5 3. Low back pain 4. LE weakness 5. LE radiculopathy Postoperative Diagnosis: 1. L4-S1 collapse with possible osteomyelitis vs malignancy vs severe spo ndylosis 2. Lytic lesions L4-5 3. Low back pain 4. LE weakness 5. LE radiculopathy Procedure(s) Performed: 1. L4-5 and L5-S1 vertebral body and interspace biopsy 2. L4-5 and L5-S1 combined posteiolateral and interbody fusion (93425, 84620) 3. Insertion of interbody biomechanical device (78559u0) 4. Segmental instrumentation 3 levels (99747) 5. Posterior extradural laminotomy and laminectomy for exploration decompression of neural elements L4 5 and L5-S1 (17248) 6. Use of intraoperative neuromonitoring 7. Interpretation of intraoperative fluoroscopy less than 1 hour (25847) Implants: -[place] screws -[place] interbody cages 2 -Allograft for spine surgery -Bio 4 Anesthesia: GETA Surgeon: Joe Saez Toolroom Clerk #1: Melanie Archer (Was present as a scrubbed observer) Estimated Blood Loss (ml): 400 IV fluids (ml): 2,400 Urine output (ml): 450 Pathology: none sent Condition: stable Disposition: PACU Indications for Procedure: Spine Surgery Risk Review Juan Rivera is a 61-year-old male presenting for evaluation of severe low back pain and inability to ambulate lower extremity pain. It was my pleasure to have seen and examined Juan Rivera . In our visit today we have had a chance to go over subjective complaints, physical examination findings and treatments including the natural course history without intervention and various interventional options. The patients imaging demonstrates a L4 5 and L5-S1 severe marrow changes with severe disc height loss distant degeneration cystic changes in the vertebral bodies as well as T2 hyperintense signal within the vertebral bodies. There is stenosis related as well as lytic changes within the bone. On physical exam, Juan Rivera demonstrates severe pain in the low back inability to ambulate secondary to pain as well as lower extremity weakness and pain. I have explained to the patient that as their condition progresses it will cause further neurological deficits and eventual paralysis. Based on the patients imaging, physical exam, and the rapid progression and disabling nature of their symptoms, at this time I recommend surgery in the form or a: L4 to S1 decompression stabilization and biopsy. I discussed the risk and benefits of this procedure at length with Juan Rivera . The patient and his fiance as well as his sisters agreed to considered pursuing the procedure abovementioned. Prior to surgery, she should follow up with her PCP (Cardio, ID, IM etc) for clearance. Questions were invited and answered, and the patient wishes to proceed as outlined below. Currently, I am recommendin. L4 to S1 decompression stabilization and biopsy 2. Follow up with PCP for surgical clearance 3. Review of surgical risks and benefits as well as an educational packet on the proposed surgical procedure. Risks: All surgical procedures come with inherent risks, including those related to positioning, anesthesia, intraoperative findings, and postoperative complicati ons. It is important to understand that surgery does not come with any guarantee of a successful outcome as complications and adverse events are always possible. The patient was given a handout in office today discussing the surgical procedure and risks associated with the intervention, both of which were discussed with the patient. These risks include but are not limited to the following: * Experiencing same, different or even worse symptoms in back, neck, arms, or legs compared to before surgery. * Requiring further surgery or other forms of treatment presently or at some time in the future at same or other levels of the intended spine surgery. * On an extreme but fortunately relatively rare basis severe complication such as blindness, stroke, heart attack, temporary and/or permanent nerve injury, paralysis, coma, or may occur, sometimes without known explanation. * Surgical complications may include but are not limited to risk of infection, fluid accumulation in the surgical dissection site, including a seroma or hematoma, that requires additional surgery, wound drainage, bleeding, new numbness or weakness, vision changes/loss, spinal fluid leakage, non-healing and/or infected incision, headaches, difficulty or inability to swallow, hoarseness, hemopneumothorax, pneumothorax, impotence, retrograde ejaculation, vaginal dryness; injury to nerves, spinal cord, blood vessels, lymphatics or other vital organs (i.e., bowel injury, injury to the great vessels); heterotopic bone formation; complications related to the hardware such as screws, rods, cages including misplaced hardware, device failure, instrumentation at the wrong spine level, hardware fracture/breakage, or hardware loosening; vertebral failure of the spinal column above or below the newly placed hardware; retained surgical instrumentations or devices and the need for further surgery. * Medical risks of the planned spine surgery include but are not limited to generalized Infections to the whole body or local areas outside of the surgical site (sepsis), heart attack, bleeding, anaphylaxis, meningitis, seizure, epilepsy, hearing loss, burn cramer, laceration of the head or other areas of the body, bruising, hypersensitivity of the skin, bladder over distension; allergic reaction; shoulder injury related to positioning; fat, blood and air clots to other areas of the body like heart, lungs, brain; failure of internal organs such as lungs, kidneys, liver and excessive bleeding. If blood transfusions are necessary, note that transfusions may cause intolerance reactions such as anaphylaxis or other complex reactions. * Despite best efforts, the results of spine surgery might not heal in terms of bone, soft tissues such as skin, fascia, ligaments, and joints. Additionally, in order to achieve best possible results, spine surgery may be carried out beyond the initially planned levels and involve decompression, fusion including insertion of hardware at levels other than the original intended area of surgical interest change some portions of the procedure in order to ensure the best possible outcomes. * With spine surgery and spinal fusion, there are different off label uses of instrumentation (devices, implants and hardware) as well as biological substances (bone morphogenic proteins, demineralized bone matrix) as well as using extra bone from allograft sources (i.e. cadaver bone) or autograft (iliac crest bone, ribs, or the spine itself). The patient has been given information about these practices and their inherent risks and benefits. The patient has had a chance to review all the listed information, has been given print outs detailing this information, and has had all his/her questions answered to their satisfaction. It was my pleasure to have seen and examined Juan Rivera . In our visit today we have had a chance to go over my understanding of our patient's current condition, the natural course history without intervention and various interventional options. Questions were invited and answered, and the patient wishes to proceed as outlined above. I have seen and examined the patient for 25 minutes and we have spent more than 50% of the time in repeat and detailed counseling about the patient's condition, its natural course history with out and as much as can be predicted with surgery and re-review of various surgical treatment options. In conclusion, Juan Rivera and his fiance and sisters who are present with him requested we proceed with the above suggested surgery and are willing to accept risks and limitations of the suggested surgery as nature of the disease process and our best attempts at treatment for the condition. Thank you again for allowing us to be part of your patient's care. Please don't hesitate to contact me if you have any further questions. Signed and authenticated by: Joe Deras [facility] [address] [facility], [address] [address] Description of Procedure: The patient was seen and examined in the preoperative area. All preoperative protocols were followed. Informed consent was obtained risks and benefits of the procedure were discussed at length. Risks including bleeding infection damage to the surrounding tissue and risk of reoperation were discussed with the patient. Risk of anesthesia up to and including was a discussed with the patient. These are outlined in the risk review. They were willing to accept these risks and all of the risks of surgery. The patient was given a weight- based dose of antibiotics in the form of vancomycin weight-based dose from the floor. The patient was seen and evaluated by the anesthesia team who deemed them fit for surgery. The site was marked, the patient was willing to proceed with the procedure. The patient was transferred to the operative suite by the Department of anesthesia. They were then drifted off to sleep by the department anesthesia and GETA was performed. The patient tolerated this well. [place] catheter was placed by nursing staff, atraumatically. Once confirmation of lines and ventilation the patient was transferred to a prone Tio table very carefully. All bony prominences including wrists, elbows, axilla, chest, hips, and thighs, and feet were padded very well. Special attention was paid to the genitalia and these were padded accordingly. SCDs were placed on bilateral lower extremities and were connected. Arms were well padded and placed on arm boards up and out in the 90/90 position. Once in position, again we confirmed good ventilation capabilities and that lines were running appropriately. The patient's lumbar spine was then exposed. 1010s were placed outlining the incision site. Standard alcohol was used to clean the incision site and allowed to dry. C-arm was used to biomark the patient and confirm level for incision which was marked with a skin marker. Operative briefing was performed with all teams and everyone in agreement to proceed. The patient was then prepped and draped in a normal sterile fashion. Timeout was then performed and all parties were in agreement with the procedure to be performed. Midline skin incision was then made over the previously bowel marked. Dissection taken down to the lumbar fascia was identified this as an cleaned with a Lynch. Midline fasciotomy was performed and subperiosteal dissection was taken out over the facet joints to the transverse processes of L4 through sacral [place]. This allowed exposure of L4 through S1. There is a exuberant amount of scar tissue around the L4 5 and L5-S1 facet joints. There is high mobility at these segments as well. Once there is good visualization dissection under fluoroscopic imaging we confirmed levels with M Pl. screws bilaterally into the pedicles at L4 5 and L5-S1. These were confirmed to be in good position on AP and lateral fluoroscopic imaging. Once this was accomplished with tested the screws and all tested above 20 mA. We then proceeded with decompression were performed bilateral laminectomy complete facetectomy and foraminotomies of L4 5 and L5-S1 using high-speed bur [place] T cuts were made to remove the IP of L4 and L5 and the SAP of L5 and S1 were removed with W cuts. This exposed the foramen bilaterally at L4 5 and L5-S1 decompressing the roots at these levels. Meticulous hemostasis was performed. We then accessed Cavins triangle bilaterally and perform meticulous hemostasis at L4 5 and L5-S1. We then performed biopsy of the disc space at L4 5 as well as the vertebral body using fluoroscopic guidance. These bony bits as well as soft tissue disc-like material was sent for pathology at L4 5 and L5-S1. There is no purulence to be noted there was no large tumorous masses the bone was extremely hard in these areas. Due to no purulence or no visualization of tumor material we elected to proceed with interbody fusion. We accessed the disc space at L4 5 using sequential shaving we were able to obtain reduction at L4-L5 with increased lordosis. The cage was then selected and impacted into place after being filled with allograft and bile 4. Allograft and L4 were then placed around the cage and anterior within the disc space. Meticulous hemostasis was again performed with N Almendarez attention to the L5-S1 disc space and Cavins triangle axis the disc space and sequential shaving was performed to remove any disc material or soft tissue material. There was not a lot of disc material to be had at this l evel. We are able to obtain however reduction at this level with shaving. A cage was then selected and impacted into place once it was in good position AP lateral fluoroscopic imaging it was packed with bile for an allograft which was then packed around the cages well. Again meticulous hemostasis was performed. We then proceeded with basement of rods. Rods were selected and were placed set screws were placed and final tightened and the rods reduced very easily . AP and lateral fluoroscopic images after placement of cross link and final tightened this in place showed good placement of screws good reduction of lordosis as well as height. There is good decompression at these levels as well. We then copiously irrigated the wound and disc spaces with 6 L of antibiotic solution followed by 3 L of normal sterile saline. The dura was inspected there were no injuries and no CSF leaks. We then placed Surgicel over the dura. Allograft and bile for her place of the posterior lateral gutters after decortication of the transverse processes bilaterally. This was impacted into place. We then placed vancomycin deep within the wound 2 g powdered. Then placed a deep drain. We then proceeded with layered closure first and the fascia with #1 Vicryl followed by 0 PDS this ensure a watertight closure. We then close the deep subcu tissue with 0 PDS the superficial subcu tissue with 2-0 PDS and the skin with skin loraine. The wound edges approximated very well. This was then cleaned sterilely and dressed with up to foam dressing drain sponge and Tegaderm. The patient was transferred back to their hospital bed atraumatically. Drain continued to hold suction and were in good position. Patient was then awakened and extubated by the department of anesthesia having tolerated the procedure very well with no complications. They were transferred to the postoperative care unit in stable condition.
== END 2021-10-20 12:20 | disposition home health service (06) | DRG 629 ==
LOC: EEVIPCON 12:19 → 4SSUR 12:19
PROVIDERS: ADMIT Orthopaedic Surgery; ATTEND Orthopaedic Surgery
PROC: 0SG00K1 Fusion of Lumbar Vertebral Joint with Nonautologous Tissue Substitute, Posterior Approach, Posterior Column, Open Approach (ICD-10-PCS; principal; 2021-10-13 12:00)
PROC: 0QB10ZX Excision of Sacrum, Open Approach, Diagnostic (ICD-10-PCS; principal; 2021-10-13 12:00)
PROC: 01NB0ZZ Release Lumbar Nerve, Open Approach (ICD-10-PCS; principal; 2021-10-13 12:00)
PROC: 4A11X4G Monitoring of Peripheral Nervous Electrical Activity, Intraoperative, External Approach (ICD-10-PCS; principal; 2021-10-13 12:00)
PROC: 0QB00ZX Excision of Lumbar Vertebra, Open Approach, Diagnostic (ICD-10-PCS; principal; 2021-10-13 12:00)
PROC: 01NR0ZZ Release Sacral Nerve, Open Approach (ICD-10-PCS; principal; 2021-10-13 12:00)
PROC: 0SG30K1 Fusion of Lumbosacral Joint with Nonautologous Tissue Substitute, Posterior Approach, Posterior Column, Open Approach (ICD-10-PCS; principal; 2021-10-13 12:00)
PROC: 0SG00AJ Fusion of Lumbar Vertebral Joint with Interbody Fusion Device, Posterior Approach, Anterior Column, Open Approach (ICD-10-PCS; principal; 2021-10-13 12:00)
PROC: 0SG30AJ Fusion of Lumbosacral Joint with Interbody Fusion Device, Posterior Approach, Anterior Column, Open Approach (ICD-10-PCS; principal; 2021-10-13 12:00)
PROC: 02HV33Z Insertion of Infusion Device into Superior Vena Cava, Percutaneous Approach (ICD-10-PCS; 2021-10-20)
DX: E11.69 Type 2 diabetes mellitus with other specified complication (principal); M46.26 Osteomyelitis of vertebra, lumbar region; E66.01 Morbid (severe) obesity due to excess calories; J44.9 Chronic obstructive pulmonary disease, unspecified; M54.16 Radiculopathy, lumbar region; M54.17 Radiculopathy, lumbosacral region; D72.829 Elevated white blood cell count, unspecified; E83.52 Hypercalcemia; D75.839 Thrombocytosis, unspecified; E78.5 Hyperlipidemia, unspecified; K21.9 Gastro-esophageal reflux disease without esophagitis; I10 Essential (primary) hypertension; G47.30 Sleep apnea, unspecified; Z68.29 Body mass index [BMI] 29.0-29.9, adult; M20.092 Other deformity of left finger(s); M20.091 Other deformity of right finger(s); F17.200 Nicotine dependence, unspecified, uncomplicated; Z79.51 Long term (current) use of inhaled steroids; Z79.84 Long term (current) use of oral hypoglycemic drugs; Z79.1 Long term (current) use of non-steroidal anti-inflammatories (NSAID); Z79.899 Other long term (current) drug therapy; Z71.6 Tobacco abuse counseling; Z87.81 Personal history of (healed) traumatic fracture; Z71.3 Dietary counseling and surveillance; Z80.9 Family history of malignant neoplasm, unspecified
CPT/HCPCS: 36573; 72100; 72131; 72156; 72157; 80048; 80053; 82330; 83036; 83735; 83883; 83970; 84153; 84154; 84165; 85025; 85027; 85610; 85652; 86140; 86334; 86850; 86900; 86901; 87040; 87070; 87075; 87205; 88305; 88307; 88311; 94640

== ENCOUNTER → 2021-12-25 | Outpatient (CLI) | payer OTHER ==
[2021-12-25 12:47] LABS: African American GFR (CKD) 116.1 (60.0-200.0); BUN/Creat Ratio 11.06 Ratio (12.00-20.00); Blood Urea Nitrogen 7.9 mg/dL (9.0-27.0); C Reactive Protein <0.30 mg/dL (0.00-0.80); Calcium 10.1 mg/dL (8.7-10.3); Carbon Dioxide 21.8 mmol/L (20.0-27.5); Chloride 105 mmol/L (96-109); Glucose 118 mg/dL (70-110); Non-African American GFR(CKD) 100.2 (60.0-200.0); Sodium 140 mmol/L (135-145)
[2021-12-25 14:18] LABS: Basophils # (A) 0.09 X 10*3/uL (0.00-0.10); Eosinophils # (A) 0.12 X 10*3/uL (0.04-0.35); Eosinophils % (A) 1.4 %; HCT 46.1 % (39.6-50.0); HGB 15.2 g/dL (13.0-17.0); Immature Grans, Automated 0.2 %; Lymphocytes # (A) 3.23 X 10*3/uL (0.90-5.00); Lymphocytes % (A) 37.5 %; MCV 85.1 fL (80.0-97.0); Monocytes # (A) 0.89 X 10*3/uL (0.20-1.00); Monocytes % (A) 10.3 %; NRBC Per 100 WBC 0 /100 WBCS (0.0-0.0); Neutrophils # (A) 4.27 X 10*3/uL (1.80-7.70); Neutrophils % (A) 49.6 %; Platelet Count 436 X 10*3/uL (140-440); RBC 5.42 X 10*6/uL (4.40-5.60); RDW 14.8 % (11.5-14.5); WBC 8.62 X 10*3/uL (4.50-10.00)
[2021-12-25 15:56] LABS: Erythrocyte Sedimentation Rate 27 mm/Hr (0-20)
== END | disposition home or self-care (01) ==
LOC: LABWHC1 08:10
PROVIDERS: ATTEND Internal Medicine Infectious Disease
DX: M51.9 Unspecified thoracic, thoracolumbar and lumbosacral intervertebral disc disorder (principal)
CPT/HCPCS: 36415; 80048; 85025; 85652; 86140

== ENCOUNTER → 2022-02-21 | Outpatient (CLI) | payer OTHER ==
[2022-02-21 14:19] LABS: Basophils # (A) 0.11 X 10*3/uL (0.00-0.10); Basophils % (A) 1.6 %; Eosinophils # (A) 0.22 X 10*3/uL (0.04-0.35); Eosinophils % (A) 3.1 %; HCT 49.5 % (39.6-50.0); HGB 15.9 g/dL (13.0-17.0); Immature Grans, Automated 0.4 %; Lymphocytes # (A) 2.65 X 10*3/uL (0.90-5.00); Lymphocytes % (A) 37.9 %; MCH 28.1 pg (27.0-32.0); MCHC 32.1 g/dL (32.0-37.0); MCV 87.5 fL (80.0-97.0); Mean Platelet Volume 10.1 fL (9.5-12.2); Monocytes # (A) 0.69 X 10*3/uL (0.20-1.00); Monocytes % (A) 9.9 %; NRBC Per 100 WBC 0 /100 WBCS (0.0-0.0); Neutrophils # (A) 3.29 X 10*3/uL (1.80-7.70); Neutrophils % (A) 47.1 %; Platelet Count 366 X 10*3/uL (140-440); RBC 5.66 X 10*6/uL (4.40-5.60); RDW 14.8 % (11.5-14.5); WBC 6.99 X 10*3/uL (4.50-10.00)
[2022-02-21 14:29] LABS: African American GFR (CKD) 114.1 (60.0-200.0); BUN/Creat Ratio 12.65 Ratio (12.00-20.00); Blood Urea Nitrogen 9.5 mg/dL (9.0-27.0); C Reactive Protein <0.30 mg/dL (0.00-0.80); Calcium 10.6 mg/dL (8.7-10.3); Chloride 105 mmol/L (96-109); Glucose 101 mg/dL (70-110); Non-African American GFR(CKD) 98.4 (60.0-200.0); Potassium 4.6 mmol/L (3.5-5.5); Sodium 140 mmol/L (135-145)
[2022-02-21 17:43] LABS: Erythrocyte Sedimentation Rate 16 mm/Hr (0-20)
== END | disposition home or self-care (01) ==
LOC: LABWHC1 10:38
PROVIDERS: ATTEND Internal Medicine Infectious Disease
DX: Z00.00 Encounter for general adult medical examination without abnormal findings (principal)
CPT/HCPCS: 36415; 80048; 85025; 85652; 86140

== ENCOUNTER → 2022-12-28 | Outpatient (CLI) | payer OTHER ==
--- NOTE | 2022-12-28 14:48 | US ---
EXAMINATION TYPE: US venous doppler duplex LE DATE OF EXAM: 12/28/2022 2:38 PM COMPARISON: NONE CLINICAL INDICATION: Male, 62 years old with history of R25.2 CRAMP AND SPASM,M79.661 PAIN RT LOWER L EG; Bilateral leg cramps SIDE PERFORMED: Bilateral TECHNIQUE: The lower extremity deep venous system is examined utilizing real time linear array sonog christian with graded compression, doppler sonography and color-flow sonography. VESSELS IMAGED: Common Femoral Vein Deep Femoral Vein Greater Saphenous Vein * Femoral Vein Popliteal Vein Small Saphenous Vein * Proximal Calf Veins (* superficial vessels) Right Leg: Appears negative for DVT Left Leg: Appears negative for DVT IMPRESSION: Grayscale, color doppler, spectral doppler imaging performed of the deep veins of the lo wer extremities. There is normal flow, compressibility, vascular waveforms.
== END ==
LOC: RADUSWWP 13:41
PROVIDERS: ATTEND Family Medicine
DX: M79.661 Pain in right lower leg (principal); R25.2 Cramp and spasm
CPT/HCPCS: 93970

== ENCOUNTER → 2023-01-19 | Outpatient (CLI) | payer OTHER ==
--- NOTE | 2023-01-19 11:03 | US ---
EXAMINATION TYPE: US arterial LE single level DATE OF EXAM: 01/19/2023 9:40 AM CLINICAL INDICATION: Male, 62 years old with history of R25.2 LEG CRAMPS; leg cramps. History of: Smoker: Current Smoker Hypertension: Yes Diabetic: No Hyperlipidemia: Yes TIA/CVA: No Previous Vascular Surgery: No CAD: No PA: No Vascular Ulcers: No Claudication: No Gangrene: No Doppler Waveforms: Right: Multiphasic Left: Multiphasic Ankle-Brachial Indices: Right: 1.26 Left: 1.36 Toe Brachial Indices: Right: 1.44 Left: 1.38 IMPRESSION: 1. Elevated TBI and borderline elevated bilateral SNOW can be associated with dense atherosclerotic ch andreas of the vasculature. Correlate clinically. Dedicated arteriogram may benefit the patient.
== END | disposition home or self-care (01) ==
LOC: RADUSWWP 09:01
PROVIDERS: ATTEND Family Medicine
DX: E78.5 Hyperlipidemia, unspecified (principal); I10 Essential (primary) hypertension; R25.2 Cramp and spasm
CPT/HCPCS: 93922

== ENCOUNTER 2024-03-19 08:09 | Observation (INO) | payer OTHER ==
[2024-03-19] MEDS ORDERED: methylPREDNISolone SOD SUCCI 125 MG/2 ML VIAL ONE ×2 (08:43→18:00)
[2024-03-19] MEDS ORDERED: IPRATROPIUM-ALBUTEROL 3 ML NEB ONE ×3 (08:48→19:06)
[2024-03-19] MEDS ORDERED: LORazepam 2 MG/ML INJ ONE ×3 (11:46→20:55)
[2024-03-19] MEDS ORDERED: ENALAPRILAT 1.25 MG/ML 1 ML VIAL ONE ×2 (14:03→14:53)
[2024-03-19] MEDS ORDERED: hydrALAZINE HCL 20 MG/ML 1 ML VIAL ONE (15:49)
[2024-03-19] MEDS ORDERED: cloNIDine HCL 0.2 MG TAB ONE (17:27)
[2024-03-19] MEDS ORDERED: NICOTINE 14MG/24HR PATCH TRANSDERM ONE (18:00)
[2024-03-19] MEDS ORDERED: MORPHINE SULFATE 4 MG/ML SYRINGE ONE (20:50)
[2024-03-20] MEDS ORDERED: IPRATROPIUM-ALBUTEROL 3 ML NEB ONE ×4 (00:28→04:31)
[2024-03-20] MEDS ORDERED: methylPREDNISolone SOD SUCCI 125 MG/2 ML VIAL ONE ×3 (00:41→11:41)
[2024-03-20] MEDS ORDERED: LORazepam 2 MG/ML INJ ONE ×2 (00:56→06:42)
[2024-03-20] MEDS ORDERED: guaiFENesin 600 MG TABLET.ER PO ONE (09:55)
[2024-03-20] MEDS ORDERED: NICOTINE 14MG/24HR PATCH TRANSDERM ONE (09:56)
--- NOTE | 2024-04-15 16:29 | CT ---
Patient Juan Rivera ID [id number] Order # CTA CHEST EXAMINATION TYPE: CT angio chest DATE OF EXAM: 03/19/2024 INDICATION: Dyspnea CT DLP: 348.5 mGycm, Automated exposure control for dose reduction was used. CONTRAST: Patient injected with 100 mL of Isovue 370. COMPARISON: No comparisons on downtime PACS TECHNIQUE: CT of the chest is performed on a spiral scan at 2 mm thick sections. Study is performed with intravenous contrast timed for evaluation for pulmonary embolism. This will limit additional po rtions of the evaluation. 3-D MIP images reconstructed by the technologist are reviewed on the compu ter in the coronal and sagittal planes. FINDINGS: No persistent filling defects are evident to suggest an acute pulmonary embolism. No mediastinal or hilar adenopathy enlarged by CT criteria is evident. The ascending aorta diameter at the level of the main pulmonary artery is 3.6 cm. The main pulmonary artery diameter at the bifurcation is 3.8 cm. Correlate for pulmonary hypertension. Lung windows are clear. Limited CT sections were through the upper abdomen. Upper abdomen appears unremarkable. IMPRESSION: 1. No acute pulmonary embolism. 2. No acute pulmonary process. 3. Clinical consideration for pulmonary hypertension
== END 2024-03-20 14:01 | disposition home or self-care (01) ==
LOC: 3NCARDOBS 08:09 → INTOOBSV 08:09 → UNDOADMOB 08:09 → 3NCARDOBS 14:15 → UNDODISIN 03-20 14:05
PROVIDERS: ADMIT Emergency Medicine; ATTEND Emergency Medicine
DX: J44.1 Chronic obstructive pulmonary disease with (acute) exacerbation (principal); J96.01 Acute respiratory failure with hypoxia; F10.10 Alcohol abuse, uncomplicated; F17.200 Nicotine dependence, unspecified, uncomplicated; Z11.52 Encounter for screening for COVID-19; Z79.899 Other long term (current) drug therapy; Z79.1 Long term (current) use of non-steroidal anti-inflammatories (NSAID); Z79.84 Long term (current) use of oral hypoglycemic drugs
CPT/HCPCS: 71275; 93005; 94640; 96374; 96375; 99285; 99406

== ENCOUNTER 2024-03-20 03:15 | Inpatient (IN) | payer SELFPAY ==
--- NOTE | 2024-04-24 07:30 | XR ---
Patient Juan Rivera ID [id number] Order # EXAMINATION TYPE: XR chest 2V DATE OF EXAM: 03/19/2024 COMPARISON: No comparison on downtime PACS. INDICATION: Difficulty breathing TECHNIQUE: Frontal and lateral views of the chest are obtained. FINDINGS: The heart size is normal. The pulmonary vasculature is normal. The lungs are clear. IMPRESSION: 1. No acute pulmonary process.
== END 2024-03-20 14:05 | disposition home or self-care (01) | DRG 951 ==
LOC: EDSEX → MERGE 03:15 → 3NCARDOBS 03:15
PROVIDERS: ADMIT Internal Medicine; ATTEND Internal Medicine
DX: Z53.9 Procedure and treatment not carried out, unspecified reason (principal)
CPT/HCPCS: 71046

== ENCOUNTER 2024-11-19 15:32 | Emergency (ER) | payer MEDICARE, OTHER ==
--- NOTE | 2024-11-19 16:43 | ED ---
Headache HPI - General Chief Complaint: Headache Stated Complaint: Pain R side of Head Time Seen by Provider: 11/19/24 16:40 Source: patient, RN notes reviewed Mode of arrival: ambulatory Limitations: no limitations - History of Present Illness Initial Comments: 64-year-old male presenting for headache x 1 week. Patient states he woke up 1 morning last week with a intermittent, sharp headache located on the right side of the back of the head. Reports shooting pains that shoot from the base of the neck to the top of the head. States pain improves if he lays on his right side or keeps his head down. Denies head or neck injury or trauma prior to symptom onset. Denies vision changes, nausea, vomiting. Denies history of headaches. Denies blood thinners. - Related Data Home Medications Medication Instructions Recorded Confirmed Albuterol Inhaler [Ventolin Hfa 2 puff INHALATION RT-QID PRN 01/28/21 11/19/24 Inhaler] Fluticasone/Umeclidin/Vilanter 1 puff INHALATION RT-BID 11/19/24 11/19/24 [Trelegy Ellipta 100-62.5-25] Allergies Allergy/AdvReac Type Severity Reaction Status Date / Time No Known Allergies Allergy Verified 11/19/24 18:06 Review of Systems ROS Statement: Those systems with pertinent positive or pertinent negative responses have been documented in the HPI. ROS Other: All systems not noted in ROS Statement are negative. 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 History of Any Multi-Drug Resistant Organisms: None Reported Past Surgical History: Orthopedic Surgery Additional Past Surgical History / Comment(s): ORIF LT HIP Past Anesthesia/Blood Transfusion Reactions: No Reported Reaction Past Psychological History: Unable to Obtain Smoking Status: Current every day smoker Past Alcohol Use History: Daily Past Drug Use History: Unable to Obtain - Past Family History Mother Family Medical History: Cancer General Exam Limitations: no limitations General appearance: alert, in no apparent distress Head exam: Present: atraumatic, normocephalic, normal inspection Eye exam: Present: normal appearance, PERRL, EOMI. Absent: scleral icterus, conjunctival injection, periorbital swelling ENT exam: Present: normal exam, mucous membranes moist Neck exam: Present: normal inspection. Absent: tenderness, meningismus, lymphadenopathy Neurological exam: Present: alert, oriented X3, CN II-XII intact Psychiatric exam: Present: normal affect, normal mood Skin exam: Present: warm, dry, intact, normal color. Absent: rash Course Vital Signs 11/19/24 11/19/24 15:34 18:43 Temperature 98.4 F 97.6 F Pulse Rate 91 88 Respiratory 20 18 Rate Blood Pressure 132/93 130/99 O2 Sat by Pulse 97 97 Oximetry Medical Decision Making - Medical Decision Making Was pt. sent in by a medical professional or institution (, PA, INDUSTRIAL RECRUITER, urgent care, hospital, or group home...) When possible be specific @ -No Did you speak to anyone other than the patient for history (EMS, parent, family, police, friend...)? What history was obtained from this source @ -No Did you review nursing and triage notes (agree or disagree)? Why? @ -I reviewed and agree with nursing and triage notes Were old charts reviewed (outside hosp., previous admission, EMS record, old EKG, old radiological studies, urgent care reports/EKG's, group home records)? Report findings @ -No old charts were reviewed Differential Diagnosis (chest pain, altered mental status, abdominal pain women, abdominal pain men, vaginal bleeding, weakness, fever, dyspnea, syncope, headache, dizziness, GI bleed, back pain, seizure, CVA, palpatations, mental health, musculoskeletal)? @ -Differential Headache: Migraine, tension, cluster, carbon monoxide, central venous thrombosis, pension karma temporal arteritis, acute closure glaucoma, intercranial hemorrhage, mas toiditis, sinusitis, head injury, this is not meant to be an all-inclusive list. EKG interpreted by me (3pts min.). @ -None X-rays interpreted by me (1pt min.). @ -None done CT interpreted by me (1pt min.). @ -CT brain and C-spine reveals no acute process. There is multilevel degenerative disc disease changes with endplate spurring and disc osteophyte U/S interpreted by me (1pt. min.). @ -None done What testing was considered but not performed or refused? (CT, X-rays, U/S, labs)? Why? @ -None What meds were considered but not given or refused? Why? @ -None Did you discuss the management of the patient with other professionals (professionals i.e. , PA, INDUSTRIAL RECRUITER, lab, RT, psych nurse, oncology social worker, gravity meter operator, teacher, chief communications officer, case specialist)? Give summary @ -No Was smoking cessation discussed for >3mins.? @ -No Was critical care preformed (if so, how long)? @ -No Were there social determinants of health that impacted care today? How? (Homelessness, low income, unemployed, alcoholism, drug addiction, transportation, low edu. Level, literacy, decrease access to med. care, long term, rehab)? @ -No Was there de-escalation of care discussed even if they declined (Discuss DNR or withdrawal of care, Hospice)? DNR status @ -No What co-morbidities impacted this encounter? (DM, HTN, Smoking, COPD, CAD, Cancer, CVA, ARF, Chemo, Hep., AIDS, mental health diagnosis, sleep apnea, morbid obesity)? @ -None Was patient admitted / discharged? Hospital course, mention meds given and route, prescriptions, significant lab abnormalities, going to OR and other pertinent info. @ -Discharge. 64-year-old male presenting for headache x 1 week. No injury or trauma. No blood thinners. Neurological examination is unremarkable. Patient was provided with IV fluids and headache cocktail. Lab work largely unremarkable. CT brain and C-spine reveals no acute process. I do not identify any emergent etiology causing symptoms today. Discussed results with patient. Upon reevaluation, patient reports significant improvement of symptoms. Discussed close follow-up with PCP if symptoms persist and strict return precautions. Case was discussed with my ED attending Dr. Watkins. Undiagnosed new problem with uncertain prognosis? @ -No Drug Therapy requiring intensive monitoring for toxicity (Heparin, Nitro, Insulin, Cardizem)? @ -No Were any procedures done? @ -No Diagnosis/symptom? @ -Headache Acute, or Chronic, or Acute on Chronic? @ -Acute Uncomplicated (without systemic symptoms) or Complicated (systemic symptoms)? @ -Uncomplicated Side effects of treatment? @ -No Exacerbation, Progression, or Severe Exacerbation? @ -No Poses a threat to life or bodily function? How? (Chest pain, [place], [place], pneumonia, PE, COPD, DKA, ARF, appy, cholecystitis, CVA, Diverticulitis, Homicidal, Suicidal, threat to staff... and all critical care pts) @ -No - Lab Data Result diagrams: 11/19/24 17:11 11/19/24 17:11 Lab Results 11/19/24 11/19/24 11/19/24 Range/Units 17:11 17:11 17:11 WBC 9.39 (4.50-10.00) 10*3/uL RBC 5.43 (4.40-5.60) 10*6/uL Hgb 16.1 (13.0-17.0) g/dL Hct 47.9 (39.6-50.0) % MCV 88.2 (80.0-97.0) fL MCH 29.7 (27.0-32.0) pg MCHC 33.6 (32.0-37.0) g/dL MPV 9.6 (9.5-12.2) fL Immature Gran % (Auto) 0.4 % Immature Gran # 0.04 (0.00-0.04) 10*3/uL PT 11.9 (10.0-12.5) sec INR 1.1 (<1.2) APTT 25.4 (22.0-30.0) sec Sodium 135 L (137-145) mmol/L Potassium 4.1 (3.5-5.1) mmol/L Chloride 99 (98-107) mmol/L Carbon Dioxide 24 (22-30) mmol/L Anion Gap 12 mmol/L BUN 7 L (9-20) mg/dL Creatinine 0.65 L (0.66-1.25) mg/dL Est GFR (CKD-EPI)AfAm >90 (>60 ml/min/1.73 sqM) Est GFR (CKD-EPI)NonAf >90 (>60 ml/min/1.73 sqM) Glucose 95 (74-99) mg/dL Calcium 11.8 H (8.4-10.2) mg/dL Total Bilirubin 1.1 (0.2-1.3) mg/dL AST 61 H (17-59) U/L ALT 49 (4-49) U/L Alkaline Phosphatase 54 (38-126) U/L Total Protein 8.0 (6.3-8.2) g/dL Albumin 4.6 (3.5-5.0) g/dL Disposition Clinical Impression: Headache Disposition: HOME SELF-CARE Condition: Stable Instructions (If sedation given, give patient instructions): Acute Headache (ED) Additional Instructions: Follow-up with your PCP as discussed. Please return to the Emergency Department if symptoms worsen or any other concerns. Is patient prescribed a controlled substance at d/c from ED?: No Referrals: Lori Ugalde MD [Primary Care Provider] - 1-2 days Time of Disposition: 19:02
[2024-11-19] MEDS: METOCLOPRAMIDE 5 MG/ML 2 ML VIAL IVP STA (17:25)
[2024-11-19] MEDS: SODIUM CHLORIDE 0.9% 1,000 ML IV STA (17:26)
[2024-11-19] MEDS: diphenhydrAMINE 50 MG/ML 1 ML VIAL IVP STA (17:26)
[2024-11-19] MEDS: ACETAMINOPHEN TAB 500 MG TAB PO STA (17:28)
[2024-11-19 17:30] LABS: INR 1.1 (<1.2); Partial Thromboplastin Time 25.4 sec (22.0-30.0); Prothrombin Time 11.9 sec (10.0-12.5)
[2024-11-19 17:33] LABS: ALT 49 U/L (4-49); AST 61 U/L (17-59); African American GFR (CKD) >90 (>60 ml/min/1.73 sqM); Albumin 4.6 g/dL (3.5-5.0); Alkaline Phosphatase 54 U/L (38-126); Anion Gap 12 mmol/L; Blood Urea Nitrogen 7 mg/dL (9-20); Calcium 11.8 mg/dL (8.4-10.2); Carbon Dioxide 24 mmol/L (22-30); Chloride 99 mmol/L (98-107); Glucose 95 mg/dL (74-99); Non-African American GFR(CKD) >90 (>60 ml/min/1.73 sqM); Potassium 4.1 mmol/L (3.5-5.1); Sodium 135 mmol/L (137-145); Total Bilirubin 1.1 mg/dL (0.2-1.3)
[2024-11-19 17:45] LABS: Basophils # (A) 0.14 10*3/uL (0.00-0.10); Basophils % (A) 1.5 %; Eosinophils # (A) 0.17 10*3/uL (0.04-0.35); Eosinophils % (A) 1.8 %; HCT 47.9 % (39.6-50.0); HGB 16.1 g/dL (13.0-17.0); Lymphocytes # (A) 3.09 10*3/uL (0.90-5.00); Lymphocytes % (A) 32.9 %; MCH 29.7 pg (27.0-32.0); MCHC 33.6 g/dL (32.0-37.0); MCV 88.2 fL (80.0-97.0); Mean Platelet Volume 9.6 fL (9.5-12.2); Monocytes # (A) 1.23 10*3/uL (0.20-1.00); Monocytes % (A) 13.1 %; Neutrophils # (A) 4.72 10*3/uL (1.80-7.70); Neutrophils % (A) 50.3 %; RBC 5.43 10*6/uL (4.40-5.60); RDW 13.4 % (11.5-14.5); WBC 9.39 10*3/uL (4.50-10.00)
--- NOTE | 2024-11-19 17:49 | CT ---
EXAMINATION TYPE: CT brain cspine wo con DATE OF EXAM: 11/19/2024 5:27 PM COMPARISON: Previous brain CT study 08/07/2017. CLINICAL INDICATION: Male, 64 years old with history of pain; headache x 1week TECHNIQUE: Brain: Multiple axial CT images of the brain were obtained without IV contrast. Cspine: Axial CT images from the skull base to the inferior aspect of T2 we obtained without intraven ous contrast. Coronal and sagittal reformatted images were also reviewed. . CT DLP: 1348.5 mGycm, Automated exposure control for dose reduction was used. FINDINGS: Brain: Extra-axial spaces: No abnormal extra-axial fluid collections. Ventricular system: Dilatation in proportion to cerebral atrophy. Cerebral parenchyma: No acute intraparenchymal hemorrhage or mass effect. The ayala-white junction is well differentiated. Scattered hypoattenuating areas are seen within the white matter. Cerebellum: Unremarkable. Mass effect: No evidence of midline shift. Intracranial vasculature: unremarkable Soft tissues: Normal. Calvarium/osseous structures: No depressed skull fracture. Paranasal sinuses and mastoid air cells: Clear. Visualized orbits: Orbital contents are intact. Cervical spine: Fracture: None. Osseous structures: Multilevel degenerative disc disease changes with endplate spurring and disc oste ophyte complex's. Vertebral alignment: Straightening of the normal cervical spine lordotic curvature. No significant sp ondylolisthesis. Mild multilevel anterior ossified formation. Spinal canal/Neural Foramina: Uncovertebral/facet hypertrophy and consolidation with posterior disc o steophyte complex these cause very degrees of spinal canal and neural foraminal stenosis. Neck soft tissues: Prevertebral soft tissues are within normal limits. Other: The airway is patent. The lung apices are clear. IMPRESSION: 1. No acute intracranial process. 2. No evidence of cervical spine fracture. [facility], , 11/19/2024 5:47 PM
[2024-11-19 18:46] VITALS: BP 130/99; PULSE 88; RESP 18; TEMP 97.6
[2024-11-19 20:01] LABS: Platelet Count 359 10*3/uL (140-440)
== END 2024-11-19 19:07 | disposition home or self-care (01) ==
LOC: EC 15:32
DX: R51.9 Headache, unspecified (principal); F17.200 Nicotine dependence, unspecified, uncomplicated
CPT/HCPCS: 36415; 80053; 85025; 85610; 85730; 72125; 70450; 99284; 96374; 96375; 96361; J1200; J2765